=== PATIENT | male | born 1940 | race Caucasian/White ===

== ENCOUNTER 2024-03-25 08:39 | Day surgery (SDC) | payer MEDICARE, BC, SELFPAY ==
[2024-03-25] VITALS (16 sets, daily range): BP systolic 126–162; BP diastolic 44–136
[2024-03-25 09:21] LABS: Hematocrit 30.2 % (39.0-52.0); Hemoglobin 10.3 g/dL (13.0-18.0); Mean Corp Hgb Conc. 34.1 g/dL (33.0-37.0); Mean Corpuscular Volume 105.6 fL (80.0-94.0); Mean Platelet Volume 9.7 fL (7.4-10.4); Platelet Count 175 10^3/uL (130-400); Red Blood Cell Count 2.86 10^6/uL (4.70-6.10); Red Cell Dist. Width 14.9 % (11.5-14.5); White Blood Cell Count 9.4 10^3/uL (4.8-10.8)
[2024-03-25 09:31] LABS: INR 0.96; PT 13.1 Sec (11.4-14.6)
[2024-03-25 09:32] LABS: APTT 41.5 Sec (23.4-35.0)
[2024-03-25 09:39] LABS: Blood Urea Nitrogen 71 mg/dl (9-20); Carbon Dioxide 27 mmol/L (22-30); Chloride 93 mmol/L (98-107); Glucose 110 mg/dl (70-99); Potassium 4.7 mmol/L (3.5-5.1); Sodium 136 mmol/L (135-145); eGFR 3.65
--- NOTE | 2024-03-25 10:45 | W.SUR.PREOP ---
Pre-Operative Surgical Note
-
I have examined this patient prior to the performance of the scheduled procedure.
The patient's condition is unchanged from the time of the current History and
Physical and the patient is able to undergo the scheduled procedure.
--- NOTE | 2024-03-25 22:24 | OR.RPT ---
Operative Report
Operative Report
Date of Operation: 03/25/2024
Pre Op Diagnosis: Chronic limb threatening ischemia, left lower extremity with ischemic rest pain and nonhealing hallux wound
Post Op Diagnosis: Chronic limb threatening ischemia, left lower extremity with ischemic rest pain and nonhealing hallux wound
Procedure:
1.) Intravascular lithotripsy to left anterior tibial artery (Shockwave Javelin catheter)
2.) Balloon angioplasty to distal left anterior tibial artery and dorsalis pedis artery (2 mm x 150 mm angioplasty balloon)
3.) Intravascular lithotripsy to left posterior tibial artery (Shockwave Javelin catheter)
4.) Balloon angioplasty to left posterior tibial artery (2.5 mm x 120 mm angioplasty balloon)
5.) Diagnostic aortobiiliac arteriogram using CO2
6.) Diagnostic left lower extremity arteriogram using CO2 and 1/4 strength contrast
7.) Ultrasound-Guided percutaneous access to the right common femoral artery
Surgeon: Rolo Pascual III, MD
Turkish Rubber: Derrick Curtis MD PhD, PGY2
Anesthesia: Sedation with local
Complications: None
Estimated Blood Loss: Less than 20 cc
History and Indications for Procedure: 83-year-old male with chronic limb threatening ischemia of the left lower extremity manifested by ischemic rest pain and a nonhealing hallux wound
Procedure in Detail: Alexis Welsh was correctly identified and placed supine on the operating table. After adequate induction of anesthesia the bilateral groins were prepped and draped in the usual sterile fashion. A timeout was performed with the
nursing and anesthesia staff confirming the patient's identity as well as the nature and laterality of the procedure.
The right common femoral artery was identified under ultrasound guidance. The artery was patent. The superior and inferior aspects of the femoral head were identified with radiographic guidance and marked at the skin level. The proposed puncture
site was infiltrated with local anesthesia. Under ultrasound guidance we accessed the right common femoral artery with a micropuncture needle and upsized to a 5 Fr sheath over a Pro[employer] Healthson wire. The wire and a [employer] hook flush catheter were
advanced into the distal abdominal aorta and a diagnostic aorto-biiliac arteriogram was performed using CO2:
AORTO-ILIAC ARTERIOGRAM:
Aorta: Patent with no stenosis identified
Right common iliac artery: Patent with no stenosis identified
Right external iliac artery: Patent with no stenosis identified
Left common iliac artery: Patent with no stenosis identified
Left external iliac artery: Patent with no stenosis identified
Under roadmap guidance using a Glidewire and the Cloakroom hook catheter we selected the left common iliac artery and then the external iliac artery. A catheter was tracked up and over the aortic bifurcation and placed in the distal external iliac
artery. A diagnostic left lower extremity arteriogram was then performed with a combination of CO2 and 1/4 strength contrast which demonstrated the following:
LEFT LOWER EXTREMITY:
Common femoral artery: Patent with no stenosis identified
Profunda femoral artery: Patent with no stenosis identified
Superficial femoral artery: Diffusely calcified. Patent. No significant stenosis identified
Popliteal artery: Calcified. Patent. No significant stenosis identified
The superficial femoral artery and popliteal artery were selected with a Glidewire and Quickcross catheter. The catheter was placed in the above-knee popliteal artery and the remainder of the arteriogram was performed through this approach with 1/4
strength contrast:
Anterior tibial artery: Patent. Long length high-grade stenosis identified at the distal artery and extending into the dorsalis pedis artery
Tibioperoneal trunk: Patent
Peroneal artery: Patent
Posterior tibial artery: Patent with heavy calcification and scattered areas of stenosis. Heavily diseased distally with areas of high-grade stenosis and segmental occlusion. Severe small vessel disease identified in the plantar distribution
Severe small vessel disease identified in the foot
ENDOVASCULAR INTERVENTION: Systemic heparin was administered. Exchanged out for a 5 Fr 70 cm sheath over a Storq wire. Selected the anterior tibial artery under roadmap guidance with Quickcross catheter and glidewire. The catheter was advanced to
the distal artery. A [place] ST 0.014 wire was then advanced under roadmap guidance through the heavily diseased distal anterior tibial artery and positioned in the dorsalis pedis artery. Due to the heavily calcified nature of the arterial disease
and in an effort to modify the calcium to achieve maximum luminal gain with endovascular intervention I elected to proceed with intravascular lithotripsy. A Shockwave Javelin catheter was brought into position over the 0.014 wire. Under roadmap
guidance we slowly advanced the Javelin catheter over the 0.014 wire while continuously delivering lithotripsy pulses across the calcified anterior tibial artery disease. All 120 pulses were delivered. Subsequent arteriogram demonstrated a
significantly improved but suboptimal result. I then brought into position a 2 mm x 150 mm angioplasty balloon. This was positioned across the distal anterior tibial artery and proximal dorsalis pedis artery under roadmap guidance. The balloon
was inflated to nominal pressure, held in place for 3 minutes. 2 separate inflations were performed to treat the entire length of residual disease. Subsequent arteriogram demonstrated an excellent technical result with a widely patent anterior
tibial artery and dorsalis pedis artery with brisk flow and no significant residual stenosis identified. Flow was significantly improved through this artery compared to pretreatment.
I then focused my attention on the posterior tibial artery disease. Using a Glidewire and Quickcross catheter we selected the posterior tibial artery. The calcified stenoses in the mid and proximal artery were crossed with this approach. We
advanced the catheter to the severe disease distally. I then exchanged out for a 0.014 wire. Due to the heavily calcified nature of the arterial disease and in an effort to modify the calcium to achieve maximum luminal gain with endovascular
intervention I elected to proceed with intravascular lithotripsy. A Shockwave Javelin catheter was brought into position over the 0.014 wire. Lithotripsy pulses were delivered as the catheter was advanced under roadmap guidance across the proximal
and mid artery calcified stenoses. Despite multiple attempts we could not successfully advance the Javelin catheter over the 0.014 wire through the severe disease in the distal posterior tibial artery. All 120 pulses were delivered to the
posterior tibial artery. Subsequent to this I brought into position a 2.5 mm x 120 mm angioplasty balloon. This was positioned across the proximal and mid posterior tibial artery under roadmap guidance and inflated to nominal pressure. Additional
attempts were made to advance a 0.014 wire and catheter across the distal disease but we were unsuccessful. Additional attempts to cross the posterior tibial artery disease were abandoned.
COMPLETION ARTERIOGRAM: Patent anterior tibial artery and dorsalis pedis artery which supplied the forefoot. Significant high-grade stenosis and focal segmental occlusion seen in the distal posterior tibial artery. Heavily calcified posterior
tibial artery. Significant small vessel disease identified in the foot.
Satisfied with this result we concluded the procedure. The sheath tip was pulled back into the right external iliac artery. Protamine was administered. The sheath was secured in place with the plan to pull it in the recovery room.
The patient tolerated the procedure well and was taken to the recovery area in stable condition.
Attestation: I was present and responsible for the entire procedure.
Signed:
Rolo Pascual III, MD
[facility]
[phone] (euaj)
== END 2024-03-25 18:11 | disposition home or self-care (01) ==
LOC: CATH 08:39
PROVIDERS: ATTENDING PHYSICIAN Surgery Vascular Surgery; FAMILY PHYSICIAN Family Medicine; OTHER PHYSICIAN Internal Medicine Cardiovascular Disease
DX: I70.245 Atherosclerosis of native arteries of left leg with ulceration of other part of foot (principal); L97.529 Non-pressure chronic ulcer of other part of left foot with unspecified severity; I12.9 Hypertensive chronic kidney disease with stage 1 through stage 4 chronic kidney disease, or unspecified chronic kidney disease; N18.9 Chronic kidney disease, unspecified; I48.91 Unspecified atrial fibrillation; Z79.01 Long term (current) use of anticoagulants
CPT/HCPCS: C9772; C1725; C1894; 75625; 75710; 76937; 80048; 85027; 85610; 85730; C1769; Q9967

== ENCOUNTER → 2024-03-30 11:26 | Outpatient (REF) | payer MEDICARE, BC, SELFPAY | LOC: RAD 11:26 | PROVIDERS: ATTENDING PHYSICIAN Surgery Vascular Surgery; FAMILY PHYSICIAN Family Medicine | DX: I73.9 Peripheral vascular disease, unspecified (principal); Z01.818 Encounter for other preprocedural examination | CPT/HCPCS: 93922; 93971 ==

== ENCOUNTER 2024-04-18 13:10 | Inpatient (IN) | payer MEDICARE, BC, SELFPAY ==
[2024-04-18] VITALS (12 sets, daily range): BP systolic 119–171; BP diastolic 50–61; BMI 32.2
[2024-04-18 08:15] LABS: Hematocrit 35.5 % (39.0-52.0); Hemoglobin 11.3 g/dL (13.0-18.0); Mean Corp Hgb Conc. 31.8 g/dL (33.0-37.0); Mean Corpuscular Hgb 33.4 pg (27.0-31.0); Mean Platelet Volume 9.6 fL (7.4-10.4); Platelet Count 224 10^3/uL (130-400); Red Blood Cell Count 3.38 10^6/uL (4.70-6.10); Red Cell Dist. Width 14.2 % (11.5-14.5); White Blood Cell Count 10.8 10^3/uL (4.8-10.8)
[2024-04-18 08:24] LABS: INR 1.02; PT 13.7 Sec (11.4-14.6)
[2024-04-18 08:25] LABS: APTT 41.5 Sec (23.4-35.0)
[2024-04-18 09:00] LABS: Blood Urea Nitrogen 48 mg/dl (9-20); Calcium 9.4 mg/dl (8.4-10.2); Carbon Dioxide 25 mmol/L (22-30); Chloride 93 mmol/L (98-107); Estimated Creatinine Clearance 6 ml/min; Glucose 101 mg/dl (70-99); Potassium 4.7 mmol/L (3.5-5.1); Sodium 132 mmol/L (135-145); eGFR 3.91
[2024-04-18 10:43] LABS: ACT-LR - POC 363 Seconds (116-155)
[2024-04-18 11:43] LABS: ACT-LR - POC 268 Seconds (116-155)
[2024-04-18] MEDS: LOW STRENGTH ASPIRIN 81 MG PO (13:43)
--- NOTE | 2024-04-18 13:55 | W.IMMPOSTOP ---
Surgical Immed Post Op Note
-
Primary Surgeon: Dr. Rolo Pascual III, MD
Assisting Surgeon: Derrick Curtis MD, PhD (PGY-2)
Pre-op Diagnosis: Peripheral arterial disease with non healing wounds on toes bilaterally
Post-op Diagnosis: Peripheral arterial disease with non healing wounds on toes bilaterally
Procedure Performed: Transcatheter arterialization of the deep veins, right lower extremity (LimFlow)
Anesthesia Type: General
Specimen / Cultures: None
Estimated Blood Loss: Minimal
Complications: None
Operative Findings: The patient was brought to the OR and placed in the supine position. The patient was prepped and draped in usual sterile fashion. A tourniquet was placed on the patients left calf. Percutaneous access was obtained in the medial
plantar vein with ultrasound guidance. A 4Fr sheath was placed over wire in the medial plantar vein. At the patient's groin, ultrasound guidance was used to access the proximal left SFA antegrade. This was upsized to a 7Fr sheath over a bentson
wire. A left lower extremity arteriogram showed a patent SFA and popliteal artery. Distally the AT was the single run off to the foot (DP). The TP trunk was patent but both the PT and peroneal arteries were significantly diseased and occluded
long term. A quickcross catheter was advanced into the posterior tibial artery over a wire. The arterial catheter was advanced over the proximal left PT artery. The venous catheter was advanced over wire to the posterior tibial vein. The crossing
device was deployed, a basket snare was used to snare the crossing wire, and the arteriovenous anastomosis was made. The AV anastomosis underwent balloon angioplasty. The valvulotome was then advanced from the groin into the vein to remove the
valves. A balloon angioplasty was performed along the course of the vein to the foot. We then deployed the Limflow stent grafts from distal to proximal across the anastomosis. We finally advanced a wire into the plantar veins and venous arch system.
We performed a balloon angioplasty to open up the plantar venous system. Completion arteriogram was performed and showed widely patent stents across the PT to the venous system. There was good outflow into the plantar venous system. The venous
sheath on the foot was removed and manual pressure was held. The patient was transferred to the PACU in stable condition and the groin sheath was removed. Doppler signals were noted in the left distal PT vein, plantar vein, and at the DP.
--- NOTE | 2024-04-18 15:02 | OR.RPT ---
Operative Report
Operative Report
Date of Operation: 04/18/2024
Pre Op Diagnosis:
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
Atherosclerosis of lytton arteries of the left leg with ischemic rest pain
Chronic total occlusion of artery of the extremities
End stage renal disease
Post Op Diagnosis:
Atherosclerosis of lytton arteries of the left leg with ulceration of the toes
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
Atherosclerosis of lytton arteries of the left leg with ischemic rest pain
Chronic total occlusion of artery of the extremities
End stage renal disease
Procedure:
Transcatheter arterialization of the deep veins, left lower extremity (LimFlow procedure)
0620T: Endovascular venous arterialization, tibial or peroneal vein, with transcatheter placement of intravascular
stent graft(s) and closure by any method, including percutaneous or open vascular access, ultrasound guidance for vascular access when performed, all catheterization(s) and intraprocedural roadmapping and imaging guidance necessary to complete the
intervention, all associated radiological supervision and interpretation, when performed
[id number]: Bypass left posterior tibial artery to lower extremity vein with synthetic substitute, percutaneous approach
Surgeon: Rolo Pascual III, MD
Attendant Sales: Derrick Curtis MD PhD, PGY2
Anesthesia: General
Complications: None
Estimated Blood Loss: Less than 50 cc
History and Indications for Procedure: 83-year-old male with chronic limb threatening ischemia of his left lower extremity manifested by gangrene of the toes and ischemic rest pain. Arteriogram demonstrated severe tibial artery and small vessel
occlusive disease. There were no targets for traditional revascularization efforts, either open or endovascular. I made the recommendation that he undergo transcatheter arterialization of the deep veins.
Procedure in Detail: Alexis Welsh was brought back to the operating room and placed supine on the
OR table. General anesthesia was induced. Preoperative antibiotics were given. The patient�s left lower extremity with the left foot were prepped and draped in the usual sterile fashion.
Patient was placed in reverse Trendelenburg position A sterile tourniquet was applied to the left calf and inflated while obtaining venous access. I attempted several times to gain access to the lateral plantar vein and was successful with needle
cannulation but could not pass the wire successfully. Multiple failed attempts were made like this. Then we obtained ultrasound guided percutaneous access in the distal posterior tibial vein at the distal calcaneus using a micropuncture technique.
We upsized to a 4Fr sheath. A 0.014 wire was then advanced to the posterior tibial vein. A venogram was performed confirming access to the venous system.
Attention was then turned to the patient�s left groin. We first obtained antegrade percutaneous access in the left proximal superficial femoral artery using fluoroscopic and ultrasound guidance. We upsized to a 7Fr sheath over a Enth[place]on wire, which
was advanced into the Superficial Femoral Artery (SFA). We obtained a left lower extremity angiogram, which demonstrated the following:
Patent popliteal artery. Patent anterior tibial artery which continued into the foot following recent endovascular intervention. Patent peroneal artery. Patent posterior tibial artery which occluded distally. Unusual branching pattern of the
tibial arteries in the proximal calf.
Systemic heparin was administered. We used a Quickcross catheter and 0.014 wire to select the posterior tibial artery. We advanced the LimFlow ARC� Arterial Catheter into the proximal left posterior tibial artery. We advanced the LimFlow V-Ceiver�
Venous Catheter to the Posterior Tibial vein from the 4 Kitt[place] sheath in the foot at the same approximate level. The fluoroscopy unit was rotated in such a way as to overlay the crossing device and snare. The LimFlow crossing device (ARC) needle was
deployed into the Posterior Tibial Vein. A 0.014 wire was advanced through the crossing device into the venous snare (V-Ceiver) where it was captured and subsequently withdrawn
through the venous sheath, providing through and through wire access. The arteriovenous connection was ballooned with a 3 mm balloon. Next, the forward cutting LimFlow Vector� Valvulotome was advanced from the arterial sheath across the
arteriovenous connection into the Posterior Tibial Vein. The valvulotome was deployed and advanced down the vein in order to lyse the venous valves to the distal-most aspect of the posterior tibial vein near the sheath insertion. A 5 mm x 200 mm
balloon was used to angioplasty the donor vein to confirm adequate valve effacement and absence of stenosis within the donor vein in preparation for stent placement. We then deployed two LimFlow cylindrical stent grafts (5.5mm x 150mm and 5.5mm x
200mm) in the Posterior Tibial Vein from the ankle extending proximally up the calf. Next the tapered conical stent (3.5-5.5mm x 60 mm) was deployed proximally across the level of the arteriovenous connection. The stent grafts were post-dilated to 3
mm in the arterial segment and 5 mm in the venous segment. A 6 mm [place] high-pressure balloon was used to treat the distal end of the stent and an area of high-grade residual stenosis just beyond the end of the stent in the posterior tibial vein.
The foot sheath was retracted to allow for sarthak wiring of the metatarsal aspect of the plantar veins from the 7 Kittitian sheath above. The 0.014 wire and 0.014 Quickcross catheter were carefully advanced under roadmap guidance across the plantar
vein outflow and the pedal venous loop. A 4 mm x 120 mm balloon was placed across the venous loop and the plantar vein outflow and inflated to burst pressure. 2 separate inflations were made across the pedal loop and back towards the end of the
stents to cover this entire length. I then repeated the balloon angioplasty across this same pedal venous loop and plantar vein outflow segment with the 5 mm x 200 mm angioplasty balloon used previously. The pedal sheath was removed and venous
access hemostasis was obtained. The balloon was then deflated and removed.
A completion angiogram demonstrated widely patent Posterior Tibial stents and robust filling of the pedal venous system. The 7 Kitt[place] sheath was retracted into the more proximal SFA and secured in place with the plan to pull it in the recovery
room. Protamine was administered.
Handheld Doppler was performed at the distal Posterior Tibial Vein, Lateral Plantar Vein, and outflow Greater Saphenous Vein and an audible pulsatile signal was heard at all points.
The patient tolerated the procedure well awoke from anesthesia with no immediate complications and was taken to the recovery room in stable condition.
Attestation: I was present and responsible for the entire procedure
Signed:
Rolo Pascual III, MD
[facility]
[phone] (fbmc)
[2024-04-18] MEDS: DILAUDID 0.5 MG IV ×2 (15:09→21:29)
[2024-04-18] MEDS: RENVELA 800 MG PO ×2 (16:27→21:29)
[2024-04-18] MEDS: NSS 500 IV (16:27)
[2024-04-18] MEDS: FLOMAX 0.4 MG PO (16:27)
[2024-04-18] MEDS: LIPITOR 20 MG PO (16:27)
--- NOTE | 2024-04-18 17:25 | W.CON.NEPH ---
Consultation
-
Date/Time Consultation Requested: 04/18/2024 at 1 PM
Date/Time Consultation Performed: 04/18/2024 at 5 PM
Requesting Provider: KAREN Sims
Performing Provider: Dr Lucas Segundo
Reason for Consultation: ESRD/PD
Medical History
-
Chief Complaint: End-stage renal disease
History of Present Illness:
83-year-old male with a significant vasculopath with peripheral artery disease, hypertension, secondary hyperparathyroidism, mixed hyperlipidemia end-stage renal disease on peritoneal dialysis has been on peritoneal dialysis for 3 years which she
developed acute kidney injury secondary to sepsis initiating hemodialysis. He presents to the hospital for elective revascularization of his left lower extremity secondary to ischemia.
Renal consult for end-stage renal disease and peritoneal dialysis management
Currently has no chest pain shortness breath nausea or vomiting he is a status post revascularization of his left lower extremity
Past Medical History
peripheral artery disease, hypertension, secondary hyperparathyroidism, mixed hyperlipidemia end-stage renal disease on peritoneal dialysis has been on peritoneal dialysis for 3 years which she developed acute kidney injury secondary to sepsis
initiating hemodialysis. He presents to the hospital for elective revascularization of his left lower extremity secondary to ischemia.
Social History
Former smoker
Family History
No renal disease
Allergies / Home Medications
Allergy/AdvReac Type Severity Reaction Status Date / Time
Iodinated Contrast Media Allergy Nausea, Verified 04/18/24 07:56
kidney
failure
�Medication �Instructions �Recorded �Confirmed �Type
B-complex with vitamin C 1 tab PO BID Supplement 03/23/24 04/18/24 History
amiodarone 100 mg tablet 100 mg PO DAILY Arrhythmia 03/23/24 04/18/24 History
apixaban 5 mg tablet (Eliquis) 5 mg PO BID Blood Clot 03/23/24 04/18/24 History
Prevention/Tx
atorvastatin 20 mg tablet 20 mg PO QPM High Cholesterol 03/23/24 04/18/24 History
cholecalciferol (vitamin D3) 25 25 mcg PO DAILY Supplement 03/23/24 04/18/24 History
mcg (1,000 unit) tablet (Vitamin
D3)
coQ10 (ubiquinol) 100 mg capsule 100 mg PO DAILY Supplement 03/23/24 04/18/24 History
dipyridamole 50 mg tablet 50 mg PO DAILY Blood Clot 03/23/24 04/18/24 History
Prevention/Tx
hydralazine 10 mg tablet 10 mg PO BID Blood Pressure 03/23/24 04/18/24 History
metoprolol succinate 25 mg 25 mg PO DAILY Blood Pressure 03/23/24 04/18/24 History
tablet,extended release 24 hr
omeprazole 20 mg tablet,delayed 20 mg PO DAILY Gastrointestinal 03/23/24 04/18/24 History
release Issue
sevelamer carbonate 800 mg tablet 800 mg PO TID Kidney Disease 03/23/24 04/18/24 History
(Renvela)
sucroferric oxyhydroxide 500 mg 500 mg PO TID Kidney Disease 03/23/24 04/18/24 History
chewable tablet (Velphoro)
tamsulosin 0.4 mg capsule 0.4 mg PO QPM Urinary Issue 03/23/24 04/18/24 History
diphenhydramine HCl 50 mg capsule 50 mg PO PRE OP 04/13/24 04/18/24 History
prednisone 50 mg tablet 50 mg PO PRE OP Anti-Inflammatory 04/13/24 04/18/24 History
B-complex with vitamin C 1 tab PO DAILY Supplement 04/18/24 04/18/24 History
allopurinol 100 mg tablet 100 mg PO DAILY gout 04/18/24 04/18/24 History
docusate sodium 50 mg capsule 50 mg PO BID Constipation 04/18/24 04/18/24 History
tramadol 50 mg tablet 50 mg PO Q6H PRN pain 04/18/24 04/18/24 History
Review of Systems
-
No shortness of breath, chest pain, nausea or vomiting
All other systems: Negative unless noted
Physical Exam
Vital Signs
Vital Signs
Temp Pulse Resp BP Pulse Ox
98.5 F 66 17 138/50 98
04/18/24 15:03 04/18/24 15:03 04/18/24 15:03 04/18/24 15:03 04/18/24 15:03
Lab Results
WBC 10.8 10^3/uL (4.8-10.8) 04/18/24 07:57
RBC 3.38 10^6/uL (4.70-6.10) L 04/18/24 07:57
Hgb 11.3 g/dL (13.0-18.0) L 04/18/24 07:57
Hct 35.5 % (39.0-52.0) L 04/18/24 07:57
Plt Count 224 10^3/uL (130-400) 04/18/24 07:57
Sodium 132 mmol/L (135-145) L 04/18/24 07:57
Potassium 4.7 mmol/L (3.5-5.1) 04/18/24 07:57
Chloride 93 mmol/L (98-107) L 04/18/24 07:57
Carbon Dioxide 25 mmol/L (22-30) 04/18/24 07:57
BUN 48 mg/dl (9-20) H 04/18/24 07:57
Creatinine 11.8 mg/dL (0.7-1.3) H* 04/18/24 07:57
eGFR 3.91 04/18/24 07:57
Glucose 101 mg/dl (70-99) H 04/18/24 07:57
Calcium 9.4 mg/dl (8.4-10.2) 04/18/24 07:57
Physical Exam
General: Awake and Alert
HEENT: EOMI, Conjunctivae Clear and No JVD
Respiratory: Clear
Cardiac: S1/S2 and Regular Rate/Rhythm (With ectopy)
Abdomen: Soft, Nontender and Other (Tenckhoff catheter in place dry and intact)
Genito-urinary: Bloody Urine
Musculoskeletal: Edema and Other (Dry gangrene lower extremity)
Neuro: Nonfocal/Grossly Intact
Psych: Mood/afflect pleasant
Data Reviewed
-
Labs: Labs Reviewed by me
Assessment/Plan
-
83-year-old male with a significant vasculopath with peripheral artery disease, hypertension, secondary hyperparathyroidism, mixed hyperlipidemia end-stage renal disease on peritoneal dialysis has been on peritoneal dialysis for 3 years which she
developed acute kidney injury secondary to sepsis initiating hemodialysis. He presents to the hospital for elective revascularization of his left lower extremity secondary to ischemia.
ESRD on peritoneal dialysis
Peripheral artery disease status post revascularization
Hypertension
Anemia of chronic disease
Peritoneal dialysis ordered manual treatments
Performs a cycler at home 10-hour treatment/5 exchanges/3 L bags with alternating 1.5 and 2.5% no last fill
Hospital orders placed for manual 3 exchanges with a 4-hour dwell with a 2.5%
[2024-04-18] MEDS: ROXICODONE 5 MG PO (18:26)
[2024-04-18] MEDS: TYLENOL 650 MG PO (20:43)
[2024-04-18] MEDS: APRESOLINE 10 MG PO (20:45)
[2024-04-18] MEDS: HEPARIN 5000 UNITS SC (20:46)
[2024-04-18] MEDS: B COMPLEX w/VITAMIN C 1 CAPLET PO (20:46)
--- NOTE | 2024-04-18 22:50 | PTCARENOTE ---
Pt transferred to IMU to have peritoneal dialysis, report given over phone to receiving RN. Pt medicated for pain 12/11 from b/l LE shortly prior transfer. Left LE sites remain CDI, no signs of bleeding or hematoma noted, pulses present with dopler.
--- NOTE | 2024-04-18 23:15 | PTCARENOTE ---
Patient transported to IMU from [address] [place] [address] in the bed. Received report from RN over the phone. Pt AAOx3. Bilateral dorsalis pedis pulses present with Doppler. L groin puncture site dressing clean, dry, and intact with no evidence of bleeding. L medial
leg puncture site dressing clean, dry, and intact with no signs of bleeding. Pt to receive peritoneal dialysis, see worklist. Pt denies any pain at this time. Oriented to the unit and educated on the call carlson, it is within reach.
[2024-04-19] VITALS (14 sets, daily range): BP systolic 127–180; BP diastolic 51–94; BMI 33.2
[2024-04-19 05:37] LABS: Hematocrit 29.9 % (39.0-52.0); Hemoglobin 9.5 g/dL (13.0-18.0); Mean Corp Hgb Conc. 31.8 g/dL (33.0-37.0); Mean Corpuscular Hgb 33.8 pg (27.0-31.0); Mean Corpuscular Volume 106.4 fL (80.0-94.0); Platelet Count 198 10^3/uL (130-400); Red Blood Cell Count 2.81 10^6/uL (4.70-6.10); Red Cell Dist. Width 14.4 % (11.5-14.5); White Blood Cell Count 12.9 10^3/uL (4.8-10.8)
[2024-04-19 05:45] LABS: INR 0.95
[2024-04-19 05:46] LABS: APTT 37.1 Sec (23.4-35.0)
[2024-04-19] MEDS: TUMS CHEWABLE TABLET 400 MG PO ×2 (05:54→20:54)
[2024-04-19 06:01] LABS: Blood Urea Nitrogen 59 mg/dl (9-20); Calcium 8.5 mg/dl (8.4-10.2); Carbon Dioxide 24 mmol/L (22-30); Chloride 92 mmol/L (98-107); Glucose 111 mg/dl (70-99); Potassium 4.8 mmol/L (3.5-5.1); Sodium 132 mmol/L (135-145)
[2024-04-19 06:15] LABS: Estimated Creatinine Clearance 6 ml/min; eGFR 3.76
[2024-04-19] MEDS: PERSANTINE 50 MG PO (07:53)
[2024-04-19] MEDS: PACERONE 100 MG PO (07:54)
[2024-04-19] MEDS: APRESOLINE 10 MG PO ×2 (07:54→20:54)
[2024-04-19] MEDS: PROTONIX 40 MG PO (07:54)
[2024-04-19] MEDS: COLACE 100 MG PO (07:54)
[2024-04-19] MEDS: ZYLOPRIM 100 MG PO (07:54)
[2024-04-19] MEDS: TOPROL XL 25 MG PO (07:54)
[2024-04-19] MEDS: VITAMIN D3 (cholecalciferol) 25 MCG PO (07:54)
[2024-04-19] MEDS: RENVELA 800 MG PO ×2 (07:54→16:21)
[2024-04-19] MEDS: LOW STRENGTH ASPIRIN 81 MG PO (07:55)
[2024-04-19] MEDS: DILAUDID 0.5 MG IV ×2 (07:55→22:56)
[2024-04-19] MEDS: B COMPLEX w/VITAMIN C 1 CAPLET PO ×2 (07:55→20:54)
[2024-04-19] MEDS: HEPARIN 5000 UNITS SC ×2 (07:55→20:54)
--- NOTE | 2024-04-19 08:07 | W.PN.VS ---
Today's Communication / Plan
-
Patient seen and examined at bedside with Dr. Rolo Gann III, below plan reviewed with attending.
Assessment/Plan
-
Assessment: 83 year old male POD#1 Transcatheter arterialization of the deep veins, left lower extremity (LimFlow procedure)
Plan:
Urology consult pending for hematuria
Continue to hold home Eliquis given gross hematuria
Continue gann catheter
Continue ASA 81 mg PO daily
Appreciate nephrology management of PD
Subjective Data
-
Date of Service: April 19, 2024
Patient seen and examined at bedside, offers no complaints. Denies nausea, vomiting, fever, and chills.
Objective Data
-
Vital Signs
Temp Pulse Resp BP Pulse Ox
97.6 F 67 16 151/62 97
04/19/24 03:19 04/19/24 06:04 04/18/24 19:38 04/19/24 06:04 04/19/24 02:17
Intake and Output
04/18/24 04/19/24 04/20/24
06:59 06:59 06:59
Intake Total 950 / 950
Output Total 130 / 130
Balance 820 / 820
Intake:
Oral fluids 300 / 300
IV fluids (Total) 50 / 50
NSS 50 / 50
Fluid excess 600 / 600
Output:
Urine, Gann 130 / 130
Lab Results
04/19/24 05:07
04/19/24 05:07
Calcium 8.5 mg/dl (8.4-10.2) 04/19/24 05:07
Physical Exam
-
NAD, resting comfortably
No tachycardia
No dyspnea
ABD with PD catheter, CDI, non-tender
Left leg puncture site CDI, left DP/PT doppler signal, foot warm
Gann with gross hematuria
--- NOTE | 2024-04-19 10:11 | W.PN.URO.CBU ---
Today's Communication / Plan
-
Hold Eliquis: aspirin and SC heparin continued as per Vascular Surgery
Keep Pascual catheter
Will follow
Assessment / Plan
-
Gross hematuria likely due to Pascual irritation in this patient who has been on Eliquis and who has a history of BPH managed medically
Diagnosis
-
Date of Service: April 19, 2024
-
Patient Diagnosis:
Gross hematuria/catheter trauma
History of BPH managed by Dr. Mejia
No history of surgery
No prior history of gross hematuria
Subjective
-
Comfortable
No catheter bother
Objective
-
Vital Signs
Temp Pulse Resp BP Pulse Ox
97.7 F 70 16 145/59 97
04/19/24 07:30 04/19/24 08:00 04/18/24 19:38 04/19/24 08:00 04/19/24 02:17
Intake and Output
04/18/24 04/19/24 04/20/24
06:59 06:59 06:59
Intake Total 950 / 950
Output Total 130 / 130
Balance 820 / 820
Intake:
Oral fluids 300 / 300
IV fluids (Total) 50 / 50
NSS 50 / 50
Fluid excess 600 / 600
Output:
Urine, Pascual 130 / 130
Laboratory Results
04/19/24 05:07
04/19/24 05:07
Review of Systems
-
Constitutional: Fatigue
Respiratory: No Symptoms
Cardiac: No Symptoms
Abdomen/GI: No Symptoms
: Bleeding
Physical Exam
-
General - no acute distress
Abdomen - soft, non-tender, no CVAT
Genitalia - indwelling Pascual catheter with grossly bloody urine w/o clot, left > right scrotal edema w/o erythema
Neuro - AOx3, no motor deficits
Counseling
-
Keep Pascual
--- NOTE | 2024-04-19 11:14 | W.PN.NEPH.PH ---
Today's Communication / Plan
-
Continue peritoneal dialysis per prescription
Assessment/Plan
-
83-year-old male with a significant vasculopath with peripheral artery disease, hypertension, secondary hyperparathyroidism, mixed hyperlipidemia end-stage renal disease on peritoneal dialysis has been on peritoneal dialysis for 3 years which she
developed acute kidney injury secondary to sepsis initiating hemodialysis. He presents to the hospital for elective revascularization of his left lower extremity secondary to ischemia.
ESRD on peritoneal dialysis
Peripheral artery disease status post revascularization
Hypertension
Anemia of chronic disease
Hematuria= urology noted
Peritoneal dialysis ordered manual treatments
Performs a cycler at home 10-hour treatment/5 exchanges/3 L bags with alternating 1.5 and 2.5% no last fill
Hospital orders placed for manual 3 exchanges with a 4-hour dwell with a 2.5%
Continue current prescription
-
-
Date of Service: April 19, 2024
CC / HPI / ROS
-
Chief Complaint:
End-stage renal disease PD
History of Present Illness:
Presents for revascularization lower extremity peripheral artery disease
Hematuria developed with Pascual catheter placement in the OR
Review of Systems:
No chest pain shortness of breath nausea or vomiting
Pascual catheter continues to have gross hematuria and oligo/anuric
Labs
-
Labs:
WBC 12.9 10^3/uL (4.8-10.8) H 04/19/24 05:07
RBC 2.81 10^6/uL (4.70-6.10) L 04/19/24 05:07
Hgb 9.5 g/dL (13.0-18.0) L 04/19/24 05:07
Hct 29.9 % (39.0-52.0) L 04/19/24 05:07
Plt Count 198 10^3/uL (130-400) 04/19/24 05:07
Sodium 132 mmol/L (135-145) L 04/19/24 05:07
Potassium 4.8 mmol/L (3.5-5.1) 04/19/24 05:07
Chloride 92 mmol/L (98-107) L 04/19/24 05:07
Carbon Dioxide 24 mmol/L (22-30) 04/19/24 05:07
BUN 59 mg/dl (9-20) H 04/19/24 05:07
Creatinine 12.2 mg/dL (0.7-1.3) H* 04/19/24 05:07
eGFR 3.76 04/19/24 05:07
Glucose 111 mg/dl (70-99) H 04/19/24 05:07
Calcium 8.5 mg/dl (8.4-10.2) 04/19/24 05:07
Physical Exam
-
Vital Signs:
Vital Signs
Temp Pulse Resp BP Pulse Ox
97.7 F 69 16 139/94 97
04/19/24 07:30 04/19/24 10:01 04/18/24 19:38 04/19/24 10:01 04/19/24 02:17
Respiratory:: Bilateral: CTA
Lung Excursion:: Normal
Abdomen:: Soft and Tender (Tenckhoff catheter in place/dry with no erythema or drainage)
Bowel Sounds:: Normal
Extremity Edema:: +1: Bilateral:
Pascual Catheter: Yes
[2024-04-19] MEDS: ROXICODONE 5 MG PO (16:22)
[2024-04-19] MEDS: FLOMAX 0.4 MG PO (16:22)
[2024-04-19] MEDS: LIPITOR 20 MG PO (16:22)
--- NOTE | 2024-04-19 16:50 | STATUS ---
SITUATION:
Scrotal / penial edema worsening, pt concerned.
BACKGROUND:
Pascual in place, hematuria. PD manual cycles.
ASSESSMENT:
Scrotum/ penis +3-4 worsening with PD fill cycle.
RECOMMENDATION:
TT Dr. Rice, not much to do- explanation provided to pt. Will monitor.
--- NOTE | 2024-04-19 17:08 | CM ---
Patient with Hx ESRD on peritoneal dialysis who is s/p Transcatheter arterialization of the deep veins, left lower extremity. Room air. Receiving IV Dilaudid prn, Roxicodone prn.
Spoke with patient's Mayra;
the patient resides with his in a 2 story house with no CHARITY and first floor setup.
He was independent in ADLs and ambulation for short distances using his RW.
The patient does his own PD and has plenty of supplies at home. His dialysis center is [facility].
DME - RW, SPC, CPAP, PD supplies
No prior VN or SNF
PCP - Waelska Garcia
Pharmacy - [facility]
Message to Lucina Mccracken requesting PT/OT Evals.
Plan follow up after seen by PT/OT.
--- NOTE | 2024-04-19 17:26 | PTCARENOTE ---
Ox4 LC/ RA - tele shows SR with freq PVCs/ trigeminy at times. BP 164/65 this pm. IV Dilaudid given this am x1 with good relief of pain- Tried Roxicodone for left foot / leg pain this pm but not working as well. Scrotal edema +3-4, Pascual output
50ml bloody drainage. OOB to recliner x2 this shift- ambulated to bathroom with walker and washed at the sink. Appetite good, no BM today.
[2024-04-19] MEDS: TYLENOL 650 MG PO (20:55)
--- NOTE | 2024-04-19 22:35 | PTCARENOTE ---
Assumed care for patient overnight, received report from RN. Mila. Normal sinus on tele with occasional PVC's. BP 159/60. B/l dorsalis pedis pulse with a Doppler. 98% on room air. Pascual draining bloody urine no clots noted. Scrotal edema +3 patient
states that he 'has had this before'. Pt had 4/10 pain in the left foot, administered PRN Tylenol. Pt OOB to bathroom to brush teeth, wash face, and do perineal care. Pt requesting PRN tums after dinner due to indigestion. Pt ambulated well with
rolling walker and standy assistance. PD done per order see worklist. Pt able to make needs known. Call carlson is within reach.
[2024-04-20] VITALS (15 sets, daily range): BP systolic 135–172; BP diastolic 52–78; BMI 33.1
[2024-04-20] MEDS: TUMS CHEWABLE TABLET 400 MG PO ×4 (01:30→22:01)
[2024-04-20 06:08] LABS: Hematocrit 32.9 % (39.0-52.0); Hemoglobin 10.7 g/dL (13.0-18.0); Mean Corp Hgb Conc. 32.5 g/dL (33.0-37.0); Mean Corpuscular Hgb 33.8 pg (27.0-31.0); Mean Corpuscular Volume 103.8 fL (80.0-94.0); Mean Platelet Volume 9.5 fL (7.4-10.4); Platelet Count 195 10^3/uL (130-400); Red Blood Cell Count 3.17 10^6/uL (4.70-6.10); Red Cell Dist. Width 14.3 % (11.5-14.5); White Blood Cell Count 11.6 10^3/uL (4.8-10.8)
[2024-04-20 06:30] LABS: Blood Urea Nitrogen 63 mg/dl (9-20); Carbon Dioxide 28 mmol/L (22-30); Chloride 88 mmol/L (98-107); Glucose 108 mg/dl (70-99); Potassium 4.3 mmol/L (3.5-5.1); Sodium 127 mmol/L (135-145)
[2024-04-20 06:45] LABS: Estimated Creatinine Clearance 6 ml/min; eGFR 3.95
--- NOTE | 2024-04-20 08:21 | W.PN.VS ---
Addendum entered and electronically signed by Isak Craft MD 04/20/24 17:34:
Late entry. Seen and examined with SHARON Mccracken earlier this a.m. Findings and plan as discussed and noted below.
Original Note:
Today's Communication / Plan
-
Patient seen and examined at bedside with Dr. Isak Craft, below plan reviewed with attending.
Assessment/Plan
-
Assessment: 83 year old male POD#2 Transcatheter arterialization of the deep veins, left lower extremity (LimFlow procedure)
Plan:
Urology following for hematuria, awaiting further recommendations for management
Continue to hold home Eliquis given gross hematuria
Continue gann catheter, awaiting recommendations from urology
Continue ASA 81 mg PO daily
Appreciate nephrology management of PD
From a vascular surgery perspective patient is cleared for discharge home but we are waiting urology recommendations for hematuria that continues
Subjective Data
-
Date of Service: April 20, 2024
Patient seen and examined at bedside, offers no complaints. Does endorse chronic intermittent scrotal swelling from PD fluid. Denies nausea, vomiting, fever, chills. Reports eagerness for discharge to home when deemed stable.
Objective Data
-
Vital Signs
Temp Pulse Resp BP Pulse Ox
97.6 F 58 16 140/54 98
04/20/24 05:03 04/20/24 06:00 04/19/24 16:40 04/20/24 06:00 04/19/24 22:13
Intake and Output
04/19/24 04/20/24 04/21/24
06:59 06:59 06:59
Intake Total 950 / 950 2495 / 2495
Output Total 230 / 230 50 / 50
Balance 720 / 720 2445 / 2445
Intake:
Oral fluids 300 / 300 420 / 420
IV fluids (Total) 50 / 50
NSS 50 / 50
Fluid excess 600 / 600 2075 / 2075
Output:
Urine, Gann 230 / 230 50 / 50
Lab Results
04/20/24 05:49
04/20/24 05:49
Calcium 9.0 mg/dl (8.4-10.2) 04/20/24 05:49
Physical Exam
-
NAD, resting comfortably
No tachycardia
No dyspnea
ABD with PD catheter, CDI, non-tender
Left leg puncture site CDI, left foot warm
Gann with scant gross hematuria, +2 scrotal swelling that patient endorses is chronic in nature
--- NOTE | 2024-04-20 08:59 | W.PN.NEPH.PH ---
Today's Communication / Plan
-
PD orders provided
2.5% 2 L every 4 hours manual exhange
Assessment/Plan
-
83-year-old male with a significant vasculopath with peripheral artery disease, hypertension, secondary hyperparathyroidism, mixed hyperlipidemia end-stage renal disease on peritoneal dialysis has been on peritoneal dialysis for 3 years which she
developed acute kidney injury secondary to sepsis initiating hemodialysis. He presents to the hospital for elective revascularization of his left lower extremity secondary to ischemia.
ESRD on peritoneal dialysis
Peripheral artery disease status post revascularization
Hypertension
Anemia of chronic disease
Hematuria= urology noted
Plan:
Peritoneal dialysis ordered manual treatments
Performs a cycler at home 10-hour treatment/5 exchanges/3 L bags with alternating 1.5 and 2.5% no last fill
Hospital orders placed for manual exchanges with a 4-hour dwell with a 2.5%
labs reviewed
Continue current prescription
Ongoing microhematuria being evaluated by urology
-
-
Date of Service: April 20, 2024
CC / HPI / ROS
-
Chief Complaint:
End-stage renal disease PD
History of Present Illness:
Presents for revascularization lower extremity peripheral artery disease
Hematuria developed with Pascual catheter placement in the OR
Patient on PD for ESRD
Review of Systems:
No chest pain shortness of breath nausea or vomiting
Pascual catheter continues to have gross hematuria and oligo/anuric
Labs
-
Labs:
WBC 11.6 10^3/uL (4.8-10.8) H 04/20/24 05:49
RBC 3.17 10^6/uL (4.70-6.10) L 04/20/24 05:49
Hgb 10.7 g/dL (13.0-18.0) L 04/20/24 05:49
Hct 32.9 % (39.0-52.0) L 04/20/24 05:49
Plt Count 195 10^3/uL (130-400) 04/20/24 05:49
Sodium 127 mmol/L (135-145) L 04/20/24 05:49
Potassium 4.3 mmol/L (3.5-5.1) 04/20/24 05:49
Chloride 88 mmol/L (98-107) L 04/20/24 05:49
Carbon Dioxide 28 mmol/L (22-30) 04/20/24 05:49
BUN 63 mg/dl (9-20) H 04/20/24 05:49
Creatinine 11.7 mg/dL (0.7-1.3) H* 04/20/24 05:49
eGFR 3.95 04/20/24 05:49
Glucose 108 mg/dl (70-99) H 04/20/24 05:49
Calcium 9.0 mg/dl (8.4-10.2) 04/20/24 05:49
Physical Exam
-
Vital Signs:
Vital Signs
Temp Pulse Resp BP Pulse Ox
97.6 F 58 16 140/54 98
04/20/24 05:03 04/20/24 06:00 04/19/24 16:40 04/20/24 06:00 04/19/24 22:13
Respiratory:: Bilateral: CTA
Lung Excursion:: Normal
Abdomen:: Soft and Tender (Tenckhoff catheter in place/dry with no erythema or drainage)
Bowel Sounds:: Normal
Extremity Edema:: +1: Bilateral:
Pascual Catheter: Yes
Other Findings::
Bilateral gangrenous toe lesions
[2024-04-20] MEDS: HEPARIN 5000 UNITS SC ×2 (09:32→20:46)
[2024-04-20] MEDS: PACERONE 100 MG PO (09:32)
[2024-04-20] MEDS: COLACE 100 MG PO (09:32)
[2024-04-20] MEDS: PROTONIX 40 MG PO (09:32)
[2024-04-20] MEDS: TOPROL XL 25 MG PO (09:33)
[2024-04-20] MEDS: APRESOLINE 10 MG PO ×2 (09:33→20:46)
[2024-04-20] MEDS: PERSANTINE 50 MG PO (09:33)
[2024-04-20] MEDS: B COMPLEX w/VITAMIN C 1 CAPLET PO ×2 (09:33→20:46)
[2024-04-20] MEDS: VITAMIN D3 (cholecalciferol) 25 MCG PO (09:33)
[2024-04-20] MEDS: ZYLOPRIM 100 MG PO (09:33)
[2024-04-20] MEDS: RENVELA 800 MG PO ×3 (09:33→15:56)
[2024-04-20] MEDS: LOW STRENGTH ASPIRIN 81 MG PO (09:34)
[2024-04-20] MEDS: DILAUDID 0.5 MG IV ×2 (09:45→15:56)
[2024-04-20] MEDS: FLUSH (NSS) 2 FLUSH IV (09:46)
--- NOTE | 2024-04-20 11:04 | PTCARENOTE ---
Patient out of bed to chair, stand by assist with rolling walker. Patient reports pain at left foot rating 7/10. Medicated with IV dialudid as per MD order. Pain level went down to 3/10.
[2024-04-20] MEDS: ROXICODONE 5 MG PO (14:18)
--- NOTE | 2024-04-20 14:54 | CM ---
PT evaluated and reported that no skilled PT is needed
Plan: Will continue to monitor patient's hospital course; and will coordinate patient's disposition plan accordingly
--- NOTE | 2024-04-20 15:45 | PN.CDI ---
CDI
- -
CDI:
Physician Documentation Request
Admit Date: 04/18/24 13:10
Dear KAREN Sims,
Please review the following and provide your response in the progress notes.
Clinical Indicators:
Laboratory Tests
04/18/24 04/19/24 04/20/24
07:57 05:07 05:49
Sodium 132 L 132 L 127 L
Based on the above and your clinical assessment ,please clarify, the appropriate diagnosis, if significant, that supports the above abnormalities and additional evaluation, monitoring and/or treatment rendered:
Hyponatremia
Abnormal lab value, clinically insignificant
Other(please specify)
Use of terms such as suspected, likely, concern for, or probable (associated with a specific diagnosis that is being evaluated, monitored, or treated as if it exists) are acceptable and can be coded in the inpatient setting, when documented at the
time of discharge.
Thank you,
Olivia Meyers RN BSN CCDS
CDI Specialist
please contact via tiger text
Please use your independent medical judgment in providing your response.
[2024-04-20] MEDS: FLUSH (NSS) 1 FLUSH IV (15:57)
--- NOTE | 2024-04-20 16:21 | W.PN.UPDATE ---
Update Note
Progress Note Update
In response to CDI:
Clinical Indicators:
Laboratory Tests
04/18/24 04/19/24 04/20/24
07:57 05:07 05:49
Sodium 132 L 132 L 127 L
Based on the above and your clinical assessment ,please clarify, the appropriate diagnosis, if significant, that supports the above abnormalities and additional evaluation, monitoring and/or treatment rendered:
Abnormal lab value, clinically insignificant, patient is end-stage renal disease on peritoneal dialysis, nephrology following to adjust PD dialysate as needed for electrolyte derangements. Monitored with daily BMP.
--- NOTE | 2024-04-20 16:45 | PTCARENOTE ---
Patient tolerating PD. Next exchange will be at 2029. Vital signs stable. Q4 neuro checks on left lower extremity. Left great toe and right 2nd toe necrotic areas open to air. Medicating patient PRN with pain medication for left foot pain.
[2024-04-20] MEDS: FLOMAX 0.4 MG PO (17:40)
[2024-04-20] MEDS: LIPITOR 20 MG PO (17:40)
--- NOTE | 2024-04-20 17:46 | W.PN.URO.CBU ---
Today's Communication / Plan
-
Keep Pascual overnight
Anticipate removal of Pascual in AM
Assessment / Plan
-
Gross hematuria likely due to Pascual irritation in this patient who has been on Eliquis and who has a history of BPH managed medically
---
Pascual catheter hand irrigated: no clot recovered
Diagnosis
-
Date of Service: April 20, 2024
-
Patient Diagnosis:
Gross hematuria/catheter trauma
History of BPH managed by Dr. Mejia
No history of surgery
No prior history of gross hematuria
Subjective
-
Comfortable
No catheter bother
Objective
-
Vital Signs
Temp Pulse Resp BP Pulse Ox
97.6 F 63 16 168/78 96
04/20/24 15:34 04/20/24 16:00 04/20/24 11:01 04/20/24 16:00 04/20/24 11:05
Intake and Output
04/19/24 04/20/24 04/21/24
06:59 06:59 06:59
Intake Total 950 / 950 2495 / 2495 1025 / 1025
Output Total 230 / 230 50 / 50 200 / 200
Balance 720 / 720 2445 / 2445 825 / 825
Intake:
Oral fluids 300 / 300 420 / 420 525 / 525
IV fluids (Total) 50 / 50
NSS 50 / 50
Fluid excess 600 / 600 2075 / 2075 500 / 500
Output:
Urine, Pascual 230 / 230 50 / 50
Fluid deficit 200 / 200
Laboratory Results
04/20/24 05:49
04/20/24 05:49
Review of Systems
-
Constitutional: Fatigue
Respiratory: No Symptoms
Cardiac: No Symptoms
Abdomen/GI: No Symptoms
: Bleeding
Neurological: No Symptoms
Physical Exam
-
No acute distress
Abdomen - soft, non-tender
Genitalia - scrotal and penile edema w/o erythema, Pascual draining bloody urine w/o clot
Neuro - AOx3, no motor deficits
Counseling
-
Anticipate removal of Pascual in AM
Patient will follow up with Dr. Mejia as an outpatient
--- NOTE | 2024-04-20 17:59 | PTCARENOTE ---
Patient gann catheter draining bloody urine. Dr. Kearns to room to hand irrigate. Patient to keep gann overnight. Dr. Kearns will decide tomorrow about discontinuing the catheter.
[2024-04-20] MEDS: TYLENOL 650 MG PO (18:42)
[2024-04-21] VITALS (7 sets, daily range): BP systolic 160–189; BP diastolic 50–91; BMI 33.9
[2024-04-21 05:06] LABS: Hematocrit 31.8 % (39.0-52.0); Hemoglobin 10.4 g/dL (13.0-18.0); Mean Corp Hgb Conc. 32.7 g/dL (33.0-37.0); Mean Corpuscular Hgb 33.3 pg (27.0-31.0); Mean Corpuscular Volume 101.9 fL (80.0-94.0); Platelet Count 174 10^3/uL (130-400); Red Blood Cell Count 3.12 10^6/uL (4.70-6.10); Red Cell Dist. Width 14.2 % (11.5-14.5); White Blood Cell Count 11.4 10^3/uL (4.8-10.8)
[2024-04-21 05:24] LABS: Blood Urea Nitrogen 59 mg/dl (9-20); Calcium 9.1 mg/dl (8.4-10.2); Carbon Dioxide 25 mmol/L (22-30); Chloride 88 mmol/L (98-107); Glucose 105 mg/dl (70-99); Potassium 4.2 mmol/L (3.5-5.1); Sodium 126 mmol/L (135-145)
[2024-04-21 05:41] LABS: Estimated Creatinine Clearance 6 ml/min; eGFR 4.21
--- NOTE | 2024-04-21 05:48 | PTCARENOTE ---
Tolerating PD q4 hours. Hematuria continues, gann in place, no clots present. Ambulated to BR with FWW, steady gait. No BM. Neurovascular checks unchanged. NSR w/PACs. BP trending upward, asymptomatic. call carlson within reach.
[2024-04-21] MEDS: TYLENOL 650 MG PO ×2 (06:46→19:47)
[2024-04-21] MEDS: ROXICODONE 5 MG PO ×2 (06:47→19:47)
--- NOTE | 2024-04-21 07:52 | W.PN.VS ---
Addendum entered and electronically signed by Isak Craft MD 04/21/24 13:35:
Seen and examined with SHARON Mccracken. Agree with findings as noted below. Appreciate urology evaluation. Findings as noted below. Plan/as discussed and noted below. Discussed with urology. They are okay with removal of catheter. However given plan
for right lower extremity angiography tomorrow (and potential need for transient heparin), would favor retaining catheter until that is completed. Therefore likely will plan on catheter removal tomorrow. Plan angiogram tomorrow.
Original Note:
Today's Communication / Plan
-
Patient seen evaluated bedside with Dr. Isak Craft, below plan reviewed with attending
Assessment/Plan
-
Assessment: 83 year old male POD#3 Transcatheter arterialization of the deep veins, left lower extremity (LimFlow procedure)
Plan:
Urology following for hematuria, given Eliquis is currently on hold and he has Gann placed we will plan for right lower extremity angiogram tomorrow so that we may assess changes and hematuria with anticoagulation that is required for procedure
while Gann is still in place
Continue to hold home Eliquis
Continue gann catheter
Continue ASA 81 mg PO daily
Appreciate nephrology management of PD
N.p.o. after midnight
Elevate left lower extremity
Subjective Data
-
Date of Service: April 21, 2024
Patient seen and examined at bedside, offers no complaints. Does report eagerness for next steps regarding removal of Gann catheter. Denies nausea, vomiting, fever, and chills.
Objective Data
-
Vital Signs
Temp Pulse Resp BP Pulse Ox
97.9 F 66 16 161/50 94
04/21/24 04:02 04/21/24 06:11 04/20/24 11:01 04/21/24 06:11 04/20/24 23:04
Intake and Output
04/20/24 04/21/24 04/22/24
06:59 06:59 06:59
Intake Total 2495 / 2495 1900 / 1900
Output Total 50 / 50 650 / 650 600 / 600
Balance 2445 / 2445 1250 / 1250 -600 / -600
Intake:
Oral fluids 420 / 420 1200 / 1200
Fluid excess 2075 / 2075 700 / 700
Output:
Urine, Gann 50 / 50 250 / 250
Fluid deficit 400 / 400 600 / 600
Lab Results
04/21/24 04:58
04/21/24 04:58
Calcium 9.1 mg/dl (8.4-10.2) 04/21/24 04:58
Physical Exam
-
NAD, resting comfortably
No tachycardia
No dyspnea
ABD with PD catheter, CDI, non-tender
Left leg puncture site CDI, left foot warm, +2 edema, all areas soft
Gann with scant gross hematuria, +2 scrotal swelling that patient endorses is chronic in nature
--- NOTE | 2024-04-21 08:00 | W.PN.NEPH.PH ---
Today's Communication / Plan
-
PD orders provided, will change exchange to every 5 hours as patient says he is exhausted throughout the night with the PD
Assessment/Plan
-
83-year-old male with a significant vasculopath with peripheral artery disease, hypertension, secondary hyperparathyroidism, mixed hyperlipidemia end-stage renal disease on peritoneal dialysis has been on peritoneal dialysis for 3 years which she
developed acute kidney injury secondary to sepsis initiating hemodialysis. He presents to the hospital for elective revascularization of his left lower extremity secondary to ischemia.
ESRD on peritoneal dialysis
Peripheral artery disease status post revascularization
Hypertension
Anemia of chronic disease
Hematuria= urology noted
Plan:
Peritoneal dialysis ordered manual treatments
PD flow sheets reviewed: u/f negative 800cc over past shift
Performs a cycler at home 10-hour treatment/5 exchanges/3 L bags with alternating 1.5 and 2.5% no last fill
[facility] orders [facility] for manual exchanges with a 5-hour dwell with a 2.5%
labs reviewed, sodium dropping , will tighten fluid restriction
Continue current prescription
Ongoing microhematuria being evaluated by urology
-
-
Date of Service: April 21, 2024
CC / HPI / ROS
-
Chief Complaint:
End-stage renal disease PD
History of Present Illness:
Presents for revascularization lower extremity peripheral artery disease
Hematuria developed with Pascual catheter placement in the OR
Patient on PD for ESRD
Hyponatremia worsening
Review of Systems:
No chest pain shortness of breath nausea or vomiting
Pascual catheter continues to have gross hematuria and oligo/anuric
Labs
-
Labs:
WBC 11.4 10^3/uL (4.8-10.8) H 04/21/24 04:58
RBC 3.12 10^6/uL (4.70-6.10) L 04/21/24 04:58
Hgb 10.4 g/dL (13.0-18.0) L 04/21/24 04:58
Hct 31.8 % (39.0-52.0) L 04/21/24 04:58
Plt Count 174 10^3/uL (130-400) 04/21/24 04:58
Sodium 126 mmol/L (135-145) L 04/21/24 04:58
Potassium 4.2 mmol/L (3.5-5.1) 04/21/24 04:58
Chloride 88 mmol/L (98-107) L 04/21/24 04:58
Carbon Dioxide 25 mmol/L (22-30) 04/21/24 04:58
BUN 59 mg/dl (9-20) H 04/21/24 04:58
Creatinine 11.1 mg/dL (0.7-1.3) H* 04/21/24 04:58
eGFR 4.21 04/21/24 04:58
Glucose 105 mg/dl (70-99) H 04/21/24 04:58
Calcium 9.1 mg/dl (8.4-10.2) 04/21/24 04:58
Physical Exam
-
Vital Signs:
Vital Signs
Temp Pulse Resp BP Pulse Ox
97.9 F 66 16 161/50 94
04/21/24 04:02 04/21/24 06:11 04/20/24 11:01 04/21/24 06:11 04/20/24 23:04
Respiratory:: Bilateral: CTA
Lung Excursion:: Normal
Abdomen:: Soft and Tender (Tenckhoff catheter in place/dry with no erythema or drainage)
Bowel Sounds:: Normal
Extremity Edema:: +1: Bilateral:
Pascual Catheter: Yes
Other Findings::
Bilateral gangrenous toe lesions
[2024-04-21] MEDS: RENVELA 800 MG PO ×2 (08:43→17:01)
[2024-04-21] MEDS: APRESOLINE 10 MG PO ×2 (08:44→19:47)
[2024-04-21] MEDS: VITAMIN D3 (cholecalciferol) 25 MCG PO (08:44)
[2024-04-21] MEDS: TOPROL XL 25 MG PO (08:44)
[2024-04-21] MEDS: B COMPLEX w/VITAMIN C 1 CAPLET PO ×2 (08:44→19:48)
[2024-04-21] MEDS: PERSANTINE 50 MG PO (08:44)
[2024-04-21] MEDS: PACERONE 100 MG PO (08:44)
[2024-04-21] MEDS: PROTONIX 40 MG PO (08:44)
[2024-04-21] MEDS: COLACE 100 MG PO (08:45)
[2024-04-21] MEDS: LOW STRENGTH ASPIRIN 81 MG PO (08:45)
[2024-04-21] MEDS: ZYLOPRIM 100 MG PO (08:45)
[2024-04-21] MEDS: HEPARIN 5000 UNITS SC ×2 (08:45→19:48)
--- NOTE | 2024-04-21 11:48 | W.PN.URO.CBU ---
Today's Communication / Plan
-
Discussed with Vascular Surgery
Will remove Pascual if patient goes home and keep it another 24-48 hours if more intervention is planned
Assessment / Plan
-
Gross hematuria likely due to Pascual irritation in this patient who has been on Eliquis and who has a history of BPH managed medically
---
Pascual catheter hand irrigated: no clot recovered and urine less bloody 04/21/24
Diagnosis
-
Date of Service: April 21, 2024
-
Patient Diagnosis:
Gross hematuria/catheter trauma
History of BPH managed by Dr. Mejia
No history of surgery
No prior history of gross hematuria
Subjective
-
Comfortable
Objective
-
Vital Signs
Temp Pulse Resp BP Pulse Ox
97.7 F 71 16 169/61 94
04/21/24 07:35 04/21/24 08:00 04/21/24 08:00 04/21/24 08:00 04/20/24 23:04
Intake and Output
04/20/24 04/21/24 04/22/24
06:59 06:59 06:59
Intake Total 2495 / 2495 1900 / 1900
Output Total 50 / 50 650 / 650 600 / 600
Balance 2445 / 2445 1250 / 1250 -600 / -600
Intake:
Oral fluids 420 / 420 1200 / 1200
Fluid excess 2075 / 2075 700 / 700
Output:
Urine, Pascual 50 / 50 250 / 250
Fluid deficit 400 / 400 600 / 600
Laboratory Results
04/21/24 04:58
04/21/24 04:58
Review of Systems
-
Constitutional: Fatigue
Respiratory: No Symptoms
Cardiac: No Symptoms
Abdomen/GI: No Symptoms
: Bleeding
Neurological: No Symptoms
Physical Exam
-
General - no acute distress
Abdomen - soft, non-tender, no CVAT
Genitalia - stable edema, Pascual draining punch colored urine: improved
Counseling
-
Pascual may be removed if patient is going home
He will follow up with Dr. Mejia
[2024-04-21] MEDS: RENVELA PO (14:12)
[2024-04-21] MEDS: LIPITOR 20 MG PO (17:01)
[2024-04-21] MEDS: FLOMAX 0.4 MG PO (17:01)
--- NOTE | 2024-04-21 18:14 | PTCARENOTE ---
PD exchanges as ordered. PD site intact. Neurovasc checks as documented. +2LLE edema. +Doppler pulses, faint palpable >Left side /sluggish on the right. Few toes necrotic, unable to wear slippers or footwear- offered to adjust slipper socks to
meet needs pt declined. Appetite good, +Bm per pt. Pascual intact scrotal edema +2-3 today, pink tinged urine, oliguric.
[2024-04-21] MEDS: TUMS CHEWABLE TABLET 400 MG PO (19:47)
[2024-04-22] VITALS (14 sets, daily range): BP systolic 123–165; BP diastolic 49–108; BMI 33.0
[2024-04-22] MEDS: DILAUDID 0.5 MG IV ×2 (01:36→08:39)
--- NOTE | 2024-04-22 05:44 | PTCARENOTE ---
Ambulates to BR/chair assist x1 w/ FWW, steady gait. Reports hard BM yesterday. Gann with pink/red urine, oliguric. NPO since MN for procedure. Prn tylenol/oxycodone provided at bedtime, and IV dilaudid around 1am for catheter pain 01/11. c/o pain
at gann catheter site, pt thinks from the catheter pulling when ambulating. NSR w/ frequent PACs. Doppler pulses. Tolerating PD q5 hours, next exchange due at 0800.
[2024-04-22 06:29] LABS: Hematocrit 30.8 % (39.0-52.0); Hemoglobin 10.2 g/dL (13.0-18.0); Mean Corp Hgb Conc. 33.1 g/dL (33.0-37.0); Mean Corpuscular Hgb 33.4 pg (27.0-31.0); Platelet Count 164 10^3/uL (130-400); Red Blood Cell Count 3.05 10^6/uL (4.70-6.10); Red Cell Dist. Width 13.9 % (11.5-14.5); White Blood Cell Count 9.7 10^3/uL (4.8-10.8)
[2024-04-22 06:35] LABS: INR 0.92; PT 12.8 Sec (11.4-14.6)
[2024-04-22 06:36] LABS: APTT 37.9 Sec (23.4-35.0)
[2024-04-22 07:12] LABS: Blood Urea Nitrogen 59 mg/dl (9-20); Calcium 9.3 mg/dl (8.4-10.2); Carbon Dioxide 25 mmol/L (22-30); Chloride 88 mmol/L (98-107); Estimated Creatinine Clearance 6 ml/min; Glucose 107 mg/dl (70-99); Potassium 4.3 mmol/L (3.5-5.1); Sodium 125 mmol/L (135-145); eGFR 4.21
[2024-04-22] MEDS: ZYLOPRIM 100 MG PO (08:24)
[2024-04-22] MEDS: PROTONIX 40 MG PO (08:24)
[2024-04-22] MEDS: PERSANTINE 50 MG PO (08:24)
[2024-04-22] MEDS: LOW STRENGTH ASPIRIN 81 MG PO (08:24)
[2024-04-22] MEDS: B COMPLEX w/VITAMIN C 1 CAPLET PO ×2 (08:24→20:58)
[2024-04-22] MEDS: APRESOLINE 10 MG PO ×2 (08:24→20:57)
[2024-04-22] MEDS: TOPROL XL 25 MG PO (08:24)
[2024-04-22] MEDS: VITAMIN D3 (cholecalciferol) 25 MCG PO (08:25)
[2024-04-22] MEDS: HEPARIN 5000 UNITS SC ×2 (08:25→20:58)
[2024-04-22] MEDS: PACERONE 100 MG PO (08:25)
[2024-04-22] MEDS: COLACE 100 MG PO (08:25)
[2024-04-22] MEDS: DILAUDID IV (08:28)
[2024-04-22] MEDS: RENVELA PO ×2 (08:50→12:58)
--- NOTE | 2024-04-22 12:14 | PTCARENOTE ---
Report given to Madeline in blood and plasma laboratory assistant. NPO status maintained x am meds. IV Dilaudid given x1 this am with good relief of left foot and gann pain. Gann maintained.
PD in dwelling status - will drain and send to blood and plasma laboratory assistant via bed.
--- NOTE | 2024-04-22 12:57 | PTCARENOTE ---
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
--- NOTE | 2024-04-22 14:04 | OR.RPT ---
Operative Report
Operative Report
Date of Operation: 04/22/2024
Pre Op Diagnosis:
1. Chronic limb threatening ischemia right lower extremity
2. Dry gangrene right toes
3. End-stage renal disease requiring peritoneal dialysis
Post Op Diagnosis:
1. Chronic limb threatening ischemia right lower extremity
2. Dry gangrene right toes
3. End-stage renal disease requiring peritoneal dialysis
Procedure:
1.) intravascular lithotripsy to distal right posterior tibial artery and proximal plantar artery branch using shockwave javelin catheter
2.) intravascular lithotripsy to distal right posterior tibial artery using shockwave E8 2.5 mm x 80 mm balloon
3.) diagnostic right lower extremity arteriogram
4.) ultrasound-guided percutaneous access to the proximal right superficial femoral artery
Surgeon: Rolo Pascual III, MD
Liquor Rectifier: Derrick Curtis MD PhD, PGY2
Anesthesia: Sedation with local
Fluoroscopy:
42 min
104 mGy
18.57 Gy.cm2
Complications: None
Estimated Blood Loss: Minimal
History and Indications for Procedure: 83-year-old male with severe peripheral arterial occlusive disease and chronic limb threatening ischemia manifested by dry gangrene of the toes on the right foot and associated rest pain.
Procedure in Detail: Alexis Welsh was correctly identified and placed supine on the operating table. After adequate induction of anesthesia the bilateral groins were prepped and draped in the usual sterile fashion. A timeout was performed with the
nursing and anesthesia staff confirming the patient's identity as well as the nature and laterality of the procedure.
The right common femoral artery was identified under ultrasound guidance. The artery was patent. The superior and inferior aspects of the femoral head were identified with radiographic guidance and marked at the skin level. The proposed puncture
site was infiltrated with local anesthesia. Under ultrasound guidance we accessed the superficial femoral artery at its origin in an antegrade direction with a micropuncture needle and upsized to a 5 Fr sheath over a Bentson wire.
A diagnostic right lower extremity arteriogram was then performed which demonstrated the following:
RIGHT LOWER EXTREMITY:
Profunda femoral artery: Patent with no significant stenosis identified. Peripherally calcified
Superficial femoral artery: Diffuse peripheral calcification throughout. Patent with no significant stenosis identified
Popliteal artery: Peripherally calcified. Patent with no significant stenosis identified
Atypical branching pattern of the tibial arteries from the below-knee popliteal artery identified.
Anterior tibial artery: Patent proximal and mid segments. Occluded distally with no distal reconstitution identified.
Peroneal artery: Patent to the ankle with no significant stenosis identified
Posterior tibial artery: Patent as the dominant tibial artery runoff. Distally areas of focal high-grade stenosis and segmental occlusion are identified. Heavily calcified
Significant small vessel disease is identified in the foot.
ENDOVASCULAR INTERVENTION: Systemic heparin was administered. Advanced a Bentson wire to the below-knee popliteal artery. Exchanged out for a long 5 Fr sheath over a Bentson wire. The radiopaque tip of the sheath was positioned in the popliteal
artery. Selected the posterior tibial artery under roadmap guidance with Quickcross catheter and glidewire. The distal posterior tibial artery disease was crossed with a 0.014 Quickcross and 0.014 Mongo wire. The wire was advanced into the plantar
artery outflow. There was significant difficulty advancing the 0.014 Quickcross across the diseased segment and I was concerned about being able to advance additional devices for intervention across this area.
Due to the heavily calcified nature of the tibial occlusive disease and in an effort to achieve calcium modification for maximum luminal gain I elected to proceed with intravascular lithotripsy. Under roadmap guidance over the 0.014 wire I advanced
the shockwave javelin catheter. The radiopaque tip of the javelin catheter was brought just proximal to the distal posterior tibial artery occlusive disease. The catheter was slowly advanced over the wire under roadmap guidance while
simultaneously delivering lithotripsy pulses. The catheter was advanced across the posterior tibial artery disease to the level of the midfoot which was well into the proximal aspect of the patent plantar branch in the foot. All 120 pulses were
delivered across the diseased posterior tibial artery and proximal plantar artery. Subsequent arteriogram demonstrated overall improved appearance of the artery but areas of residual calcified stenosis remained. I elected to proceed with
intravascular lithotripsy with a balloon catheter now that I had improved luminal diameter for additional device delivery after the javelin lithotripsy. A 2.5 mm x 80 mm E8 shockwave balloon was placed across the posterior tibial artery stenosis
under roadmap guidance. Alternating rounds of lithotripsy pulse delivery at sub-nominal pressure and angioplasty at nominal pressure was performed across the stenosis. In between rounds of pulse delivery and angioplasty the balloon was deflated and
repositioned under roadmap guidance. All 400 pulses were delivered.
COMPLETION ARTERIOGRAM: Outstanding technical result. Patent posterior tibial artery with brisk flow and no areas of significant residual stenosis identified. Outflow through a diseased plantar branch into the foot. Patent peroneal artery to the
ankle. Again demonstrated was distal anterior tibial artery occlusion with no distal reconstitution of the dorsalis pedis artery. Significant small vessel disease identified in the foot.
Satisfied with this result we concluded the procedure. The sheath tip was pulled back into the mid superficial femoral artery. Protamine was administered. The sheath was pulled and direct manual pressure was held over the puncture site.
Hemostasis was achieved. A sterile dressing was applied.
The patient tolerated the procedure well and was taken to the recovery area in stable condition.
Attestation: I was present and responsible for the entire procedure.
Signed:
Rolo Pascual III, MD
[facility]
[phone] (cell)
--- NOTE | 2024-04-22 16:11 | CM ---
Patient with Hx ESRD on peritoneal dialysis who is s/p Transcatheter arterialization of the deep veins, left lower extremity. Plan angiogram today. Room air. Pascual cath. PT Screen; No skilled PT needed. Per nurse activity notes 04/21;
ambulatory in room by self.
CM continuing to follow.
Plan home.
--- NOTE | 2024-04-22 17:44 | W.IMMPOSTOP ---
Surgical Immed Post Op Note
-
Primary Surgeon: Dr. Rolo Pascual III, MD
Assisting Surgeon: Derrick Curtis MD, PhD (PGY-2)
Pre-op Diagnosis: Peripheral arterial occlusive disease
Post-op Diagnosis: Peripheral arterial occlusive disease
Procedure Performed: Antegrade femoral access, diagnostic arteriogram, balloon angioplasty and intravascular lithotripsy (javelin) and intravascular lithotripsy
Anesthesia Type: MAC
Specimen / Cultures: None
Estimated Blood Loss: 2cc
Complications: None
Operative Findings: The patient was brought to the OR and placed in the supine position. The patient was prepped and draped in usual sterile fashion. Ultrasound guidance was used to identify the right proximal SFA. Local anesthetic was delivered at
the proposed puncture site. A micropuncture needle was used to access the right proximal SFA in antegrade fashion. This was upsized to a 5Fr sheath over a Livingly Mediason wire. A diagnostic arteriogram was performed and showed patent SFA and popliteal
arteries. Distally there was single vessel run off via the PT, as the AT was occluded proximally and the peroneal had extensive disease and was occluded distally. The PT was extensively diseased but had run off to the distal PT in the foot. A wire
was used to select the PT proximally. Intravascular lithotripsy with a javelin catheter was performed along the PT to the foot. After this a balloon angioplasty and traditional intravascular lithotripsy (2.5mm) was performed. Completion arteriogram
showed a significant improvement in the patency of the PT with good run off to the foot. Wires and sheaths were removed and manual occlusive pressure was held over the puncture site. The patient had a doppler signal in his DP and PT bilaterally at
the conclusion of the case. The patient was transported to the PACU in stable condition.
--- NOTE | 2024-04-22 19:18 | PTCARENOTE ---
Returned from PACU, AAOx3, LC on 2L NC- SR/SB 60 on tele, BP 153/60. Right groin site CDI, see flowsheet. Pascual with 10ml pink urine. PO Diet ordered.
[2024-04-22] MEDS: FLOMAX 0.4 MG PO (20:57)
[2024-04-22] MEDS: RENVELA 800 MG PO (20:58)
[2024-04-22] MEDS: LIPITOR 20 MG PO (20:58)
[2024-04-23 00:06] VITALS: BP 148/55
[2024-04-23] MEDS: DILAUDID 0.5 MG IV ×2 (00:08→11:12)
[2024-04-23 04:00] VITALS: BP 116/49
[2024-04-23] MEDS: ROXICODONE 5 MG PO (04:29)
[2024-04-23] MEDS: TYLENOL 650 MG PO (04:29)
[2024-04-23 04:32] VITALS: BMI 34.0
[2024-04-23] MEDS: TUMS CHEWABLE TABLET 400 MG PO (04:40)
[2024-04-23 04:58] LABS: Hematocrit 30.6 % (39.0-52.0); Hemoglobin 10.1 g/dL (13.0-18.0); Mean Corpuscular Hgb 33.2 pg (27.0-31.0); Mean Corpuscular Volume 100.7 fL (80.0-94.0); Mean Platelet Volume 9.8 fL (7.4-10.4); Platelet Count 146 10^3/uL (130-400); Red Blood Cell Count 3.04 10^6/uL (4.70-6.10); Red Cell Dist. Width 14.2 % (11.5-14.5)
[2024-04-23 05:37] LABS: Blood Urea Nitrogen 61 mg/dl (9-20); Calcium 8.9 mg/dl (8.4-10.2); Carbon Dioxide 24 mmol/L (22-30); Chloride 87 mmol/L (98-107); Estimated Creatinine Clearance 6 ml/min; Glucose 127 mg/dl (70-99); Potassium 4.8 mmol/L (3.5-5.1); Sodium 125 mmol/L (135-145); eGFR 3.99
--- NOTE | 2024-04-23 06:40 | PTCARENOTE ---
Right cath site intact, old drainage in groin from sheath removal, no new drainage. Doppler pedal pulses. Necrotic toes unchanged. PRN Dilaudid, Tylenol and oxycodone provided for pain per pt request. Tolerated PD Q5 hour exchanges, next exchange
due at 0930. Turning self while in bed. Pascual with pink tinged urine, small sediment present. NSR/SB w/PACs & 1st degree AVB on tele. Utilized CPAP from home HS; order obtained from [facility]. Call carlson within reach. Pt calls appropriately.
[2024-04-23 08:35] VITALS: BP 157/67
[2024-04-23] MEDS: ZYLOPRIM 100 MG PO (08:55)
[2024-04-23] MEDS: RENVELA 800 MG PO ×2 (08:55→11:12)
[2024-04-23] MEDS: PERSANTINE 50 MG PO (08:55)
[2024-04-23] MEDS: APRESOLINE 10 MG PO (08:55)
[2024-04-23] MEDS: LOW STRENGTH ASPIRIN 81 MG PO (08:56)
[2024-04-23] MEDS: TOPROL XL 25 MG PO (08:57)
[2024-04-23] MEDS: PROTONIX 40 MG PO (08:57)
[2024-04-23] MEDS: COLACE 100 MG PO (08:58)
[2024-04-23] MEDS: VITAMIN D3 (cholecalciferol) 25 MCG PO (08:58)
[2024-04-23] MEDS: B COMPLEX w/VITAMIN C 1 CAPLET PO (08:58)
[2024-04-23] MEDS: PACERONE 100 MG PO (08:59)
[2024-04-23] MEDS: HEPARIN 5000 UNITS SC (08:59)
--- NOTE | 2024-04-23 09:43 | W.PN.NEPH.PH ---
Today's Communication / Plan
-
Patient continue peritoneal dialysis no changes
Assessment/Plan
-
83-year-old male with a significant vasculopath with peripheral artery disease, hypertension, secondary hyperparathyroidism, mixed hyperlipidemia end-stage renal disease on peritoneal dialysis has been on peritoneal dialysis for 3 years which she
developed acute kidney injury secondary to sepsis initiating hemodialysis. He presents to the hospital for elective revascularization of his left lower extremity secondary to ischemia.
ESRD on peritoneal dialysis
Peripheral artery disease status post revascularization
Hypertension
Anemia of chronic disease
Hematuria= urology noted
Plan:
Peritoneal dialysis ordered manual treatments
PD flow sheets reviewed ultrafiltration adequate
Performs a cycler at home 10-hour treatment/5 exchanges/3 L bags with alternating 1.5 and 2.5% no last fill
[facility] orders placed for manual exchanges with a 5-hour dwell with a 2.5%
Continue current prescription
Ongoing microhematuria being evaluated by urology
Sodium remains at 125 /continue with fluid restriction
-
-
Date of Service: April 23, 2024
CC / HPI / ROS
-
Chief Complaint:
End-stage renal disease PD
History of Present Illness:
Presents for revascularization lower extremity peripheral artery disease
Hematuria developed with Pascual catheter placement in the OR
Patient on PD for ESRD
Review of Systems:
No chest pain shortness of breath nausea or vomiting
Pascual catheter continues to have gross hematuria and oligo/anuric
Labs
-
Labs:
WBC 9.0 10^3/uL (4.8-10.8) 04/23/24 04:50
RBC 3.04 10^6/uL (4.70-6.10) L 04/23/24 04:50
Hgb 10.1 g/dL (13.0-18.0) L 04/23/24 04:50
Hct 30.6 % (39.0-52.0) L 04/23/24 04:50
Plt Count 146 10^3/uL (130-400) 04/23/24 04:50
Sodium 125 mmol/L (135-145) L 04/23/24 04:50
Potassium 4.8 mmol/L (3.5-5.1) 04/23/24 04:50
Chloride 87 mmol/L (98-107) L 04/23/24 04:50
Carbon Dioxide 24 mmol/L (22-30) 04/23/24 04:50
BUN 61 mg/dl (9-20) H 04/23/24 04:50
Creatinine 11.6 mg/dL (0.7-1.3) H* 04/23/24 04:50
eGFR 3.99 04/23/24 04:50
Glucose 127 mg/dl (70-99) H 04/23/24 04:50
Calcium 8.9 mg/dl (8.4-10.2) 04/23/24 04:50
Physical Exam
-
Vital Signs:
Vital Signs
Temp Pulse Resp BP Pulse Ox
97.6 F 73 13 116/49 94
04/23/24 07:54 04/23/24 06:00 04/22/24 18:15 04/23/24 04:00 04/23/24 02:45
Respiratory:: Bilateral: CTA
Lung Excursion:: Normal
Abdomen:: Soft and Tender (Tenckhoff catheter in place/dry with no erythema or drainage)
Bowel Sounds:: Normal
Extremity Edema:: +1: Bilateral:
Pascual Catheter: Yes
Other Findings::
Bilateral gangrenous toe lesions
--- NOTE | 2024-04-23 11:18 | W.PN.VS ---
Today's Communication / Plan
-
Plan:
Restart Eliquis
D/C home
Follow up as outpatient for LimFlow RL
Assessment/Plan
-
Assessment: 83 year old male POD#5 Transcatheter arterialization of the deep veins, left lower extremity (LimFlow procedure) POD 1 antegrade RLE angiogram
Plan:
Restart Eliquis
D/C home
Follow up as outpatient for LimFlow RLE
Subjective Data
-
Date of Service: April 23, 2024
83M POD 5 LLE limbflow, POD 1 RLE angiogram via antegrade stick
feeling well
no pain, numbness or weakness
Na 125
No groin pain
Objective Data
-
Vital Signs
Temp Pulse Resp BP Pulse Ox
97.6 F 77 13 157/67 96
04/23/24 07:54 04/23/24 10:00 04/22/24 18:15 04/23/24 08:35 04/23/24 10:00
Intake and Output
04/22/24 04/23/24 04/24/24
06:59 06:59 06:59
Intake Total 940 / 940 2500 / 2500
Output Total 1325 / 1325 360 / 360
Balance -385 / -385 2140 / 2140
Intake:
Oral fluids 840 / 840
IV fluids (Total) 600 / 600
NSS 50 / 50
Fluid excess 100 / 100 1900 / 1900
Output:
Urine, Pascual 75 / 75 60 / 60
Fluid deficit 1250 / 1250 300 / 300
Lab Results
04/23/24 04:50
04/23/24 04:50
Calcium 8.9 mg/dl (8.4-10.2) 04/23/24 04:50
Physical Exam
-
R groin clean, dry, intact
dry wounds to feet
[2024-04-23 12:00] VITALS: BP 132/48
--- NOTE | 2024-04-23 12:25 | W.PN.URO.CBU ---
Today's Communication / Plan
-
Hematuria resolved
Remove Pascual
Assessment / Plan
-
Gross hematuria likely due to Pascual irritation in this patient who has been on Eliquis and who has a history of BPH managed medically: resolved
Diagnosis
-
Date of Service: April 23, 2024
-
Patient Diagnosis:
Gross hematuria/catheter trauma: resolved 04/23/24
History of BPH managed by Dr. Mejia
No history of surgery
No prior history of gross hematuria
Subjective
-
Feels well
Objective
-
Vital Signs
Temp Pulse Resp BP Pulse Ox
97.6 F 77 13 157/67 96
04/23/24 07:54 04/23/24 10:00 04/22/24 18:15 04/23/24 08:35 04/23/24 10:00
Intake and Output
04/22/24 04/23/24 04/24/24
06:59 06:59 06:59
Intake Total 940 / 940 2500 / 2500
Output Total 1325 / 1325 360 / 360
Balance -385 / -385 2140 / 2140
Intake:
Oral fluids 840 / 840
IV fluids (Total) 600 / 600
NSS 50 / 50
Fluid excess 100 / 100 1900 / 1900
Output:
Urine, Pascual 75 / 75 60 / 60
Fluid deficit 1250 / 1250 300 / 300
Laboratory Results
04/23/24 04:50
04/23/24 04:50
Review of Systems
-
Constitutional: Fatigue
Respiratory: No Symptoms
Cardiac: No Symptoms
Abdomen/GI: No Symptoms
Physical Exam
-
General - well nourished, no acute distress
Abdomen - soft, non-tender
Genitalia - stable/chronic edema. Pascual draining clear urine
[2024-04-23] MEDS: ELIQUIS 5 MG PO (12:58)
--- NOTE | 2024-04-23 14:13 | PTCARENOTE ---
gann catheter removed by this RN. Verified w/ urology that d/t pt being oliguric and on PD, and because gann was placed for a procedure and not for urinary retention pt does not need to void or have bladder scan completed prior to being
discharged.
--- NOTE | 2024-04-23 14:43 | CM ---
Patient with Hx ESRD on peritoneal dialysis who is s/p Transcatheter arterialization of the deep veins LLE, LLE Angiogram. Pascual out today per nurse.
Met with patient who was preparing for d/c, and spoke with Mayra by phone; both agree with d/c home today. IMM completed. Mayra will provide transport home today. Offered VN and declined.
Plan home today.
== END 2024-04-23 15:05 | disposition home or self-care (01) | DRG 278 ==
LOC: IMU 13:10
PROVIDERS: Nurse Practitioner; Nurse Practitioner Acute Care; Specialist; ADMITTING PHYSICIAN Surgery Vascular Surgery; CONSULT PHYSICIAN Internal Medicine Nephrology; CONSULT PHYSICIAN Specialist; FAMILY PHYSICIAN Family Medicine
PROC: 041S3JS Bypass Left Posterior Tibial Artery to Lower Extremity Vein with Synthetic Substitute, Percutaneous Approach (ICD-10-PCS; 2024-04-18)
PROC: B41F1ZZ Fluoroscopy of Right Lower Extremity Arteries using Low Osmolar Contrast (ICD-10-PCS; 2024-04-22)
PROC: 047R3ZZ Dilation of Right Posterior Tibial Artery, Percutaneous Approach (ICD-10-PCS; 2024-04-22)
PROC: 04FR3ZZ Fragmentation of Right Posterior Tibial Artery, Percutaneous Approach (ICD-10-PCS; 2024-04-22)
DX: I70.263 Atherosclerosis of native arteries of extremities with gangrene, bilateral legs (principal); N18.6 End stage renal disease; I12.0 Hypertensive chronic kidney disease with stage 5 chronic kidney disease or end stage renal disease; N25.81 Secondary hyperparathyroidism of renal origin; S37.39XA Other injury of urethra, initial encounter; L97.529 Non-pressure chronic ulcer of other part of left foot with unspecified severity; D63.1 Anemia in chronic kidney disease; E78.2 Mixed hyperlipidemia; R31.0 Gross hematuria; N40.0 Benign prostatic hyperplasia without lower urinary tract symptoms; Y84.6 Urinary catheterization as the cause of abnormal reaction of the patient, or of later complication, without mention of misadventure at the time of the procedure; Z79.01 Long term (current) use of anticoagulants; Z79.899 Other long term (current) drug therapy; Z87.891 Personal history of nicotine dependence; Z99.2 Dependence on renal dialysis
CPT/HCPCS: 0620T; 75710; 80048; 85027; 85610; 85730; C1725; C1769; C1889; C1894; C9772; Q9967

== ENCOUNTER → 2024-05-16 13:01 | Outpatient (REF) | payer MEDICARE, BC, SELFPAY | LOC: RAD 13:01 | PROVIDERS: ATTENDING PHYSICIAN Surgery Vascular Surgery; FAMILY PHYSICIAN Family Medicine | DX: I73.9 Peripheral vascular disease, unspecified (principal) | CPT/HCPCS: 93922; 93926 ==

== ENCOUNTER 2024-05-26 18:36 | Inpatient (IN) | payer MEDICARE, BC, SELFPAY ==
[2024-05-26 11:50] VITALS: BP 132/58
[2024-05-26 12:12] VITALS: BMI 29.5
[2024-05-26 12:56] VITALS: BP 157/53
[2024-05-26 13:01] LABS: % Basophils 0.3 % (0-2); % Eosinophils 1.3 % (0-6); % Immature Granulocytes 0.7 % (0-0.5); % Lymphocytes 13.9 % (20.5-51.1); % Monocytes 7.4 % (1.7-9.3); % Neutrophils 76.4 % (42.2-75.2); Absolute Eosinophils 0.2 10^3/uL (0-0.7); Absolute Immature Granulocytes 0.1 10^3/uL (0-0.05); Absolute Lymphocytes 1.7 10^3/uL (1.2-3.4); Absolute Monocytes 0.9 10^3/uL (0.1-0.6); Absolute Neutrophils 9.2 10^3/uL (1.4-6.5); Hematocrit 30.2 % (39.0-52.0); Hemoglobin 10.1 g/dL (13.0-18.0); Mean Corp Hgb Conc. 33.4 g/dL (33.0-37.0); Mean Corpuscular Hgb 33.8 pg (27.0-31.0); Mean Platelet Volume 9.8 fL (7.4-10.4); Nucleated Red Blood Cells % 0 % (-); Platelet Count 133 10^3/uL (130-400); Red Blood Cell Count 2.99 10^6/uL (4.70-6.10); Red Cell Dist. Width 14.6 % (11.5-14.5); White Blood Cell Count 12.1 10^3/uL (4.8-10.8)
[2024-05-26 13:15] LABS: INR 0.97; PT 13.2 Sec (11.4-14.6)
[2024-05-26 13:16] LABS: APTT 37.6 Sec (23.4-35.0)
[2024-05-26 13:22] LABS: ALT (SGPT) 11 U/L (0-50); AST (SGOT) 20 U/L (17-59); Alkaline Phosphatase 65 U/L (38-126); Blood Urea Nitrogen 46 mg/dl (9-20); Calcium 10.1 mg/dl (8.4-10.2); Carbon Dioxide 32 mmol/L (22-30); Chloride 91 mmol/L (98-107); Estimated Creatinine Clearance 5 ml/min; Glucose 109 mg/dl (70-99); Potassium 3.8 mmol/L (3.5-5.1); Sodium 132 mmol/L (135-145); Total Bilirubin 0.5 mg/dl (0.2-1.3); Total Protein 4.9 g/dl (6.3-8.2); eGFR 4.12
--- NOTE | 2024-05-26 13:24 | ED.GENMED ---
History of Present Illness
General
Chief Complaint: Vascular Symptoms
Time Seen by Provider: 05/26/24 13:12
History of Present Illness
History of Present Illness:
83-year-old male with history of peripheral arterial disease, atrial fibrillation, hypertension, and hyperlipidemia presents to the emergency department for evaluation of left great toe pain, swelling, and bloody discharge. He was referred into the
ED by his vascular specialist. Has a chronic level pain due to his PAD but states this is acutely worse. No fevers or chills.
Patient underwent intravascular lithotripsy and balloon angioplasty to the left anterior and posterior tibial arteries secondary to critical limb ischemia on 03/25/2024.
Review of Systems
Review of Systems
Allergies reviewed?: Yes
All Other Systems: ROS reviewed and negative except as documented in HPI and ROS
Phy Exam
Physical Exam
Physical Exam:
GEN: Well appearing, NAD, WDWN
HEENT: Oral mucosa moist, no scleral icterus
Cardiac: Regular rate
Lung: No respiratory distress, no tachypnea
MSK: No gross deformity or injuries
Skin: Dry gangrene to bilateral first and second digits. Left dorsalis pedis strong by palpation and posterior tibialis pulse strong by Doppler. There is mild circumferential erythema and swelling of the left great toe with serosanguineous
discharge
Neuro: AO x3, moves all extremities freely
Psych: Calm, cooperative
Course
Orders/Labs/Results
Orders:
Orders
05/26/24 12:48
C-Reactive Protein Urgent
Comment: ADD ON
Complete Blood Count/With Diff Urgent
Comprehensive Metabolic Panel Urgent
Erythrocyte Sed Rate Urgent
Comment: ADD ON
PT/INR [Prothrombin Time] Urgent
PTT Urgent
05/26/24 13:24
Add On- LAB Urgent
Tests Added?: ESR/CRP
CR Foot - Left Min 3 Views Urgent
Reason For Exam: L great toe pain/swelling, hx of PAD
05/26/24 13:25
Oxycodone [Roxicodone] 5 mg PO NOW STA
05/26/24 14:45
Vancomycin [Vancocin] 1,500 mg 0.9% Sodium Chloride 500 ml [Nss] 500 ml IV NOW
05/26/24 16:00
US Periph Art LOWER Ext w MARLENA Routine
Comment: limflow US studies (only left needed)
Reason For Exam: s/p LEFT limflow
05/26/24 17:45
Admit/Transfer Patient As Directed
Co-Sign Provider:
Level of Care: Inpatient admission
Assign to:: Medical/Surgical
Physician / Group: Duong Garcia
Diagnosis: lower extremity wounds, PAD, ESRD
Reason for Hospitalization: lower extremity wounds, PAD, ESRD
Expected length of stay greater than two midnights?: Yes
ELOS- Estimated Length of Stay in days: 3
I certify the patient meets the requirements for IP care: Yes
05/26/24 17:46
PRN Pain Medication Management As Directed
May give lesser potent ordered pain med per pt: Yes
preference::
Protocol:: Medication orders for pain may be administered in a
manner that supports deferring to patient preference
when the pt is:
- Requesting an ordered lesser potent pain medication.
Least to most potent pain medications are defined
as: acetaminophen < NSAID < tramadol < opioids
(morphine, oxycodone, hydromorphone).
- Requesting a lesser dose of the same medication IF
ORDERED.
- Requesting a less intrusive route of administration
if both routes are prescribed by the provider (PO <
IV).
05/26/24 17:50
Code Status As Directed
Resuscitation Status: Full Code
Abnormal Lab Results
05/26/24
12:48
WBC 12.1 H 10^3/uL
(4.8-10.8)
RBC 2.99 L 10^6/uL
(4.70-6.10)
Hgb 10.1 L g/dL
(13.0-18.0)
Hct 30.2 L %
(39.0-52.0)
MCV 101.0 H fL
(80.0-94.0)
MCH 33.8 H pg
(27.0-31.0)
RDW 14.6 H %
(11.5-14.5)
Abs Immat Gran (auto) 0.1 H 10^3/uL
(0-0.05)
Absolute Neuts (auto) 9.2 H 10^3/uL
(1.4-6.5)
Absolute Monos (auto) 0.9 H 10^3/uL
(0.1-0.6)
Immature Gran % 0.7 H %
(0-0.5)
Neutrophils % 76.4 H %
(42.2-75.2)
Lymphocytes % 13.9 L %
(20.5-51.1)
ESR 41 H mm/hour
(0-20)
APTT 37.6 H Sec
(23.4-35.0)
Sodium 132 L mmol/L
(135-145)
Chloride 91 L mmol/L
(98-107)
Carbon Dioxide 32 H mmol/L
(22-30)
BUN 46 H mg/dl
(9-20)
Creatinine 11.3 H* mg/dL
(0.7-1.3)
Glucose 109 H mg/dl
(70-99)
Total Protein 4.9 L g/dl
(6.3-8.2)
Albumin 3.0 L g/dl
(3.5-5.0)
05/26/24 12:48
05/26/24 12:48
Vital Signs
Initial and Last Documented VS:
Initial Vital Signs
Temp Pulse Resp BP Pulse Ox
98.1 F 66 18 132/58 99
05/26/24 11:50 05/26/24 11:50 05/26/24 11:50 05/26/24 11:50 05/26/24 11:50
Last Documented Vital Signs
Temp Pulse Resp BP Pulse Ox
98.2 F 53 17 152/62 96
05/26/24 18:00 05/26/24 18:00 05/26/24 18:00 05/26/24 18:00 05/26/24 18:00
MDM/Problems Addressed
MDM/Problems Addressed:
Pt to be Be admitted for IV antibiotics and further intervention as deemed needed by podiatry/vascular
*Critical Care Note
Total Time (30-74mins, 75-104mins- exclusive of procedures): Not Applicable
ED Attending Note
-
Portions of this chart may have been created with voice recognition software.� Occasional wrong word or��sound alike� substitutions may have occurred due to the inherent limitations of voice recognition software.
Discharge Plan
Departure
Patient Disposition: Admit
Date of Disposition: 05/26/24
Time of Disposition: 16:11
Admit to: Med/Surg
Presentation/result/management discussed w/ accepting MD/DO: Hospitalist
Discharge Problem:
Cellulitis of great toe of left foot, Peripheral arterial disease
Interventions
Interventions:
*Risk Screen - Suicide Last Done: 05/26/24 11:50
*General Assessment Last Done: 05/26/24 11:50
*Neglect/Abuse Screening Last Done: 05/26/24 11:50
*ED COVID-19 Vaccine History Last Done: 05/26/24 12:20
ED- Cardiac Assessment Last Done: 05/26/24 12:22
ED- Pulmonary Assessment Last Done: 05/26/24 12:22
ED-Peripheral Vascular Assessment Last Done: 05/26/24 12:22
ED-Skin Assessment Last Done: 05/26/24 12:27
[2024-05-26 14:20] LABS: Erythrocyte Sed Rate 41 mm/hour (0-20)
[2024-05-26] MEDS: ROXICODONE 5 MG PO (14:35)
[2024-05-26 15:00] VITALS: BP 149/51
--- NOTE | 2024-05-26 15:31 | CON.VAS ---
Consultation
Consultation Request
Date/Time Consultation Performed: 05/26/24
Requesting Provider: Keaton Anne PA-C
Performing Provider: KATH Catalan for Rolo Pascual III, MD
Reason for Consultation: Right lower extremity cellulitis
Medical History
-
Chief Complaint: Right lower extremity cellulitis
History of Present Illness:
This is an 83-year-old male with significant past medical history of hypertension, renal failure, atrial fibrillation, chronic bilateral lower extremity feet wounds, and peripheral arterial disease who presents to [facility] with reports of
worsening right foot first and second digit wounds with progression from dry gangrene to concern for infection. Patient endorses over the past several days he is noticed increased redness at the base of his second digit and experienced increased
pain. He also reports continued chronic wounds at bilateral lower extremity feet with no improvement to left foot digits and worsening of swelling/bloody discharge at left foot. Denies nausea, vomiting, fever, and chills. He is known to our
vascular surgery group as he recently underwent a left lower extremity limflow procedure, Transcatheter arterialization of the deep veins, left lower extremity on 04/18/[address] Rolo Pascual III.
Past Medical History
Past Medical History: Arrhythmias (Atrial fibrillation), HTN, Renal Failure (End-stage renal disease on peritoneal dialysis) and Other (Peripheral arterial disease, hyperparathyroidism)
Past Surgical History: Other (03/25/24- IVL to L anterior tibial, posterior tibial and balloon angioplasty to left anterior tibial artery. Transcatheter arterialization of deep veins of left lower extremity (limflow) LLE- 04/18/25, right lower
extremity [id number])
Social History
Tobacco: Former Smoker
Personal:
Living: With Family
Allergies / Home Medications
Allergy/AdvReac Type Severity Reaction Status Date / Time
Iodinated Contrast Media Allergy Nausea, Verified 05/26/24 11:49
kidney
failure
�Medication �Instructions �Recorded �Confirmed �Type
amiodarone 100 mg tablet 100 mg PO DAILY Arrhythmia 03/23/24 05/26/24 History
apixaban 5 mg tablet (Eliquis) 5 mg PO BID Blood Clot 03/23/24 05/26/24 History
Prevention/Tx
atorvastatin 20 mg tablet 20 mg PO QPM High Cholesterol 03/23/24 05/26/24 History
cholecalciferol (vitamin D3) 25 25 mcg PO DAILY Supplement 03/23/24 05/26/24 History
mcg (1,000 unit) tablet (Vitamin
D3)
coQ10 (ubiquinol) 100 mg capsule 100 mg PO DAILY Supplement 03/23/24 05/26/24 History
dipyridamole 50 mg tablet 50 mg PO DAILY Blood Clot 03/23/24 05/26/24 History
Prevention/Tx
metoprolol succinate 25 mg 25 mg PO DAILY Blood Pressure 03/23/24 05/26/24 History
tablet,extended release 24 hr
omeprazole 20 mg tablet,delayed 20 mg PO DAILY Gastrointestinal 03/23/24 05/26/24 History
release Issue
sevelamer carbonate 800 mg tablet 800 mg PO TID Kidney Disease 03/23/24 05/26/24 History
(Renvela)
sucroferric oxyhydroxide 500 mg 500 mg PO TID Kidney Disease 03/23/24 05/26/24 History
chewable tablet (Velphoro)
tamsulosin 0.4 mg capsule 0.4 mg PO QPM Urinary Issue 03/23/24 05/26/24 History
B-complex with vitamin C 1 tab PO DAILY Supplement 04/18/24 05/26/24 History
allopurinol 100 mg tablet 100 mg PO DAILY gout 04/18/24 05/26/24 History
docusate sodium 50 mg capsule 100 mg PO BIDPRN PRN constipation 04/18/24 05/26/24 History
tramadol 50 mg tablet 50 mg PO Q6HPRN PRN moderate pains 04/18/24 05/26/24 History
aspirin 81 mg chewable tablet 81 mg PO DAILY #90 tabs 04/22/24 05/26/24 Rx
acetaminophen 500 mg tablet 1,000 mg PO Q6HPRN PRN mild pain 05/26/24 05/26/24 History
(Tylenol Extra Strength)
furosemide 80 mg tablet (Lasix) 40 mg PO BID 05/26/24 05/26/24 History
Review of Systems
-
History Source: Patient
Constitutional: Reports No Symptoms
EENT: Reports No Symptoms
Respiratory: Reports No Symptoms
Cardiac: Reports No Symptoms
Abdomen/GI: Reports No Symptoms
: Reports No Symptoms
Musculoskeletal: Reports Edema (Bilateral lower extremity edema)
Skin: Reports Other (Does endorse worsening right foot first and second digit wound with increased erythema and pain)
Neurological: Reports No Symptoms
Endocrine: Reports No Symptoms
Physical Exam
Vital Signs
Temp Pulse Resp BP Pulse Ox
98.1 F 65 18 157/53 97
05/26/24 11:50 05/26/24 12:56 05/26/24 12:56 05/26/24 12:56 05/26/24 12:56
Lab Results
05/26/24 12:48
05/26/24 12:48
Physical Exam
General: No Apparent Distress
HEENT: Normocephalic, Anicteric and Atraumatic
Respiratory: Non Labored Respirations
Cardiac: Negative JVD
GI: Soft, Non Tender, Non Distended and Other (PD catheter CDI)
Musculoskeletal: Edema (Trace bilateral lower extremity edema)
Skin: Other (Bilateral feet with digits 1 2 and 3 with dry gangrene)
Neuro: AO x 3
Pulses: Left Dorsalis Pedis: +2 (Unable to palpate right DP or PT pulse)
Assessment / Plan
-
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
cellulitis given comorbidities patient is high risk of limb loss
Plan:
Given patient is at high risk for limb loss would recommend admitting to hospitalist for workup of cellulitis and initiation of IV antibiotics
Patient was scheduled for repeat ultrasound of left lower extremity for follow-up after his limb flow procedure but will obtain
Patient was scheduled for right lower extremity limb flow procedure for Thursday05/30/24, if cleared medically would proceed as scheduled
Reviewed plan with attending Dr. Rolo Pascual III
[2024-05-26] MEDS: VANCOCIN 530 MG IV (15:52)
--- NOTE | 2024-05-26 16:51 | HPS.HSE ---
Family Physician
-
Family Physician: Waleska Garcia
Chief Complaint
-
worsening left great toe wound
History of Present Illness
Patient is a 85-year-old male with past medical history significant for hypertension, atrial fibrillation, ESRD with peritoneal dialysis, PAD and hyperparathyroidism who presented to [place] ED for evaluation of left great toe castellon, swelling and
bloody discharge. Patient reports that he started with bleeding on the left great toe last evening, called Dr. Pascual from vascular today and was recommended by office to come to ED for evaluation. Patient states pain currently a 3-08/11. Patient
reports increased pain and redness over past several days with the bleeding starting last night. Patient states he has had chronic wounds on bilateral lower extremity and feet with minimal to no improvement. Patient denies any recent fever, chills,
cough, shortness of breath, chest pain, nausea, vomiting, constipation, diarrhea or urinary symptoms.
Medical History
Past Medical History
Past Medical History: Reports Other
Additional Past Medical History:
hypertension
atrial fibrillation
ESRD with peritoneal dialysis
PAD
hyperparathyroidism
Past Surgical History: Reports Other
Additional Past Surgical History:
intravascular lithotripsy and balloon angioplasty to the left anterior and posterior tibial arteries secondary to critical limb ischemia on 03/25/2024
Transcatheter arterialization of deep veins of left lower extremity (limflow) LLE- 04/18/25
right lower extremity [id number]
cholecystectomy
bilateral total knee replacements
Social History
Tobacco: Former Smoker (quit 40 years ago)
Alcohol: None
Drug: None
Living: With Family
Employment: Retired
Family History
Family History: Not pertinent
Allergies / Home Medications
Allergies reflects when Allergies were last updated in [facility].
Home Medications with original date entered in [facility]
Allergy/Medication List:
Allergies
Allergy/AdvReac Type Severity Reaction Status Date / Time
Iodinated Contrast Media Allergy Nausea, Verified 05/26/24 11:49
kidney
failure
Home Medications
amiodarone 100 mg tablet 100 mg PO DAILY Arrhythmia 03/23/24
apixaban 5 mg tablet (Eliquis) 5 mg PO BID Blood Clot Prevention/Tx 03/23/24
atorvastatin 20 mg tablet 20 mg PO QPM High Cholesterol 03/23/24
cholecalciferol (vitamin D3) 25 mcg (1,000 unit) tablet (Vitamin D3) 25 mcg PO DAILY Supplement 03/23/24
coQ10 (ubiquinol) 100 mg capsule 100 mg PO DAILY Supplement 03/23/24
dipyridamole 50 mg tablet 50 mg PO DAILY Blood Clot Prevention/Tx 03/23/24
metoprolol succinate 25 mg tablet,extended release 24 hr 25 mg PO DAILY Blood Pressure 03/23/24
omeprazole 20 mg tablet,delayed release 20 mg PO DAILY Gastrointestinal Issue 03/23/24
sevelamer carbonate 800 mg tablet (Renvela) 800 mg PO TID Kidney Disease 03/23/24
sucroferric oxyhydroxide 500 mg chewable tablet (Velphoro) 500 mg PO TID Kidney Disease 03/23/24
tamsulosin 0.4 mg capsule 0.4 mg PO QPM Urinary Issue 03/23/24
B-complex with vitamin C 1 tab PO DAILY Supplement 04/18/24
allopurinol 100 mg tablet 100 mg PO DAILY gout 04/18/24
docusate sodium 50 mg capsule 100 mg PO BIDPRN PRN constipation 04/18/24
tramadol 50 mg tablet 50 mg PO Q6HPRN PRN moderate pains 04/18/24
aspirin 81 mg chewable tablet 81 mg PO DAILY #90 tabs 04/22/24
acetaminophen 500 mg tablet (Tylenol Extra Strength) 1,000 mg PO Q6HPRN PRN mild pain 05/26/24
furosemide 80 mg tablet (Lasix) 40 mg PO BID 05/26/24
Review of Systems
-
History Source: Patient
Constitutional: Reports No Symptoms
EENT: Reports No Symptoms
Respiratory: Reports No Symptoms
Cardiac: Reports No Symptoms
Abdomen/GI: Reports No Symptoms
: Reports No Symptoms
Musculoskeletal: Reports Other (bilateral lower extremity edema, worsening chronic wounds on left great and second toe )
Skin: Reports Other (worsening chronic wounds on left great and second toe )
Neurological: Reports No Symptoms
Endocrine: Reports No Symptoms
Hematologic/Lymphatic: Reports No Symptoms
Psych: Reports No Symptoms
Physical Exam
Vital Signs
Vital Signs
Temp Pulse Resp BP Pulse Ox
98.1 F 65 18 157/53 97
05/26/24 11:50 05/26/24 12:56 05/26/24 12:56 05/26/24 12:56 05/26/24 12:56
Physical Exam
General: Well Developed, Well Nourished, Conversant and Pain (2-3/10 to left great toe )
HEENT: NormoCephalic, Moist mucous membranes, Atraumatic, [place] Conjunctivae, Nose Appears Normal and Ears Appear Normal
Respiratory: Clear and Non Labored Respirations
Cardiac: S1/S2 and Regular Rhythm; No Murmur, Rub or Gallop
GI: Soft, Non Tender, Non Distended and Normal Bowel Sounds; No Organomegaly
Rectal: Deferred by Provider
Genito-urinary: Deferred by me
Musculoskeletal: No Clubbing, No Cyanosis, Edema, Left Lower Extremity and Edema, Right Lower Extremity
Skin: Warm, IV/Catheter Site and Other (worsening chronic wounds on left great and second toe, bilateral lower extremity chronic wounds ); No Rash
Neuro: Awake, Alert, AO x 3 and Nonfocal/grossly intact
Psych: Calm and Intact Judgment/Insight
Laboratory Results
-
05/26/24 12:48
05/26/24 12:48
Laboratory Results
PT 13.2 Sec (11.4-14.6) 05/26/24 12:48
INR 0.97 05/26/24 12:48
APTT 37.6 Sec (23.4-35.0) H 05/26/24 12:48
Total Bilirubin 0.5 mg/dl (0.2-1.3) 05/26/24 12:48
AST 20 U/L (17-59) 05/26/24 12:48
ALT 11 U/L (0-50) 05/26/24 12:48
Alkaline Phosphatase 65 U/L (38-126) 05/26/24 12:48
Data Reviewed
-
Ultrasound: Report Reviewed by me ([employer] W MARLENA: No DVT; vein measurements listed above. Heavily calcified arterial walker; no flow observed within the peroneal artery, possibly artifact from shadowing. )
Lab Data: Labs Reviewed by me (WBC 12.1, BUN 46, Creat 11.3, )
Impression/Plan
-
IMPRESSION/PLAN:
#chronic lower extremity wounds
#PAD
cellulitis ?? increased edema, redness and WBC 12.1
[employer] W MARLENA: No DVT; vein measurements listed above.
Heavily calcified arterial walker; no flow observed within the peroneal artery, possibly artifact from shadowing
- Admit to med/surg
- consult vascular surgery
- continue atorvastatin
- IV Vanco and Zosyn
- hold Eliquis
#hypertension
- continue metoprolol
#atrial fibrillation
- continue amiodarone, dipyridamole and metoprolol
- hold Eliquis
#ESRD with peritoneal dialysis
BUN 46, Creat 11.3
- consult nephrology
- continue furosemide, sevelamer, tamsulosin and Velphoro
#hyperparathyroidism
Code status: DNR
DVT Prophylaxis: heparin sq
[2024-05-26 18:00] VITALS: BP 152/62
--- NOTE | 2024-05-26 18:13 | W.PN.UPDATE ---
Update Note
Progress Note Update
This is an addendum to the H&P written by Kathy Quan on 05/26/2024.
Patient seen and examined independently with MANAGER DESKTOP.
83-year-old male past medical history of paroxysmal atrial fibrillation on Eliquis, PAD, hypertension, ESRD on peritoneal dialysis, presenting for dry gangrene of left and right first, second and third toes with concern for infection/bleeding from
the left toes starting yesterday.
Patient underwent intravascular IVL to L anterior tibial, posterior tibial and balloon angioplasty to left anterior tibial artery. Transcatheter arterialization of deep veins of left lower extremity (limflow) LLE-on 04/18 and angioplasty of right
lower extremity 04/22.
Labs show leukocytosis.
Vancomycin/Zosyn. Foot x-ray pending. Arterial ultrasound pending. Vascular surgery consulted. Hold Eliquis for vascular interventions planned for Thursday.
Nephrology consulted for peritoneal dialysis.
[2024-05-26 22:59] VITALS: BP 169/60
[2024-05-26 23:11] VITALS: BMI 29.5; BMI 30.3
--- NOTE | 2024-05-26 23:26 | PTCARENOTE ---
Received patient from the ED- gangrenous toes. Medsurg on Peritoneal dialysis. Patient has no dialysis orders for the night. [place] text placed to nephrology- patient is ok to go without dialysis tonight and will get orders in the AM.
--- NOTE | 2024-05-26 23:27 | PHA.VAN.IN ---
Assessment
- Assessment
Renal Function: Patient has ESRD, on chronic Hemodialysis (PERITONEAL DIALYSIS)
Concomitant Antimicrobials: ZOSYN
- Previous Dosing Experience
Previous Regimen: NONE
Plan
- Plan
Initial / Loading Dose: 1500MG
Maintenance Regimen: DOSING BY RANDOM LEVELS
Monitoring: RANDOM VANCOMYCIN LEVEL 05/27/24 AM
Pharmacokinetics Vancomycin I
- -
Patient Age: 83
Patient Sex: Male
Vancomycin Day #: 1
Indication: Skin And Soft Tissue (GANGRENE)
Requesting Provider: JUAN R
Height / Weight:
Height 5 ft 11 in
Actual Weight 98.6 kg
- Vital Signs / Lab Results
Temp Pulse Resp BP Pulse Ox
98.2 F 53 17 169/60 96
05/26/24 18:00 05/26/24 18:00 05/26/24 18:00 05/26/24 22:59 05/26/24 18:00
Lab Results - Hematology
05/26/24
12:48
WBC 12.1 H
Lab Results - Chemistry
05/26/24
12:48
BUN 46 H
Creatinine 11.3 H*
Estimated Creat Clear 5
Albumin 3.0 L
[2024-05-26 23:38] VITALS: BP 169/60
[2024-05-27] MEDS: FLOMAX 0.4 MG PO ×2 (00:26→17:33)
[2024-05-27] MEDS: LIPITOR 20 MG PO ×2 (00:26→17:33)
[2024-05-27] MEDS: ROXICODONE 5 MG PO ×4 (00:27→22:47)
[2024-05-27] MEDS: LASIX 40 MG PO ×3 (00:27→17:17)
[2024-05-27] MEDS: HEPARIN 5000 UNITS SC ×3 (00:27→17:17)
[2024-05-27] MEDS: ZOSYN 50 IV ×3 (00:28→17:17)
[2024-05-27 04:53] LABS: Hematocrit 26.6 % (39.0-52.0); Hemoglobin 8.8 g/dL (13.0-18.0); Mean Corp Hgb Conc. 33.1 g/dL (33.0-37.0); Mean Corpuscular Hgb 33.2 pg (27.0-31.0); Mean Corpuscular Volume 100.4 fL (80.0-94.0); Platelet Count 122 10^3/uL (130-400); Red Blood Cell Count 2.65 10^6/uL (4.70-6.10); Red Cell Dist. Width 14.6 % (11.5-14.5); White Blood Cell Count 10.3 10^3/uL (4.8-10.8)
[2024-05-27 05:44] LABS: Vancomycin Random 13.4 ug/ml
[2024-05-27 05:59] LABS: Blood Urea Nitrogen 53 mg/dl (9-20); Calcium 9.5 mg/dl (8.4-10.2); Carbon Dioxide 23 mmol/L (22-30); Chloride 95 mmol/L (98-107); Estimated Creatinine Clearance 6 ml/min; Glucose 80 mg/dl (70-99); Potassium 3.8 mmol/L (3.5-5.1); Sodium 130 mmol/L (135-145); eGFR 4.08
[2024-05-27 08:23] VITALS: BP 124/53
[2024-05-27] MEDS: PACERONE 100 MG PO (08:25)
[2024-05-27] MEDS: LOW STRENGTH ASPIRIN 81 MG PO (08:25)
[2024-05-27] MEDS: TOPROL XL 25 MG PO (08:26)
[2024-05-27] MEDS: PROTONIX 40 MG PO (08:29)
[2024-05-27] MEDS: RENVELA 800 MG PO ×2 (08:29→14:51)
[2024-05-27] MEDS: ZYLOPRIM 100 MG PO (08:29)
[2024-05-27] MEDS: PERSANTINE 50 MG PO (08:29)
[2024-05-27] MEDS: B COMPLEX w/VITAMIN C 1 CAPLET PO (08:29)
[2024-05-27] MEDS: VITAMIN D3 (cholecalciferol) 25 MCG PO (08:30)
--- NOTE | 2024-05-27 08:54 | PHA.VAN.FU ---
Vancomycin Assessment / Plan
- Assessment
Hemodialysis Schedule: Other (Peritoneal Dialysis 2 L with 4H dwell time)
WBC's are: WNL
In the past 24 hrs, patient has been: Afebrile
Concomitant Antimicrobials: piperacillin/tazobactam
- Assessment - Therapeutic Drug Monitoring
Random Level: 13.4 - drawn ~13.5H after 1500mg initial dose
- Dosing Plan
Dosing by Level: Re-dose today (Vanc 1000mg)
As patient accumulates with peritoneal dialysis, re-dosing interval may extend to every 3-7 days
- Monitoring Plan
No level(s) ordered at this time: consider random level for Thursday
- Follow Up
Pharmacy will continue to follow.
Vancomycin Follow UP
- -
Patient Age: 83
Patient Sex: Male
Vancomycin Day #: 2
Indication: Skin And Soft Tissue
Requesting Provider: Sammy Quan
Pertinent Antimicrobial Allergies:
no pertinent antibiotic allergies
Height / Weight:
Height 5 ft 11 in
Actual Weight 98.6 kg
Pertinent Past Medical History: BMI ~30, ESRD on PD
- Vital Signs / Lab Results
Temp Pulse Resp BP Pulse Ox
98.0 F 62 16 124/53 100
05/27/24 07:33 05/27/24 08:26 05/27/24 08:43 05/27/24 08:26 05/27/24 08:43
Lab Results - Hematology
05/26/24 05/27/24
12:48 04:33
WBC 12.1 H 10.3
Lab Results - Chemistry
05/26/24 05/27/24
12:48 04:33
BUN 46 H 53 H
Creatinine 11.3 H* 11.4 H*
Estimated Creat Clear 5 6
Albumin 3.0 L
Therapeutic Drug Monitoring
Random Vancomycin 13.4 ug/ml 05/27/24 04:33
--- NOTE | 2024-05-27 11:19 | CM ---
Patient seen at bedside, Patient lives with in a town home with first floor set up. Patient PCP Dr. Domínguez and he uses the [facility] [address]. Patient has never had SNF or VN needs and he has a walker and cane at home. Patient has PD
with [facility] and Patient anticipates needing IV antibiotics pending medical treatment plan. Patient open to [facility] or [facility] if needed for wound care, pending medical treatment plan. CM will continue to follow for discharge planning needs.
Plan; home with PD/VN and watch for IV antibiotics/wound care needs vs SNF.
--- NOTE | 2024-05-27 12:42 | WOUNDNOTE ---
PLANTAR ASPECT OF FEET/TOES
--- NOTE | 2024-05-27 12:47 | WOUNDNOTE ---
WOC RN NOTE: Reviewed chart and met with patient. Further testing is planned and vascular is following. No drainage noted from gangrenous toes. Patient prefers toes CASSANDRA. Sacrum and heels intact. Will follow peripherally.
--- NOTE | 2024-05-27 14:21 | W.PN.HOSP.TC ---
Addendum entered and electronically signed by Aftab Bravo MD 05/27/24 21:06:
Attending Addendum-
I saw and evaluated the patient. I reviewed the resident�s note and agree with findings and plan as documented in the resident�s note. Sub: No new complaints. Denies pain in LE. LEFull 12 point ROS reviewed and negative except as documented Exam:
Vitals reviewed in chart GEN-NAD heart RRR Lungs crackles at bases abd soft PD cath in place distended abdomen no rebound or guarding pos BS LE dry gangrene b/l LE 1rst and 2nt metatarsals pulses b/l LE +doppler b/l minimal redness no warmth
#PAD- B/L
-Dry gangrene B/L 1rst and 2nd toes
-highly doubt cellulitis- dc abx
-for transcatheter arterialization of the deep veins of the right lower extremity on 05/[address] Samara SOLARES
-continue atorvastatin
-hold Eliquis
# Leukocytosis
- mild
- repeat in am
#HTN
- continue metoprolol
#Paroxysmal atrial fibrillation
- continue amiodarone, dipyridamole and metoprolol
- hold Eliquis
#ESRD with peritoneal dialysis
-nephrology on board
-Peritoneal dialysis ordered manual treatments
-Performs a cycler at home 6 exchanges/3 L bags with 1.5% no last fill
-Manual exchange 4-hour dwell time, 2 L, 1.5%-
-continue furosemide, sevelamer, tamsulosin and Velphoro
# HLD- cont atorvastatin
# GERD- cont omeprazole->pantoprazole
# BPH- cont flomax
DVT Prophylaxis: heparin sq
Time spent coordinating care, review of plan of care with resident, personally reviewed records in EMR, med rec, consults, notes, labs, radiology, d/w nursing � 52 mins
Original Note:
Today's Communication/Plan
-
Continue IV Abx; to be seen and evaluated by Nephrology for continued peritoneal dialysis vs. HD; to be seen and evaluated by Vascular for potential interventions
Assessment / Plan
Assessment / Plan
1. Left Lower Extremity Cellulitis
-Decrease edema and redness without warmth surrounding the chronic wounds of the left great toe and left second toe
-X-ray of the left foot: Subcutaneous edema consistent with cellulitis; no evidence of osteomyelitis
-Vascular ultrasound with MARLENA: No DVT, heavily calcified arterial walker, MARLENA 0.19
-Vascular Surgery onboard; recommendations noted
-Continue IV vancomycin, Zosyn
-WBC 10.2 (improving), continue to monitor
-Hold Eliquis
2. Hypertension
-Continue home dose metoprolol
3. Atrial fibrillation
-Continue amiodarone, metoprolol
-Hold Eliquis for now, pending vascular interventions
4. Peripheral arterial disease
-Follow vascular recommendations
-Continue dipyridamole
5. ESRD with peritoneal dialysis
-BUN 46, creatinine 11.4
-Nephrology consulted for recommendations
-Patient receives peritoneal dialysis outpatient
-Continue furosemide, sevelamer, Velphoro
Anticipated Discharge: 24 - 48 hours
Subjective/Interval History
-
Date of Service: May 27, 2024
Patient seen and examined while resting comfortably in chair. In the interval, patient states that the drainage from the site of bleeding on the left great toe has subsided. Patient also endorses improvement in pain. Patient has no other acute
complaints at this time. Patient denies fevers, chills.
Objective Data
-
Labs:
Laboratory Results
05/27/24
04:33
WBC 10.3
Hgb 8.8 L
Hct 26.6 L
Plt Count 122 L
Sodium 130 L
Potassium 3.8
Chloride 95 L
Carbon Dioxide 23
BUN 53 H
Creatinine 11.4 H*
Glucose 80
Calcium 9.5
Vital Signs:
Vital Signs
Temp Pulse Resp BP Pulse Ox
98.0 F 62 16 124/53 100
05/27/24 07:33 05/27/24 08:26 05/27/24 08:43 05/27/24 08:26 05/27/24 08:43
I&O
05/26/24 05/27/24 05/28/24
06:59 06:59 06:59
Intake Total 290 / 290 300 / 300
Balance 290 / 290 300 / 300
Review of Systems
-
Constitutional: Denies Fever or Chills
Respiratory: Reports No Symptoms
Cardiac: Reports No Symptoms
Abdomen/GI: Reports No Symptoms
Musculoskeletal: Reports Other (worsening chronic wounds of the left great toe and left second toe)
Skin: Reports Other (redness surrounding wounds on left foot)
Neuro: Reports No Symptoms
Physical Exam
-
General: No Apparent Distress and Comfortable
HEENT: Normocephalic and Atraumatic
Respiratory: Clear to Auscultation
Cardiac: Regular Rhythm and S1/S2
GI: Soft and Nontender
Musculoskeletal: No Clubbing, No Cyanosis and Other (bilateral lower extremity edema; decreased hair distribution of the lower legs bilaterally; chronic wounds and associated dry gangrene of the left and right great toes and left/right second toes)
Skin: Warm
Neuro: Awake and Alert
Psych: Calm
Data Reviewed
-
Diagnostic Radiology: Report Reviewed by me and Discussed with Patient
Labs: Labs Reviewed by me and Discussed with Patient
[2024-05-27] MEDS: MIRALAX 17 GRAMS PO (14:52)
[2024-05-27 15:52] VITALS: BP 161/56
--- NOTE | 2024-05-27 15:54 | W.CON.NEPH ---
Consultation
-
Date/Time Consultation Requested: 05/27/2024 9 AM
Date/Time Consultation Performed: 05/27/2024 2 PM
Requesting Provider: Dr. Garcia
Performing Provider: Dr. Gongora
Reason for Consultation: ESRD
Medical History
-
Chief Complaint: End-stage renal disease
History of Present Illness:
Patient is a 83-year-old male with end-stage renal disease on peritoneal dialysis for 4 years time. His treatments at home have been very good. He says that he has been doing very well with his volume status and there is plan to reduce his
peritoneal dialysis solution bags to all 1.5%. He has had no issues with his catheter exit site. He has hypertension on a very minimal regimen, atrial fibrillation on amiodarone and Eliquis therapy, significant peripheral arterial disease. He
came to the emergency room because of left great toe pain with swelling and some bleeding. He had spoken with vascular surgery who had recommended that he come to emergency room. Upon further evaluation he was admitted for further management of
cellulitis. We are asked to assist with management of his ESRD.
Past Medical History
hypertension
atrial fibrillation
ESRD with peritoneal dialysis
PAD
hyperparathyroidism
Past Surgical History: Reports Other
Additional Past Surgical History:
intravascular lithotripsy and balloon angioplasty to the left anterior and posterior tibial arteries secondary to critical limb ischemia on 03/25/2024
Transcatheter arterialization of deep veins of left lower extremity (limflow) LLE- 04/18/25
right lower extremity [id number]/20/24
cholecystectomy
bilateral total knee replacements
Social History
Tobacco: Former Smoker
Alcohol: None
Family History
No renal disease
Family History: Not Pertinent
Allergies / Home Medications
Allergy/AdvReac Type Severity Reaction Status Date / Time
Iodinated Contrast Media Allergy Nausea, Verified 05/26/24 11:49
kidney
failure
�Medication �Instructions �Recorded �Confirmed �Type
amiodarone 100 mg tablet 100 mg PO DAILY Arrhythmia 03/23/24 05/26/24 History
apixaban 5 mg tablet (Eliquis) 5 mg PO BID Blood Clot 03/23/24 05/26/24 History
Prevention/Tx
atorvastatin 20 mg tablet 20 mg PO QPM High Cholesterol 03/23/24 05/26/24 History
cholecalciferol (vitamin D3) 25 25 mcg PO DAILY Supplement 03/23/24 05/26/24 History
mcg (1,000 unit) tablet (Vitamin
D3)
coQ10 (ubiquinol) 100 mg capsule 100 mg PO DAILY Supplement 03/23/24 05/26/24 History
dipyridamole 50 mg tablet 50 mg PO DAILY Blood Clot 03/23/24 05/26/24 History
Prevention/Tx
metoprolol succinate 25 mg 25 mg PO DAILY Blood Pressure 03/23/24 05/26/24 History
tablet,extended release 24 hr
omeprazole 20 mg tablet,delayed 20 mg PO DAILY Gastrointestinal 03/23/24 05/26/24 History
release Issue
sevelamer carbonate 800 mg tablet 800 mg PO TID Kidney Disease 03/23/24 05/26/24 History
(Renvela)
sucroferric oxyhydroxide 500 mg 500 mg PO TID Kidney Disease 03/23/24 05/26/24 History
chewable tablet (Velphoro)
tamsulosin 0.4 mg capsule 0.4 mg PO QPM Urinary Issue 03/23/24 05/26/24 History
B-complex with vitamin C 1 tab PO DAILY Supplement 04/18/24 05/26/24 History
allopurinol 100 mg tablet 100 mg PO DAILY gout 04/18/24 05/26/24 History
docusate sodium 50 mg capsule 100 mg PO BIDPRN PRN constipation 04/18/24 05/26/24 History
tramadol 50 mg tablet 50 mg PO Q6HPRN PRN moderate pains 04/18/24 05/26/24 History
aspirin 81 mg chewable tablet 81 mg PO DAILY #90 tabs 04/22/24 05/26/24 Rx
acetaminophen 500 mg tablet 1,000 mg PO Q6HPRN PRN mild pain 05/26/24 05/26/24 History
(Tylenol Extra Strength)
furosemide 80 mg tablet (Lasix) 40 mg PO BID Fluid 05/26/24 05/26/24 History
Retention/Swelling
Review of Systems
-
Left foot pain
All other systems: Negative unless noted
Physical Exam
Vital Signs
Vital Signs
Temp Pulse Resp BP Pulse Ox
98.0 F 62 16 124/53 100
05/27/24 07:33 05/27/24 08:26 05/27/24 08:43 05/27/24 08:26 05/27/24 08:43
Lab Results
WBC 10.3 10^3/uL (4.8-10.8) 05/27/24 04:33
RBC 2.65 10^6/uL (4.70-6.10) L 05/27/24 04:33
Hgb 8.8 g/dL (13.0-18.0) L 05/27/24 04:33
Hct 26.6 % (39.0-52.0) L 05/27/24 04:33
Plt Count 122 10^3/uL (130-400) L 05/27/24 04:33
Sodium 130 mmol/L (135-145) L 05/27/24 04:33
Potassium 3.8 mmol/L (3.5-5.1) 05/27/24 04:33
Chloride 95 mmol/L (98-107) L 05/27/24 04:33
Carbon Dioxide 23 mmol/L (22-30) 05/27/24 04:33
BUN 53 mg/dl (9-20) H 05/27/24 04:33
Creatinine 11.4 mg/dL (0.7-1.3) H* 05/27/24 04:33
eGFR 4.08 05/27/24 04:33
Glucose 80 mg/dl (70-99) 05/27/24 04:33
Calcium 9.5 mg/dl (8.4-10.2) 05/27/24 04:33
Albumin 3.0 g/dl (3.5-5.0) L 05/26/24 12:48
Physical Exam
Patient is awake alert oriented and in no distress. Mood and affect were pleasant, insight and judgment were good. Pupils are equal round and reactive to light, extraocular movements are intact, sclera were anicteric. Hearing was normal, ears and
nose are intact. Oropharynx was clear. Neck was supple with trachea midline and no thyromegaly. Heart was regular rate and rhythm without rubs. Lower extremities without edema. Lungs were clear to auscultation bilaterally and with normal
excursion. Abdomen was soft, nontender, with normal active bowel sounds, and no hepatosplenomegaly. Skin was without rash and with normal turgor.
Data Reviewed
-
Radiology: Image Personally Visualized and interpreted (Foot x-ray on 05/26/2024 by my read shows no acute osteomyelitis or soft tissue emphysema)
Labs: Labs Reviewed by me
Old Records: Reviewed
Assessment/Plan
-
83-year-old male with peripheral arterial disease, hypertension, secondary hyperparathyroidism, mixed hyperlipidemia end-stage renal disease on peritoneal dialysis has been on peritoneal dialysis for 3 years which she developed acute kidney injury
secondary to sepsis initiating hemodialysis. He presents to the hospital for elective revascularization of his left lower extremity secondary to ischemia.
Assessment
ESRD on peritoneal dialysis
Hypertension
Peripheral arterial disease
Left foot cellulitis
Plan:
Peritoneal dialysis ordered manual treatments
Performs a cycler at home 6 exchanges/3 L bags with 1.5% no last fill
Manual exchange 4-hour dwell time, 2 L, 1.5%. Discussed with patient
Continue outpatient medications, may switch Velphoro to Renvela as he does not carry Velphoro with him
[2024-05-27 17:32] VITALS: BP 161/56
[2024-05-27] MEDS: VANCOCIN 200 IV (17:33)
[2024-05-27] MEDS: RENVELA 1600 MG PO (17:33)
--- NOTE | 2024-05-27 18:23 | W.PN.UPDATE ---
Update Note
Progress Note Update
Patient seen and examined. Well-known to me.
He is nontoxic-appearing
Toe gangrene bilaterally is dry.
Planning for transcatheter arterialization of the deep veins of the right lower extremity on Thursday.
I reviewed his arterial study from today showing a patent deep venous arterialization system. Will also need to address timing of toe amputations on the left given that he is now 6 weeks out from his procedure and is in need of surgical
intervention. This will be done at some point after the procedure on Thursday but the specific date is yet to be determined.
Please call with questions or concerns
Rolo Pascual III, MD
[facility] Vascular Surgery
[phone] (sfgt)
--- NOTE | 2024-05-27 18:35 | PTCARENOTE ---
OOB all day, PD exchange x1 this shift- dialysate req. warming and order changed. Extension placed on pt PD catheter. PRN Geena given x1 this pm for 7/10 toe pain.
[2024-05-27 19:46] VITALS: BP 149/58
--- NOTE | 2024-05-27 22:20 | PTCARENOTE ---
pt ordered PD with 1.5% dialysate, 2 L bags, 4 hr dwell times. PD preformed by this RN per orders stated. Pt received from previous dayshift RN dwelling, this RN initiated Pts drain at 21:05. amount drained resulting as 1000ml. [place] used, Pt told
to roll back and forth. Still remaining at 1000. pt states that his 'initial drain is usually less and the next is more', MARINE OILER on shift made aware. no new orders. Care is ongoing. VSS. infusion and dwell initiated.
[2024-05-28] MEDS: HEPARIN 5000 UNITS SC ×3 (01:03→15:47)
[2024-05-28] MEDS: ROXICODONE 5 MG PO ×4 (02:52→19:14)
[2024-05-28 03:29] VITALS: BP 138/52
--- NOTE | 2024-05-28 03:35 | PTCARENOTE ---
next drain initiated, Pts output from draining initially 1200. call out operator nephrology reached out to and made aware. Instructed to proceed with next infusion. whilst the RN stepped away to message nephrology, an increase in drainage resulted. measuring
2100. pt informed this RN he was pressing firmly on his lower abdomen. As well as mentioned that he 'has a hernia' in his LLQ that causes 'fluid to enter his scrotum at times', so he then 'squeeze's his scrotum' and the fluid reenters his peritoneal
cavity and then drains.
[2024-05-28 05:33] LABS: Hematocrit 26.6 % (39.0-52.0); Hemoglobin 8.9 g/dL (13.0-18.0); Mean Corp Hgb Conc. 33.5 g/dL (33.0-37.0); Mean Corpuscular Hgb 33.5 pg (27.0-31.0); Mean Platelet Volume 10.5 fL (7.4-10.4); Platelet Count 117 10^3/uL (130-400); Red Blood Cell Count 2.66 10^6/uL (4.70-6.10); Red Cell Dist. Width 14.1 % (11.5-14.5); White Blood Cell Count 9.4 10^3/uL (4.8-10.8)
[2024-05-28 05:53] LABS: Blood Urea Nitrogen 55 mg/dl (9-20); Calcium 8.7 mg/dl (8.4-10.2); Carbon Dioxide 27 mmol/L (22-30); Chloride 89 mmol/L (98-107); Estimated Creatinine Clearance 6 ml/min; Glucose 89 mg/dl (70-99); Sodium 128 mmol/L (135-145); eGFR 3.91
[2024-05-28] MEDS: SENOKOT-S 1 TABLET PO (08:54)
[2024-05-28] MEDS: ZYLOPRIM 100 MG PO (08:56)
[2024-05-28] MEDS: PROTONIX 40 MG PO (08:56)
[2024-05-28] MEDS: B COMPLEX w/VITAMIN C 1 CAPLET PO (08:56)
[2024-05-28] MEDS: VITAMIN D3 (cholecalciferol) 25 MCG PO (08:56)
[2024-05-28 08:58] VITALS: BP 135/78
[2024-05-28] MEDS: RENVELA 1600 MG PO ×3 (08:58→17:45)
[2024-05-28] MEDS: LASIX 40 MG PO ×2 (08:59→15:46)
[2024-05-28] MEDS: TOPROL XL 25 MG PO (08:59)
[2024-05-28] MEDS: PACERONE 100 MG PO (08:59)
--- NOTE | 2024-05-28 09:16 | W.PN.HOSP.TC ---
Today's Communication/Plan
-
Continue with current treatments
Transcatheter arterialization of the deep veins of the right lower extremity on Thursday
Assessment / Plan
Assessment / Plan
1. Peripheral arterial disease with bilateral dry gangrene of the toes. No superimposed cellulitis. He recently had arterial work including stent placement in the left leg. Planning for transcatheter arterialization of the deep veins of the
right lower extremity on Thursday. At some point vascular surgery planning on 2 amputations on the left now that he has arterial stent and increased flow in the left leg
-X-ray of the left foot: Subcutaneous edema consistent with cellulitis; no evidence of osteomyelitis
-Vascular ultrasound with MARLENA: No DVT, heavily calcified arterial walker, MARLENA 0.19
-Vascular Surgery onboard; recommendations noted
-Hold on antibiotics. Continue with his antiplatelet treatment
-Hold Eliquis
2. Hypertension
-Continue home dose metoprolol
3. Atrial fibrillation
-Continue amiodarone, metoprolol
-Hold Eliquis for now, pending vascular interventions
4. Peripheral arterial disease
-Follow vascular recommendations
-Continue dipyridamole
5. ESRD with peritoneal dialysis
-BUN 46, creatinine 11.4
-Nephrology consulted for recommendations
-Patient receives peritoneal dialysis outpatient
-Continue furosemide, sevelamer, Velphoro
Anticipated Discharge: > 48 hours
Subjective/Interval History
-
Date of Service: May 28, 2024
Pain from the right toes manageable with the pain medication. Able to sleep with the pain medication.
Feeling constipated.
Objective Data
-
Labs:
Laboratory Results
05/28/24
04:52
WBC 9.4
Hgb 8.9 L
Hct 26.6 L
Plt Count 117 L
Sodium 128 L
Potassium 4.0
Chloride 89 L
Carbon Dioxide 27
BUN 55 H
Creatinine 11.8 H*
Glucose 89
Calcium 8.7
Vital Signs:
Vital Signs
Temp Pulse Resp BP Pulse Ox
98.4 F 58 18 135/78 96
05/28/24 03:49 05/27/24 15:52 05/28/24 03:49 05/28/24 08:59 05/28/24 03:49
I&O
05/27/24 05/28/24 05/29/24
06:59 06:59 06:59
Intake Total 290 / 290 2400 / 2400
Output Total 100 / 100
Balance 290 / 290 2300 / 2300
Review of Systems
-
Constitutional: Denies Fever
Respiratory: Denies Cough or Trouble Breathing
Cardiac: Denies Chest Pain
Abdomen/GI: Denies Abdominal Pain, Nausea or Vomiting
Neuro: Denies Dizzy
Physical Exam
-
General: Comfortable
Respiratory: Clear to Auscultation and Non Labored Respirations; Negative Accessory Resp Muscle Use
Cardiac: Regular Rhythm and S1/S2
GI: Soft
Musculoskeletal: Other (Dry gangrene noted on the right toes especially right second toe. No surrounding cellulitis.)
Neuro: AO x 3
Psych: Calm
Data Reviewed
-
Labs: Labs Reviewed by me
--- NOTE | 2024-05-28 09:20 | CM ---
Met with patient
States performs Perioneal dialysis at home
Patient states having vascular surgery on Thursday
CM to follow for needs - will await PT/OT evals post op
PLAN: CM to follow for dispo needs post op
[2024-05-28] MEDS: LOW STRENGTH ASPIRIN 81 MG PO (09:32)
[2024-05-28] MEDS: PERSANTINE 50 MG PO (09:32)
--- NOTE | 2024-05-28 11:28 | W.PN.NEPH.PH ---
Today's Communication / Plan
-
PD ordered
Assessment/Plan
-
83-year-old male with peripheral arterial disease, hypertension, secondary hyperparathyroidism, mixed hyperlipidemia end-stage renal disease on peritoneal dialysis has been on peritoneal dialysis for 3 years which she developed acute kidney injury
secondary to sepsis initiating hemodialysis. He presents to the hospital for elective revascularization of his left lower extremity secondary to ischemia.
Assessment
ESRD on peritoneal dialysis
Hypertension
Peripheral arterial disease
Left foot cellulitis
Plan:
Peritoneal dialysis ordered manual treatments
Performs a cycler at home 6 exchanges/3 L bags with 1.5% no last fill
Manual exchange 4-hour dwell time, 2 L, 1.5%.
The fluid is not cloudy no concern for infection
Continue outpatient medications, may switch Velphoro to Renvela as he does not carry Velphoro with him
Antibiotics continue for cellulitis
-
-
Date of Service: May 28, 2024
CC / HPI / ROS
-
Chief Complaint:
ESRD
History of Present Illness:
PD in progress. Concern overnight regarding cloudy fluid
BP stable
On antibiotics for cellulitis
Review of Systems:
No chest pain or shortness of breath
Labs
-
Labs:
WBC 9.4 10^3/uL (4.8-10.8) 05/28/24 04:52
RBC 2.66 10^6/uL (4.70-6.10) L 05/28/24 04:52
Hgb 8.9 g/dL (13.0-18.0) L 05/28/24 04:52
Hct 26.6 % (39.0-52.0) L 05/28/24 04:52
Plt Count 117 10^3/uL (130-400) L 05/28/24 04:52
Sodium 128 mmol/L (135-145) L 05/28/24 04:52
Potassium 4.0 mmol/L (3.5-5.1) 05/28/24 04:52
Chloride 89 mmol/L (98-107) L 05/28/24 04:52
Carbon Dioxide 27 mmol/L (22-30) 05/28/24 04:52
BUN 55 mg/dl (9-20) H 05/28/24 04:52
Creatinine 11.8 mg/dL (0.7-1.3) H* 05/28/24 04:52
eGFR 3.91 05/28/24 04:52
Glucose 89 mg/dl (70-99) 05/28/24 04:52
Calcium 8.7 mg/dl (8.4-10.2) 05/28/24 04:52
Albumin 3.0 g/dl (3.5-5.0) L 05/26/24 12:48
Physical Exam
-
Vital Signs:
Vital Signs
Temp Pulse Resp BP Pulse Ox
97.4 F 58 18 135/78 95
05/28/24 07:30 05/27/24 15:52 05/28/24 03:49 05/28/24 08:59 05/28/24 10:22
Cardiovascular:: Regular rate and rhythm
Respiratory:: Bilateral: Coarse
Lung Excursion:: Normal
Abdomen:: Nontender and Soft
Bowel Sounds:: Normal
Extremity Edema:: None: Bilateral:
[2024-05-28 15:47] VITALS: BP 147/64
[2024-05-28] MEDS: FLOMAX 0.4 MG PO (17:45)
[2024-05-28] MEDS: LIPITOR 20 MG PO (17:45)
--- NOTE | 2024-05-28 19:46 | PTCARENOTE ---
Pt received from yehuda PRIEST. AAOx3. making needs known. Pt c/o 12/02o acute on chronic pain in b/l LE toes. Pt given ordered dose of prn oxycodone Po 5mg, per order for pain. See JUL. Pt medsurg level of care. RA, lungs clear. PD maintained per
orders. Assessment as documented.
[2024-05-28 23:13] VITALS: BP 157/56
[2024-05-29] MEDS: HEPARIN 5000 UNITS SC ×4 (01:14→22:46)
[2024-05-29] MEDS: ROXICODONE 5 MG PO ×4 (01:14→22:10)
[2024-05-29] MEDS: PROTONIX 40 MG PO (05:27)
[2024-05-29 05:33] LABS: Hematocrit 26.7 % (39.0-52.0); Mean Corp Hgb Conc. 33.7 g/dL (33.0-37.0); Mean Corpuscular Hgb 34.5 pg (27.0-31.0); Mean Corpuscular Volume 102.3 fL (80.0-94.0); Mean Platelet Volume 10.6 fL (7.4-10.4); Platelet Count 127 10^3/uL (130-400); Red Blood Cell Count 2.61 10^6/uL (4.70-6.10); Red Cell Dist. Width 14.6 % (11.5-14.5); White Blood Cell Count 10.3 10^3/uL (4.8-10.8)
[2024-05-29 06:25] LABS: Blood Urea Nitrogen 53 mg/dl (9-20); Calcium 8.6 mg/dl (8.4-10.2); Carbon Dioxide 26 mmol/L (22-30); Chloride 88 mmol/L (98-107); Estimated Creatinine Clearance 6 ml/min; Glucose 94 mg/dl (70-99); Potassium 4.3 mmol/L (3.5-5.1); Sodium 127 mmol/L (135-145); eGFR 4.16
--- NOTE | 2024-05-29 07:52 | W.PN.HOSP.TC ---
Today's Communication/Plan
-
CW current tx
Eval the need of Dipyridamole for PAD/CAD standpoint
Assessment / Plan
Assessment / Plan
1. Peripheral arterial disease with bilateral dry gangrene of the toes. No superimposed cellulitis. He recently had arterial work including stent placement in the left leg. Planning for transcatheter arterialization of the deep veins of the
right lower extremity on Thursday. At some point vascular surgery planning on 2 amputations on the left now that he has arterial stent and increased flow in the left leg
-X-ray of the left foot: Subcutaneous edema consistent with cellulitis; no evidence of osteomyelitis
-Vascular ultrasound with MARLENA: No DVT, heavily calcified arterial walker, MARLENA 0.19
-Vascular Surgery following
-Hold on antibiotics. Continue with his antiplatelet treatment
-Hold Eliquis
2. Hypertension
-Continue home dose metoprolol
3. Atrial fibrillation
-Continue amiodarone, metoprolol
-Hold Eliquis for now, pending vascular interventions
4. Peripheral arterial disease
-Follow vascular recommendations
-Continue dipyridamole
5. ESRD with peritoneal dialysis
-BUN 46, creatinine 11.4
-Nephrology consulted for recommendations
-Patient receives peritoneal dialysis outpatient
-Continue furosemide, sevelamer, Velphoro
Dipyridamole use-on it for some time- pt thinks it was started by his reading intervention teacher Dr Garcia .No hx of stroke. He denies any coronary artery stent. He is also on aspirin and Eliquis. Will check with vascular and if no indication from them we
will check with Dr. Garcia tomorrow and if no indication we will discontinue that.
Anticipated Discharge: > 48 hours
Subjective/Interval History
-
Date of Service: May 29, 2024
No events from overnight. He is voicing no specific complaints. Pain from dry gangrene toes tolerable with oxycodone.
Objective Data
-
Labs:
Laboratory Results
05/29/24
04:56
WBC 10.3
Hgb 9.0 L
Hct 26.7 L
Plt Count 127 L
Sodium 127 L
Potassium 4.3
Chloride 88 L
Carbon Dioxide 26
BUN 53 H
Creatinine 11.2 H*
Glucose 94
Calcium 8.6
Vital Signs:
Vital Signs
Temp Pulse Resp BP Pulse Ox
99.0 F 68 16 157/56 96
05/29/24 03:19 05/28/24 23:18 05/28/24 23:18 05/28/24 23:13 05/28/24 23:18
I&O
05/28/24 05/29/24 05/30/24
06:59 06:59 06:59
Intake Total 2400 / 2400 460 / 460
Output Total 100 / 100
Balance 2300 / 2300 460 / 460
Review of Systems
-
Constitutional: Denies Fever
Respiratory: Denies Trouble Breathing
Cardiac: Denies Chest Pain
Abdomen/GI: Denies Abdominal Pain, Nausea or Vomiting
Neuro: Denies Dizzy
Physical Exam
-
General: Comfortable
Respiratory: Clear to Auscultation and Non Labored Respirations; Negative Accessory Resp Muscle Use
Cardiac: Regular Rhythm and S1/S2
GI: Soft
Neuro: AO x 3
Psych: Calm; Negative Confused
Data Reviewed
-
Labs: Labs Reviewed by me
[2024-05-29] MEDS: LOW STRENGTH ASPIRIN 81 MG PO (08:41)
[2024-05-29] MEDS: PACERONE 100 MG PO (08:42)
[2024-05-29] MEDS: PERSANTINE 50 MG PO (08:42)
[2024-05-29 08:43] VITALS: BP 128/57
[2024-05-29] MEDS: RENVELA 1600 MG PO ×3 (08:43→18:03)
[2024-05-29] MEDS: VITAMIN D3 (cholecalciferol) 25 MCG PO (08:43)
[2024-05-29] MEDS: LASIX 40 MG PO ×2 (08:43→17:08)
[2024-05-29] MEDS: B COMPLEX w/VITAMIN C 1 CAPLET PO (08:44)
[2024-05-29] MEDS: TOPROL XL 25 MG PO (08:44)
[2024-05-29] MEDS: ZYLOPRIM 100 MG PO (08:44)
--- NOTE | 2024-05-29 13:44 | W.PN.NEPH.PH ---
Today's Communication / Plan
-
PD ordered
Assessment/Plan
-
83-year-old male with peripheral arterial disease, hypertension, secondary hyperparathyroidism, mixed hyperlipidemia end-stage renal disease on peritoneal dialysis has been on peritoneal dialysis for 3 years which she developed acute kidney injury
secondary to sepsis initiating hemodialysis. He presents to the hospital for elective revascularization of his left lower extremity secondary to ischemia.
Assessment
ESRD on peritoneal dialysis
Hypertension
Peripheral arterial disease
Left foot cellulitis
Plan:
Peritoneal dialysis ordered manual treatments
Performs a cycler at home 6 exchanges/3 L bags with 1.5% no last fill
Manual exchange 4-hour dwell time, 2 L, 1.5% alt 2.5% given even PD flowsheet I/O
Continue outpatient medications, may switch Velphoro to Renvela as he does not carry Velphoro with him
Antibiotics continue for cellulitis
OR tomorrow
-
-
Date of Service: May 29, 2024
CC / HPI / ROS
-
Chief Complaint:
ESRD
History of Present Illness:
PD in progress.
BP stable
On antibiotics for cellulitis
for OR tomorrow
Review of Systems:
No chest pain or shortness of breath
Labs
-
Labs:
WBC 10.3 10^3/uL (4.8-10.8) 05/29/24 04:56
RBC 2.61 10^6/uL (4.70-6.10) L 05/29/24 04:56
Hgb 9.0 g/dL (13.0-18.0) L 05/29/24 04:56
Hct 26.7 % (39.0-52.0) L 05/29/24 04:56
Plt Count 127 10^3/uL (130-400) L 05/29/24 04:56
Sodium 127 mmol/L (135-145) L 05/29/24 04:56
Potassium 4.3 mmol/L (3.5-5.1) 05/29/24 04:56
Chloride 88 mmol/L (98-107) L 05/29/24 04:56
Carbon Dioxide 26 mmol/L (22-30) 05/29/24 04:56
BUN 53 mg/dl (9-20) H 05/29/24 04:56
Creatinine 11.2 mg/dL (0.7-1.3) H* 05/29/24 04:56
eGFR 4.16 05/29/24 04:56
Glucose 94 mg/dl (70-99) 05/29/24 04:56
Calcium 8.6 mg/dl (8.4-10.2) 05/29/24 04:56
Albumin 3.0 g/dl (3.5-5.0) L 05/26/24 12:48
Physical Exam
-
Vital Signs:
Vital Signs
Temp Pulse Resp BP Pulse Ox
97.9 F 68 16 128/57 96
05/29/24 11:40 05/28/24 23:18 05/28/24 23:18 05/29/24 08:44 05/29/24 10:48
Cardiovascular:: Regular rate and rhythm
Respiratory:: Bilateral: Coarse
Lung Excursion:: Normal
Abdomen:: Nontender and Soft
Bowel Sounds:: Normal
Extremity Edema:: +3: Bilateral:
[2024-05-29] MEDS: FLOMAX 0.4 MG PO (17:08)
[2024-05-29 17:09] VITALS: BP 155/60
[2024-05-29] MEDS: LIPITOR 20 MG PO (17:09)
[2024-05-29] MEDS: MEDROL 32 MG PO (19:43)
[2024-05-29 21:38] VITALS: BP 152/61
[2024-05-29] MEDS: TUMS CHEWABLE TABLET 400 MG PO (22:46)
[2024-05-29 23:17] VITALS: BP 140/44
[2024-05-29 23:36] VITALS: BP 140/44
[2024-05-30] VITALS (24 sets, daily range): BP systolic 122–159; BP diastolic 45–106
[2024-05-30 04:22] LABS: Hematocrit 27.2 % (39.0-52.0); Hemoglobin 9.2 g/dL (13.0-18.0); Mean Corp Hgb Conc. 33.8 g/dL (33.0-37.0); Mean Corpuscular Hgb 33.6 pg (27.0-31.0); Mean Corpuscular Volume 99.3 fL (80.0-94.0); Platelet Count 125 10^3/uL (130-400); Red Blood Cell Count 2.74 10^6/uL (4.70-6.10); Red Cell Dist. Width 14.5 % (11.5-14.5); White Blood Cell Count 8.7 10^3/uL (4.8-10.8)
[2024-05-30 04:40] LABS: INR 0.91; PT 12.6 Sec (11.4-14.6)
[2024-05-30 04:41] LABS: APTT 39.1 Sec (23.4-35.0)
[2024-05-30 04:45] LABS: Blood Urea Nitrogen 49 mg/dl (9-20); Calcium 8.6 mg/dl (8.4-10.2); Carbon Dioxide 28 mmol/L (22-30); Chloride 87 mmol/L (98-107); Estimated Creatinine Clearance 6 ml/min; Glucose 142 mg/dl (70-99); Potassium 4.6 mmol/L (3.5-5.1); Sodium 126 mmol/L (135-145); eGFR 4.35
[2024-05-30] MEDS: TUMS CHEWABLE TABLET 400 MG PO ×3 (05:32→21:11)
[2024-05-30] MEDS: NSS 500 IV (05:32)
--- NOTE | 2024-05-30 06:00 | PTCARENOTE ---
No acute events overnight. PD every 4 hours with alternating solutions. NPO at midnight for vascular procedure today. Patient had CHG bath and complete linen change.
[2024-05-30] MEDS: PACERONE 100 MG PO (08:54)
[2024-05-30] MEDS: ZYLOPRIM 100 MG PO (08:55)
[2024-05-30] MEDS: TOPROL XL 25 MG PO (08:55)
[2024-05-30] MEDS: VITAMIN D3 (cholecalciferol) 25 MCG PO (08:55)
[2024-05-30] MEDS: LASIX 40 MG PO (08:56)
[2024-05-30] MEDS: PROTONIX 40 MG PO (08:56)
[2024-05-30] MEDS: LOW STRENGTH ASPIRIN 81 MG PO (08:56)
[2024-05-30] MEDS: RENVELA PO ×2 (08:57→12:35)
[2024-05-30] MEDS: HEPARIN 5000 UNITS SC ×2 (08:58→23:09)
[2024-05-30] MEDS: B COMPLEX w/VITAMIN C 1 CAPLET PO (08:58)
[2024-05-30] MEDS: PERSANTINE 50 MG PO (08:58)
[2024-05-30] MEDS: BACTROBAN NASAL 1 GRAM NASAL (10:20)
[2024-05-30] MEDS: PERIDEX 0.12% ORAL RINSE 15 ML PO (10:20)
--- NOTE | 2024-05-30 11:35 | W.PN.NEPH.PH ---
Today's Communication / Plan
-
drain PD fluid for OR, resume PD post OP on floor
Assessment/Plan
-
83-year-old male with peripheral arterial disease, hypertension, secondary hyperparathyroidism, mixed hyperlipidemia end-stage renal disease on peritoneal dialysis has been on peritoneal dialysis for 3 years which she developed acute kidney injury
secondary to sepsis initiating hemodialysis. He presents to the hospital for elective revascularization of his left lower extremity secondary to ischemia.
Assessment
ESRD on peritoneal dialysis
Hypertension
Peripheral arterial disease
Left foot cellulitis
Plan:
Peritoneal dialysis ordered manual treatments
Performs a cycler at home 6 exchanges/3 L bags with 1.5% no last fill
Here with manual exchange 4-hour dwell time, 2 L, 1.5% alt 2.5% given even PD flowsheet I/O
Continue outpatient medications, switched Velphoro to Renvela as he does not carry Velphoro with him
Antibiotics continue for cellulitis
OR today
hyponatremia-possible dilutional, strict FR , check daily wts
-
-
Date of Service: May 30, 2024
CC / HPI / ROS
-
Chief Complaint:
ESRD
History of Present Illness:
PD in progress. draining
BP stable
On antibiotics for cellulitis
for OR today
Review of Systems:
No chest pain or shortness of breath
Labs
-
Labs:
WBC 8.7 10^3/uL (4.8-10.8) 05/30/24 04:06
RBC 2.74 10^6/uL (4.70-6.10) L 05/30/24 04:06
Hgb 9.2 g/dL (13.0-18.0) L 05/30/24 04:06
Hct 27.2 % (39.0-52.0) L 05/30/24 04:06
Plt Count 125 10^3/uL (130-400) L 05/30/24 04:06
Sodium 126 mmol/L (135-145) L 05/30/24 04:06
Potassium 4.6 mmol/L (3.5-5.1) 05/30/24 04:06
Chloride 87 mmol/L (98-107) L 05/30/24 04:06
Carbon Dioxide 28 mmol/L (22-30) 05/30/24 04:06
BUN 49 mg/dl (9-20) H 05/30/24 04:06
Creatinine 10.8 mg/dL (0.7-1.3) H* 05/30/24 04:06
eGFR 4.35 05/30/24 04:06
Glucose 142 mg/dl (70-99) H 05/30/24 04:06
Calcium 8.6 mg/dl (8.4-10.2) 05/30/24 04:06
Albumin 3.0 g/dl (3.5-5.0) L 05/26/24 12:48
Physical Exam
-
Vital Signs:
Vital Signs
Temp Pulse Resp BP Pulse Ox
98.2 F 63 20 138/60 94
05/30/24 07:15 05/29/24 23:36 05/30/24 07:15 05/30/24 07:24 05/30/24 07:15
Cardiovascular:: Regular rate and rhythm
Respiratory:: Bilateral: CTA (anteriolry)
Lung Excursion:: Normal
Abdomen:: Nontender and Soft
Extremity Edema:: +3: Bilateral:
Pascual Catheter: No
--- NOTE | 2024-05-30 12:04 | SUR.OPER ---
pt arrived to recovery aaox3, wipes, and preop assessment completed with orders, consent signed and anesthesia into see pt, Iv TO RIGHT ARM X2 FLUSHED BL TOES PURPLE IN COLOR, PT REQUESTING CONDOM CATH, BL GROIN SITES PREPPED, NSS HUN, REPORT AND
HAND OFF GIVEN TO VASCULAR OR
--- NOTE | 2024-05-30 12:37 | PTCARENOTE ---
pt off floor for poultry hatchery laborer procedure. peritoneal dialysite drained prior to OR. report given to poultry hatchery laborer rn.
--- NOTE | 2024-05-30 13:41 | W.PN.HOSP.TC ---
Addendum entered and electronically signed by Nando Garcia MD 05/30/24 18:38:
dry gangrene
S.p transcatheter arterialization of the deep veins, RIGHT lower extremity 05/30
f/u vascular suregry rec
afib
continue amio and bb
hold eliquis
pad
continue dipyridamole
esrd
continue pd per neph recs
Original Note:
Today's Communication/Plan
-
.
Assessment / Plan
Assessment / Plan
1. 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
- No superimposed cellulitis. Abx held.
- Recent LimbFlow procedure of the LLE, scheduled for transcatheter arterialization of the deep veins of the RLE today.
- Concurrent amputations of the first and second toes of LLE planned as well
- X-ray of the left foot (05/26): Subcutaneous edema consistent with cellulitis; no evidence of osteomyelitis.
- Vascular ultrasound with MARLENA (05/27): No DVT, heavily calcified arterial walker, MARLENA 0.19.
- C/w antiplatelet therapy.
- Hold Eliquis
2. Hypertension
-Continue home dose metoprolol
3. Atrial fibrillation
-Continue amiodarone, metoprolol
-Hold Eliquis for now, pending vascular interventions
4. Peripheral arterial disease
-Follow vascular recommendations
-Continue dipyridamole
5. ESRD with peritoneal dialysis
-BUN 49, creatinine 10.8
-Nephrology consulted for recommendations
-Peritoneal dialyses scheduled while admitted
-Continue furosemide, sevelamer, Velphoro
Anticipated Discharge: 24 - 48 hours
Subjective/Interval History
-
Date of Service: May 30, 2024
Patient seen and examined while resting comfortably in bed, at bedside. Patient reports no acute complaints this morning, pain from dry gangrene currently controlled. Patient is awaiting transcatheter arterialization procedure today, to be done
after peritoneal dialysis is finished draining.
Objective Data
-
Labs:
Laboratory Results
05/30/24
04:06
WBC 8.7
Hgb 9.2 L
Hct 27.2 L
Plt Count 125 L
PT 12.6
INR 0.91
APTT 39.1 H
Sodium 126 L
Potassium 4.6
Chloride 87 L
Carbon Dioxide 28
BUN 49 H
Creatinine 10.8 H*
Glucose 142 H
Calcium 8.6
Vital Signs:
Vital Signs
Temp Pulse Resp BP Pulse Ox
98.2 F 63 20 138/60 94
05/30/24 07:15 05/29/24 23:36 05/30/24 07:15 05/30/24 07:24 05/30/24 07:15
I&O
05/29/24 05/30/24 05/31/24
06:59 06:59 06:59
Intake Total 460 / 460 760 / 760
Output Total 800 / 800 675 / 675
Balance 460 / 460 -40 / -40 -675 / -675
Review of Systems
-
History Source: Patient
Constitutional: Reports No Symptoms
Respiratory: Reports No Symptoms
Cardiac: Reports No Symptoms
Musculoskeletal: Reports Other (dry gangrene of the first and second toes bilaterally, pain controlled)
Physical Exam
-
General: No Apparent Distress and Comfortable
HEENT: Normocephalic and Atraumatic
Respiratory: Clear to Auscultation and Non Labored Respirations
Cardiac: Regular Rhythm and S1/S2
GI: Soft
Musculoskeletal: Other (dry gangrene of the first and second toes bilaterally; examination unchanged)
Neuro: Awake, Alert and Oriented
Psych: Calm
Data Reviewed
-
Labs: Labs Reviewed by me and Discussed with Patient
[2024-05-30 14:41] LABS: ACT-LR - POC 260 Seconds (116-155)
[2024-05-30 15:47] LABS: ACT-LR - POC 256 Seconds (116-155)
--- NOTE | 2024-05-30 16:50 | W.IMMPOSTOP ---
Surgical Immed Post Op Note
-
Primary Surgeon: Samara
Assisting Surgeon: Lizette
Pre-op Diagnosis: Chronic limb threatening ischemia
Post-op Diagnosis: Chronic limb threatening ischemia
Procedure Performed: RLe limflow
Anesthesia Type: General
Specimen / Cultures: None
Estimated Blood Loss: 15 cc
Complications: None
Operative Findings: RLE limbflow with fistula from R peroneal artery to vein. R groin and R pedal access with dopplerable pedal pulses postoperatively.
--- NOTE | 2024-05-30 16:51 | CM ---
Patient with Hx ESRD on peritoneal dialysis. Plan transcatheter arterialization deep veins RLE today with amputations first and second toes LLE. Room air. Receiving IVF.
Plan follow patient's mobility post op and any wound care needs.
Plan probable home with VN.
--- NOTE | 2024-05-30 17:43 | OR.RPT ---
Operative Report
Operative Report
Date of Operation: 05/30/2024
Pre Op Diagnosis:
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
Chronic total occlusion of artery of the extremities
Type 2 diabetes mellitus with diabetic peripheral angiopathy with gangrene
End stage renal disease on peritoneal dialysis
Post Op Diagnosis:
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
Chronic total occlusion of artery of the extremities
Type 2 diabetes mellitus with diabetic peripheral angiopathy with gangrene
End stage renal disease on peritoneal dialysis
Procedure:
Transcatheter arterialization of the deep veins, RIGHT lower extremity (LimFlow)
0620T: Endovascular venous arterialization, tibial or peroneal vein, with transcatheter placement of intravascular
stent graft(s) and closure by any method, including percutaneous or open vascular access, ultrasound guidance for
vascular access when performed, all catheterization(s) and intraprocedural roadmapping and imaging guidance
necessary to complete the intervention, all associated radiological supervision and interpretation, when performed
[id number]: Bypass right peroneal artery to lower extremity vein with synthetic substitute, percutaneous approach
Surgeon: Rolo Pascual III, MD
Finance Officer: Aleks Bauer MD PGY1
Anesthesia: General
Complications: None
Estimated Blood Loss: 20 cc
History and Indications for Procedure: 83-year-old male with severe calcified peripheral arterial occlusive disease and dry gangrene of the toes of the right foot. He had no traditional endovascular or open revascularization strategy.
Transcatheter arterialization of the deep veins was recommended for limb preservation.
Procedure in Detail: Alexis Welsh was brought back to the operating room and placed supine on the OR table. General anesthesia was induced. Preoperative antibiotics were given. The patient�s right lower extremity and foot was prepped and draped in
the usual sterile fashion.
He was placed in reverse Trendelenburg position. A sterile tourniquet was applied to the right calf and inflated while obtaining venous access. We obtained ultrasound guided percutaneous access in the Lateral Plantar Vein using a micropuncture
technique. A 4Fr sheath was inserted. A V18 wire was advanced through the Lateral Plantar Vein into the Posterior Tibial Vein in the calf.
Attention was then turned to the patient�s right groin. We first obtained antegrade percutaneous access in the right proximal superficial femoral artery using fluoroscopic and ultrasound guidance. A Judicatason wire was inserted and upsized to a 7Fr
sheath, which was advanced into the distal superficial Femoral Artery (SFA). We obtained a right lower extremity angiogram, which demonstrated the following:
The popliteal artery was patent. The anterior tibial artery was patent proximally but occluded in the midsegment with no distal reconstitution. The posterior tibial artery was patent. Sluggish flow was identified across the ankle and into a
heavily calcified plantar branch. The peroneal artery was patent to the ankle.
I selected the peroneal artery and performed an arteriogram through the quick cross catheter and the proximal peroneal. The peroneal artery was patent. Distally it did not provide any meaningful flow across the ankle and into the foot. The only
flow across the ankle and into the foot came via the posterior tibial artery.
Systemic heparin was administered. We used a Quickcross catheter and 0.014 wire to select the peroneal artery. We advanced the LimFlow ARC� Arterial Catheter into the proximal right peroneal artery. We advanced the LimFlow V-Ceiver� Venous Catheter
to the Posterior Tibial vein from the Lateral Plantar Vein sheath at the same
approximate level. The fluoroscopy unit was rotated in such a way as to overlay the crossing device and snare. The LimFlow crossing device (ARC) needle was deployed into the Posterior Tibial Vein. A 0.014 wire was advanced through the crossing
device into the venous snare (V-Ceiver) where it was captured and subsequently withdrawn
through the venous sheath, providing through and through wire access. The arteriovenous connection was ballooned
with a 3 mm x40 mm balloon. Next, the forward cutting LimFlow Vector� Valvulotome was advanced from the arterial sheath across the arteriovenous connection into the Posterior Tibial Vein. The valvulotome was deployed and advanced down the vein in
order to lyse the venous valves to the distal-most aspect of the Lateral Plantar Vein. A 5 mm x 220 mm balloon was used to angioplasty the donor vein to confirm adequate valve effacement and absence of stricture within the donor vein in preparation
for stent placement. There was an area of residual stenosis in the posterior tibial vein over the calcaneus that was treated with a 5 mm x 20 mm cutting balloon. This profiled the vein nicely with no residual stenosis identified. We then deployed
two LimFlow cylindrical stent grafts (5.5mm x 200 mm and 5.5mm x 200mm) in the Posterior Tibial Vein from the ankle extending proximally up the calf. Next the tapered conical stent (3.5-5.5mm x 60 mm) was deployed proximally across the level of the
arteriovenous connection. The stent grafts were post-dilated to 4 mm in the arterial segment and 5 mm in the venous segment.
The plantar sheath was retracted into the subcutaneous tissue to allow for antegrade wiring of the metatarsal aspect of the Lateral Plantar Vein using a 0.014 wire and a CXI catheter. The pedal venous loop was wired successfully with this approach.
A 3 mm x 120 mm angioplasty balloon was advanced successfully across the pedal venous loop and inflated to nominal pressure. This was held in place for a 2-minute inflation at nominal pressure before deflating and removing over the wire. The 5 mm
x 20 mm cutting balloon was then advanced distally to the level of the metatarsals and used to treat the plantar vein outflow.
The wire was pulled back into the stents. A completion arteriogram demonstrated widely patent posterior tibial stents with brisk flow and robust filling of the pedal venous system. The pedal sheath was removed and venous access hemostasis was
obtained. The femoral sheath was removed, and manual pressure was applied until hemostasis was obtained. Dry sterile dressings were applied.
Handheld Doppler was performed at the distal Posterior Tibial Vein, Lateral Plantar Vein, and outflow Greater Saphenous Vein and a robust audible pulsatile signal was heard at all points.
The patient tolerated the procedure well was taken to the recovery room in good condition.
Attestation: I was present and responsible for the entire procedure
Signed:
Rolo Pascual III, MD
[facility]
[phone] (iwwu)
[2024-05-30] MEDS: SUBLIMAZE 50 MCG IV (18:08)
[2024-05-30] MEDS: HEPARIN SC (18:09)
[2024-05-30] MEDS: LASIX PO (18:09)
--- NOTE | 2024-05-30 19:29 | PTCARENOTE ---
pt returned from pacu at 1845. see nursing flowsheet. vitals stable. ice chips given, right groin and foot dressings intact. pulses present via doppler. hob increased to 30 degrees with strict bedrest mintained. report given to oncoming rn and 2.5 %
dialysate infused to dwell x 4 hours.
[2024-05-30] MEDS: RENVELA 1600 MG PO (19:48)
[2024-05-30] MEDS: LIPITOR 20 MG PO (19:48)
[2024-05-30] MEDS: FLOMAX 0.4 MG PO (19:48)
[2024-05-30] MEDS: ROXICODONE 5 MG PO (23:09)
[2024-05-31] VITALS (12 sets, daily range): BP systolic 121–175; BP diastolic 51–74; PULSE 67; BMI 32.7
[2024-05-31] MEDS: TUMS CHEWABLE TABLET 400 MG PO (03:12)
[2024-05-31 03:48] LABS: INR 0.94; PT 12.9 Sec (11.4-14.6)
[2024-05-31 04:07] LABS: Blood Urea Nitrogen 49 mg/dl (9-20); Calcium 8.9 mg/dl (8.4-10.2); Carbon Dioxide 27 mmol/L (22-30); Chloride 87 mmol/L (98-107); Estimated Creatinine Clearance 6 ml/min; Glucose 110 mg/dl (70-99); Potassium 4.7 mmol/L (3.5-5.1); Sodium 128 mmol/L (135-145); eGFR 4.25
[2024-05-31 04:14] LABS: Hematocrit 28.1 % (39.0-52.0); Hemoglobin 9.4 g/dL (13.0-18.0); Mean Corp Hgb Conc. 33.5 g/dL (33.0-37.0); Mean Corpuscular Hgb 33.7 pg (27.0-31.0); Mean Corpuscular Volume 100.7 fL (80.0-94.0); Mean Platelet Volume 9.9 fL (7.4-10.4); Platelet Count 154 10^3/uL (130-400); Red Blood Cell Count 2.79 10^6/uL (4.70-6.10); Red Cell Dist. Width 14.9 % (11.5-14.5); White Blood Cell Count 12.8 10^3/uL (4.8-10.8)
--- NOTE | 2024-05-31 05:32 | PTCARENOTE ---
No acute events overnight. Vascular checks WNL. Patient back on room air. Next PD due at 0930.
--- NOTE | 2024-05-31 05:52 | PTCARENOTE ---
Patient complaining of gerd symptoms- unable to have tums until 0715. Patient asking for protonix to be given early. application security engineer provider made aware and gave the OK.
[2024-05-31] MEDS: PROTONIX 40 MG PO (05:55)
[2024-05-31] MEDS: HEPARIN 5000 UNITS SC (08:10)
[2024-05-31] MEDS: ZYLOPRIM 100 MG PO (08:11)
[2024-05-31] MEDS: LOW STRENGTH ASPIRIN 81 MG PO (08:11)
[2024-05-31] MEDS: RENVELA 1600 MG PO ×3 (08:11→16:33)
[2024-05-31] MEDS: PACERONE 100 MG PO (08:11)
[2024-05-31] MEDS: PERSANTINE 50 MG PO (08:11)
[2024-05-31] MEDS: VITAMIN D3 (cholecalciferol) 25 MCG PO (08:11)
[2024-05-31] MEDS: LASIX 40 MG PO ×2 (08:11→16:33)
[2024-05-31] MEDS: B COMPLEX w/VITAMIN C 1 CAPLET PO (08:11)
[2024-05-31] MEDS: TOPROL XL 25 MG PO (08:12)
--- NOTE | 2024-05-31 08:26 | W.PN.VS ---
Addendum entered and electronically signed by Rolo Pascual III, MD 05/31/24 10:47:
This patient was seen and examined with KAREN Cooper. I agree with the history and physical exam as well as the assessment and plan. I have the following additions:
Doing very well postop day 1 from RLE TADV
Easily audible robust Doppler signals over the posterior tibial as well as the plantar surface of the midfoot and dorsal surface of the foot
Access sites in the right groin and foot are soft and without hematoma.
Will have podiatry see patient today regarding the dry gangrene of his left toes now that he is nearly 6 weeks postop from the left lower extremity transcatheter arterialization of the deep veins.
Restart anticoagulation
Signed:
Rolo Pascual III, MD
[facility]
[phone] (quqz)
Original Note:
Today's Communication / Plan
-
Seen and assessed with Dr. Pascual
Assessment/Plan
-
POD 1 right lower extremity limflow
Plan:
-Patient doing great from vascular surgery perspective
-Podiatry to see today
-Will follow-up with patient later today with plans for next steps
-PD per nephrology
-Can resume Eliquis tonight if no surgical plan for podiatry on this stay
Subjective Data
-
Date of Service: May 31, 2024
Patient seen at bedside this a.m. with Dr. Pascual. Patient offers no complaints at this time. No events overnight.
Objective Data
-
Vital Signs
Temp Pulse Resp BP Pulse Ox
97.9 F 71 16 175/67 95
05/31/24 07:47 05/31/24 08:04 05/31/24 08:04 05/31/24 08:04 05/31/24 08:04
Intake and Output
05/30/24 05/31/24 06/01/24
06:59 06:59 06:59
Intake Total 760 / 760 605 / 605
Output Total 800 / 800 875 / 875
Balance -40 / -40 -270 / -270
Intake:
Oral fluids 720 / 720 480 / 480
IV fluids (Total) 40 / 40 125 / 125
Normosol 125 / 125
Output:
Urine, Voided 275 / 275
Fluid deficit 800 / 800 600 / 600
Other:
Number of approximated MODERATE 2
amounts of urine
Lab Results
05/31/24 03:18
05/31/24 03:18
Calcium 8.9 mg/dl (8.4-10.2) 05/31/24 03:18
Total Bilirubin 0.5 mg/dl (0.2-1.3) 05/26/24 12:48
AST 20 U/L (17-59) 05/26/24 12:48
ALT 11 U/L (0-50) 05/26/24 12:48
Alkaline Phosphatase 65 U/L (38-126) 05/26/24 12:48
Total Protein 4.9 g/dl (6.3-8.2) L 05/26/24 12:48
Albumin 3.0 g/dl (3.5-5.0) L 05/26/24 12:48
Physical Exam
-
AAOx3
No tachypnea on room air
No tachycardia
Abdomen soft
Groin site clean, dry, intact, soft, flat
Plantar access site clean, dry, intact
Bilateral feet with mild edema
Bilateral feet warm and pink
Right foot with + dorsal foot Doppler signal, + plantar venous Doppler signal
--- NOTE | 2024-05-31 10:55 | W.PN.HOSP.TC ---
Addendum entered and electronically signed by Nando Garcia MD 05/31/24 16:28:
dry gangrene
S.p transcatheter arterialization of the deep veins, RIGHT lower extremity 05/30
f/u vascular suregry rec
pod to eval, if no surgical intervention then plan to dc home
afib
continue amio and bb
hold eliquis
pad
continue dipyridamole
esrd
continue pd per neph recs
More than 30 minutes spent in discharge including
Final examination of the patient
Summarizing hospital stay
Instructions for continuing care to all relevant caregivers
Preparation of discharge records, prescriptions, and referral forms
Total time spent (in minutes): 33mins
Original Note:
Today's Communication/Plan
-
.
Assessment / Plan
Assessment / Plan
1. 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
- No superimposed cellulitis. Abx held.
- Recent LimbFlow procedure of the LLE (FLUSH TESTER), s/p transcatheter arterialization of the RLE yesterday; tolerated well.
- Consult podiatry: Assess dry gangrene of his left toes now that he is 6 weeks postop from LLE limb flow.
- X-ray of the left foot (05/26): Subcutaneous edema consistent with cellulitis; no evidence of osteomyelitis.
- Vascular ultrasound with MARLENA (05/27): No DVT, heavily calcified arterial walker, MARLENA 0.19.
- C/w antiplatelet therapy.
- Hold Eliquis for now; Can resume Eliquis tonight if no surgical plan for podiatry on this stay
2. Hypertension
-Continue home dose metoprolol
3. Atrial fibrillation
-Continue amiodarone, metoprolol
-Hold Eliquis for now, pending vascular interventions
4. Peripheral arterial disease
-Follow vascular recommendations
-Continue dipyridamole
5. ESRD with peritoneal dialysis
-Continue IMU care for PD
-BUN 49, creatinine 11
-Nephrology consulted for recommendations
-Peritoneal dialyses scheduled while admitted
-Continue furosemide, sevelamer, Velphoro
Anticipated Discharge: Today
Subjective/Interval History
-
Date of Service: May 31, 2024
Patient seen and examined while resting comfortably in bed. Patient is 1 day status post transcatheter arterialization without amputation. Patient denies any acute complaints to the lower extremities this morning. Patient does note some mild
reflux since last night that is improving. Pain is well-controlled by current pain regimen.
Objective Data
-
Labs:
Laboratory Results
05/31/24
03:18
WBC 12.8 H
Hgb 9.4 L
Hct 28.1 L
Plt Count 154 D
PT 12.9
INR 0.94
APTT 35.0
Sodium 128 L
Potassium 4.7
Chloride 87 L
Carbon Dioxide 27
BUN 49 H
Creatinine 11.0 H*
Glucose 110 H
Calcium 8.9
Vital Signs:
Vital Signs
Temp Pulse Resp BP Pulse Ox
97.9 F 71 16 175/67 95
05/31/24 07:47 05/31/24 08:04 05/31/24 08:04 05/31/24 08:04 05/31/24 08:04
I&O
05/30/24 05/31/24 06/01/24
06:59 06:59 06:59
Intake Total 760 / 760 605 / 605
Output Total 800 / 800 875 / 875
Balance -40 / -40 -270 / -270
Review of Systems
-
History Source: Patient
Constitutional: Reports No Symptoms
Respiratory: Reports No Symptoms
Cardiac: Reports No Symptoms
Abdomen/GI: Reports GERD (Improving)
Musculoskeletal: Reports Other (Controlled pain)
Neuro: Reports No Symptoms
Physical Exam
-
General: No Apparent Distress and Comfortable
HEENT: Normocephalic and Atraumatic
Respiratory: Clear to Auscultation and Non Labored Respirations
Cardiac: Regular Rhythm and S1/S2
GI: Soft
Musculoskeletal: No Clubbing, No Cyanosis, No Edema and Other (dry gangrene of the first and second toes bilaterally, plantar vascular access site visualized and is c/d/i)
Skin: Warm
Neuro: Awake, Alert and Oriented
Psych: Calm
Data Reviewed
-
Labs: Labs Reviewed by me and Discussed with Patient
--- NOTE | 2024-05-31 11:52 | W.PN.NEPH.PH ---
Today's Communication / Plan
-
change all to 2.5% in PD
Assessment/Plan
-
83-year-old male with peripheral arterial disease, hypertension, secondary hyperparathyroidism, mixed hyperlipidemia end-stage renal disease on peritoneal dialysis has been on peritoneal dialysis for 3 years which she developed acute kidney injury
secondary to sepsis initiating hemodialysis. He presents to the hospital for elective revascularization of his left lower extremity secondary to ischemia.
Assessment
ESRD on peritoneal dialysis
Hypertension
Peripheral arterial disease
Left foot cellulitis
Plan:
Peritoneal dialysis ordered manual treatments
At home Performs a cycler at home 6 exchanges/3 L bags with 1.5% no last fill
Here with manual exchange 4-hour dwell time, 2 L, change to all 2.5% given increasing wt and edema, could try 4.2 if needed
Continue outpatient medications, switched Velphoro to Renvela as he does not carry Velphoro with him
Antibiotics continue for cellulitis
s/p Transcatheter arterialization of the deep veins, RIGHT lower extremity on 05/30
hyponatremia-possible dilutional, strict FR , follow daily wts
-
-
Date of Service: May 31, 2024
CC / HPI / ROS
-
Chief Complaint:
ESRD
History of Present Illness:
PD in progress. draining
BP stable
On antibiotics for cellulitis
8kg wt is up since admit
Review of Systems:
No chest pain or shortness of breath
c/o edema
Labs
-
Labs:
WBC 12.8 10^3/uL (4.8-10.8) H 05/31/24 03:18
RBC 2.79 10^6/uL (4.70-6.10) L 05/31/24 03:18
Hgb 9.4 g/dL (13.0-18.0) L 05/31/24 03:18
Hct 28.1 % (39.0-52.0) L 05/31/24 03:18
Plt Count 154 10^3/uL (130-400) D 05/31/24 03:18
Sodium 128 mmol/L (135-145) L 05/31/24 03:18
Potassium 4.7 mmol/L (3.5-5.1) 05/31/24 03:18
Chloride 87 mmol/L (98-107) L 05/31/24 03:18
Carbon Dioxide 27 mmol/L (22-30) 05/31/24 03:18
BUN 49 mg/dl (9-20) H 05/31/24 03:18
Creatinine 11.0 mg/dL (0.7-1.3) H* 05/31/24 03:18
eGFR 4.25 05/31/24 03:18
Glucose 110 mg/dl (70-99) H 05/31/24 03:18
Calcium 8.9 mg/dl (8.4-10.2) 05/31/24 03:18
Albumin 3.0 g/dl (3.5-5.0) L 05/26/24 12:48
Physical Exam
-
Vital Signs:
Vital Signs
Temp Pulse Resp BP Pulse Ox
97.9 F 71 16 175/67 95
05/31/24 07:47 05/31/24 08:04 05/31/24 08:04 05/31/24 08:04 05/31/24 08:04
Cardiovascular:: Regular rate and rhythm
Respiratory:: Bilateral: CTA (anteriorly)
Lung Excursion:: Normal
Abdomen:: Nontender and Soft
Extremity Edema:: +2: Bilateral:
Pascual Catheter: No
Other Findings::
gangrene toes noted
[2024-05-31] MEDS: HEPARIN SC (16:32)
[2024-05-31] MEDS: LIPITOR 20 MG PO (16:33)
[2024-05-31] MEDS: FLOMAX 0.4 MG PO (16:33)
[2024-05-31] MEDS: ROXICODONE 5 MG PO (16:34)
--- NOTE | 2024-05-31 17:02 | PTCARENOTE ---
pt is expecting to be discharged after seen by podiatry. with last PD exchange pt wanted to have fluid drained only. pt does not want dwell placed as it will need to be drained prior to discharge. dr mcnally made aware.
--- NOTE | 2024-05-31 17:59 | W.CS.POD ---
Consult Summary - Podiatry
-
83-year-old male with h/O PAD, with ischemic changes and mow suzanne, dry gangrene , Type 2 diabetes mellitus with diabetic peripheral angiopathy with gangrene
End stage renal disease on peritoneal dialysis seen at the request of vascular surgery for left 1 and 2 digit gangrenous changes, patient presented to the [facility] and had LimFlow procedure to the right lower extremity on May 30,
2024, he had left side procedure done about 6 weeks ago, patient currently doing very well, no erythema no drainage no foul odor he denies any pain in bilateral feet, no fever, chills. he states that, his both feet are now pink and warm. No fever
chills no shortness of breath no chest pain
Reviewed past medical history medications and allergies
Bilateral feet with minimal edema
Bilateral feet warm pink, well-perfused
Left foot 1,2 digits with well-demarcated dry gangrenous changes, there is no local erythema no drainage noted. no foul odor noted.
Right 1, 2, 3 digits also well-demarcated dry gangrenous changes, no local erythema no drainage no signs of infection
Assessment and plan: Bilateral lower extremity peripheral arterial disease with dry gangrenous changes
S/P LimFlow procedure to Right leg on 05/30/2024
S/P Lt leg LimFlow 6 wks ago
Plan: Patient evaluated at bedside I have discussed with patient and his at bedside that he has dry, stable gangrenous changes,
will continue to monitor for further improvement and more demarcation, close monitoring for any redness, drainage or foul odor.
possible left first and second digit amputation in 1 to 2 wks planned
Right foot also will be closely monitored for any increasing redness drainage foul odor
Will order DH pressure-relief shoes to both feet
Patient will be following up with myself in [address] Pascual in 2 weeks
Patient is stable to be discharged home
--- NOTE | 2024-05-31 18:55 | W.DCSUMMARY ---
Discharge Summary
Discharge Data
Date of Admission: 05/26/24
Date of Discharge: 05/31/24
-
Pending Results: No
Hospital Course
Alexis Welsh is an 83-year-old male with a past medical history of peripheral arterial disease, atrial fibrillation, hypertension, end-stage renal disease on peritoneal dialysis, and hyperlipidemia who presented to the emergency department for
evaluation of left great toe pain, swelling, and bloody discharge. Patient noted a history of dry gangrene of the first and second toes of both feet, however due to this new serosanguineous drainage and swelling, he was referred to the emergency
department at [facility] by his vascular specialist.
ED Course:
In the emergency department, examination revealed dry gangrene to the bilateral first and second digits, however pulses were intact. There was a mild erythema and swelling of the left great toe with serosanguineous drainage. White blood cell count
was 12.1 K. The patient was admitted for initiation of intravenous antibiotics and further intervention as deemed necessary by vascular surgery and podiatry. X-ray of the foot showed subcutaneous edema but no evidence of osteomyelitis.
Hospital course:
The patient was initially initiated on IV antibiotics, vancomycin and Zosyn. However, as became clear that the chronic wounds were not cellulitic, antibiotics were promptly discontinued on day 2. Ultrasound of lower extremities was also performed
with MARLENA. The patient was 6 weeks status post left lower extremity transcatheter arterialization and was due to have a procedure on the opposite extremity in the coming week. Patient was kept in the hospital and right lower extremity transcatheter
arterialization was performed 05/30/2024. The following day, patient was evaluated by podiatry for potential amputation of 2 toes on the left foot, given that despite arterialization, they continued to exhibit dry gangrene. Decision was made to
discharge the patient, follow-up with podiatry and vascular surgery, and performed the amputation of the toes on the left foot at a later date.
Discharge recommendations:
Follow-up with primary care provider for posthospitalization evaluation
Follow-up with vascular surgery
Follow-up with podiatry
Oxycodone 5 mg as needed for 3 days, follow-up with primary care provider for additional pain recommendations
Discharge Plan
-
Patient Disposition: Home (Routine Discharge)
Discharge Diagnosis/Procedures: Chronic Limb Threatening Ischemia
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
End-Stage Renal Disease Requiring Peritoneal Dialysis
Diet: Other diet
Additional Diets: 2g Potassium Diet
Activity: With Walker
Referrals:
Waleska Garcia MD [Family Provider] - in less than 1 week
Prescriptions:
New
oxycodone 5 mg tablet
5 mg PO Q6H PRN (Reason: Pain) Qty: 18 0RF
Continued
atorvastatin 20 mg Tablet
20 mg PO QPM
tamsulosin 0.4 mg Capsule
0.4 mg PO QPM
dipyridamole 50 mg Tablet
50 mg PO DAILY
metoprolol succinate 25 mg Tablet Extended Release 24 Hr
25 mg PO DAILY
amiodarone 100 mg Tablet
100 mg PO DAILY
cholecalciferol (vitamin D3) [Vitamin D3] 25 mcg (1,000 unit) Tablet
25 mcg PO DAILY
sevelamer carbonate [Renvela] 800 mg Tablet
800 mg PO TID
omeprazole 20 mg Tablet,Delayed Release (Dr/Ec)
20 mg PO DAILY
coQ10 (ubiquinol) 100 mg Capsule
100 mg PO DAILY
Eliquis 5 mg Tablet
5 mg PO BID
Velphoro 500 mg Tablet,Chewable
500 mg PO TID
allopurinol 100 mg Tablet
100 mg PO DAILY
tramadol 50 mg Tablet
50 mg PO Q6HPRN PRN (Reason: moderate pains)
docusate sodium 50 mg Capsule
100 mg PO BIDPRN PRN (Reason: constipation)
B-complex with vitamin C Tablet
1 tab PO DAILY
aspirin 81 mg Tablet,Chewable
81 mg PO DAILY Qty: 90 0RF
acetaminophen [Tylenol Extra Strength] 500 mg Tablet
1,000 mg PO Q6HPRN PRN (Reason: mild pain)
furosemide [Lasix] 80 mg Tablet
40 mg PO BID
Discharge Orders:
Discharge Patient (As Directed); Ordered 05/31/24
Ordered By: Jesse Hull
Discharge Date and Time
Discharge Date/Time: 05/31/24 18:45
Print Language: BERMUDIAN
== END 2024-05-31 18:45 | disposition home or self-care (01) | DRG 252 ==
LOC: IMU 18:36
PROVIDERS: Emergency Medicine; Nurse Practitioner; Nurse Practitioner Family; Surgery Vascular Surgery; ADMITTING PHYSICIAN Hospitalist; ATTENDING PHYSICIAN Hospitalist; CONSULT PHYSICIAN Podiatrist Foot & Ankle Surgery; EMERGENCY PHYSICIAN Emergency Medicine; FAMILY PHYSICIAN Family Medicine; OTHER PHYSICIAN Specialist
PROC: 041 Lower Arteries, Bypass (ICD-10-PCS; 2024-05-30)
DX: E11.52 Type 2 diabetes mellitus with diabetic peripheral angiopathy with gangrene (principal); N18.6 End stage renal disease; I12.0 Hypertensive chronic kidney disease with stage 5 chronic kidney disease or end stage renal disease; I70.263 Atherosclerosis of native arteries of extremities with gangrene, bilateral legs; N25.81 Secondary hyperparathyroidism of renal origin; E87.1 Hypo-osmolality and hyponatremia; Z66 Do not resuscitate; E11.22 Type 2 diabetes mellitus with diabetic chronic kidney disease; I48.91 Unspecified atrial fibrillation; E78.2 Mixed hyperlipidemia; M10.9 Gout, unspecified; Z99.2 Dependence on renal dialysis; Z96.653 Presence of artificial knee joint, bilateral; Z91.041 Radiographic dye allergy status; Z87.891 Personal history of nicotine dependence; Z79.01 Long term (current) use of anticoagulants; Z79.82 Long term (current) use of aspirin; Z79.899 Other long term (current) drug therapy
CPT/HCPCS: 0620T; 73630; 80048; 80053; 80202; 85025; 85027; 85610; 85652; 85730; 86140; 87070; 93922; 93925; 96365; 97163; 97166; 99285; C1725; C1769; C1894; Q9967

== ENCOUNTER → 2024-06-14 13:11 | Outpatient (REF) | payer MEDICARE, BC, SELFPAY | LOC: RAD 13:11 | PROVIDERS: ATTENDING PHYSICIAN Surgery Vascular Surgery | DX: Z09 Encounter for follow-up examination after completed treatment for conditions other than malignant neoplasm (principal); I70.263 Atherosclerosis of native arteries of extremities with gangrene, bilateral legs; I70.92 Chronic total occlusion of artery of the extremities; I77.9 Disorder of arteries and arterioles, unspecified | CPT/HCPCS: 93922; 93926; 93971 ==

== ENCOUNTER 2024-07-08 09:59 | Inpatient (IN) | payer MEDICARE, BC, SELFPAY ==
[2024-07-08] VITALS (36 sets, daily range): BP systolic 95–144; BP diastolic 45–118; BMI 30.1
[2024-07-08] MEDS: PERIDEX 0.12% ORAL RINSE 15 ML PO (10:41)
[2024-07-08 10:43] LABS: Hematocrit 31.5 % (39.0-52.0); Hemoglobin 10.2 g/dL (13.0-18.0); Mean Corp Hgb Conc. 32.4 g/dL (33.0-37.0); Mean Corpuscular Hgb 32.8 pg (27.0-31.0); Mean Corpuscular Volume 101.3 fL (80.0-94.0); Mean Platelet Volume 9.1 fL (7.4-10.4); Platelet Count 298 10^3/uL (130-400); Red Blood Cell Count 3.11 10^6/uL (4.70-6.10); Red Cell Dist. Width 14.8 % (11.5-14.5); White Blood Cell Count 17.5 10^3/uL (4.8-10.8)
[2024-07-08] MEDS: NSS 500 IV (10:49)
[2024-07-08] MEDS: BACTROBAN NASAL 1 GRAM NASAL (10:49)
[2024-07-08 10:54] LABS: INR 0.96; PT 13.1 Sec (11.4-14.6)
[2024-07-08 10:55] LABS: APTT 35.2 Sec (23.4-35.0)
[2024-07-08 11:00] LABS: Blood Urea Nitrogen 47 mg/dl (9-20); Carbon Dioxide 29 mmol/L (22-30); Chloride 91 mmol/L (98-107); Estimated Creatinine Clearance 7 ml/min; Glucose 104 mg/dl (70-99); Potassium 3.4 mmol/L (3.5-5.1); Sodium 130 mmol/L (135-145); eGFR 5.56
[2024-07-08 14:39] LABS: ACT-LR - POC 234 Seconds (116-155)
--- NOTE | 2024-07-08 15:45 | W.SUR.POST ---
Surgical Immediate Post Op
Note
Pre Op Diagnosis: Peripheral arterial disease, chronic wounds
Post Op Diagnosis: Peripheral arterial disease, chronic wounds
Procedure Performed: Left lower extremity angiogram, balloon angioplasty and stenting of venous outflow stenosis of limflow, left foot first and second digit amputation, left foot third digit debridement
Primary Surgeon: Rolo Pascual III, MD
Secondary Surgeons: N/A
Anesthesia: MAC
Estimated Blood Loss: 10 mL
Fluids: See anesthesia flowsheet
Drains/Shunts: N/A
Specimens/Cultures: N/A
Doppler/Duplex/Angio (Y/N): Y
Complications: None
Operative Findings: Successful endovascular intervention to limb flow venous stenosis
--- NOTE | 2024-07-08 17:51 | PTCARENOTE ---
patient arrived via stretcher and transferred with staff slide over. Pt is alert and oriented x3, denies pain. Afib on monitor fluctuating from low 100s to 130s. Lungs decreased by clear. os 2L. ABdomen obese, bowel tones x 4. Left lower foot with
joyce wrap and bloody drainage. Dr. Pascual notified by PACU nurse and order to reenforce. LIFT TRUCK OPERATOR applied pressure dressing. Rt foot open to air wnad noted 1st 4 digits are black and necrotic.
--- NOTE | 2024-07-08 18:39 | W.CON.NEPH ---
Consultation
-
Date/Time Consultation Requested: 07/08/24 1421
Date/Time Consultation Performed: 07/08/24
Requesting Provider: Rolo Song
Performing Provider: Lissy Schroeder
Reason for Consultation: ESRD PD
Medical History
-
Chief Complaint: for elective vascular intervention of left leg
History of Present Illness:
Patient is a 83-year-old male with end-stage renal disease on peritoneal dialysis for 3-4 years time. he was using 3lit FV, with 1 bag of 2.5 and 2 bags of 1.5. 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
low dose of BB, atrial fibrillation on amiodarone and Eliquis therapy, hyperphosphatemia on velphoro who came to for elective vascular intervention of left leg angiogram, balloon angioplasty and stenting of venous outflow stenosis of limflow,
left foot first and second digit amputation, left foot third digit debridement for severe PAD. He still has dry gangrene of right foot toes as well. He feels pain improved in left leg after procedure. He reports he eventually planning to switch to
HD in next week. He has AVF not accessed yet. We are asked to assist with management of his PD. He offers no cp or sob. no n/v or fever.
Past Medical History
hypertension
atrial fibrillation
ESRD with peritoneal dialysis
PAD
hyperparathyroidism
Past Surgical History: Other (intravascular lithotripsy and balloon angioplasty to the left anterior and posterior tibial arteries secondary to critical limb ischemia on 03/25/2024 Transcatheter arterialization of deep veins of left lower extremity
(limflow) LLE- 04/18/25 right lower extremity dvegiolnb28/20/24 cholecystectomy b)
Social History
Tobacco: Former Smoker
Alcohol: None
Living: With Family
Family History
No renal disease
Family History: Not Pertinent
Allergies / Home Medications
Allergy/AdvReac Type Severity Reaction Status Date / Time
Iodinated Contrast Media Allergy Nausea, Verified 07/08/24 10:20
kidney
failure
�Medication �Instructions �Recorded �Confirmed �Type
amiodarone 100 mg tablet 100 mg PO DAILY Arrhythmia 03/23/24 07/08/24 History
atorvastatin 20 mg tablet 20 mg PO QPM High Cholesterol 03/23/24 07/08/24 History
cholecalciferol (vitamin D3) 25 25 mcg PO QPM Supplement 03/23/24 07/08/24 History
mcg (1,000 unit) tablet (Vitamin
D3)
coQ10 (ubiquinol) 100 mg capsule 100 mg PO DAILY Supplement 03/23/24 07/08/24 History
dipyridamole 50 mg tablet 50 mg PO DAILY Blood Clot 03/23/24 07/08/24 History
Prevention/Tx
metoprolol succinate 25 mg 12.5 mg PO QPM Blood Pressure 03/23/24 07/08/24 History
tablet,extended release 24 hr
omeprazole 20 mg tablet,delayed 20 mg PO DAILY Gastrointestinal 03/23/24 07/08/24 History
release Issue
sevelamer carbonate 800 mg tablet 800 mg PO TID Kidney Disease 03/23/24 07/08/24 History
(Renvela)
sucroferric oxyhydroxide 500 mg 500 mg PO TID Kidney Disease 03/23/24 07/08/24 History
chewable tablet (Velphoro)
B-complex with vitamin C 1 tab PO QPM Supplement 04/18/24 07/08/24 History
allopurinol 100 mg tablet 100 mg PO DAILY gout 04/18/24 07/08/24 History
docusate sodium 50 mg capsule 100 mg PO BIDPRN PRN constipation 04/18/24 07/08/24 History
tramadol 50 mg tablet 50 mg PO Q6HPRN PRN moderate pains 04/18/24 07/08/24 History
aspirin 81 mg chewable tablet 81 mg PO DAILY #90 tabs 04/22/24 07/08/24 Rx
acetaminophen 500 mg tablet 1,000 mg PO Q6HPRN PRN mild pain 05/26/24 07/08/24 History
(Tylenol Extra Strength)
oxycodone 5 mg tablet 5 mg PO Q6H PRN Pain #18 tabs 05/31/24 07/08/24 Rx
apixaban 2.5 mg tablet (Eliquis) 2.5 mg PO BID 07/08/24 07/08/24 History
vancomycin 125 mg capsule 125 mg PO QID #3 caps 07/08/24 Rx
Review of Systems
-
all complete 12 point ROS have been in inquired and found negative other than state din HPI
Physical Exam
Vital Signs
Vital Signs
Temp Pulse Resp BP Pulse Ox
97.5 F 110 18 117/69 99
07/08/24 18:16 07/08/24 17:28 07/08/24 17:28 07/08/24 17:28 07/08/24 18:24
Lab Results
WBC 17.5 10^3/uL (4.8-10.8) H 07/08/24 10:33
RBC 3.11 10^6/uL (4.70-6.10) L 07/08/24 10:33
Hgb 10.2 g/dL (13.0-18.0) L 07/08/24 10:33
Hct 31.5 % (39.0-52.0) L 07/08/24 10:33
Plt Count 298 10^3/uL (130-400) 07/08/24 10:33
Sodium 130 mmol/L (135-145) L 07/08/24 10:33
Potassium 3.4 mmol/L (3.5-5.1) L 07/08/24 10:33
Chloride 91 mmol/L (98-107) L 07/08/24 10:33
Carbon Dioxide 29 mmol/L (22-30) 07/08/24 10:33
BUN 47 mg/dl (9-20) H 07/08/24 10:33
Creatinine 8.8 mg/dL (0.7-1.3) H* 07/08/24 10:33
eGFR 5.56 07/08/24 10:33
Glucose 104 mg/dl (70-99) H 07/08/24 10:33
Calcium 9.0 mg/dl (8.4-10.2) 07/08/24 10:33
Physical Exam
General: Awake, Alert, Oriented, AOx3, No Distress and Nontoxic
HEENT: EOMI, Anicteric, Conjunctivae Clear and Facial Symmetry
Respiratory: Clear, Normal Excursion and Nonlabored Respirations
Cardiac: S1/S2 and Regular Rate/Rhythm
Breast: Deferred by me
Abdomen: Soft, Nontender and Nondistended
Musculoskeletal: Edema (2+) and Other (dry gangrene of right foot toes noted, left leg in dresing)
Skin: No Rash and Warm
Neuro: Nonfocal/Grossly Intact
Psych: Mood/afflect pleasant, Insight/judgement good and Appropriate
Vascular Access: Other (PD catheter )
Data Reviewed
-
Labs: Labs Reviewed by me and Discussed with Patient
Assessment/Plan
-
Assessment:
s/p Left lower extremity angiogram, balloon angioplasty and stenting of venous outflow stenosis of limflow, left foot first and second digit amputation, left foot third digit debridement 07/08
ESRD on peritoneal dialysis
Hypertension
Peripheral arterial disease-multiple interventions in the past
hyperphosphatemia
Afib
h/o gout
hyponatremia
Anemia od CKD
Plan:
Peritoneal dialysis ordered manual treatments
At home Performs a cycler at home 5 exchanges/3 L bags with 1.5%, 2.5% no last fill
Here with manual exchange 4-hour dwell time, 2 L, change to all 2.5% given increasing wt and edema
Continue Velphoro
chr hyponatremia -maintain FR
follow k
labs in am
pt notes eventual transition to HD soon, AVF patent
--- NOTE | 2024-07-08 18:43 | OR.RPT ---
Operative Report
Operative Report
Date of Operation: 07/08/2024
Pre Op Diagnosis:
1. Severe peripheral arterial occlusive disease status post transcatheter arterialization of the deep veins, left lower extremity
2. Dry gangrene left toes
Post Op Diagnosis:
1. Severe peripheral arterial occlusive disease status post transcatheter arterialization of the deep veins, left lower extremity
2. Dry gangrene left toes
Procedure:
1.) Balloon angioplasty and stenting of the venous outflow of the LimFlow circuit, left lower extremity
2.) Diagnostic left lower extremity arteriogram
3.) Amputation of the left hallux at the metatarsophalangeal joint
4.) Amputation of the second toe at the metatarsophalangeal joint
5.) Sharp excisional debridement of the third toe including skin and subcutaneous tissue (wound dimensions 2 cm x 2 cm)
6.) Ultrasound-guided percutaneous access to the left proximal superficial femoral artery
Surgeon: Rolo Pascual III, MD
Anesthesia: General supplemented with local for toe amputations
Fluoroscopy:
37.9 min
58 mGy
17.89 Gy.cm2
Complications: None
Estimated Blood Loss: 25 cc
History and Indications for Procedure: 83-year-old male with multiple medical comorbidities and severe peripheral arterial occlusive disease of the bilateral lower extremities. He had recently undergone transcatheter arterialization of the deep
veins. He was brought back to the operating room today for an arteriogram to evaluate the LimFlow circuit and planned toe amputations on the left foot.
Procedure in Detail: Alexis Welsh was correctly identified and placed supine on the operating table. After adequate induction of anesthesia the bilateral groins were prepped and draped in the usual sterile fashion. A timeout was performed with the
nursing and anesthesia staff confirming the patient's identity as well as the nature and laterality of the procedure.
The left common femoral artery and femoral bifurcation was identified under ultrasound guidance. The artery was patent. The superior and inferior aspects of the femoral head were identified with radiographic guidance and marked at the skin level.
The proposed puncture site was infiltrated with local anesthesia. Under ultrasound guidance we accessed the origin of the superficial femoral artery in an antegrade direction with a micropuncture needle and upsized to a 5 Fr sheath over a Bentson
wire. A diagnostic left lower extremity arteriogram was then performed which demonstrated the following:
LEFT LOWER EXTREMITY:
Superficial femoral artery: Patent
Popliteal artery: Patent
LimFlow circuit: Stents patent. Brisk flow. Venous outflow just beyond the distal end of the stent with high grade focal stenosis. Several prominent stealing branches identified from this area as well over the calcaneus. Sluggish flow to the
forefoot. Pedal loop appears diseased.
ENDOVASCULAR INTERVENTION: Systemic heparin was administered. Exchanged out for a 6 Fr sheath over a Bentson wire. Selected the posterior tibial artery stents under roadmap guidance with Quickcross catheter and glidewire. Under roadmap guidance I
advanced the wire and quick cross catheter distally through the plantar veins. The distal veins were small in diameter and I was unsuccessful at selecting them to advance the wire and catheter further. Under roadmap guidance I advanced a 5 mm x 60
mm angioplasty balloon over the wire into the plantar vein outflow. I performed balloon angioplasty as distally as possible using the [address] the way back to the distal end of the stents. Multiple inflations to nominal pressure were
performed. There was still a waist at the area of stenosis just beyond the distal end of the stent. I then followed this with a 5 mm high-pressure [place] balloon but this still did not completely resolve the venous outflow stenosis. I then
exchanged out for a 0.018 wire. I then brought into position a 6 mm x 20 mm cutting balloon. This was inflated to nominal pressure at the venous outflow stenosis over the calcaneus. There was resolution of the waist after treatment with the
cutting balloon. Following this I then brought into position a 5 mm x 2.5 cm Viabahn stent graft. This was brought into position to cover the area of venous outflow stenosis as well as cover the prominent stealing venous branches. The stent graft
was deployed however it did jump slightly on deployment and I was not completely satisfied with its position. Therefore I brought into position a 6 mm x 5 cm Viabahn stent graft. This was positioned in the desired location and deployed. I then
followed this with a 6 mm angioplasty balloon and profiled the entire area of newly stented venous outflow.
Subsequent arteriogram demonstrated a good technical result. There was brisk flow through the limb flow circuit. Significant improvement was identified with respect to less filling of the stealing venous branches. The LimFlow stents as well as
newly placed Viabahn stent grafts were patent with no residual stenosis identified. Flow to the mid and forefoot was identified.
Satisfied with this result we concluded the procedure. Protamine was administered. The 6 [place] sheath was pulled and direct manual pressure was held over the puncture site until hemostasis was achieved. A sterile dressing was applied.
I then focused my attention on the toe amputations as follows:
An incision was made at the base of the left hallux. Electrocautery and sharp dissection were used to dissect down to the metatarsophalangeal joint. The toe was amputated at the metatarsal phalangeal joint. A rongeur was then used to take the
cartilaginous surface of the metatarsal head. Hemostasis was achieved with electrocautery. The deep tissue was closed over the metatarsal head with interrupted 3-0 Vicryl sutures. The skin was reapproximated with interrupted Prolene sutures.
A similar approach was used for the second metatarsal. An incision was made at the base of the second metatarsal. Electrocautery and sharp dissection were used to dissect down to the metatarsal phalangeal joint. The toe was amputated at the
metatarsal phalangeal joint. A rongeur was then used to take the cartilaginous surface of the metatarsal head. Hemostasis was achieved with electrocautery. The deep tissue was closed over the metatarsal head with interrupted 3-0 Vicryl sutures.
The skin was then reapproximated with interrupted Prolene sutures.
Using forceps and a scalpel I performed sharp excisional debridement on the eschar of the third toe. Eschar, skin and subcutaneous tissue was sharply debrided with this approach. The wound dimensions were 2 cm x 2 cm. Hemostasis was achieved with
electrocautery. The wound was irrigated.
Sterile dressings were then applied to the amputation sites and the foot and leg were wrapped gently with a sterile Zaid wrap.
The patient tolerated the procedure well and was taken to the recovery area in stable condition.
Attestation: I was present and responsible for the entire procedure.
Signed:
Rolo Pascual III, MD
[facility]
[phone] (cell)
[2024-07-08] MEDS: TOPROL XL 12.5 MG PO (19:25)
[2024-07-08] MEDS: VITAMIN D3 (cholecalciferol) 25 MCG PO (19:25)
[2024-07-08] MEDS: RENVELA 800 MG PO (19:25)
[2024-07-08] MEDS: B COMPLEX w/VITAMIN C 1 CAPLET PO (19:26)
[2024-07-08] MEDS: LIPITOR 20 MG PO (19:26)
[2024-07-08] MEDS: FIRVANQ 125 MG PO (20:23)
[2024-07-09] VITALS (47 sets, daily range): BP systolic 90–155; BP diastolic 49–126; BMI 30.6
--- NOTE | 2024-07-09 02:01 | PTCARENOTE ---
Assumed care for patient overnight, received report from yehuda RN. Pt AAOx3, flat affect. A-fib on tele. Pt on room air SpO2 98%. L groin puncture site clean, dry, and intact. Pt denies any pain in the area. L foot remains wrapped no drainage
noted. L popliteal artery heard with the doppler. +1 pitting edema. R dorsalis pedis pulse heard with doppler. +2 pitting edema. B/l legs and feet warm to the touch. Pt has sensation in both lower extremities. R foot 1st and 4th digit necrotic
black. PD started tonight. Pt had 10ml initial drainage pt states that he did drain in the AM. Pt denies any cramping or discomfort. Oral care and hygiene done. Assessment as charted. VSS. Call carlson is within reach.
[2024-07-09 03:46] LABS: Hematocrit 27.7 % (39.0-52.0); Hemoglobin 8.9 g/dL (13.0-18.0); Mean Corp Hgb Conc. 32.1 g/dL (33.0-37.0); Mean Corpuscular Hgb 32.2 pg (27.0-31.0); Mean Corpuscular Volume 100.4 fL (80.0-94.0); Mean Platelet Volume 9.6 fL (7.4-10.4); Platelet Count 248 10^3/uL (130-400); Red Blood Cell Count 2.76 10^6/uL (4.70-6.10); Red Cell Dist. Width 14.9 % (11.5-14.5)
[2024-07-09 03:57] LABS: INR 1.01; PT 13.6 Sec (11.4-14.6)
[2024-07-09 03:58] LABS: APTT 34.5 Sec (23.4-35.0)
[2024-07-09 04:23] LABS: Blood Urea Nitrogen 53 mg/dl (9-20); Calcium 8.5 mg/dl (8.4-10.2); Carbon Dioxide 25 mmol/L (22-30); Chloride 90 mmol/L (98-107); Estimated Creatinine Clearance 8 ml/min; Glucose 144 mg/dl (70-99); Potassium 3.2 mmol/L (3.5-5.1); Sodium 129 mmol/L (135-145)
[2024-07-09] MEDS: KCL 270 MEQ IV (05:47)
--- NOTE | 2024-07-09 08:20 | W.PN.VS ---
Today's Communication / Plan
-
See plan below for today 07/09/2024.
Assessment/Plan
-
Status post left lower extremity angiogram and angioplasty/stent into LimFlow outflow. And concomitant partial TMA.
� New dressing to be applied to foot.
� Out of bed.
� If dressings dry, possible discharge today. Otherwise will need observation and likely home tomorrow.
-
Total Time Spent with Patient (in minutes): 10
Subjective Data
-
Date of Service: July 09, 2024
Seen and examined. Patient without significant complaints this morning.
Objective Data
-
Vital Signs
Temp Pulse Resp BP Pulse Ox
97.5 F 110 14 98/63 95
07/09/24 03:05 07/09/24 06:30 07/09/24 06:30 07/09/24 06:30 07/09/24 06:30
Intake and Output
07/08/24 07/09/24 07/10/24
06:59 06:59 07:59
Intake Total 290 / 290
Output Total 125 / 125
Balance 165 / 165
Intake:
Oral fluids 240 / 240
IV fluids (Total) 50 / 50
normal saline 50 / 50
Output:
Fluid deficit 125 / 125
Lab Results
07/09/24 03:15
07/09/24 03:15
Calcium 8.5 mg/dl (8.4-10.2) 07/09/24 03:15
Physical Exam
-
Afebrile.
Awake and alert.
Left groin flat, puncture site flat, no hematoma.
Left foot dressing removed. Incision clean and intact. Minimal bloody drainage. Skin edges pink and viable.
Dopplerable signals in the vicinity of the PT/plantar vein.
[2024-07-09] MEDS: FIRVANQ 125 MG PO (08:22)
[2024-07-09] MEDS: ZYLOPRIM 100 MG PO (08:24)
[2024-07-09] MEDS: PROTONIX 40 MG PO (08:24)
[2024-07-09] MEDS: RENVELA 800 MG PO ×3 (08:24→17:47)
[2024-07-09] MEDS: LOW STRENGTH ASPIRIN 81 MG PO (08:31)
[2024-07-09] MEDS: PACERONE 100 MG PO (09:30)
[2024-07-09] MEDS: PERSANTINE 50 MG PO (09:30)
[2024-07-09] MEDS: ELIQUIS 2.5 MG PO ×2 (09:39→20:38)
--- NOTE | 2024-07-09 09:57 | CM ---
Spoke with patient to obtain information for assessment. Patient stated that he lives with his in a two story townhouse with no steps to enter. He has a first floor set up, bedroom, bathroom and kitchen all on one floor. Patient described
himself as independent with his ADLs, personal care, dressing and bathing. 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 Patient uses a walker to assist with his ambulation. He also has a shower chair, grab bars and a cane that he uses.
Patient stated that he is current with [facility] and would like for resumption of care when discharged. Will send referral.
He has never been to a SNF.
Patient has a prescription plan and uses, [facility] in [place] for all of his medications.
His PCP is, Waleska Garcia.
Patient stated that he would like to return home when stable medically.
Plan: Case management will continue to follow and assist with discharge planning. Home when medically cleared.
--- NOTE | 2024-07-09 12:54 | W.PN.NEPH.PH ---
Today's Communication / Plan
-
cotn PD all 2.5
Assessment/Plan
-
Assessment:
s/p Left lower extremity angiogram, balloon angioplasty and stenting of venous outflow stenosis of limflow, left foot first and second digit amputation, left foot third digit debridement 07/08
ESRD on peritoneal dialysis
Hypertension
Peripheral arterial disease-multiple interventions in the past
hyperphosphatemia
Afib
h/o gout
hyponatremia
Anemia od CKD
Plan:
Peritoneal dialysis continue with manual treatments
At home Performs a cycler at home 5 exchanges/3 L bags with 1.5%, 2.5% no last fill
Here with manual exchange 4-hour dwell time, 2 L, change to all 2.5% given increasing wt and edema
no sig UF so far, he may need 4.2 based on next UF
Continue Velphoro
chr hyponatremia -maintain FR
replace k
labs in am
pt notes eventual transition to HD soon, AVF patent
d/c plan per surg
-
-
Date of Service: July 09, 2024
CC / HPI / ROS
-
Chief Complaint:
ESRd PD
History of Present Illness:
sodium low 129
wt is up
hb low 8.9
k low 3.2
Review of Systems:
no cp or sob
but LE and scrotal edema
no UOP
Labs
-
Labs:
WBC 14.0 10^3/uL (4.8-10.8) H 07/09/24 03:15
RBC 2.76 10^6/uL (4.70-6.10) L 07/09/24 03:15
Hgb 8.9 g/dL (13.0-18.0) L 07/09/24 03:15
Hct 27.7 % (39.0-52.0) L 07/09/24 03:15
Plt Count 248 10^3/uL (130-400) 07/09/24 03:15
Sodium 129 mmol/L (135-145) L 07/09/24 03:15
Potassium 3.2 mmol/L (3.5-5.1) L 07/09/24 03:15
Chloride 90 mmol/L (98-107) L 07/09/24 03:15
Carbon Dioxide 25 mmol/L (22-30) 07/09/24 03:15
BUN 53 mg/dl (9-20) H 07/09/24 03:15
Creatinine 9.3 mg/dL (0.7-1.3) H* 07/09/24 03:15
eGFR 5.20 07/09/24 03:15
Glucose 144 mg/dl (70-99) H 07/09/24 03:15
Calcium 8.5 mg/dl (8.4-10.2) 07/09/24 03:15
Physical Exam
-
Vital Signs:
Vital Signs
Temp Pulse Resp BP Pulse Ox
97.7 F 101 14 101/69 95
07/09/24 11:21 07/09/24 09:30 07/09/24 06:30 07/09/24 09:30 07/09/24 06:30
Cardiovascular:: Regular rate and rhythm
Respiratory:: Bilateral: CTA (anteriorly)
Lung Excursion:: Normal
Abdomen:: Nontender and Soft
Extremity Edema:: +2: Bilateral:
Pascual Catheter: No
Other Findings::
gangrene toes noted, left foot in dressing
[2024-07-09] MEDS: TOPROL XL 12.5 MG PO (17:53)
[2024-07-09] MEDS: B COMPLEX w/VITAMIN C 1 CAPLET PO (17:53)
[2024-07-09] MEDS: VITAMIN D3 (cholecalciferol) 25 MCG PO (17:54)
[2024-07-09] MEDS: LIPITOR 20 MG PO (17:54)
[2024-07-09 19:00] LABS: % Basophils 0.1 % (0-2); % Eosinophils 0.1 % (0-6); % Immature Granulocytes 0.7 % (0-0.5); % Lymphocytes 9.7 % (20.5-51.1); % Monocytes 6.5 % (1.7-9.3); % Neutrophils 82.9 % (42.2-75.2); Absolute Immature Granulocytes 0.1 10^3/uL (0-0.05); Absolute Lymphocytes 1.6 10^3/uL (1.2-3.4); Absolute Monocytes 1.1 10^3/uL (0.1-0.6); Absolute Neutrophils 13.7 10^3/uL (1.4-6.5); Hematocrit 31.6 % (39.0-52.0); Hemoglobin 10.1 g/dL (13.0-18.0); Mean Corpuscular Hgb 32.6 pg (27.0-31.0); Mean Corpuscular Volume 101.9 fL (80.0-94.0); Mean Platelet Volume 9.3 fL (7.4-10.4); Nucleated Red Blood Cells % 0.1 % (-); Platelet Count 294 10^3/uL (130-400); White Blood Cell Count 16.5 10^3/uL (4.8-10.8)
--- NOTE | 2024-07-09 19:36 | PTCARENOTE ---
Dr. Craft here at start of shift, left foot dressing removed and notable drainage through gauze and oozing bloody drainage from incision. Order to apply pressure adaptic, pressure dressing and gauze and joyce wraps, elevate legs. Dressing remained CDI
until pt OOB ambulated to [place] and returned to bed with saturated gauze dressing and kerlix. Old dressing removed and new pressure dressing applied with adaptic, gauze, 4x4, kerlizx and joyce wraps. foot of bed elevated. Dr. Craft notified, EKG
completed for frequent bursts of HR in 130-150s with activity and CBC completed. Results tiger texted to Dr. Craft and manager shift Rn updated on plan of care.
[2024-07-09] MEDS: TYLENOL 650 MG PO (21:20)
[2024-07-09] MEDS: ROXICODONE 5 MG PO (23:38)
[2024-07-10] VITALS (9 sets, daily range): BP systolic 94–127; BP diastolic 48–106; BMI 30.6
--- NOTE | 2024-07-10 00:04 | PTCARENOTE ---
Patient HR maintaining in the 110's, pt having frequent bursts of HR 130's to 140's. CAFE OR RESTAURANT MANAGER notified, mag and BMP ordered. L foot dressing with small amount of drainage notable. Reinforced the dressing and rewrapped it in LIDIA. Pt complaining of
increasing pain to the left foot, administered PRN Tylenol with little to no effect, administered PRN Roxicodone. Will reassess. PD cont 2.5% dwell 4 hours. Difficult time getting an accurate SpO2 on the pt, spot checking. SpO2 94% on room air. Call
carlson within reach.
[2024-07-10 00:57] LABS: Blood Urea Nitrogen 53 mg/dl (9-20); Calcium 8.4 mg/dl (8.4-10.2); Carbon Dioxide 26 mmol/L (22-30); Chloride 91 mmol/L (98-107); Estimated Creatinine Clearance 8 ml/min; Glucose 120 mg/dl (70-99); Magnesium 1.5 mg/dl (1.6-2.3); Potassium 2.9 mmol/L (3.5-5.1); Sodium 129 mmol/L (135-145); eGFR 5.56
[2024-07-10] MEDS: KCL 270 MEQ IV (03:19)
[2024-07-10] MEDS: DILAUDID 0.5 MG IV (03:33)
--- NOTE | 2024-07-10 04:24 | PTCARENOTE ---
Patient still experiencing pain in the left foot. Pt describes the pain as 'sharp' and 'shooting'. PRN Dilaudid administered see MAR.
[2024-07-10] MEDS: PERSANTINE 50 MG PO (09:04)
[2024-07-10] MEDS: PROTONIX 40 MG PO (09:04)
[2024-07-10] MEDS: ROXICODONE 5 MG PO (09:04)
[2024-07-10] MEDS: FIRVANQ 125 MG PO (09:05)
[2024-07-10] MEDS: ELIQUIS 2.5 MG PO (09:05)
[2024-07-10] MEDS: PACERONE 100 MG PO (09:05)
[2024-07-10] MEDS: ZYLOPRIM 100 MG PO (09:05)
[2024-07-10] MEDS: LOW STRENGTH ASPIRIN 81 MG PO (09:05)
[2024-07-10] MEDS: RENVELA 800 MG PO (09:05)
[2024-07-10 09:43] LABS: % Basophils 0.1 % (0-2); % Eosinophils 1.1 % (0-6); % Immature Granulocytes 0.5 % (0-0.5); % Lymphocytes 11.5 % (20.5-51.1); % Monocytes 7.6 % (1.7-9.3); % Neutrophils 79.2 % (42.2-75.2); Absolute Eosinophils 0.1 10^3/uL (0-0.7); Absolute Immature Granulocytes 0.1 10^3/uL (0-0.05); Absolute Lymphocytes 1.4 10^3/uL (1.2-3.4); Absolute Monocytes 0.9 10^3/uL (0.1-0.6); Absolute Neutrophils 9.6 10^3/uL (1.4-6.5); Hematocrit 28.5 % (39.0-52.0); Hemoglobin 8.9 g/dL (13.0-18.0); Mean Corp Hgb Conc. 31.2 g/dL (33.0-37.0); Mean Corpuscular Hgb 32.1 pg (27.0-31.0); Mean Corpuscular Volume 102.9 fL (80.0-94.0); Mean Platelet Volume 9.2 fL (7.4-10.4); Nucleated Red Blood Cells % 0 % (-); Platelet Count 254 10^3/uL (130-400); Red Blood Cell Count 2.77 10^6/uL (4.70-6.10); Red Cell Dist. Width 14.9 % (11.5-14.5); White Blood Cell Count 12.1 10^3/uL (4.8-10.8)
[2024-07-10 09:54] LABS: Blood Urea Nitrogen 52 mg/dl (9-20); Calcium 8.5 mg/dl (8.4-10.2); Carbon Dioxide 29 mmol/L (22-30); Chloride 93 mmol/L (98-107); Estimated Creatinine Clearance 8 ml/min; Glucose 99 mg/dl (70-99); Potassium 3.5 mmol/L (3.5-5.1); Sodium 129 mmol/L (135-145); eGFR 5.49
--- NOTE | 2024-07-10 11:37 | W.PN.VS ---
Today's Communication / Plan
-
See plan below for today 07/10/2024.
Assessment/Plan
-
Status post left lower extremity angiogram and angioplasty/stent into LimFlow outflow. And concomitant partial TMA.
� Wound site clean. Limflow stents patent by Doppler. Heart rate has been stable (chronic A-fib, throughout this hospitalization even from his preoperative measurements was exactly stable). Okay for discharge. Forefoot offloading shoe ordered.
Discussed with patient to follow-up with his funeral sales manager in the outpatient setting.
-
Total Time Spent with Patient (in minutes): 10
Subjective Data
-
Date of Service: July 10, 2024
Seen and examined. Patient without complaints. He wants to go home. Denies any significant leg pain. No significant groin pain. Denies any chest pain/pressure, no shortness of breath, no fluttering sensation.
Objective Data
-
Vital Signs
Temp Pulse Resp BP Pulse Ox
97.3 F 119 14 99/48 98
07/10/24 11:36 07/10/24 10:00 07/10/24 10:00 07/10/24 10:00 07/10/24 10:00
Intake and Output
07/09/24 07/10/24 07/11/24
05:59 06:59 06:59
Intake Total 480 / 480
Output Total
Balance 480 / 480
Intake:
Oral fluids 480 / 480
IV fluids (Total)
normal saline
IV piggybacks
Output:
Fluid deficit
Lab Results
07/10/24 09:25
07/10/24 09:25
Calcium 8.5 mg/dl (8.4-10.2) 07/10/24 09:25
Magnesium 1.5 mg/dl (1.6-2.3) L 07/10/24 00:34
Physical Exam
-
Afebrile.
Heart rate in the low 100s, but on monitor does not appear to be accurately reading due to A-fib.
Awake and alert.
In no acute distress.
Breathing is unlabored.
Left foot dressing is dry and therefore I removed it. Incision site clean dry and intact. Dopplerable signals stable. Dressing reapplied.
Labs reviewed.
EKG reviewed.
--- NOTE | 2024-07-10 12:12 | PTCARENOTE ---
Addendum entered by Pro Hernandez RN 07/10/24 15:09:
Mag rider ordered for patient, explained to and patient that that would take 2 more hours before he can be DCd. to come pick him up then. IV pulled after infusion. Patient drained for PD and left empty to restart PD at home. DC paperwork
reviewed with patient. All questions answered. Because [facility] is closed today, patient to get boot tomorrow from Dr. Amos office.
Original Note:
Patient AAOx3, flat. C/o moderate foot pain, see mar. Tolerating PD as scheduled. Afib on monitor, HR 100-130 at times. Other VSS. Pulses by doppler. Left foot dressing changed by MD, had slight blood trickle from bottom of remaining toe, dressing
redone and now CDI, sutures of surgical site CDI with no bleeding. Educated patient on wound care at home while redressing. Educated patient on weight bearing orders. DC paperwork reviewed with patient. All questions answered. to pick him up
soon. Will continue to monitor until she arrives.
--- NOTE | 2024-07-10 12:20 | W.PN.NEPH.PH ---
Today's Communication / Plan
-
cont PD
Assessment/Plan
-
Assessment:
s/p Left lower extremity angiogram, balloon angioplasty and stenting of venous outflow stenosis of limflow, left foot first and second digit amputation, left foot third digit debridement 07/08
ESRD on peritoneal dialysis
Hypertension
Peripheral arterial disease-multiple interventions in the past
hyperphosphatemia
Afib
h/o gout
hyponatremia
Anemia od CKD
Plan:
Peritoneal dialysis continue with manual treatments
At home Performs a cycler at home 5 exchanges/3 L bags with 1.5%, 2.5% no last fill
Here with manual exchange 4-hour dwell time, 2 L, change to all 2.5% given increasing wt and edema
net +ve balance he may need 4.2% however he refusing change script
reports having scrotal edema for months
Continue Velphoro
chr hyponatremia -maintain FR
replace k and mg
h/h fluctuating trend post op
pt notes eventual transition to HD soon, AVF patent
d/c plan per surg
-
-
Date of Service: July 10, 2024
CC / HPI / ROS
-
Chief Complaint:
ESRd PD
History of Present Illness:
sodium low 129-no change
wt no cahnge
hb low 8.9
k low 2.9 overnight better now at 3.5
mg low 1.5
Review of Systems:
no cp or sob
but LE and scrotal edema
no UOP
Labs
-
Labs:
WBC 12.1 10^3/uL (4.8-10.8) H 07/10/24 09:25
RBC 2.77 10^6/uL (4.70-6.10) L 07/10/24 09:25
Hgb 8.9 g/dL (13.0-18.0) L 07/10/24 09:25
Hct 28.5 % (39.0-52.0) L 07/10/24:25
Plt Count 254 10^3/uL (130-400) 07/10/24 09:25
Sodium 129 mmol/L (135-145) L 07/10/24:25
Potassium 3.5 mmol/L (3.5-5.1) 07/10/24:25
Chloride 93 mmol/L (98-107) L 07/10/24:25
Carbon Dioxide 29 mmol/L (22-30) 07/10/24:25
BUN 52 mg/dl (9-20) H 07/10/24:25
Creatinine 8.9 mg/dL (0.7-1.3) H* 07/10/24:
eGFR 5.49 07/10/24:25
Glucose 99 mg/dl (70-99) 07/10/24:25
Calcium 8.5 mg/dl (8.4-10.2) 07/10/24:25
Physical Exam
-
Vital Signs:
Vital Signs
Temp Pulse Resp BP Pulse Ox
97.3 F 115 15 99/48 98
07/10/24 11:36 07/10/24 12:00 07/10/24 12:00 07/10/24 10:00 07/10/24 10:00
Cardiovascular:: Regular rate and rhythm
Respiratory:: Bilateral: CTA (anteriorly)
Lung Excursion:: Normal
Abdomen:: Nontender and Soft
Extremity Edema:: +2: Bilateral:
Pascual Catheter: No
Other Findings::
gangrene toes noted, left foot in dressing
[2024-07-10] MEDS: MAGNESIUM SULFATE 50 IV (12:36)
[2024-07-10] MEDS: RENVELA PO (14:25)
== END 2024-07-10 17:08 | disposition home health service (06) | DRG 252 ==
LOC: IMU 09:59
PROVIDERS: Nurse Practitioner; Nurse Practitioner Family; ADMITTING PHYSICIAN Surgery Vascular Surgery; CONSULT PHYSICIAN Internal Medicine; PRIMARYCARE PHYSICIAN Family Medicine
PROC: B41G1ZZ Fluoroscopy of Left Lower Extremity Arteries using Low Osmolar Contrast (ICD-10-PCS; 2024-07-08)
PROC: 067Y3DZ Dilation of Lower Vein with Intraluminal Device, Percutaneous Approach (ICD-10-PCS; 2024-07-08)
PROC: 0Y6Q0Z0 Detachment at Left 1st Toe, Complete, Open Approach (ICD-10-PCS; 2024-07-08)
PROC: 0Y6S0Z0 Detachment at Left 2nd Toe, Complete, Open Approach (ICD-10-PCS; 2024-07-08)
PROC: 0JBR0ZZ Excision of Left Foot Subcutaneous Tissue and Fascia, Open Approach (ICD-10-PCS; 2024-07-08)
PROC: 3E1M39Z Irrigation of Peritoneal Cavity using Dialysate, Percutaneous Approach (ICD-10-PCS; 2024-07-09)
DX: T82.858A Stenosis of other vascular prosthetic devices, implants and grafts, initial encounter (principal); N18.6 End stage renal disease; I70.262 Atherosclerosis of native arteries of extremities with gangrene, left leg; I12.0 Hypertensive chronic kidney disease with stage 5 chronic kidney disease or end stage renal disease; E87.1 Hypo-osmolality and hyponatremia; I48.91 Unspecified atrial fibrillation; E83.39 Other disorders of phosphorus metabolism; M10.9 Gout, unspecified; D63.1 Anemia in chronic kidney disease; Y71.2 Prosthetic and other implants, materials and accessory cardiovascular devices associated with adverse incidents; Z79.01 Long term (current) use of anticoagulants; Z87.891 Personal history of nicotine dependence; Z79.82 Long term (current) use of aspirin; Z79.899 Other long term (current) drug therapy; Z99.2 Dependence on renal dialysis
CPT/HCPCS: 88305; 88311; 11042; 28820; 37226; 75710; 80048; 83735; 85025; 85027; 85610; 85730; 86850; 86900; 86901; 93005; C1769; C1874; C1894; Q9967

== ENCOUNTER → 2024-08-17 13:06 | Outpatient (REF) | payer MEDICARE, BC, SELFPAY | LOC: RAD 13:06 | PROVIDERS: ATTENDING PHYSICIAN Surgery Vascular Surgery; FAMILY PHYSICIAN Family Medicine | DX: Z09 Encounter for follow-up examination after completed treatment for conditions other than malignant neoplasm (principal); I73.9 Peripheral vascular disease, unspecified; N18.6 End stage renal disease; M47.816 Spondylosis without myelopathy or radiculopathy, lumbar region; M51.26 Other intervertebral disc displacement, lumbar region; T82.510A Breakdown (mechanical) of surgically created arteriovenous fistula, initial encounter; Y83.2 Surgical operation with anastomosis, bypass or graft as the cause of abnormal reaction of the patient, or of later complication, without mention of misadventure at the time of the procedure; L98.491 Non-pressure chronic ulcer of skin of other sites limited to breakdown of skin | CPT/HCPCS: 93922; 93923; 93926; 93930; 93971; 93990 ==

== ENCOUNTER 2024-08-29 11:54 | Inpatient (IN) | payer MEDICARE, BC, SELFPAY ==
--- NOTE | 2024-08-24 15:29 | PTCARENOTE ---
Addendum entered by Luh Fields RN 08/24/24 15:31:
Bethany @ Dr. Tsai office notified of patients HGB
Original Note:
Patients 08/17 HGB 9.7, ECG abnormal- reviewed by Dr. Fox no additional interventions required
[2024-08-29] VITALS (15 sets, daily range): BP systolic 108–162; BP diastolic 56–84; BMI 29.3
[2024-08-29] MEDS: TYLENOL 1000 MG PO (11:49)
--- NOTE | 2024-08-29 15:54 | W.PN.SURGUPD ---
Surgical Update
Surgical Update
83 yo M s/p R TMA and L 1st/2nd toe amputation revisions, 3rd toe amputation
-NWB to RLE, Heel WB for transfers on LLE
-1x culture obtained, will need infectious disease input on recs considering recurrent C. diff history
-Plan for vascular intervention while inpatient with Dr. Pascual
-Will change dressings 09/01
--- NOTE | 2024-08-29 16:07 | HPS.HSE ---
Family Physician
-
Family Physician: NO INTERVIEW UNKNOWN
Chief Complaint
-
s/p R TMA, and L 1st/2nd toe amputation revisions and L3rd toe amputation
History of Present Illness
Patient is a 83-year-old male with past medical history significant for hypertension, atrial fibrillation, ESRD with peritoneal dialysis, PAD and hyperparathyroidism who presented to [facility] for s/p R TMA, and L 1st/2nd toe amputation revisions and
L3rd toe amputation today. Patient seen in PACU post procedure. Patient with significant PAD and will see Dr. Pascual tomorrow for angiogram. Patient with recent history C. Diff and continues on oral vancomycin.
Medical History
Past Medical History
Past Medical History: Reports Other
Additional Past Medical History:
hypertension
atrial fibrillation
ESRD with peritoneal dialysis
PAD
hyperparathyroidism
Past Surgical History: Reports Other
Additional Past Surgical History:
intravascular lithotripsy and balloon angioplasty to the left anterior and posterior tibial arteries secondary to critical limb ischemia on 03/25/2024
Transcatheter arterialization of deep veins of left lower extremity (limflow) LLE- 04/18/25
right lower extremity [id number]
cholecystectomy
bilateral total knee replacements
RLE transcatheter arterialization of the deep veins (Dr. Pascual) 05/30/2024
left lower extremity arteriogram, amputation of the left hallux and second toe at the metatarsophalangeal joint (Dr. Pascual)
right TMA left 3rd toe amputation with incisional debridement
Social History
Tobacco: Former Smoker (quit 40 years ago)
Alcohol: None
Drug: None
Living: With Family
Employment: Retired
Family History
Family History: Not pertinent
Allergies / Home Medications
Allergies reflects when Allergies were last updated in [facility].
Home Medications with original date entered in [facility]
Allergy/Medication List:
Allergies
Allergy/AdvReac Type Severity Reaction Status Date / Time
Iodinated Contrast Media Allergy Nausea, Verified 08/29/24 11:40
kidney
failure
Home Medications
atorvastatin 20 mg tablet 20 mg PO QPM High Cholesterol 03/23/24
cholecalciferol (vitamin D3) 25 mcg (1,000 unit) tablet (Vitamin D3) 25 mcg PO QPM Supplement 03/23/24
coQ10 (ubiquinol) 100 mg capsule 100 mg PO DAILY Supplement 03/23/24
dipyridamole 50 mg tablet 50 mg PO BID Blood Clot Prevention/Tx 03/23/24
metoprolol succinate 25 mg tablet,extended release 24 hr 12.5 mg PO BID Blood Pressure 03/23/24
omeprazole 20 mg tablet,delayed release 20 mg PO DAILY Gastrointestinal Issue 03/23/24
sevelamer carbonate 800 mg tablet (Renvela) 800 mg PO AC Kidney Disease 03/23/24
sucroferric oxyhydroxide 500 mg chewable tablet (Velphoro) 500 mg PO AC Kidney Disease 03/23/24
B-complex with vitamin C 1 tab PO QPM Supplement 04/18/24
docusate sodium 50 mg capsule 100 mg PO BIDPRN PRN constipation 04/18/24
tramadol 50 mg tablet 50 mg PO Q6HPRN PRN moderate pains 04/18/24
acetaminophen 500 mg tablet (Tylenol Extra Strength) 1,000 mg PO Q6HPRN PRN pain 05/26/24
oxycodone 5 mg tablet 5 mg PO Q6H PRN Pain #18 tabs 05/31/24
apixaban 2.5 mg tablet (Eliquis) 2.5 mg PO BID 07/08/24
amiodarone 200 mg tablet 200 mg PO BID 08/24/24
digoxin 125 mcg (0.125 mg) tablet 125 mcg PO MOWEFR 08/24/24
levothyroxine 25 mcg tablet 25 mcg PO DAILY 08/24/24
midodrine 5 mg tablet 5 mg PO TUTHSA 08/24/24
vancomycin 125 mg capsule 125 mg PO Q48H 08/24/24
Review of Systems
-
History Source: Patient
Constitutional: Reports No Symptoms
EENT: Reports No Symptoms
Respiratory: Reports No Symptoms
Cardiac: Reports No Symptoms
Abdomen/GI: Reports No Symptoms
: Reports No Symptoms
Musculoskeletal: Reports Other (BLLE discomfort s/p surgery R>L )
Skin: Reports No Symptoms
Neurological: Reports No Symptoms
Endocrine: Reports No Symptoms
Hematologic/Lymphatic: Reports No Symptoms
Psych: Reports No Symptoms
Physical Exam
Vital Signs
Vital Signs
Temp Pulse Resp BP Pulse Ox
97.5 F 105 16 109/61 96
08/29/24 11:46 08/29/24 15:50 08/29/24 15:50 08/29/24 15:50 08/29/24 11:46
Physical Exam
General: Well Developed, Well Nourished and Conversant
HEENT: NormoCephalic, Moist mucous membranes, Atraumatic, [place] Conjunctivae, Nose Appears Normal and Ears Appear Normal
Respiratory: Clear and Non Labored Respirations
Cardiac: S1/S2 and Irregular Rhythm
Breast: Deferred by me
GI: Soft, Non Tender, Non Distended and Normal Bowel Sounds
Rectal: Deferred by Provider
Genito-urinary: Deferred by me
Musculoskeletal: No Clubbing, No Cyanosis, No Edema and Other (s/p R TMA, and L 1st/2nd toe amputation revisions and L3rd toe amputation, dressings C/D/I)
Skin: Warm, IV/Catheter Site and Other (dressings C/D/I from OR to BLLE )
Neuro: Awake, Alert, AO x 3 and Nonfocal/grossly intact
Psych: Calm and Intact Judgment/Insight
Impression/Plan
-
IMPRESSION/PLAN:
#s/p R TMA, and L 1st/2nd toe amputation revisions and L3rd toe amputation
- Admit to telemetry
- Consult Podiatry
- Consult PT/OT
- pain regimen
#PAD
- Consult Vascular Surgery
- NPO at midnight
#C. Diff
- continue Vancomycin
#hyperlipidemia
- continue atorvastatin
#atrial fibrillation
- continue amiodarone, Eliquis, digoxin, dipyridamole and metoprolol
#ESRD with HD
HD //Thu last on Thursday08/27/2024
- continue midodrine, sevelamer and Velphoro
- Consult nephrology
#hypertension
- continue metoprolol
#hypothyroidism
- continue levothyroxine
#hyperparathyroidism
Code status: full code
DVT prophylaxis: Eliquis
[2024-08-29] MEDS: SUBLIMAZE 50 MCG IV ×2 (16:17→16:48)
--- NOTE | 2024-08-29 17:53 | W.PN.UPDATE ---
Update Note
Progress Note Update
I saw and examined the patient.
The HIM ANALYST's note was reviewed and I agree with the note.
Patient is 83-year-old male with past medical history of ESRD on peritoneal dialysis, essential hypertension, peripheral artery disease, history of A-fib on amiodarone/Eliquis, history of gout, history of left lower extremity angioplasty/stenting
was brought in for elective right foot TMA and left foot 2 amputations. Postprocedure patient was requested to be admitted to medical floor as vascular surgery planning to repeat angiography/angioplasty. Patient was seen on medical floor not
voicing any complaint except some discomfort in the left leg. Denies any ongoing chest discomfort/abdominal pain/nausea/vomiting.
Of note patient has been recently diagnosed for C. difficile colitis at [facility] and currently going through a tapering course of oral vancomycin. Bowel habits are regular per patient.
HEENT: No pallor, cyanosis, or jaundice. Throat clear.
NECK: Supple. No JVD.
RESPIRATORY: Lungs clear to auscultation.
CVS: S1, S2 normal. RRR. No murmur, rub or gallop.
ABDOMEN: Soft, non-tender. No distension. BS+/normal.
EXTREMITIES: Left foot and right foot bandages
YARD DRIVER: AOx3. No focal deficits.
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
- Postoperative care per carburizing furnace operator
- nonweightbearing on right lower extremity. heel wb for LLE
PAD
History of left leg balloon angioplasty and venous outflow stenting on 07/08
Left anterior tibial/posterior tibial balloon angioplasty on mar 27
- Continue dipyridamole
-Eliquis planned to be held for need of angiography/plasty tomorrow by vascular surgery
Permanent AFib
- Maintained on amiodarone/digoxin
-Eliquis being held for procedure tomorrow
Hypothyroidism
-Maintain on levothyroxine 25 mcg daily
Recent C. difficile colitis
-Currently patient on tapering oral vancomycin, currently getting 125 mg every 48 hour, diagnosed in [facility]
-Maintain on oral vancomycin 125 mg daily while in hospital
-Monitor for any abdominal symptoms
ESRD on PD
- Continue sevelamer/Velphoro
-Nephrology consult for further
NICOLA
-starting on CPAP at night
-RT to adjust pressure as needed
DVT PPX - none, scd contraindicated with vasc issue. anti-coag on hold for procedure
Full code
Total time spent : 78 mins
I personally saw and examined the patient.
I have reviewed all diagnostic interpretations and treatment plans as written.
Time includes patient management by me, time spent at the patients bedside, time to review lab and imaging results, discussing patient care, documentation in the medical record, and time spent with the family or caregiver and discussing care plan
with RN/Consultants.
[2024-08-29] MEDS: LIPITOR 20 MG PO (18:16)
[2024-08-29] MEDS: LANOXIN 125 MCG PO (19:06)
[2024-08-29] MEDS: TOPROL XL 12.5 MG PO (21:05)
[2024-08-29] MEDS: ROXICODONE 5 MG TUBE (21:05)
[2024-08-29] MEDS: PACERONE 200 MG PO (21:06)
[2024-08-29] MEDS: PERSANTINE 50 MG PO (21:09)
[2024-08-30] MEDS: ROXICODONE 10 MG PO ×4 (01:38→17:39)
[2024-08-30 03:21] VITALS: BP 159/90
[2024-08-30 05:27] VITALS: BMI 29.4
[2024-08-30] MEDS: SYNTHROID 25 MCG PO (05:58)
[2024-08-30 07:00] VITALS: BP 130/61
--- NOTE | 2024-08-30 07:41 | W.PN.SURGUPD ---
Surgical Update
Surgical Update
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
-Patient seen and evaluated at bedside, dressings to remain C/D/I
-NWB to RLE, Heel WB for transfers on LLE
-1x culture obtained, will need infectious disease input on recs considering recurrent C. diff history
-Await vascular surgery intervention today 08/30
-Will change dressings 09/01. Please reinforce as needed
-Recommend PT/OT input, anticipate possible need for SNF
[2024-08-30 07:48] LABS: Hematocrit 26.9 % (39.0-52.0); Hemoglobin 8.6 g/dL (13.0-18.0); Mean Corpuscular Hgb 32.1 pg (27.0-31.0); Mean Corpuscular Volume 100.4 fL (80.0-94.0); Mean Platelet Volume 9.7 fL (7.4-10.4); Platelet Count 156 10^3/uL (130-400); Red Blood Cell Count 2.68 10^6/uL (4.70-6.10); Red Cell Dist. Width 15.8 % (11.5-14.5); White Blood Cell Count 12.3 10^3/uL (4.8-10.8)
[2024-08-30 08:03] LABS: PT 14.5 Sec (11.4-14.6)
[2024-08-30] MEDS: PROTONIX 40 MG PO (08:03)
[2024-08-30] MEDS: RENVELA 800 MG PO ×3 (08:03→17:34)
[2024-08-30 08:04] LABS: APTT 37.7 Sec (23.4-35.0)
[2024-08-30 08:32] LABS: ALT (SGPT) < 10 U/L (0-50); AST (SGOT) 13 U/L (17-59); Albumin 2.4 g/dl (3.5-5.0); Alkaline Phosphatase 64 U/L (38-126); Blood Urea Nitrogen 27 mg/dl (9-20); Carbon Dioxide 32 mmol/L (22-30); Chloride 93 mmol/L (98-107); Estimated Creatinine Clearance 11 ml/min; Glucose 92 mg/dl (70-99); Potassium 4.6 mmol/L (3.5-5.1); Sodium 131 mmol/L (135-145); Total Bilirubin 0.3 mg/dl (0.2-1.3); Total Protein 4.2 g/dl (6.3-8.2); eGFR 8.81
[2024-08-30] MEDS: ProAmatine 5 MG PO (09:07)
--- NOTE | 2024-08-30 09:20 | W.PN.NEPH.HD ---
Assessment
-
Seen on dialysis. VSS, Access AVF ok. no complaints except feet pain
Progress Note - Hemodialysis
-
Date of Service: August 30, 2024
Duration: 30 minutes and 3 hours
Potassium Bath: 2
Calcium Bath: 2.5
Opti-Dialyzer: 160
Ultrafiltration: Other (1.5)
Blood Flow: 400
Dialysate Flow: 600
Heparin: 0
EPO: 0
--- NOTE | 2024-08-30 09:24 | W.CON.NEPH ---
Consultation
-
Date/Time Consultation Requested: 08/30/2024 7 AM
Date/Time Consultation Performed: 08/30/2024 9 AM
Requesting Provider: Dr. Garcia
Performing Provider: Dr. Gongora
Reason for Consultation: ESRD
Medical History
-
Chief Complaint: for elective vascular intervention of left leg
History of Present Illness:
Patient is a 83-year-old male with end-stage renal disease previously on peritoneal dialysis for 3-4 years time. He had recently switched to in center hemodialysis via an AV fistula in his right arm. His flux core welder is Dr Joel. He has
hypertension on a very minimal regimen low dose of BB, atrial fibrillation on amiodarone and Eliquis therapy, hyperphosphatemia on velphoro. He was admitted after multi toe amputation of bilateral feet. He had no complications postoperatively. He
will require rehab placement. We are asked to assist with management of his dialysis. He does have pain in his feet which is controlled.
Past Medical History
hypertension
atrial fibrillation
ESRD, previously on peritoneal dialysis
Right upper extremity AV fistula
Toe amputations
PAD
hyperparathyroidism
Past Surgical History: Other (intravascular lithotripsy and balloon angioplasty to the left anterior and posterior tibial arteries secondary to critical limb ischemia on 03/25/2024 Transcatheter arterialization of deep veins of left lower extremity
(limflow) LLE- 04/18/25 right lower extremity [id number] cholecystectomy b)
Social History
Tobacco: Former Smoker
Alcohol: None
Living: With Family
Family History
No renal disease
Family History: Not Pertinent
Allergies / Home Medications
Allergy/AdvReac Type Severity Reaction Status Date / Time
Iodinated Contrast Media Allergy Nausea, Verified 08/29/24 11:40
kidney
failure
�Medication �Instructions �Recorded �Confirmed �Type
atorvastatin 20 mg tablet 20 mg PO QPM High Cholesterol 03/23/24 08/29/24 History
cholecalciferol (vitamin D3) 25 25 mcg PO QPM Supplement 03/23/24 08/29/24 History
mcg (1,000 unit) tablet (Vitamin
D3)
coQ10 (ubiquinol) 100 mg capsule 100 mg PO DAILY Supplement 03/23/24 08/29/24 History
dipyridamole 50 mg tablet 50 mg PO BID Blood Clot 03/23/24 08/29/24 History
Prevention/Tx
metoprolol succinate 25 mg 12.5 mg PO BID Blood Pressure 03/23/24 08/29/24 History
tablet,extended release 24 hr
omeprazole 20 mg tablet,delayed 20 mg PO DAILY Gastrointestinal 03/23/24 08/29/24 History
release Issue
sevelamer carbonate 800 mg tablet 800 mg PO AC Kidney Disease 03/23/24 08/29/24 History
(Renvela)
sucroferric oxyhydroxide 500 mg 500 mg PO AC Kidney Disease 03/23/24 08/29/24 History
chewable tablet (Velphoro)
B-complex with vitamin C 1 tab PO QPM Supplement 04/18/24 08/29/24 History
docusate sodium 50 mg capsule 100 mg PO BIDPRN PRN constipation 04/18/24 08/29/24 History
tramadol 50 mg tablet 50 mg PO Q6HPRN PRN moderate pains 04/18/24 08/29/24 History
acetaminophen 500 mg tablet 1,000 mg PO Q6HPRN PRN pain 05/26/24 08/29/24 History
(Tylenol Extra Strength)
oxycodone 5 mg tablet 5 mg PO Q6H PRN Pain #18 tabs 05/31/24 08/29/24 Rx
apixaban 2.5 mg tablet (Eliquis) 2.5 mg PO BID Blood Clot 07/08/24 08/29/24 History
Prevention/Tx
amiodarone 200 mg tablet 200 mg PO BID Arrhythmia 08/24/24 08/29/24 History
digoxin 125 mcg (0.125 mg) tablet 125 mcg PO MOWEFR Heart Failure 08/24/24 08/29/24 History
levothyroxine 25 mcg tablet 25 mcg PO DAILY Thyroid 08/24/24 08/29/24 History
midodrine 5 mg tablet 5 mg PO TUTHSA Blood Pressure 08/24/24 08/29/24 History
vancomycin 125 mg capsule 125 mg PO Q48H Infection 08/24/24 08/29/24 History
Review of Systems
-
Pain in feet
All other systems: Negative unless noted
Physical Exam
Vital Signs
Vital Signs
Temp Pulse Resp BP Pulse Ox
97.6 F 99 16 130/61 93
08/30/24 07:00 08/30/24 07:00 08/30/24 07:00 08/30/24 09:07 08/30/24 07:00
Lab Results
WBC 12.3 10^3/uL (4.8-10.8) H 08/30/24 07:16
RBC 2.68 10^6/uL (4.70-6.10) L 08/30/24 07:16
Hgb 8.6 g/dL (13.0-18.0) L 08/30/24 07:16
Hct 26.9 % (39.0-52.0) L 08/30/24 07:16
Plt Count 156 10^3/uL (130-400) 08/30/24 07:16
Sodium 131 mmol/L (135-145) L 08/30/24 07:16
Potassium 4.6 mmol/L (3.5-5.1) 08/30/24 07:16
Chloride 93 mmol/L (98-107) L 08/30/24 07:16
Carbon Dioxide 32 mmol/L (22-30) H 08/30/24 07:16
BUN 27 mg/dl (9-20) H 08/30/24 07:16
Creatinine 6.0 mg/dL (0.7-1.3) H* 08/30/24 07:16
eGFR 8.81 08/30/24 07:16
Glucose 92 mg/dl (70-99) 08/30/24 07:16
Calcium 9.0 mg/dl (8.4-10.2) 08/30/24 07:16
Albumin 2.4 g/dl (3.5-5.0) L 08/30/24 07:16
Physical Exam
Patient is awake alert oriented and in no distress. Mood and affect were pleasant, insight and judgment were good. Pupils are equal round and reactive to light, extraocular movements are intact, sclera were anicteric. Hearing was normal, ears and
nose are intact. Oropharynx was clear. Neck was supple with trachea midline and no thyromegaly. Heart was regular rate and rhythm without rubs. Lower extremities without edema. Lungs were clear to auscultation bilaterally and with normal
excursion. Abdomen was soft, nontender, with normal active bowel sounds, and no hepatosplenomegaly. Skin was without rash and with normal turgor. Right upper extremity AV fistula with good thrill and bruit
Data Reviewed
-
Medical Tests (Nuc Med, Echo etc): Image Personally Visualized and interpreted (EKG 07/09/2024 by my read shows atrial fibrillation lateral ST-T wave abnormality)
Labs: Labs Reviewed by me
Old Records: Reviewed
Assessment/Plan
-
Assessment:
Bilateral toe amputations
ESRD
Hypertension
Peripheral arterial disease-multiple interventions in the past
hyperphosphatemia
Afib
Anemia
Plan:
Dialysis today
Rehab planning
Angiogram by vascular surgery plan
--- NOTE | 2024-08-30 10:20 | W.PN.UPDATE ---
Update Note
Progress Note Update
Initial plan was for patient to undergo left lower extremity angiogram with Dr. Rolo Pascual III, while inpatient following his podiatry amputation with Dr. Grant. Unfortunately, patient was placed on hemodialysis circuit during time of
scheduled surgery, the surgery was canceled. Due to the OR schedule we can reschedule patient for 09/05/2024 reviewed new plan with patient and who are agreeable. If patient is still admitted we will schedule as inpatient if not we will
reach out in the outpatient setting with preoperative instructions. Our office staff was notified of change, plan related to hospitalist and canteen manager via [place] text. No need to continue to hold anticoagulation from a vascular surgical
perspective.
[2024-08-30 10:59] LABS: Hepatitis B Surface Antigen Negative (Negative)
[2024-08-30 11:47] VITALS: BP 122/71
[2024-08-30] MEDS: TOPROL XL 12.5 MG PO ×2 (12:24→20:28)
[2024-08-30] MEDS: PERSANTINE 50 MG PO ×2 (12:24→20:28)
[2024-08-30] MEDS: PACERONE 200 MG PO ×2 (12:25→20:28)
[2024-08-30] MEDS: FIRVANQ 125 MG PO (12:25)
--- NOTE | 2024-08-30 13:06 | CM ---
Addendum entered by Margot Brooke RN 08/31/24 14:27:
CM [facility] with [facility]'s [facility] and [facility]. CM referred her to Medicare.gov for ratings. Patient's will contact CM with choice.
Addendum entered by Margot Brooke RN 08/31/24 11:01:
CM spoke with patient's who stated that she would prefer a SNF closer to home. CM advised that patient's HD status may limit available options. Patient's stated that she would be agreeable to [facility].
CM sent referral via [facility] to
[facility]
[place]
[facility]
Original Note:
CM reviewed medical records. Patient lives with . Patient has been known to [facility]. Patient is known to HD center in [facility] for PD. Patient had not been to SNF in the past. Patient is active with his PCP. Patient
uses [facility] in [place] for medication services.
Patient is pending PT evaluation for further discharge planning efforts.
PLAN: Pending PT evaluation.
--- NOTE | 2024-08-30 14:16 | W.PN.HOSP.TC ---
Today's Communication/Plan
-
see note
Assessment / Plan
Assessment / Plan
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
- Postoperative care per cold reduction roller
- nonweightbearing on right lower extremity. heel wb for LLE
- Pending PT OT evaluation and will require rehab placement
PAD
History of left leg balloon angioplasty and venous outflow stenting on 07/08
Left anterior tibial/posterior tibial balloon angioplasty on mar 27
- Continue dipyridamole
- Angioplasty plan has been postponed till 09/05. Likely be done outpatient basis
Permanent AFib
- Maintained on amiodarone/digoxin
-Eliquis to be resumed from evening today
Hypothyroidism
-Maintain on levothyroxine 25 mcg daily
Recent C. difficile colitis
-Currently patient on tapering oral vancomycin, currently getting 125 mg every 48 hour, diagnosed in [facility]
-Maintain on oral vancomycin 125 mg daily while in hospital
-Monitor for any abdominal symptoms
ESRD on PD
- Continue sevelamer/Velphoro
-nephro doing HD round today
NICOLA
-starting on CPAP at night
-RT to adjust pressure as needed
DVT PPX - none, scd contraindicated with vasc issue. anti-coag on hold for procedure
Full code
Anticipated Discharge: Within 24 hours
Subjective/Interval History
-
Date of Service: August 30, 2024
Resting comfortably in bed
No reported problems overnight
Objective Data
-
Labs:
Laboratory Results
08/30/24
07:16
WBC 12.3 H
Hgb 8.6 L
Hct 26.9 L
Plt Count 156
PT 14.5
INR 1.10
APTT 37.7 H
Sodium 131 L
Potassium 4.6
Chloride 93 L
Carbon Dioxide 32 H
BUN 27 H
Creatinine 6.0 H*
Glucose 92
Calcium 9.0
Total Bilirubin 0.3
AST 13 L
ALT < 10
Alkaline Phosphatase 64
Vital Signs:
Vital Signs
Temp Pulse Resp BP Pulse Ox
97.4 F 114 20 122/71 100
08/30/24 11:47 08/30/24 12:24 08/30/24 11:47 08/30/24 12:24 08/30/24 11:47
I&O
08/29/24 08/30/24 08/31/24
06:59 06:59 06:59
Intake Total 360 / 360
Balance 360 / 360
Review of Systems
-
Respiratory: Reports No Symptoms
Cardiac: Reports No Symptoms
Abdomen/GI: Reports No Symptoms
Physical Exam
-
General: Comfortable
HEENT: Negative Oxygen
Respiratory: Clear to Auscultation
Cardiac: Regular Rhythm and S1/S2; Negative Murmur or Rub
GI: Soft, Nontender and Nondistended
Musculoskeletal: Other (b/l lower leg joyce wrapping)
Neuro: Awake, Alert, Oriented, No Motor Deficits and Nonfocal/Grossly Intact
Psych: Calm
[2024-08-30 15:00] VITALS: BP 127/66
[2024-08-30] MEDS: LIPITOR 20 MG PO (17:34)
[2024-08-30 19:55] VITALS: BP 141/61
[2024-08-30] MEDS: ELIQUIS 2.5 MG PO (20:28)
[2024-08-30 23:42] VITALS: BP 127/62
[2024-08-31] VITALS (9 sets, daily range): BP systolic 116–152; BP diastolic 57–68; PULSE 91–99; BMI 28.9
[2024-08-31 07:47] LABS: Hematocrit 26.2 % (39.0-52.0); Hemoglobin 8.2 g/dL (13.0-18.0); Mean Corp Hgb Conc. 31.3 g/dL (33.0-37.0); Mean Corpuscular Hgb 31.8 pg (27.0-31.0); Mean Corpuscular Volume 101.6 fL (80.0-94.0); Mean Platelet Volume 9.4 fL (7.4-10.4); Platelet Count 141 10^3/uL (130-400); Red Blood Cell Count 2.58 10^6/uL (4.70-6.10); Red Cell Dist. Width 15.5 % (11.5-14.5)
[2024-08-31] MEDS: SYNTHROID 25 MCG PO (08:05)
[2024-08-31] MEDS: TOPROL XL 12.5 MG PO ×2 (08:06→20:39)
[2024-08-31] MEDS: PROTONIX 40 MG PO (08:06)
[2024-08-31] MEDS: PACERONE 200 MG PO ×2 (08:06→20:39)
[2024-08-31] MEDS: ELIQUIS 2.5 MG PO ×2 (08:06→20:38)
[2024-08-31] MEDS: RENVELA 800 MG PO ×3 (08:11→17:15)
[2024-08-31] MEDS: PERSANTINE 50 MG PO ×2 (08:11→20:39)
[2024-08-31] MEDS: FIRVANQ 125 MG PO (08:49)
[2024-08-31] MEDS: ROXICODONE 5 MG PO (08:52)
[2024-08-31 09:01] LABS: ALT (SGPT) < 10 U/L (0-50); AST (SGOT) 12 U/L (17-59); Albumin 2.4 g/dl (3.5-5.0); Alkaline Phosphatase 70 U/L (38-126); Blood Urea Nitrogen 19 mg/dl (9-20); Calcium 8.6 mg/dl (8.4-10.2); Carbon Dioxide 30 mmol/L (22-30); Chloride 96 mmol/L (98-107); Estimated Creatinine Clearance 13 ml/min; Glucose 99 mg/dl (70-99); Potassium 4.4 mmol/L (3.5-5.1); Sodium 134 mmol/L (135-145); Total Bilirubin 0.5 mg/dl (0.2-1.3); Total Protein 4.3 g/dl (6.3-8.2); eGFR 11.23
[2024-08-31] MEDS: LANOXIN 125 MCG PO (11:36)
--- NOTE | 2024-08-31 12:56 | W.PN.NEPH.PH ---
Today's Communication / Plan
-
Dialysis tomorrow
Assessment/Plan
-
Assessment:
Bilateral toe amputations
ESRD
Hypertension
Peripheral arterial disease-multiple interventions in the past
hyperphosphatemia
Afib
Anemia
Plan:
Dialysis tomorrow,orders provided, midodrine support for ultrafiltration
Escalate MELVIN for anemia
Blood pressure appears to be well-controlled on current antihypertensives and dry weight
Maintain hyper phosphatemia management with Renvela
Rehab planning
Angiogram by vascular surgery plan: 09/05
-
-
Date of Service: August 31, 2024
CC / HPI / ROS
-
Chief Complaint:
ESRD
History of Present Illness:
ESRD Thursday
Hemodynamically stable at dry weight and metoprolol
Anemia persist
Review of Systems:
No current chest pain or shortness of breath
No fevers
Labs
-
Labs:
WBC 12.0 10^3/uL (4.8-10.8) H 08/31/24 07:36
RBC 2.58 10^6/uL (4.70-6.10) L 08/31/24 07:36
Hgb 8.2 g/dL (13.0-18.0) L 08/31/24 07:36
Hct 26.2 % (39.0-52.0) L 08/31/24 07:36
Plt Count 141 10^3/uL (130-400) 08/31/24 07:36
Sodium 134 mmol/L (135-145) L 08/31/24 07:36
Potassium 4.4 mmol/L (3.5-5.1) 08/31/24 07:36
Chloride 96 mmol/L (98-107) L 08/31/24 07:36
Carbon Dioxide 30 mmol/L (22-30) 08/31/24 07:36
BUN 19 mg/dl (9-20) 08/31/24 07:36
Creatinine 4.9 mg/dL (0.7-1.3) H* 08/31/24 07:36
eGFR 11.23 08/31/24 07:36
Glucose 99 mg/dl (70-99) 08/31/24 07:36
Calcium 8.6 mg/dl (8.4-10.2) 08/31/24 07:36
Albumin 2.4 g/dl (3.5-5.0) L 08/31/24 07:36
Physical Exam
-
Vital Signs:
Vital Signs
Temp Pulse Resp BP Pulse Ox
98.7 F 92 16 124/57 95
08/31/24 11:00 08/31/24 11:36 08/31/24 11:00 08/31/24 11:00 08/31/24 11:00
Cardiovascular:: Regular rate and rhythm
Respiratory:: Bilateral: CTA (anteriorly)
Lung Excursion:: Normal
Abdomen:: Nontender and Soft
Extremity Edema:: +2: Bilateral:
Pascual Catheter: No
Other Findings::
gangrene toes noted, left foot in dressing
--- NOTE | 2024-08-31 14:40 | W.PN.HOSP.TC ---
Today's Communication/Plan
-
medically stable for discharge
Assessment / Plan
Assessment / Plan
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
- Postoperative care per print line operator
- nonweightbearing on right lower extremity. heel wb for LLE
- PT OT evaluated and pending snf rehab placement
PAD
History of left leg balloon angioplasty and venous outflow stenting on 07/08
Left anterior tibial/posterior tibial balloon angioplasty on mar 27
- Continue dipyridamole
- Angioplasty plan has been postponed till 09/05. Likely be done outpatient basis
Permanent AFib
- Maintained on amiodarone/digoxin
-Eliquis to be resumed from evening today
Hypothyroidism
-Maintain on levothyroxine 25 mcg daily
Recent C. difficile colitis
-Currently patient on tapering oral vancomycin, currently getting 125 mg every 48 hour, diagnosed in [facility]
-Maintain on oral vancomycin 125 mg daily while in hospital
-Monitor for any abdominal symptoms
ESRD on PD
- Continue sevelamer/Velphoro
-nephro doing HD round today
NICOLA
-starting on CPAP at night
-RT to adjust pressure as needed
DVT PPX - none, scd contraindicated with vasc issue. anti-coag on hold for procedure
Full code
Anticipated Discharge: Today
Subjective/Interval History
-
Date of Service: August 31, 2024
Resting comfortably in bed
Denies abdominal pain/nausea/diarrhea
Objective Data
-
Labs:
Laboratory Results
08/31/24
07:36
WBC 12.0 H
Hgb 8.2 L
Hct 26.2 L
Plt Count 141
Sodium 134 L
Potassium 4.4
Chloride 96 L
Carbon Dioxide 30
BUN 19
Creatinine 4.9 H*
Glucose 99
Calcium 8.6
Total Bilirubin 0.5
AST 12 L
ALT < 10
Alkaline Phosphatase 70
Vital Signs:
Vital Signs
Temp Pulse Resp BP Pulse Ox
98.7 F 92 16 124/57 95
08/31/24 11:00 08/31/24 11:36 08/31/24 11:00 08/31/24 11:00 08/31/24 11:00
I&O
08/30/24 08/31/24 09/01/24
06:59 06:59 06:59
Intake Total 360 / 360 960 / 960
Balance 360 / 360 960 / 960
Review of Systems
-
Respiratory: Reports No Symptoms
Cardiac: Reports No Symptoms
Abdomen/GI: Reports No Symptoms
Physical Exam
-
General: Comfortable
HEENT: Negative Oxygen
Respiratory: Clear to Auscultation
Cardiac: Regular Rhythm and S1/S2; Negative Murmur or Rub
GI: Soft, Nontender and Nondistended
Musculoskeletal: Other (b/l lower leg joyce wrapping)
Neuro: Awake, Alert, Oriented, No Motor Deficits and Nonfocal/Grossly Intact
Psych: Calm
--- NOTE | 2024-08-31 16:21 | PN.CDI ---
CDI
- -
CDI:
Physician Documentation Request
Admit Date: 08/29/24 11:54
Dear Doctor,
Please review the following and provide your response in the progress notes.
Clinical Indicators:
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
Laboratory Tests
08/30/24 08/31/24
07:16 07:36
Sodium 131 L 134 L
Based on the above, could you clarify in the progress notes, the appropriate diagnosis, if significant, that supports the above abnormalities and additional evaluation, monitoring and/or treatment rendered:
Hyponatremia
Insignificant abnormal lab value
Other
Use of terms such as suspected, likely, concern for, or probable (associated with a specific diagnosis that is being evaluated, monitored, or treated as if it exists) are acceptable and can be coded in the inpatient setting, when documented at the
time of discharge.
Thank you,
Katarina Ventura RN, BSN
CDI Specialist
Please use your independent medical judgment in providing your response.
[2024-08-31] MEDS: LIPITOR 20 MG PO (17:15)
[2024-08-31] MEDS: SENOKOT-S 1 TABLET PO (17:44)
[2024-08-31] MEDS: ROXICODONE 10 MG PO (22:17)
[2024-09-01] VITALS (7 sets, daily range): BP systolic 108–131; BP diastolic 43–86; PULSE 92; BMI 29.2
[2024-09-01] MEDS: SYNTHROID 25 MCG PO (05:25)
[2024-09-01 08:04] LABS: Hematocrit 24.9 % (39.0-52.0); Mean Corp Hgb Conc. 32.1 g/dL (33.0-37.0); Mean Corpuscular Hgb 32.5 pg (27.0-31.0); Mean Corpuscular Volume 101.2 fL (80.0-94.0); Platelet Count 146 10^3/uL (130-400); Red Blood Cell Count 2.46 10^6/uL (4.70-6.10); Red Cell Dist. Width 15.2 % (11.5-14.5); White Blood Cell Count 13.9 10^3/uL (4.8-10.8)
[2024-09-01 08:36] LABS: ALT (SGPT) < 10 U/L (0-50); AST (SGOT) 13 U/L (17-59); Albumin 2.4 g/dl (3.5-5.0); Alkaline Phosphatase 77 U/L (38-126); Blood Urea Nitrogen 31 mg/dl (9-20); Calcium 8.6 mg/dl (8.4-10.2); Carbon Dioxide 29 mmol/L (22-30); Chloride 94 mmol/L (98-107); Estimated Creatinine Clearance 10 ml/min; Glucose 97 mg/dl (70-99); Potassium 4.9 mmol/L (3.5-5.1); Sodium 132 mmol/L (135-145); Total Bilirubin 0.5 mg/dl (0.2-1.3); Total Protein 4.4 g/dl (6.3-8.2); eGFR 8.63
[2024-09-01] MEDS: RETACRIT 8000 UNITS IV (09:07)
[2024-09-01] MEDS: ProAmatine 5 MG PO (09:14)
--- NOTE | 2024-09-01 09:17 | W.PN.HOSP.TC ---
Today's Communication/Plan
-
medically stable for rehab placement
see note
Assessment / Plan
Assessment / Plan
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
- Postoperative care per correspondence dictator
- nonweightbearing on right lower extremity. heel wb for LLE
- PT OT evaluated and pending snf rehab placement
- Discussed with Dr Sullivan and will stop by later today for dressing change.
PAD
History of left leg balloon angioplasty and venous outflow stenting on 07/08
Left anterior tibial/posterior tibial balloon angioplasty on mar 27
- Continue dipyridamole
- Angioplasty plan has been postponed till 09/05. Likely be done outpatient basis
Permanent AFib
- Maintained on amiodarone/digoxin
-Eliquis to be resumed from evening today
Hypothyroidism
-Maintain on levothyroxine 25 mcg daily
Recent C. difficile colitis
-Currently patient on tapering oral vancomycin, currently getting 125 mg every 48 hour, diagnosed in [facility]
-Maintain on oral vancomycin 125 mg daily while in hospital
-Monitor for any abdominal symptoms
ESRD on PD
- Continue sevelamer/Velphoro
-nephro doing HD round today
NICOLA
-starting on CPAP at night
-RT to adjust pressure as needed
DVT PPX - none, scd contraindicated with vasc issue. anti-coag on hold for procedure
Full code
Anticipated Discharge: Today
Subjective/Interval History
-
Date of Service: September 01, 2024
no reported issues overnight
Objective Data
-
Labs:
Laboratory Results
09/01/24
07:22
WBC 13.9 H
Hgb 8.0 L
Hct 24.9 L
Plt Count 146
Sodium 132 L
Potassium 4.9
Chloride 94 L
Carbon Dioxide 29
BUN 31 H
Creatinine 6.1 H*
Glucose 97
Calcium 8.6
Total Bilirubin 0.5
AST 13 L
ALT < 10
Alkaline Phosphatase 77
Vital Signs:
Vital Signs
Temp Pulse Resp BP Pulse Ox
98.3 F 87 18 123/55 94
09/01/24 07:20 09/01/24 07:20 09/01/24 07:20 09/01/24 07:20 09/01/24 07:20
I&O
08/31/24 09/01/24 09/02/24
06:59 06:59 06:59
Intake Total 960 / 960 1140 / 1140
Balance 960 / 960 1140 / 1140
Review of Systems
-
Respiratory: Reports No Symptoms
Cardiac: Reports No Symptoms
Abdomen/GI: Reports No Symptoms
Physical Exam
-
General: Comfortable
HEENT: Negative Oxygen
Respiratory: Clear to Auscultation
Cardiac: Regular Rhythm and S1/S2; Negative Murmur or Rub
GI: Soft, Nontender and Nondistended
Musculoskeletal: Other (b/l lower leg joyce wrapping)
Neuro: Awake, Alert, Oriented, No Motor Deficits and Nonfocal/Grossly Intact
Psych: Calm
--- NOTE | 2024-09-01 10:58 | W.PN.NEPH.HD ---
Assessment
-
Patient seen on dialysis
Systolic blood pressure 108 at current UF
Possible angiogram procedure right lower extremity on Thursday
Progress Note - Hemodialysis
-
Date of Service: September 01, 2024
Duration: 30 minutes and 3 hours
Potassium Bath: 2
Calcium Bath: 2.5
Opti-Dialyzer: 160
Ultrafiltration: Other (2 kg as hemodynamically tolerate)
Blood Flow: 400
Dialysate Flow: 600
Heparin: None
EPO: 8000
[2024-09-01] MEDS: RENVELA PO (11:13)
[2024-09-01] MEDS: ELIQUIS 2.5 MG PO ×2 (12:18→20:32)
[2024-09-01] MEDS: RENVELA 800 MG PO ×2 (12:18→17:16)
[2024-09-01] MEDS: PERSANTINE 50 MG PO ×2 (12:18→20:30)
[2024-09-01] MEDS: PROTONIX 40 MG PO (12:18)
[2024-09-01] MEDS: FIRVANQ 125 MG PO (12:19)
[2024-09-01] MEDS: TOPROL XL 12.5 MG PO ×2 (12:19→20:30)
[2024-09-01] MEDS: PACERONE 200 MG PO ×2 (12:19→20:30)
--- NOTE | 2024-09-01 14:42 | CM ---
CM reviewed chart, patient seen bedside with . Patient confirms he receives dialysis outpatient- [facility] location, , , , provides transport. requesting referrals to [facility]- would
drive patient to and from dialysis. /patient concerned regarding discharge to SNF and returning for procedure. CM will continue to follow for all discharge planning needs.
Plan; additional referrals placed to [facility], would transport to/from dialysis.
--- NOTE | 2024-09-01 15:46 | W.PN.SURGUPD ---
Surgical Update
Surgical Update
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
-Patient seen and evaluated at bedside, dressings removed and wound inspected. Re-applied betadine DSD
-Moving forward, will need nursing dressing changes 2x weekly as follows: Apply betadine to incisions bilaterally, followed by 4x4 gauze pads and lightly wrapped satya or kerlix
-NWB to RLE, Heel WB for transfers on LLE
-Await vascular surgery findings on 09/05
-Will benefit from continued physical therapy and close monitoring of his incision progress
-Will continue to follow
[2024-09-01] MEDS: LIPITOR 20 MG PO (17:16)
[2024-09-02 03:17] VITALS: BP 132/65
[2024-09-02] MEDS: SYNTHROID 25 MCG PO (05:34)
[2024-09-02 06:00] VITALS: BMI 29.3
[2024-09-02 07:25] VITALS: BP 148/65
[2024-09-02] MEDS: ELIQUIS 2.5 MG PO ×2 (08:37→20:56)
[2024-09-02] MEDS: TOPROL XL 12.5 MG PO (08:38)
[2024-09-02] MEDS: RENVELA 800 MG PO ×3 (08:38→17:12)
[2024-09-02] MEDS: PERSANTINE 50 MG PO ×2 (08:38→20:56)
[2024-09-02] MEDS: PACERONE 200 MG PO ×2 (08:38→20:58)
[2024-09-02] MEDS: PROTONIX 40 MG PO (08:38)
[2024-09-02] MEDS: FIRVANQ 125 MG PO (10:02)
[2024-09-02 11:36] VITALS: BP 123/76
--- NOTE | 2024-09-02 11:39 | CM ---
Addendum entered by Sangeeta Payan 09/02/24 11:57:
Received call form admissions at [facility], they do not accept HD patients.
Original Note:
CM reviewed chart, call placed to [facility] and [facility] SN[facility], left voicemail with admissions to identify if any available rehab beds, willing to transport patient to/from HD ([facility]). CM will continue to
follow for all discharge planning needs.
Plan; SNF, will need HD, pending accepting facility
[2024-09-02] MEDS: LANOXIN 125 MCG PO (12:21)
--- NOTE | 2024-09-02 13:40 | W.PN.NEPH.PH ---
Today's Communication / Plan
-
Dialysis tomorrow no acute need today
Assessment/Plan
-
Assessment:
Bilateral toe amputations
ESRD
Hypertension
Peripheral arterial disease-multiple interventions in the past
hyperphosphatemia
Afib
Anemia
Plan:
Dialysis tomorrow,orders provided, midodrine support for ultrafiltration
Escalate MELVIN for anemia
Blood pressure appears to be well-controlled on current antihypertensives and dry weight
Maintain hyper phosphatemia management with Renvela
Rehab planning
Angiogram by vascular surgery plan: 09/05
-
-
Date of Service: September 02, 2024
CC / HPI / ROS
-
Chief Complaint:
ESRD
History of Present Illness:
ESRD Thursday
Hemodynamically stable at dry weight and metoprolol
Anemia persist
Review of Systems:
No current chest pain or shortness of breath
No fevers
Labs
-
Labs:
WBC 13.9 10^3/uL (4.8-10.8) H 09/01/24 07:22
RBC 2.46 10^6/uL (4.70-6.10) L 09/01/24 07:22
Hgb 8.0 g/dL (13.0-18.0) L 09/01/24 07:22
Hct 24.9 % (39.0-52.0) L 09/01/24 07:22
Plt Count 146 10^3/uL (130-400) 09/01/24 07:22
Sodium 132 mmol/L (135-145) L 09/01/24 07:22
Potassium 4.9 mmol/L (3.5-5.1) 09/01/24 07:22
Chloride 94 mmol/L (98-107) L 09/01/24 07:22
Carbon Dioxide 29 mmol/L (22-30) 09/01/24 07:22
BUN 31 mg/dl (9-20) H 09/01/24 07:22
Creatinine 6.1 mg/dL (0.7-1.3) H* 09/01/24 07:22
eGFR 8.63 09/01/24 07:22
Glucose 97 mg/dl (70-99) 09/01/24 07:22
Calcium 8.6 mg/dl (8.4-10.2) 09/01/24 07:22
Albumin 2.4 g/dl (3.5-5.0) L 09/01/24 07:22
Physical Exam
-
Vital Signs:
Vital Signs
Temp Pulse Resp BP Pulse Ox
97.6 F 110 22 123/76 95
09/02/24 11:36 09/02/24 12:21 09/02/24 11:36 09/02/24 11:36 09/02/24 11:36
Cardiovascular:: Regular rate and rhythm
Respiratory:: Bilateral: CTA (anteriorly)
Lung Excursion:: Normal
Abdomen:: Nontender and Soft
Extremity Edema:: +2: Bilateral:
Pascual Catheter: No
Other Findings::
gangrene toes noted, left foot in dressing
--- NOTE | 2024-09-02 14:19 | W.PN.HOSP.TC ---
Addendum entered and electronically signed by Hussein Garcia MD 09/02/24 16:34:
Add on to diagnosis list
Hyponatremia - with esrd, monitor
Original Note:
Today's Communication/Plan
-
see note
Assessment / Plan
Assessment / Plan
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
- Postoperative care per registered nurse behavioral health
- nonweightbearing on right lower extremity. heel wb for LLE
- PT OT evaluated and pending snf rehab placement
- dressing change and wound check done by podiatry on 09/01
PAD
History of left leg balloon angioplasty and venous outflow stenting on 07/08
Left anterior tibial/posterior tibial balloon angioplasty on mar 27
- Continue dipyridamole
- Angioplasty plan has been postponed till 09/05. Patient initially planned to be brought back for procedure on Thursday although ended up staying in hospital due to placement delays
Permanent AFib
-Patient heart rate is fast today, EKG ordered
-Already on digoxin/metoprolol
-Will increase dose of metoprolol to 25 mg twice daily
-Eliquis has been resumed
-EKG routine ordered
Hypothyroidism
-Maintain on levothyroxine 25 mcg daily
Recent C. difficile colitis
-Currently patient on tapering oral vancomycin, currently getting 125 mg every 48 hour, diagnosed in [facility]
-Maintain on oral vancomycin 125 mg daily while in hospital
-Monitor for any abdominal symptoms
ESRD on PD
- Continue sevelamer/Velphoro
- Nephro helping with HD while in hospital
NICOLA
-maintain HS CPAP use
-RT to adjust pressure as needed
DVT PPX - Eliquis
Full code
Anticipated Discharge: > 48 hours
Subjective/Interval History
-
Date of Service: September 02, 2024
no complains overnight
fast HR
Objective Data
-
Vital Signs:
Vital Signs
Temp Pulse Resp BP Pulse Ox
97.6 F 110 22 123/76 95
09/02/24 11:36 09/02/24 12:21 09/02/24 11:36 09/02/24 11:36 09/02/24 11:36
I&O
09/01/24 09/02/24 09/03/24
06:59 06:59 06:59
Intake Total 1140 / 1140 720 / 720
Balance 1140 / 1140 720 / 720
Review of Systems
-
Respiratory: Reports No Symptoms
Cardiac: Denies Chest Pain or Diaphoresis
Abdomen/GI: Reports No Symptoms
Physical Exam
-
General: Comfortable
HEENT: Negative Oxygen
Respiratory: Clear to Auscultation
Cardiac: Regular Rhythm and S1/S2; Negative Murmur or Rub
GI: Soft, Nontender and Nondistended
Musculoskeletal: Other (b/l lower leg joyce wrapping)
Neuro: Awake, Alert, Oriented, No Motor Deficits and Nonfocal/Grossly Intact
Psych: Calm
[2024-09-02 15:00] VITALS: BP 149/74
[2024-09-02] MEDS: LIPITOR 20 MG PO (17:12)
[2024-09-02 19:30] VITALS: BP 147/58
[2024-09-02] MEDS: TOPROL XL 25 MG PO (20:58)
[2024-09-02] MEDS: ROXICODONE 10 MG PO (21:19)
[2024-09-02 23:33] VITALS: BP 133/64
[2024-09-03 06:00] VITALS: BMI 29.0
[2024-09-03] MEDS: SYNTHROID 25 MCG PO (06:11)
[2024-09-03 07:00] VITALS: BP 138/64
[2024-09-03 08:10] LABS: Blood Urea Nitrogen 26 mg/dl (9-20); Calcium 9.1 mg/dl (8.4-10.2); Carbon Dioxide 31 mmol/L (22-30); Chloride 97 mmol/L (98-107); Estimated Creatinine Clearance 12 ml/min; Glucose 95 mg/dl (70-99); Potassium 4.8 mmol/L (3.5-5.1); Sodium 134 mmol/L (135-145); eGFR 10.22
[2024-09-03] MEDS: PROTONIX 40 MG PO (08:12)
[2024-09-03] MEDS: ProAmatine 5 MG PO (08:12)
[2024-09-03] MEDS: RENVELA 800 MG PO ×3 (08:12→16:50)
[2024-09-03 08:43] LABS: Hematocrit 26.2 % (39.0-52.0); Hemoglobin 8.1 g/dL (13.0-18.0); Mean Corp Hgb Conc. 30.9 g/dL (33.0-37.0); Mean Corpuscular Hgb 31.4 pg (27.0-31.0); Mean Corpuscular Volume 101.6 fL (80.0-94.0); Mean Platelet Volume 9.4 fL (7.4-10.4); Platelet Count 201 10^3/uL (130-400); Red Blood Cell Count 2.58 10^6/uL (4.70-6.10); Red Cell Dist. Width 15.3 % (11.5-14.5); White Blood Cell Count 10.2 10^3/uL (4.8-10.8)
[2024-09-03] MEDS: RETACRIT 10000 UNITS IV (09:37)
--- NOTE | 2024-09-03 12:12 | W.PN.NEPH.HD ---
Assessment
-
Seen on dialysis tolerated treatment
Progress Note - Hemodialysis
-
Date of Service: September 03, 2024
Duration: 30 minutes and 3 hours
Potassium Bath: 2
Calcium Bath: 2.5
Opti-Dialyzer: 160
Ultrafiltration: Other (2 kg as hemodynamically tolerate)
Blood Flow: 400
Dialysate Flow: 600
Heparin: None
EPO: 8000
[2024-09-03] MEDS: TOPROL XL 25 MG PO ×2 (12:54→21:15)
[2024-09-03] MEDS: PERSANTINE 50 MG PO ×2 (12:54→21:15)
[2024-09-03] MEDS: PACERONE 200 MG PO ×2 (12:54→21:15)
[2024-09-03] MEDS: ELIQUIS 2.5 MG PO ×2 (12:54→21:15)
[2024-09-03] MEDS: FIRVANQ 125 MG PO (12:57)
[2024-09-03] MEDS: ROXICODONE 10 MG PO ×2 (13:06→21:16)
--- NOTE | 2024-09-03 14:34 | W.PN.HOSP.TC ---
Today's Communication/Plan
-
for angiography/plasty on Thu
Rehab placement after
Assessment / Plan
Assessment / Plan
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
- Postoperative care per data security analyst
- nonweightbearing on right lower extremity. heel wb for LLE
- dressing change and wound check done by podiatry on 09/01
PAD
History of left leg balloon angioplasty and venous outflow stenting on 07/08
Left anterior tibial/posterior tibial balloon angioplasty on mar 27
- Continue dipyridamole
- Angioplasty plan has been postponed till 09/05. Patient initially planned to be brought back for procedure on Thursday although ended up staying in hospital due to placement delays
Permanent AFib
-Patient heart rate is fast today, EKG ordered
-Already on digoxin/metoprolol
-Will increase dose of metoprolol to 25 mg twice daily
-Eliquis has been resumed
Hypothyroidism
-Maintain on levothyroxine 25 mcg daily
Recent C. difficile colitis
-Currently patient on tapering oral vancomycin, currently getting 125 mg every 48 hour, diagnosed in [facility]
-Maintain on oral vancomycin 125 mg daily while in hospital
-Monitor for any abdominal symptoms
ESRD on PD
- Continue sevelamer/Velphoro
- Nephro helping with HD while in hospital
NICOLA
-maintain HS CPAP use
-RT to adjust pressure as needed
DVT PPX - Eliquis
Full code
Anticipated Discharge: > 48 hours
Subjective/Interval History
-
Date of Service: September 03, 2024
No problems overnight
Resting comfortably in bed
Objective Data
-
Labs:
Laboratory Results
09/03/24
06:44
WBC 10.2
Hgb 8.1 L
Hct 26.2 L
Plt Count 201 D
Sodium 134 L
Potassium 4.8
Chloride 97 L
Carbon Dioxide 31 H
BUN 26 H
Creatinine 5.3 H*
Glucose 95
Calcium 9.1
Vital Signs:
Vital Signs
Temp Pulse Resp BP Pulse Ox
98.3 F 76 20 138/64 97
09/03/24 07:00 09/03/24 07:00 09/03/24 07:00 09/03/24 08:12 09/03/24 07:00
I&O
09/02/24 09/03/24 09/04/24
06:59 06:59 06:59
Intake Total 720 / 720 1080 / 1080
Output Total 0 / 0
Balance 720 / 720 1080 / 1080
Review of Systems
-
Respiratory: Reports No Symptoms
Cardiac: Reports No Symptoms
Abdomen/GI: Reports No Symptoms
Physical Exam
-
General: Comfortable
HEENT: Negative Oxygen
Respiratory: Clear to Auscultation
Cardiac: Regular Rhythm and S1/S2; Negative Murmur or Rub
GI: Soft, Nontender and Nondistended
Musculoskeletal: Other (b/l lower leg joyce wrapping)
Neuro: Awake, Alert, Oriented, No Motor Deficits and Nonfocal/Grossly Intact
Psych: Calm
[2024-09-03 15:00] VITALS: BP 125/61
[2024-09-03] MEDS: LIPITOR 20 MG PO (16:50)
[2024-09-03 19:48] VITALS: BP 138/60
[2024-09-03 23:13] VITALS: BP 119/61
[2024-09-04 03:48] VITALS: BP 115/68
[2024-09-04] MEDS: SYNTHROID 25 MCG PO (05:51)
[2024-09-04 05:58] VITALS: BMI 28.9
[2024-09-04] MEDS: ROXICODONE 10 MG PO ×2 (06:28→21:01)
[2024-09-04 07:00] VITALS: BP 133/63
[2024-09-04] MEDS: PERSANTINE 50 MG PO ×2 (08:38→20:55)
[2024-09-04] MEDS: PACERONE 200 MG PO ×2 (08:39→20:55)
[2024-09-04] MEDS: PROTONIX 40 MG PO (08:39)
[2024-09-04] MEDS: ELIQUIS 2.5 MG PO ×2 (08:39→20:56)
[2024-09-04] MEDS: TOPROL XL 25 MG PO ×2 (08:39→20:55)
[2024-09-04] MEDS: FIRVANQ 125 MG PO (08:40)
[2024-09-04] MEDS: RENVELA 800 MG PO ×3 (08:41→17:54)
--- NOTE | 2024-09-04 10:49 | W.PN.HOSP.TC ---
Today's Communication/Plan
-
NPO past mn
eliquis hold tomorrow morning
continue other care
Assessment / Plan
Assessment / Plan
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
- Postoperative care per slitter creaser slotter operator
- nonweightbearing on right lower extremity. heel wb for LLE
- dressing change and wound check done by podiatry on 09/01
PAD
History of left leg balloon angioplasty and venous outflow stenting on 07/08
Left anterior tibial/posterior tibial balloon angioplasty on mar 27
- Continue dipyridamole
- Angioplasty plan has been postponed till 09/05. Patient initially planned to be brought back for procedure on Thursday although ended up staying in hospital due to placement delays
Permanent AFib
-Patient heart rate is fast today, EKG ordered
-Already on digoxin/metoprolol
-Will increase dose of metoprolol to 25 mg twice daily
-Eliquis has been resumed
Hypothyroidism
-Maintain on levothyroxine 25 mcg daily
Recent C. difficile colitis
-Currently patient on tapering oral vancomycin, currently getting 125 mg every 48 hour, diagnosed in [facility]
-Maintain on oral vancomycin 125 mg daily while in hospital
-Monitor for any abdominal symptoms
ESRD on PD
- Continue sevelamer/Velphoro
- Nephro helping with HD while in hospital
NICOLA
-maintain HS CPAP use
-RT to adjust pressure as needed
DVT PPX - Eliquis
Full code
Anticipated Discharge: > 48 hours
Subjective/Interval History
-
Date of Service: September 04, 2024
resting comfortably in bed
no complains overnight
Objective Data
-
Vital Signs:
Vital Signs
Temp Pulse Resp BP Pulse Ox
97.5 F 103 20 133/63 94
09/04/24 07:00 09/04/24 07:00 09/04/24 07:00 09/04/24 07:00 09/04/24 07:00
I&O
09/03/24 09/04/24 09/05/24
06:59 06:59 06:59
Intake Total 1080 / 1080 960 / 960
Output Total 0 / 0 0 / 0
Balance 1080 / 1080 960 / 960
Review of Systems
-
Respiratory: Reports No Symptoms
Cardiac: Reports No Symptoms
Abdomen/GI: Reports No Symptoms
Physical Exam
-
General: Comfortable
HEENT: Negative Oxygen
Respiratory: Clear to Auscultation
Cardiac: Regular Rhythm and S1/S2; Negative Murmur or Rub
GI: Soft, Nontender and Nondistended
Musculoskeletal: Other (b/l lower leg joyce wrapping)
Neuro: Awake, Alert, Oriented, No Motor Deficits and Nonfocal/Grossly Intact
Psych: Calm
[2024-09-04 11:00] VITALS: BP 124/74
--- NOTE | 2024-09-04 13:39 | W.PN.NEPH.PH ---
Today's Communication / Plan
-
No acute need for dialysis today
Assessment/Plan
-
Assessment:
Bilateral toe amputations
ESRD
Hypertension
Peripheral arterial disease-multiple interventions in the past
hyperphosphatemia
Afib
Anemia
Plan:
midodrine support for ultrafiltration
Escalate MELVIN for anemia
Blood pressure appears to be well-controlled on current antihypertensives and dry weight
Maintain hyper phosphatemia management with Renvela
Rehab planning
Angiogram by vascular surgery plan: 09/05
Dialysis Thursday
-
-
Date of Service: September 04, 2024
CC / HPI / ROS
-
Chief Complaint:
ESRD
History of Present Illness:
ESRD Thursday
Hemodynamically stable at dry weight and metoprolol
Anemia persist
Review of Systems:
No current chest pain or shortness of breath
No fevers
Labs
-
Labs:
WBC 10.2 10^3/uL (4.8-10.8) 09/03/24 06:44
RBC 2.58 10^6/uL (4.70-6.10) L 09/03/24 06:44
Hgb 8.1 g/dL (13.0-18.0) L 09/03/24 06:44
Hct 26.2 % (39.0-52.0) L 09/03/24 06:44
Plt Count 201 10^3/uL (130-400) D 09/03/24 06:44
Sodium 134 mmol/L (135-145) L 09/03/24 06:44
Potassium 4.8 mmol/L (3.5-5.1) 09/03/24 06:44
Chloride 97 mmol/L (98-107) L 09/03/24 06:44
Carbon Dioxide 31 mmol/L (22-30) H 09/03/24 06:44
BUN 26 mg/dl (9-20) H 09/03/24 06:44
Creatinine 5.3 mg/dL (0.7-1.3) H* 09/03/24 06:44
eGFR 10.22 09/03/24 06:44
Glucose 95 mg/dl (70-99) 09/03/24 06:44
Calcium 9.1 mg/dl (8.4-10.2) 09/03/24 06:44
Albumin 2.4 g/dl (3.5-5.0) L 09/01/24 07:22
Physical Exam
-
Vital Signs:
Vital Signs
Temp Pulse Resp BP Pulse Ox
97.3 F 82 20 124/74 96
09/04/24 11:00 09/04/24 11:00 09/04/24 11:00 09/04/24 11:00 09/04/24 11:00
Cardiovascular:: Regular rate and rhythm
Respiratory:: Bilateral: CTA (anteriorly)
Lung Excursion:: Normal
Abdomen:: Nontender and Soft
Extremity Edema:: +2: Bilateral:
Pascual Catheter: No
Other Findings::
gangrene toes noted, left foot in dressing
[2024-09-04 15:00] VITALS: BP 128/62
[2024-09-04] MEDS: LIPITOR 20 MG PO (17:54)
[2024-09-04 19:33] VITALS: BP 114/63
[2024-09-04 23:00] VITALS: BP 123/59
[2024-09-05] VITALS (11 sets, daily range): BP systolic 115–159; BP diastolic 55–69; PULSE 96; BMI 29.4
[2024-09-05] MEDS: SYNTHROID 25 MCG PO (06:29)
--- NOTE | 2024-09-05 07:33 | PTCARENOTE ---
received pt from 4 th floor. awake , alert and oriented. vss a fib 80 bpm. 140/73. rr 12 02 sat 94. pt w dp pulses by doppler. . bandages on bilat feet plus 2 edema . rt hand 4th finger w scab on finger tip. left hand w scab on index and pinky
tips.lungs cta. pt has glasses in place.new iv placed in left anti cube.
[2024-09-05 07:42] LABS: Hematocrit 30.5 % (39.0-52.0); Hemoglobin 9.3 g/dL (13.0-18.0); Mean Corp Hgb Conc. 30.5 g/dL (33.0-37.0); Mean Corpuscular Hgb 31.7 pg (27.0-31.0); Mean Corpuscular Volume 104.1 fL (80.0-94.0); Mean Platelet Volume 9.3 fL (7.4-10.4); Platelet Count 227 10^3/uL (130-400); Red Blood Cell Count 2.93 10^6/uL (4.70-6.10); Red Cell Dist. Width 15.4 % (11.5-14.5); White Blood Cell Count 8.1 10^3/uL (4.8-10.8)
[2024-09-05 08:00] LABS: Blood Urea Nitrogen 26 mg/dl (9-20); Calcium 9.1 mg/dl (8.4-10.2); Carbon Dioxide 30 mmol/L (22-30); Chloride 96 mmol/L (98-107); Estimated Creatinine Clearance 13 ml/min; Glucose 92 mg/dl (70-99); Potassium 4.8 mmol/L (3.5-5.1); Sodium 133 mmol/L (135-145); eGFR 10.96
--- NOTE | 2024-09-05 08:03 | PTCARENOTE ---
pt also has a rt upper arm w positive burit and thrill
--- NOTE | 2024-09-05 08:08 | PTCARENOTE ---
pt moved to or vascular lab
--- NOTE | 2024-09-05 10:07 | W.SUR.POST ---
Surgical Immediate Post Op
Note
Pre Op Diagnosis: PAD
Post Op Diagnosis: PAD
Procedure Performed: LLE arteriogram, balloon angioplasty of venous outflow stenosis
Primary Surgeon: Samara
Anesthesia: local and sedation
Estimated Blood Loss: <2cc
Fluids: see anesthesia flow sheet
Drains/Shunts: none
Specimens/Cultures: none
Doppler/Duplex/Angio (Y/N): Y
Complications: none
Operative Findings: Successful angioplasty
--- NOTE | 2024-09-05 11:04 | OR.RPT ---
Operative Report
Operative Report
Date of Operation: 09/05/2024
Pre Op Diagnosis:
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
2.) status post left lower extremity LimFlow/TADV
3.) End-stage renal disease requiring hemodialysis
Post Op Diagnosis:
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
2.) status post left lower extremity LimFlow/TADV
3.) End-stage renal disease requiring hemodialysis
Procedure:
1.) Balloon angioplasty of venous outflow stenosis in the left foot (4 mm; 5 mm angioplasty balloons)
2.) Diagnostic left lower extremity arteriogram
3.) Ultrasound-guided percutaneous access to the left proximal superficial femoral artery, antegrade
Surgeon: Rolo Pascual III, MD
Tire Repairer: Paulette Cooper MD PGY1
Anesthesia: Sedation with local
Fluoroscopy:
55.3 min
120 mGy
16.64 gy.cm2
Complications: None
Estimated Blood Loss: 20 cc
History and Indications for Procedure: 83-year-old male with multiple medical comorbidities including end-stage renal disease requiring hemodialysis. He has chronic limb threatening ischemia of the bilateral lower extremities and had previously
undergone bilateral LimFlow/TADV procedures. He recently underwent left toe amputations and had surveillance duplex imaging showing low flow volumes through the LimFlow/TADV circuit. He was brought to the operating room today for endovascular
interrogation.
Procedure in Detail: Alexis Welsh was correctly identified and placed supine on the operating table. After adequate induction of anesthesia the bilateral groins were prepped and draped in the usual sterile fashion. A timeout was performed with the
nursing and anesthesia staff confirming the patient's identity as well as the nature and laterality of the procedure.
The left common femoral artery and femoral bifurcation were identified under ultrasound guidance. The artery was patent. The superior and inferior aspects of the femoral head were identified with radiographic guidance and marked at the skin level.
The proposed puncture site was infiltrated with local anesthesia. Under ultrasound guidance we accessed the left common femoral artery at the SFA origin in an antegrade direction with a micropuncture needle and upsized to a 5 Fr sheath over a
Bentson wire. A diagnostic left lower extremity arteriogram was then performed which demonstrated the following:
LEFT LOWER EXTREMITY:
Superficial femoral artery: Patent with no significant stenosis identified
Popliteal artery: Patent with no significant stenosis identified
Anterior tibial artery: Patent
LimFlow/TADV: Patent stents but sluggish flow with significant delay through the stents and into the foot. Plantar vein filling identified but more distal venous outflow in the foot appeared to be occluded.
ENDOVASCULAR INTERVENTION: Systemic heparin was administered. We selected the posterior tibial artery and subsequently the LimFlow/TADV stents. The Glidewire and Quickcross catheter were advanced through the length of the stents and into the
plantar vein outflow in the foot. Exchanged out for a 0.014 command wire. This was advanced through the pedal venous loop and into the great saphenous vein outflow. A 4 mm angioplasty balloon was advanced over the wire and across the venous loop
quite easily. Angioplasty was performed with this 4 mm balloon across the entire pedal loop and back to the end of the stents in the plantar vein. Subsequent arteriogram demonstrated an improved but suboptimal result with several areas of residual
high-grade stenosis in the venous outflow. I then exchanged out for a 0.035 Glidewire. I attempted to advance a 5 mm x 40 mm Stanley balloon across the pedal loop. I was only able to advance this part of the way to treat one of the 2 residual
stenoses. The balloon would not advance across the entire pedal loop. The Stanley balloon was inflated to nominal pressure and held in place across the more proximal venous outflow stenosis for 4-minute inflation. This profiled nicely. I then
deflated and remove the balloon over the wire. I then exchanged out for a V18 wire. I was able to advance a 5 mm x 40 mm 0.018 [employer] balloon across the pedal venous loop to treat the more distal venous outflow stenosis. From this more
distal location I performed angioplasty with the 5 mm balloon across the entire segment including the venous loop all the way back to the distal end of the stents. Multiple inflations were performed with a 5 mm angioplasty balloon holding the
balloon in place at nominal pressure for 3 minutes at each segment. The balloon was then deflated and removed over the wire.
COMPLETION ARTERIOGRAM: Excellent technical result. Patent LimFlow/TADV circuit with brisk venous outflow identified through the pedal loop. No significant residual stenosis was identified. Significantly improved compared to pre-treatment.
Satisfied with this result we concluded the procedure. Protamine was administered. The sheath was pulled in the operating room and direct manual pressure was held over the puncture site until hemostasis was achieved.
The patient tolerated the procedure well and was taken to the recovery area in stable condition. At the conclusion of the case the patient had robust Doppler signals over the posterior tibial location posterior to the medial malleolus as well as
over the plantar surface of the midfoot. A palpable pulse was also noted over the dorsum of the foot and was marked on the skin.
Attestation: I was present and responsible for the entire procedure.
Signed:
Rolo Pascual III, MD
Vascular Surgery
[facility]
--- NOTE | 2024-09-05 11:25 | CM ---
CM reviewed chart, spoke with patients , Mayra. Mayra reports patient is still in recovery, would like patient to discharge to [facility] for SNF/HD when medically stable. CM spoke with admissions at [facility], confirmed ability to
accept, updated clinicals faxed over. CM will continue to follow for all discharge planning needs.
Plan; [facility] SNF when stable, patient will require HD
[2024-09-05] MEDS: RENVELA PO (12:37)
[2024-09-05] MEDS: FIRVANQ 125 MG PO (12:38)
[2024-09-05] MEDS: PERSANTINE 50 MG PO ×2 (12:38→20:35)
[2024-09-05] MEDS: PACERONE 200 MG PO ×2 (12:38→20:35)
[2024-09-05] MEDS: PROTONIX 40 MG PO (12:38)
[2024-09-05] MEDS: TOPROL XL 25 MG PO ×2 (12:38→20:35)
[2024-09-05] MEDS: RENVELA 800 MG PO ×2 (12:38→15:46)
[2024-09-05] MEDS: LANOXIN 125 MCG PO (12:41)
--- NOTE | 2024-09-05 12:49 | W.PN.NEPH.PH ---
Today's Communication / Plan
-
Dialysis tomorrow
Assessment/Plan
-
Assessment:
Bilateral toe amputations
ESRD
Hypertension
Peripheral arterial disease-multiple interventions in the past
hyperphosphatemia
Afib
Anemia
Plan:
Dialysis tomorrow
Rehab planning
-
-
Date of Service: September 05, 2024
CC / HPI / ROS
-
Chief Complaint:
ESRD
History of Present Illness:
ESRD Thursday
Status post angiogram today with angioplasty
Hemodynamically stable at dry weight and metoprolol
Anemia persist
Review of Systems:
No current chest pain or shortness of breath
No fevers
Labs
-
Labs:
WBC 8.1 10^3/uL (4.8-10.8) 09/05/24 07:21
RBC 2.93 10^6/uL (4.70-6.10) L 09/05/24 07:21
Hgb 9.3 g/dL (13.0-18.0) L 09/05/24 07:21
Hct 30.5 % (39.0-52.0) L 09/05/24 07:21
Plt Count 227 10^3/uL (130-400) 09/05/24 07:21
Sodium 133 mmol/L (135-145) L 09/05/24 07:21
Potassium 4.8 mmol/L (3.5-5.1) 09/05/24 07:21
Chloride 96 mmol/L (98-107) L 09/05/24 07:21
Carbon Dioxide 30 mmol/L (22-30) 09/05/24 07:21
BUN 26 mg/dl (9-20) H 09/05/24 07:21
Creatinine 5.0 mg/dL (0.7-1.3) H* 09/05/24 07:21
eGFR 10.96 09/05/24 07:21
Glucose 92 mg/dl (70-99) 09/05/24 07:21
Calcium 9.1 mg/dl (8.4-10.2) 09/05/24 07:21
Albumin 2.4 g/dl (3.5-5.0) L 09/01/24 07:22
Physical Exam
-
Vital Signs:
Vital Signs
Temp Pulse Resp BP Pulse Ox
97.2 F 69 16 115/59 97
09/05/24 12:30 09/05/24 12:30 09/05/24 12:30 09/05/24 12:30 09/05/24 12:30
Cardiovascular:: Regular rate and rhythm
Respiratory:: Bilateral: Coarse
Lung Excursion:: Normal
Abdomen:: Nontender and Soft
Bowel Sounds:: Normal
Extremity Edema:: +1: Bilateral:
[2024-09-05] MEDS: ROXICODONE 10 MG PO ×2 (15:46→20:34)
--- NOTE | 2024-09-05 16:50 | W.PN.HOSP.TC ---
Today's Communication/Plan
-
PT OT begin dispo planning
Assessment / Plan
Assessment / Plan
NAD
Scleral Anicteric
MMM
No JVD
CTABL
RRR, S1/S2
Soft, NT, ND, BS+
Warm, Dry
Bilateral lower extremity Zaid bandage wrap
AAOx3
Calm
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
- Postoperative care per cfo
- nonweightbearing on right lower extremity. heel wb for LLE
- dressing change and wound check done by podiatry on 09/01
PAD
History of left leg balloon angioplasty and venous outflow stenting on 07/08
Left anterior tibial/posterior tibial balloon angioplasty on mar 27
- Continue dipyridamole
- S/p angio with Vascular on 09/05
Procedure:
1.) Balloon angioplasty of venous outflow stenosis in the left foot (4 mm; 5 mm angioplasty balloons)
2.) Diagnostic left lower extremity arteriogram
3.) Ultrasound-guided percutaneous access to the left proximal superficial femoral artery, antegrade
Permanent AFib
Continue amiodarone to beta-blockade
Continue apixaban 2.5 twice daily
Hypothyroidism
-Maintain on levothyroxine 25 mcg daily
Recent C. difficile colitis
-Currently patient on tapering oral vancomycin, currently getting 125 mg every 48 hour, diagnosed in [facility]
-Maintain on oral vancomycin 125 mg daily while in hospital
-Monitor for any abdominal symptoms
Does not need to remain on isolation
ESRD on PD
- Continue sevelamer/Velphoro
- Nephro helping with HD while in hospital
NICOLA
-maintain HS CPAP use
-RT to adjust pressure as needed
DVT PPX - Eliquis
Full code
Anticipated Discharge: Within 24 hours
Subjective/Interval History
-
Date of Service: September 05, 2024
Seen and examined. No new complaints. No acute overnight events.
Objective Data
-
Labs:
Laboratory Results
09/05/24
07:21
WBC 8.1
Hgb 9.3 L
Hct 30.5 L
Plt Count 227
Sodium 133 L
Potassium 4.8
Chloride 96 L
Carbon Dioxide 30
BUN 26 H
Creatinine 5.0 H*
Glucose 92
Calcium 9.1
Vital Signs:
Vital Signs
Temp Pulse Resp BP Pulse Ox
97.4 F 89 16 123/64 96
09/05/24 16:00 09/05/24 16:00 09/05/24 16:00 09/05/24 16:00 09/05/24 16:00
I&O
09/04/24 09/05/24 09/06/24
06:59 06:59 06:59
Intake Total 960 / 960 720 / 960 240 / 240
Output Total 0 / 0
Balance 960 / 960 720 / 960 240 / 240
[2024-09-05] MEDS: LIPITOR 20 MG PO (17:40)
[2024-09-06 03:00] VITALS: BP 152/69
[2024-09-06] MEDS: SYNTHROID 25 MCG PO (04:00)
[2024-09-06 04:26] VITALS: BMI 30.2
[2024-09-06 07:00] VITALS: BP 140/62
[2024-09-06] MEDS: PERSANTINE 50 MG PO (09:04)
[2024-09-06] MEDS: PROTONIX 40 MG PO (09:04)
[2024-09-06] MEDS: PACERONE 200 MG PO (09:05)
[2024-09-06] MEDS: FIRVANQ 125 MG PO (09:05)
[2024-09-06] MEDS: TOPROL XL 25 MG PO (09:05)
[2024-09-06] MEDS: ProAmatine 5 MG PO (09:08)
[2024-09-06] MEDS: RENVELA 800 MG PO ×3 (09:08→17:39)
--- NOTE | 2024-09-06 09:28 | W.PN.VS ---
Addendum entered and electronically signed by Rolo Pascual III, MD 09/06/24 18:21:
This patient was seen and examined in collaboration with KAREN Nation. I agree with the history and physical exam as well as the assessment and plan. I have the following additions:
Successful endovascular intervention on LimFlow/TADV venous outflow stenosis, left foot
Robust plantar foot Doppler signals with a palpable pulse over the dorsum of his foot
Will continue to monitor wound healing as outpatient
He also has critical limb threatening ischemia of his upper extremities with bilateral finger ulcerations and we are actively evaluating this
Likely steal physiology from dialysis access on the right
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
Will continue imaging workup as an outpatient if he is otherwise ready for discharge
Signed:
Rolo Pascual III, MD
Vascular Surgery
[facility]
Original Note:
Today's Communication / Plan
-
Patient seen and examined at bedside with Dr. Rolo Pascual III, below plan reviewed with attending.
Assessment/Plan
-
Assessment: 83-year-old male POD #1 Balloon angioplasty of venous outflow stenosis in the left foot (4 mm; 5 mm angioplasty balloons)
Plan:
Okay to reinitiate anticoagulation from a vascular surgical perspective
Follow-up ultrasound and appointment placed in discharge instructions
We will sign off please call with questions or concerns
Subjective Data
-
Date of Service: September 06, 2024
Patient seen and examined at bedside, offers no complaints. Resting comfortably in bed. Denies pain or swelling at left groin puncture site. Denies nausea, vomiting, fever, and chills.
Objective Data
-
Vital Signs
Temp Pulse Resp BP Pulse Ox
98.3 F 79 18 140/62 96
09/06/24 07:00 09/06/24 07:00 09/06/24 07:00 09/06/24 07:00 09/06/24 07:00
Intake and Output
09/05/24 09/06/24 09/07/24
06:59 06:59 06:59
Intake Total 720 / 960 720 / 720
Balance 720 / 960 720 / 720
Intake:
Oral fluids 720 / 960 720 / 720
Calcium 9.1 mg/dl (8.4-10.2) 09/05/24 07:21
Total Bilirubin 0.5 mg/dl (0.2-1.3) 09/01/24 07:22
AST 13 U/L (17-59) L 09/01/24 07:22
ALT < 10 U/L (0-50) 09/01/24 07:22
Alkaline Phosphatase 77 U/L (38-126) 09/01/24 07:22
Total Protein 4.4 g/dl (6.3-8.2) L 09/01/24 07:22
Albumin 2.4 g/dl (3.5-5.0) L 09/01/24 07:22
Physical Exam
-
No apparent distress, resting in bed comfortably
No tachycardia
No dyspnea on room air
ABD rotund, nondistended, nontender
Left groin puncture site CDI, no evidence of hematoma, all surrounding compartments soft
Bilateral feet warm, dressing CDI
Left PT pulse palpable
[2024-09-06 11:33] VITALS: BP 124/52
[2024-09-06 13:47] LABS: Hematocrit 24.6 % (39.0-52.0); Hemoglobin 7.9 g/dL (13.0-18.0); Mean Corp Hgb Conc. 32.1 g/dL (33.0-37.0); Mean Corpuscular Hgb 31.5 pg (27.0-31.0); Mean Platelet Volume 9.7 fL (7.4-10.4); Platelet Count 238 10^3/uL (130-400); Red Blood Cell Count 2.51 10^6/uL (4.70-6.10); Red Cell Dist. Width 15.4 % (11.5-14.5); White Blood Cell Count 9.9 10^3/uL (4.8-10.8)
--- NOTE | 2024-09-06 13:47 | W.DCSUMMARY ---
Discharge Summary
Discharge Data
Date of Admission: 08/29/24
Date of Discharge: 09/06/24
-
Pending Results: No
Hospital Course
83-year-old male with past medical history significant for hypertension, atrial fibrillation, ESRD with peritoneal dialysis, PAD and hyperparathyroidism
Presented for elective right foot TMA and left foot amputation as there was concern for right forefoot gangrene and left third toe gangrene with wound dehiscence. On 08/29/2024 s/p right TMA and left 1st/2nd toe amputation revision third toe
amputation. Followed by an arteriogram on 09/05/2024 with vascular surgery of the left lower extremity s/p balloon angioplasty of venous outflow stenosis. Tolerated procedure well. Supposed to follow-up with outpatient podiatry and vascular surgery
for review of upper extremity vascular flow follow-up. Additionally wound cultures did grow out Pseudomonas E. coli however as there was source control no additional antibiotics provided. He will be continued on p.o. vancomycin prophylactically
until stop date that was provided by [facility].
LLE Arteriogram
Procedure:
1.) Balloon angioplasty of venous outflow stenosis in the left foot (4 mm; 5 mm angioplasty balloons)
2.) Diagnostic left lower extremity arteriogram
3.) Ultrasound-guided percutaneous access to the left proximal superficial femoral artery, antegrade
Seen and examined on the day of discharge. No new complaints. No acute overnight events.
Asking if he is going to have dialysis today. Understands he has to follow-up with outpatient vascular surgery for upper extremity vasculature evaluation for
12 point ROS completed negative unless otherwise specified
NAD
Scleral Anicteric
MMM
No JVD
CTABL
RRR, S1/S2
Soft, NT, ND, BS+
Warm, Dry
Left groin site without evidence of hematoma, no Elmore Duarte's or Eric sign
Right foot wrapped, left foot partially wrapped
AAOx3
Calm
Discharge Plan
-
Patient Disposition: Residential/SNF
Discharge Diagnosis/Procedures: Right forefoot gangrene and left 3rd toe gangrene with wound dehiscence now s/p R TMA and L 1st/2nd toe amputation revisions, 3rd toe amputation
Condition: Fair
Diet: As tolerated, Low Fat, Low Cholesterol, Low Sodium and No added salt
Activity Restrictions/Additional Instructions:
Presented for elective right foot TMA and left foot amputation as there was concern for right forefoot gangrene and left third toe gangrene with wound dehiscence. On 08/29/2024 s/p right TMA and left 1st/2nd toe amputation revision third toe
amputation. Followed by an arteriogram on 09/05/2024 with vascular surgery of the left lower extremity s/p balloon angioplasty of venous outflow stenosis. Tolerated procedure well. Supposed to follow-up with outpatient podiatry and vascular surgery
for review of upper extremity vascular flow follow-up. Additionally wound cultures did grow out Pseudomonas E. coli however as there was source control no additional antibiotics provided. He will be continued on p.o. vancomycin prophylactically
until stop date that was provided by [facility].
LLE Arteriogram
Procedure:
1.) Balloon angioplasty of venous outflow stenosis in the left foot (4 mm; 5 mm angioplasty balloons)
2.) Diagnostic left lower extremity arteriogram
3.) Ultrasound-guided percutaneous access to the left proximal superficial femoral artery, antegrade
Referrals:
Rolo Pascual III, MD [Active] -
Keaton Gongora MD [Active] -
Abner Sullivan DPM [Active] -
UNKNOWN,NO INTERVIEW [Family Provider] -
Prescriptions:
Continued
atorvastatin 20 mg Tablet
20 mg PO QPM
dipyridamole 50 mg Tablet
50 mg PO BID
metoprolol succinate 25 mg Tablet Extended Release 24 Hr
12.5 mg PO BID
cholecalciferol (vitamin D3) [Vitamin D3] 25 mcg (1,000 unit) Tablet
25 mcg PO QPM
sevelamer carbonate [Renvela] 800 mg Tablet
800 mg PO AC
omeprazole 20 mg Tablet,Delayed Release (Dr/Ec)
20 mg PO DAILY
coQ10 (ubiquinol) 100 mg Capsule
100 mg PO DAILY
Velphoro 500 mg Tablet,Chewable
500 mg PO AC
tramadol 50 mg Tablet
50 mg PO Q6HPRN PRN (Reason: moderate pains)
docusate sodium 50 mg Capsule
100 mg PO BIDPRN PRN (Reason: constipation)
B-complex with vitamin C Tablet
1 tab PO QPM
acetaminophen [Tylenol Extra Strength] 500 mg Tablet
1,000 mg PO Q6HPRN PRN (Reason: pain)
oxycodone 5 mg tablet
5 mg PO Q6H PRN (Reason: Pain) Qty: 18 0RF
Eliquis 2.5 mg Tablet
2.5 mg PO BID
amiodarone 200 mg Tablet
200 mg PO BID
midodrine 5 mg Tablet
5 mg PO TUTHSA
levothyroxine 25 mcg Tablet
25 mcg PO DAILY
digoxin 125 mcg (0.125 mg) Tablet
125 mcg PO MOWEFR
vancomycin 125 mg capsule
125 mg PO Q48H
Discharge Orders:
Discharge Patient (As Directed); Ordered 09/06/24
Ordered By: Nando Garcia
Discharge Date and Time
Print Language: ICELANDIC
[2024-09-06] MEDS: MANNITOL 25% 12.5 GRAMS IV ×2 (14:10→15:30)
[2024-09-06] MEDS: FLEXBUMIN 25% FOR HEMODIALYSIS 12.5 GRAMS IV ×2 (14:31→15:30)
[2024-09-06] MEDS: RETACRIT 10000 UNITS IV (14:32)
[2024-09-06 14:37] LABS: Blood Urea Nitrogen 37 mg/dl (9-20); Calcium 8.6 mg/dl (8.4-10.2); Carbon Dioxide 26 mmol/L (22-30); Chloride 93 mmol/L (98-107); Estimated Creatinine Clearance 10 ml/min; Glucose 107 mg/dl (70-99); Potassium 5.1 mmol/L (3.5-5.1); Sodium 129 mmol/L (135-145); eGFR 8.63
--- NOTE | 2024-09-06 14:50 | CM ---
CM reviewed chart, patient for discharge today to [facility] with HD, [facility] chair times M,W,FR, will receive dialysis again tomorrow, update to [facility]. Patient seen bedside, updated on transport time. IMM reviewed, agreeable
to discharge, provided with copy, placed in chart. Phone call to patients , Mayra, updated with transport time. Updated clinicals sent to [facility].
Plan; discharge to [facility] with HD, 6:00 p.m. ambulance transport
[facility]
Report: [phone]

[facility]
[2024-09-06 15:00] VITALS: BP 112/49
[2024-09-06] MEDS: LIPITOR 20 MG PO (17:39)
--- NOTE | 2024-09-06 17:57 | W.PN.NEPH.HD ---
Assessment
-
Seen on HD no complaints. VSS Access ok. hgb stable low
Progress Note - Hemodialysis
-
Date of Service: September 06, 2024
Duration: 30 minutes and 3 hours
Potassium Bath: 2
Calcium Bath: 2.5
Opti-Dialyzer: 160
Ultrafiltration: Other (2)
Dialysate Flow: 600
Heparin: 0
EPO: 38790 units
== END 2024-09-06 19:21 | DRG 907 ==
LOC: 4 WEST ACU 11:54
PROVIDERS: Hospitalist; Internal Medicine Nephrology; Nurse Practitioner; Nurse Practitioner Acute Care; Specialist; Surgery Vascular Surgery; ADMITTING PHYSICIAN Student in an Organized Health Care Education/Training Program; ATTENDING PHYSICIAN Hospitalist; CONSULT PHYSICIAN Specialist
PROC: 0Y6M0Z9 Detachment at Right Foot, Partial 1st Ray, Open Approach (ICD-10-PCS; 2024-08-29)
PROC: 0Y6M0ZD Detachment at Right Foot, Partial 4th Ray, Open Approach (ICD-10-PCS; 2024-08-29)
PROC: 0Y6M0ZF Detachment at Right Foot, Partial 5th Ray, Open Approach (ICD-10-PCS; 2024-08-29)
PROC: 0Y6U0Z1 Detachment at Left 3rd Toe, High, Open Approach (ICD-10-PCS; 2024-08-29)
PROC: 0Y6M0ZC Detachment at Right Foot, Partial 3rd Ray, Open Approach (ICD-10-PCS; 2024-08-29)
PROC: 0Y6M0ZB Detachment at Right Foot, Partial 2nd Ray, Open Approach (ICD-10-PCS; 2024-08-29)
PROC: 5A1D70Z Performance of Urinary Filtration, Intermittent, Less than 6 Hours Per Day (ICD-10-PCS; 2024-08-30)
PROC: 047Q3ZZ Dilation of Left Anterior Tibial Artery, Percutaneous Approach (ICD-10-PCS; 2024-09-05)
PROC: 067Y3ZZ Dilation of Lower Vein, Percutaneous Approach (ICD-10-PCS; 2024-09-05)
DX: T81.31XA Disruption of external operation (surgical) wound, not elsewhere classified, initial encounter (principal); N18.6 End stage renal disease; I96 Gangrene, not elsewhere classified; I48.21 Permanent atrial fibrillation; I12.0 Hypertensive chronic kidney disease with stage 5 chronic kidney disease or end stage renal disease; E87.1 Hypo-osmolality and hyponatremia; Y83.8 Other surgical procedures as the cause of abnormal reaction of the patient, or of later complication, without mention of misadventure at the time of the procedure; G47.33 Obstructive sleep apnea (adult) (pediatric); L98.499 Non-pressure chronic ulcer of skin of other sites with unspecified severity; I70.223 Atherosclerosis of native arteries of extremities with rest pain, bilateral legs; B96.5 Pseudomonas (aeruginosa) (mallei) (pseudomallei) as the cause of diseases classified elsewhere; B96.20 Unspecified Escherichia coli [E. coli] as the cause of diseases classified elsewhere; Z99.2 Dependence on renal dialysis; Z79.01 Long term (current) use of anticoagulants; Z79.899 Other long term (current) drug therapy
CPT/HCPCS: 88305; 88307; 88311; 80048; 80053; 85027; 85610; 85730; 87070; 87075; 87077; 87186; 87205; 87340; 93005; 94660; 97163; 97167; 97530; 97535; G0257; P9047; Q5106

== ENCOUNTER 2024-09-16 13:23 | Inpatient (IN) | payer MEDICARE, BC, SELFPAY ==
[2024-09-15] VITALS (12 sets, daily range): BP systolic 127–156; BP diastolic 47–97; BMI 28.4; BMI 27.7
[2024-09-15 12:06] LABS: % Basophils 0.2 % (0-2); % Eosinophils 0.3 % (0-6); % Immature Granulocytes 0.8 % (0-0.5); % Lymphocytes 11.8 % (20.5-51.1); % Monocytes 5.6 % (1.7-9.3); % Neutrophils 81.3 % (42.2-75.2); Absolute Immature Granulocytes 0.1 10^3/uL (0-0.05); Absolute Lymphocytes 1.6 10^3/uL (1.2-3.4); Absolute Monocytes 0.7 10^3/uL (0.1-0.6); Absolute Neutrophils 10.7 10^3/uL (1.4-6.5); Hematocrit 25.7 % (39.0-52.0); Hemoglobin 8.1 g/dL (13.0-18.0); Mean Corp Hgb Conc. 31.5 g/dL (33.0-37.0); Mean Corpuscular Hgb 30.3 pg (27.0-31.0); Mean Corpuscular Volume 96.3 fL (80.0-94.0); Mean Platelet Volume 9.7 fL (7.4-10.4); Nucleated Red Blood Cells % 0 % (-); Platelet Count 250 10^3/uL (130-400); Red Blood Cell Count 2.67 10^6/uL (4.70-6.10); Red Cell Dist. Width 15.5 % (11.5-14.5); White Blood Cell Count 13.2 10^3/uL (4.8-10.8)
[2024-09-15 12:22] LABS: ALT (SGPT) < 10 U/L (0-50); AST (SGOT) 18 U/L (17-59); Albumin 2.6 g/dl (3.5-5.0); Alkaline Phosphatase 60 U/L (38-126); Blood Urea Nitrogen 27 mg/dl (9-20); Calcium 8.5 mg/dl (8.4-10.2); Carbon Dioxide 28 mmol/L (22-30); Chloride 98 mmol/L (98-107); Estimated Creatinine Clearance 16 ml/min; Glucose 89 mg/dl (70-99); Potassium 4.1 mmol/L (3.5-5.1); Sodium 130 mmol/L (135-145); Total Bilirubin 0.8 mg/dl (0.2-1.3); Total Protein 4.9 g/dl (6.3-8.2); eGFR 13.91
[2024-09-15 14:31] LABS: NT-proBNP > 27000 pg/ml
--- NOTE | 2024-09-15 14:49 | ED.GENMED ---
History of Present Illness
General
Chief Complaint: Abnormal Lab Value
Source: patient and family
Exam Limitations: clinical condition
Time Seen by Provider: 09/15/24 13:34
Nursing documentation reviewed up to this point in time: agreed with
History of Present Illness
History of Present Illness:
pt is a 83 y/o M with h/o HTN, af on eliquis, ESRD formerly on peritoneal diaylsis now on HD, SEVERE PAD s/p b/l toes amputations
recent hospstilizations for b/l toe amputations
recent balloon angioplasty of the LLE
h/o C diff was on vanc
from [facility]
apparently had outaptient CTA of the RUE because of new right hand redness, pain and dusky fingers (has AV fistula in the RUE) today and got a call regarding pt's hemoglobin of 7.9; the doctor at [facility] felt that pt did not need transufion
at this time but is very concerned and watned him checked out
pt's spoke with PCp who called here saying pt is really declining and is having hard time; the PCP called in to the providers saying perhaps they need to consider end of life care
pt has had a cough for a few days
soudns like they treatd him with levaquin for pneumonia but he hasn't improved, is wet sounding cough and sob
he has not had fever
within the past few days he develo[ed this R hand redness; but has not had any acute chagnes in that today
the CTA was not read yet
no chest pain, vomiting, diarrhea
does not make urine
Past History
Past History
ED Past Medical History: Arrthythmia, HTN, Hypercholesterolemia and Other (PAD)
Social History
Tobacco: Non-smoker
Review of Systems
Review of Systems
Allergies reviewed?: Yes
All Other Systems: Not applicable
Phy Exam
Physical Exam
Physical Exam:
GENERAL: chronically ill appearing
EYE: pupils equal and reactive
NECK: Supple
ENT: o/p clr, mmm.
CARDIAC: Regular rate and rhythm .
LUNGS: Clear breath sounds bilaterally, no acute respiratory distress, no wheezes/rales/rhonchi
ABDOMEN: Soft, without focal tenderness, no r/g, no cvat, normal bowel sounds
NEUROLOGICAL: Alert and oriented, no focal neuro deficits
SKIN: Warm and dry, skin intact.
MUSCULOSKELETAL: No edema, well perfused. neg daysi's sign
PSYCH: Normal and appropriate interaction.
Course
Orders/Labs/Results
Orders:
Orders
09/15/24 11:56
Complete Blood Count/With Diff Urgent
Comprehensive Metabolic Panel Urgent
09/15/24 14:04
NT-proBNP Urgent
09/15/24 14:08
CR Chest - 2 Views Urgent
Comment:
Reason For Exam: sob, rales, dialysis
09/15/24 14:12
Electrocardiogram (*1) Urgent
Reason for Study: Shortness of Breath
EKG- Treatment ONCE
09/15/24 15:29
COVID-19 Antigen Urgent
Source: Nasal Swab
Influenza A+B Rapid Molecular Urgent
MARELY Source: Nasal Swab
Specimen Description:
09/15/24 17:19
Admit/Transfer Patient As Directed
Co-Sign Provider:
Level of Care: Observation services
Assign to:: Telemetry
Physician / Group: Dr.Janak Garcia
Diagnosis: Severe PAD, ESRD on HD, Pneumonia
Reason for Telemetry: Arrhythmia
Date to Stop Telemetry: 09/18/24
Time to Stop Telemetry: 11:00
Reason for Hospitalization: Severe PAD, ESRD on HD, Pneumonia
Expected length of stay greater than two midnights?: Yes
ELOS- Estimated Length of Stay in days: 3
I certify the patient meets the requirements for IP care: Yes
PRN Pain Medication Management As Directed
May give lesser potent ordered pain med per pt: Yes
preference::
Protocol:: Medication orders for pain may be administered in a
manner that supports deferring to patient preference
when the pt is:
- Requesting an ordered lesser potent pain medication.
Least to most potent pain medications are defined
as: acetaminophen < NSAID < tramadol < opioids
(morphine, oxycodone, hydromorphone).
- Requesting a lesser dose of the same medication IF
ORDERED.
- Requesting a less intrusive route of administration
if both routes are prescribed by the provider (PO <
IV).
09/15/24 18:23
Code Status As Directed
Resuscitation Status: Do not resuscitate
Reached after discussion with pt or family/Healthcare POA: Yes
09/15/24 21:48
Acetaminophen [Tylenol] 1,000 mg PO Q6HPRN PRN
Acetaminophen [Tylenol] 650 mg PO Q6HPRN PRN
Amiodarone [Pacerone] 200 mg PO BID
Apixaban [Eliquis] 2.5 mg PO BID
Bisacodyl [Dulcolax] 10 mg RECTAL DAILYPRN PRN
Cholecalciferol (Vitamin D3) [VITAMIN D3 (cholecalciferol)] 25 mcg PO QPM
Guaifenesin [Mucinex] 600 mg PO BID
Lactobac/Bifidobac [Visbiome] 1 cap PO DAILY
Prednisone [Deltasone] 40 mg PO DAILY
Sodium Chloride 3% INH [Sodium Chloride 3% For Inhalation] 1 vial INH R NOW STA
Sodium Chloride 3% INH [Sodium Chloride 3% For Inhalation] 1 vial INH R Q4HPRN PRN
Vancomycin HCl [Firvanq] 125 mg PO DAILY
Vitamin B Complex with C [B COMPLEX w/VITAMIN C] 1 caplet PO QPM
09/15/24 21:48
NEPHROLOGY CONSULT Routine
Consulting Provider: Keaton Gongora
Was physician already notified: Yes
Vascular Surgery Consult Routine
Consulting Provider: Dereck Doan
Was physician already notified: Yes
Sputum Culture [Respiratory Culture/Gram Stain] Routine
MARELY Source: Sputum
Specimen Description:
Flutter [Rx Pep / Acapela] [RESP] Routine
09/15/24 22:00
Ampicillin/Sulbactam 3 G [Unasyn] 3 gm 0.9% Sodium Chloride 100 ml [Nss] 100 ml IV Q24H
Atorvastatin [Lipitor] 20 mg PO HS
09/15/24 22:08
Docusate Sodium [Colace] 100 mg PO BIDPRN PRN
09/15/24 23:00
Dipyridamole [Persantine] 50 mg PO BID
Metoprolol Xl [Toprol Xl] 12.5 mg PO BID
09/16/24 06:00
Levothyroxine [Synthroid] 25 mcg PO DAILY @ 0600
09/16/24 06:54
BMP [Basic Metabolic Panel] IN AM
CBC/With Diff [Complete Blood Count/With Diff] IN AM
09/16/24 07:30
Sevelamer Carbonate [Renvela] 800 mg PO AC
09/16/24 08:00
Digoxin [Lanoxin] 125 mcg PO MoWeFr@0800
Midodrine [ProAmatine] 5 mg PO MoWeFr@0800
Pantoprazole [Protonix] 40 mg PO DAILY
coQ10 (ubiquinol) 100 mg PO DAILY
09/18/24 11:00
DC Protocol for Telemetry ONCE
Abnormal Lab Results
09/15/24
11:56
WBC 13.2 H 10^3/uL
(4.8-10.8)
RBC 2.67 L 10^6/uL
(4.70-6.10)
Hgb 8.1 L g/dL
(13.0-18.0)
Hct 25.7 L %
(39.0-52.0)
MCV 96.3 H fL
(80.0-94.0)
MCHC 31.5 L g/dL
(33.0-37.0)
RDW 15.5 H %
(11.5-14.5)
Abs Immat Gran (auto) 0.1 H 10^3/uL
(0-0.05)
Absolute Neuts (auto) 10.7 H 10^3/uL
(1.4-6.5)
Absolute Monos (auto) 0.7 H 10^3/uL
(0.1-0.6)
Immature Gran % 0.8 H %
(0-0.5)
Neutrophils % 81.3 H %
(42.2-75.2)
Lymphocytes % 11.8 L %
(20.5-51.1)
Sodium 130 L mmol/L
(135-145)
BUN 27 H mg/dl
(9-20)
Creatinine 4.1 H* mg/dL
(0.7-1.3)
Total Protein 4.9 L g/dl
(6.3-8.2)
Albumin 2.6 L g/dl
(3.5-5.0)
09/15/24 11:56
09/15/24 11:56
Vital Signs
Initial and Last Documented VS:
Initial Vital Signs
BP
152/97
09/15/24 11:38
Last Documented Vital Signs
Temp Pulse Resp BP Pulse Ox
36.6 C 66 18 137/60 94
09/16/24 08:00 09/16/24 09:08 09/16/24 08:00 09/16/24 09:07 09/16/24 09:00
MDM/Problems Addressed
Differential Diagnosis Includes:
pneumonia, deconditioning, anemai, wound infection
MDM/Problems Addressed:
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
multiple issues
ongoign stable anemia
dyspnea/cough/rales on abx for pna (levaquin, due to end 09/18),
he is coughing, wheezing, tachypneic, pulse ox90%, anemia is stable; the feet wounds do not look bad
he also has new R hand redness that i think looks like gout but had CTA outpatient of the RUE due to new fistula there and it isn't read yet; his pulses are good
ultimately he is pretty sick and likely chronic and debating hospice; they do request hospice consult, i let the RN know
int he meantime, abx for the pneumonia;
*Critical Care Note
Total Time (30-74mins, 75-104mins- exclusive of procedures): Not Applicable
ED Attending Note
-
Portions of this chart may have been created with voice recognition software.� Occasional wrong word or��sound alike� substitutions may have occurred due to the inherent limitations of voice recognition software.
Discharge Plan
Departure
Patient Disposition: Admit
Date of Disposition: 09/15/24
Time of Disposition: 15:18
Admit to: Telemetry
Presentation/result/management discussed w/ accepting MD/DO: Hospitalist
Condition: Fair
Covid-19: Negative COVID-19
Discharge Problem:
Pneumonia, Dyspnea
Interventions
Interventions:
*Risk Screen - Suicide Last Done: 09/15/24 11:40
*General Assessment Last Done: 09/15/24 11:40
*Neglect/Abuse Screening Last Done: 09/15/24 11:40
*ED- Fall Risk Assessment Last Done: 09/15/24 22:04
*ED COVID-19 Vaccine History Last Done: 09/15/24 23:00
*Nursing Disposition Last Done: 09/15/24 22:04
Discharge Date and Time
Discharge Date/Time: 09/15/24 22:05
[2024-09-15 15:55] LABS: COVID-19 Antigen Negative (Negative)
--- NOTE | 2024-09-15 17:48 | W.PN.UPDATE ---
Update Note
Progress Note Update
I personally performed a history and physical exam of the patient and discussed management with the resident. I reviewed the resident's note and agree with the documented findings and plan of care HPI/CC.
Patient is 83-year-old male with past medical history of ESRD on hemodialysis, peripheral artery disease, recent right TMA and left foot toe amputation, permanent A-fib, hypothyroidism, history of sleep apnea, hyperlipidemia, hypothyroidism, GERD
came to ER for having not improving cough with minimal phlegm production. Patient was just recently discharged after lower extremity angioplasty/2 amputation and was discharged to [facility]. [facility] patient
started to having some productive cough few days ago and patient was started on Levaquin empirically for concern of pneumonia. Patient symptom did not improve significantly. Patient had an outpatient CTA of right upper extremity for concern of new
developing skin ulceration. Post imaging patient's spouse decided to bring patient to ER for evaluation of not improving cough and pneumonia.
In ER patient resting comfortably not on oxygen. No reported fever/chest pain. Patient with poor cough response and per spouse patient is not able to do much activity. ER physician mention during signout there discussion of hospice although
patient spouse did not bring forth any discussion of hospice with me.
HEENT: No pallor, cyanosis, or jaundice. Throat clear.
NECK: Supple. No JVD.
RESPIRATORY: Rhonchi and wheezing.
CVS: S1, S2 normal. RRR. No murmur, rub or gallop.
ABDOMEN: Soft, non-tender. No distension. BS+/normal.
EXTREMITIES: Bilateral toe amputation, intact suture, no wound dehiscence, RUE - superficial pinpoint venous ulcer, fistula
IT ANALYST: AOx3. No focal deficits.
Presumed community-acquired pneumonia
- Patient have some cough with phlegm production
- Getting empiric Levaquin therapy in [facility]
- Chest x-ray truly clear, minimally elevated leukocytosis at 12k, patient is afebrile
- Maintain patient on empiric IV Unasyn for now
- Patient with poor cough reflex, providing 3% nebulizer therapy, flutter valve
Peripheral artery disease
Right upper extremity skin changes
-CT right upper extremity reviewed and report as above
-Patient has superficial skin skin wound and minimal discoloration in certain areas
-Vascular surgery to be involved for further evaluation
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
-Right foot minimal wound dehiscence
-Vascular surgery to evaluate
ESRD on hemodialysis
-Nephro to consult for dialysis
-Maintain on home dose of sevelamer/Velphoro
Permanent A-fib
Sinus bradycardia
-Patient on combination medication of digoxin/metoprolol/amiodarone
- Heart rate in 50s 70 range
- Patient is asymptomatic, continue monitoring on telemetry
- Continue home dose of Eliquis
Observation admit to telemetry floor
--- NOTE | 2024-09-15 17:56 | HPS.HSE ---
Family Physician
-
Family Physician: Waleska Garcia
Chief Complaint
-
Productive cough, right hand swelling
History of Present Illness
This is a 83-year-old male patient with PMH of atrial fibrillation on Eliquis, ESRD on HD, severe PAD with s/p bilateral toe amputations and recent C. difficile infection over a month ago who presented to the ER with concerns of productive coughing
and right hand swelling. Patient currently stays at [facility]. He says that he has been experiencing a cough along with the wheeze for the past 1 week and was started on Levaquin at [facility] but this did not provide him any benefit.
He denies any fever, vomiting or nausea. He also states that he has been experiencing right hand swelling and redness for the past 6 weeks. He follows with vascular Dr. Pascual for his severe PAD and was scheduled for a CTA of the right upper
extremity today due to this hand swelling concern. He was recently admitted for a toe amputation on his right foot.
He states that he receives his hemodialysis on Thursday and Thursday.
Denies any lightheadedness, chest pain, palpitations or dizziness.
As patient was not improving with his symptoms of cough and wheeze, had brought patient to the ER.
Medical History
Past Medical History
Past Medical History: Reports Other (hypertension atrial fibrillation ESRD with peritoneal dialysis PAD Hypothyroidism)
Past Surgical History: Reports Other (intravascular lithotripsy and balloon angioplasty to the left anterior and posterior tibial arteries secondary to critical limb ischemia on 03/25/2024 Transcatheter arterialization of deep veins of left lower
extremity (limflow) LLE- 04/18/25 right lower extremity ivranlmep22/20/24 cholecystectomy b)
Social History
Tobacco: Former Smoker (Quit over 50 years ago. Used to smoke 10 years, half pack per day)
Alcohol: Occasional
Drug: None
Personal:
Living: [facility]
Family History
Family History: Not pertinent
Allergies / Home Medications
Allergies reflects when Allergies were last updated in [facility].
Home Medications with original date entered in [facility]
Allergy/Medication List:
Allergies
Allergy/AdvReac Type Severity Reaction Status Date / Time
No Known Allergies Allergy Unverified 09/02/24 13:59
Home Medications
atorvastatin 20 mg tablet 20 mg PO HS High Cholesterol 03/23/24
cholecalciferol (vitamin D3) 25 mcg (1,000 unit) tablet (Vitamin D3) 25 mcg PO QPM Supplement 03/23/24
coQ10 (ubiquinol) 100 mg capsule 100 mg PO DAILY Supplement 03/23/24
dipyridamole 50 mg tablet 50 mg PO BID Blood Clot Prevention/Tx 03/23/24
metoprolol succinate 25 mg tablet,extended release 24 hr 12.5 mg PO BID Blood Pressure 03/23/24
omeprazole 20 mg tablet,delayed release 20 mg PO DAILY Gastrointestinal Issue 03/23/24
sevelamer carbonate 800 mg tablet (Renvela) 800 mg PO AC Kidney Disease 03/23/24
B-complex with vitamin C 1 tab PO QPM Supplement 04/18/24
docusate sodium 50 mg capsule 100 mg PO BIDPRN PRN constipation 04/18/24
acetaminophen 500 mg tablet (Tylenol Extra Strength) 1,000 mg PO Q6HPRN PRN MILD pain 05/26/24
apixaban 2.5 mg tablet (Eliquis) 2.5 mg PO BID Blood Clot Prevention/Tx 07/08/24
amiodarone 200 mg tablet 200 mg PO BID Arrhythmia 08/24/24
digoxin 125 mcg (0.125 mg) tablet 125 mcg PO MOWEFR Heart Failure 08/24/24
levothyroxine 25 mcg tablet 25 mcg PO DAILY Thyroid 08/24/24
midodrine 5 mg tablet 5 mg PO MOWEFR Blood Pressure 08/24/24
vancomycin 125 mg capsule 125 mg PO Q48H Infection 08/24/24
acetaminophen 325 mg tablet (Tylenol) 650 mg PO Q6HPRN PRN MILD PAIN 09/15/24
bisacodyl 10 mg rectal suppository (Dulcolax (bisacodyl)) 10 mg ID DAILYPRN PRN IF NO BM AFTR MOM 09/15/24
guaifenesin 600 mg tablet, extended release 12 hr (Mucinex) 600 mg PO BID 09/15/24
levofloxacin 500 mg tablet 500 mg PO DAILY 09/15/24
oxycodone 5 mg tablet 5 mg PO Q6HPRN PRN SEVERE Pain 09/15/24
Review of Systems
-
A 12 point ROS was completed and negative except as noted: Yes
Physical Exam
Vital Signs
Vital Signs
Temp Pulse Resp BP Pulse Ox
97.5 F 53 23 132/48 98
09/15/24 11:40 09/15/24 16:45 09/15/24 16:45 09/15/24 16:00 09/15/24 16:30
Physical Exam
General: No Apparent Distress and Conversant
HEENT: NormoCephalic and Anicteric
Respiratory: Wheezes and Rhonchi
Cardiac: S1/S2 and Regular Rhythm; No Murmur
GI: Soft, Non Tender and Non Distended
Musculoskeletal: Other (S/p bilateral toe amputations. Sutures are intact. Right upper extremity: Erythematous, tender)
Skin: Warm and Dry
Neuro: Awake, Alert and Oriented
Psych: Calm
Laboratory Results
-
09/15/24 11:56
09/15/24 11:56
Laboratory Results
Total Bilirubin 0.8 mg/dl (0.2-1.3) 09/15/24 11:56
AST 18 U/L (17-59) 09/15/24 11:56
ALT < 10 U/L (0-50) 09/15/24 11:56
Alkaline Phosphatase 60 U/L (38-126) 09/15/24 11:56
Impression/Plan
-
IMPRESSION:This is a 83-year-old male patient with PMH of atrial fibrillation on Eliquis, ESRD on HD, severe PAD with s/p bilateral toe amputations and recent C. difficile infection over a month ago who presented to the ER with concerns of
productive coughing and right hand swelling.
PLAN:
#CAP
� CXR today showed mild to moderate CHF, possible superimposed pneumonia
� Discontinued Levaquin which was started at [facility]
�Start Unasyn 3 GM Q24, dose to be given after HD on hemodialysis days
� Initiate 3% nebulizer therapy, flutter valve
�Start prednisone 40 Mg daily for wheeze
�Send for sputum culture
#Severe PAD
#S/p bilateral toe amputation
� CTA right upper extremity:
� Right hand swelling/pain present with small wounds on fingertips
� Consulted vascular surgery
� Follow-up with Dr. Pascual outpatient
- Continue diet tramadol
#Permanent A-fib
#Sinus bradycardia
� Continue current home meds digoxin/metoprolol/amiodarone
� Will admit patient to telemetry
�Continue Eliquis
#ESRD on hemodialysis
�Continue sevelamer
� Nephro consult
�Patient received his HD on MWF
#Recent C. difficile infection 1 month ago
� Recently finished vancomycin taper at [facility]
� Will start vancomycin 125 once daily prophylactically
� Probiotic ordered
#Hypothyroidism
� Continue levothyroxine
#Hyperlipidemia
� Continue statin
DVT PPx: Eliquis
DNR
[2024-09-15] MEDS: SODIUM CHLORIDE 3% FOR INHALATION 1 VIAL INH (22:35)
[2024-09-15] MEDS: PERSANTINE 50 MG PO (23:02)
[2024-09-15] MEDS: UNASYN IV (23:02)
[2024-09-15] MEDS: MUCINEX 600 MG PO (23:03)
[2024-09-15] MEDS: B COMPLEX w/VITAMIN C 1 CAPLET PO (23:03)
[2024-09-15] MEDS: DELTASONE 40 MG PO (23:03)
[2024-09-15] MEDS: VISBIOME 1 CAP PO (23:03)
[2024-09-15] MEDS: LIPITOR 20 MG PO (23:04)
[2024-09-15] MEDS: VITAMIN D3 (cholecalciferol) 25 MCG PO (23:04)
[2024-09-15] MEDS: ELIQUIS 2.5 MG PO (23:04)
[2024-09-15] MEDS: FIRVANQ 125 MG PO (23:08)
[2024-09-15] MEDS: PACERONE PO (23:09)
[2024-09-15] MEDS: TOPROL XL PO (23:12)
[2024-09-16] VITALS (7 sets, daily range): BP systolic 118–145; BP diastolic 51–65; PULSE 56; BMI 27.7
[2024-09-16 00:41] LABS: Hematocrit 26.6 % (39.0-52.0); Hemoglobin 8.5 g/dL (13.0-18.0)
--- NOTE | 2024-09-16 01:21 | W.PN.UPDATE ---
Update Note
Progress Note Update
RN reported patient had small amount of rectal bleeding with out BM. Stated patient was coughing ad passing gas, no external hemorrhoids, but patient admits to hx hemorrhoid bleeding. asymptomatic, stable VS, H&H 8.5/26.6. Patient is on Eliquis. no
other discomfort. May consider GI consult in future.
--- NOTE | 2024-09-16 05:32 | PTCARENOTE ---
Patient new admit from ER, offering no discomfort or pain, he was noted to have suzanne red blood on pad underneath him no BM but he stated is passing gas, [employer] notifed repeat H&H drawn, which was 8.5 no drop in hgb. he did have a BM which this nurse
did a Heme test on and was positive, he has no external hemorrhoids or irritations for the blood. updated [employer] no further orders given at this time.
[2024-09-16] MEDS: SYNTHROID 25 MCG PO (05:38)
[2024-09-16 07:06] LABS: % Basophils 0.1 % (0-2); % Eosinophils 0.1 % (0-6); % Immature Granulocytes 0.6 % (0-0.5); % Lymphocytes 5.2 % (20.5-51.1); % Monocytes 0.7 % (1.7-9.3); % Neutrophils 93.3 % (42.2-75.2); Absolute Immature Granulocytes 0.1 10^3/uL (0-0.05); Absolute Lymphocytes 0.8 10^3/uL (1.2-3.4); Absolute Monocytes 0.1 10^3/uL (0.1-0.6); Absolute Neutrophils 14.8 10^3/uL (1.4-6.5); Hematocrit 28.8 % (39.0-52.0); Mean Corp Hgb Conc. 31.3 g/dL (33.0-37.0); Mean Platelet Volume 9.1 fL (7.4-10.4); Nucleated Red Blood Cells % 0 % (-); Platelet Count 294 10^3/uL (130-400); Red Cell Dist. Width 15.6 % (11.5-14.5); White Blood Cell Count 15.8 10^3/uL (4.8-10.8)
[2024-09-16 07:46] LABS: Blood Urea Nitrogen 35 mg/dl (9-20); Calcium 8.7 mg/dl (8.4-10.2); Carbon Dioxide 23 mmol/L (22-30); Chloride 99 mmol/L (98-107); Estimated Creatinine Clearance 13 ml/min; Glucose 97 mg/dl (70-99); Potassium 4.7 mmol/L (3.5-5.1); Sodium 132 mmol/L (135-145); eGFR 10.96
--- NOTE | 2024-09-16 07:48 | W.PN.HOSP.TC ---
Today's Communication/Plan
-
US of RUE pending
Continue unasyn
Assessment / Plan
Assessment / Plan
IMPRESSION:This is a 83-year-old male patient with PMH of atrial fibrillation on Eliquis, ESRD on HD, severe PAD with s/p bilateral toe amputations and recent C. difficile infection over a month ago who presented to the ER with concerns of
productive coughing and right hand swelling.
PLAN:
#CAP
� CXR 09/15 showed mild to moderate CHF, possible superimposed pneumonia
� Discontinued Levaquin which was started at assisted
� Start Unasyn 3 GM Q24, dose to be given after HD on hemodialysis days
� Continue 3% nebulizer therapy, flutter valve
� Continue prednisone 40 Mg daily for wheeze
� Sputum culture pending
#Severe PAD
#S/p bilateral toe amputation
� CTA right upper extremity:
� Right hand swelling/pain present with small wounds on fingertips
� Consulted vascular surgery, appreciated
- US of RUE pendin
#Permanent A-fib
#Sinus bradycardia
� Continue current home meds digoxin/metoprolol/amiodarone
� Will admit patient to telemetry
�Continue Eliquis
#ESRD on hemodialysis
�Continue sevelamer
� Nephro consult, appreciated
�Patient received his HD on MWF
- MELVIN started as per nephro
#Recent C. difficile infection 1 month ago
� Recently finished vancomycin taper at [facility]
� Will start vancomycin 125 once daily prophylactically
� Probiotic ordered
#Hypothyroidism
� Continue levothyroxine
#Hyperlipidemia
� Continue statin
DVT PPx: Eliquis
DNR
Anticipated Discharge: 24 - 48 hours
Subjective/Interval History
-
Date of Service: September 16, 2024
Patient was receiving HD at the time of my exam and continued to have cough. Denies any fever/vomiting or abdominal pain. Admits to continued right hand pain.
Objective Data
-
Labs:
Laboratory Results
09/16/24 09/16/24
00:30 06:54
WBC 15.8 H
Hgb 8.5 L 9.0 L
Hct 26.6 L 28.8 L
Plt Count 294
Sodium 132 L
Potassium 4.7
Chloride 99
Carbon Dioxide 23
BUN 35 H
Creatinine 5.0 H*
Glucose 97
Calcium 8.7
Vital Signs:
Vital Signs
Temp Pulse Resp BP Pulse Ox
97.5 F 59 16 145/65 95
09/16/24 03:29 09/16/24 03:29 09/16/24 03:29 09/16/24 03:29 09/16/24 03:29
Review of Systems
-
All other systems: Reviewed and negative
Physical Exam
-
General: Comfortable
HEENT: Normocephalic and Atraumatic
Respiratory: Wheezes and Rhonchi
Cardiac: Regular Rhythm and S1/S2
GI: Soft, Nontender and Nondistended
Musculoskeletal: Other (S/p bilateral toe amputations. Sutures are intact. Right upper extremity: Erythematous, tender)
Skin: Warm and Dry
Neuro: Awake, Alert and Oriented
Psych: Calm
--- NOTE | 2024-09-16 08:06 | CON.VAS ---
Addendum entered and electronically signed by Isak Craft MD 09/16/24 09:27:
Seen and examined with SHARON Figueroa. Agree with findings as noted below. Known to vascular service status post bilateral lower extremity extensive revascularizations. Now with complaints of right hand numbness/discoloration at the fingertips.
Chronic wounds. When I talk to the patient he notes that he has had chronic wounds in his left side fingertips as well. The right side is been more painful recently. He notes that since his fistula had been placed prior, he has had some
discomfort but it is worsened recently. His exam demonstrates a patent right upper arm AV fistula. He has nonpalpable radial pulse on the right side. I difficulty actually palpating radial pulse on the left side as well. Some elevation pallor in
the right hand. Distal digits with right side index finger slight small nailbed lesion. Dry. Left side he has 2 fingers with lesions such as this.
Plan/my concern is he has bilateral upper extremity small vessel disease that is resulting in bilateral chronic wounds. While steal syndrome may be playing a role in worsening of right side, and nonhealing, I suspect his small vessel
disease/forearm vessel disease is likely playing a larger role. I am not sure that there is going to be any optimal revascularization strategy. Would obtain ultrasound steal studies. If significant steal is noted, while procedures like a DRIL
procedure or banding may be considered, with small vessel disease, ligation of the access may be the best bet. He may benefit from arteriogram to clarify all that. I think he is high risk for any procedure at this point especially given his other
medical complaints. He appeared somewhat dyspneic even when examining him today. I think he needs medical optimization as well. His systemic conditioning may be playing into his wounds as well.
Original Note:
Consultation
Consultation Request
Date/Time Consultation Performed: 09/16/24 8am
Performing Provider: Venancio
Reason for Consultation: RUE swelling/pain
Medical History
-
Chief Complaint: RUE swelling
History of Present Illness:
83-year-old male with significant past medical history of hypertension, renal failure, atrial fibrillation, chronic bilateral lower extremity feet wounds, and peripheral arterial disease who presents from [facility] to [facility] last
evening with productive cough and right hand swelling. Had outpatient CTA of right upper extremity for right hand redness, pain, and chronic wounds to the fingertips. Patient treated with Levaquin outpatient with no improvement. Patient
well-known to the vascular service last seen by us 09/06/2024 on his day of discharge from the hospital. On 09/05/2024 patient had balloon angioplasty of venous outflow stenosis in the left foot by Dr. Pascual.
Vascular consult for right upper extremity swelling and chronic wounds to hand. Patient seen at bedside today with Dr. Craft. +2 edema to the right upper extremity. Nonpalpable radial pulse. Bilateral hands with chronic dry scabbing to the
fingertips. Palpable thrill to right upper extremity fistula.
Vascular and Podiatric procedural history:
04/18/24: Transcatheter arterialization of the deep veins, Left lower extremity (LimFlow)
04/22/24: Antegrade femoral access, diagnostic arteriogram, balloon angioplasty and intravascular lithotripsy (javelin) and intravascular lithotripsy
05/30/24: RLE LimFlow
07/08/24: Left lower extremity angiogram, balloon angioplasty and stenting of venous outflow stenosis of limflow, left foot first and second digit amputation, left foot third digit debridement
08/29/24: Right foot transmetatarsal amputation, left 3rd toe amputation, and delayed primary closure left 3rd toe with excisional debridement.
09/05/24: Balloon angioplasty of venous outflow stenosis in the left foot (4 mm; 5 mm angioplasty balloons)
Past Medical History
Past Medical History: Other (Arrhythmias (Atrial fibrillation), HTN, Renal Failure (End-stage renal disease on peritoneal dialysis) and Other (Peripheral arterial disease, hyperparathyroidism))
Past Surgical History: Other (Most recent vascular and podiatric procedural history noted above, right upper extremity AV fistula)
Social History
Tobacco: Former Smoker
Personal:
Living: With Family
Family History
Family History: Reviewed & Not Pertinent
Allergies / Home Medications
Allergy/AdvReac Type Severity Reaction Status Date / Time
No Known Allergies Allergy Unverified 09/02/24 13:59
�Medication �Instructions �Recorded �Confirmed �Type
atorvastatin 20 mg tablet 20 mg PO HS High Cholesterol 03/23/24 09/15/24 History
cholecalciferol (vitamin D3) 25 25 mcg PO QPM Supplement 03/23/24 09/15/24 History
mcg (1,000 unit) tablet (Vitamin
D3)
coQ10 (ubiquinol) 100 mg capsule 100 mg PO DAILY Supplement 03/23/24 09/15/24 History
dipyridamole 50 mg tablet 50 mg PO BID Blood Clot 03/23/24 09/15/24 History
Prevention/Tx
metoprolol succinate 25 mg 12.5 mg PO BID Blood Pressure 03/23/24 09/15/24 History
tablet,extended release 24 hr
omeprazole 20 mg tablet,delayed 20 mg PO DAILY Gastrointestinal 03/23/24 09/15/24 History
release Issue
sevelamer carbonate 800 mg tablet 800 mg PO AC Kidney Disease 03/23/24 09/15/24 History
(Renvela)
B-complex with vitamin C 1 tab PO QPM Supplement 04/18/24 09/15/24 History
docusate sodium 50 mg capsule 100 mg PO BIDPRN PRN constipation 04/18/24 09/15/24 History
acetaminophen 500 mg tablet 1,000 mg PO Q6HPRN PRN MILD pain 05/26/24 09/15/24 History
(Tylenol Extra Strength)
apixaban 2.5 mg tablet (Eliquis) 2.5 mg PO BID Blood Clot 07/08/24 09/15/24 History
Prevention/Tx
amiodarone 200 mg tablet 200 mg PO BID Arrhythmia 08/24/24 09/15/24 History
digoxin 125 mcg (0.125 mg) tablet 125 mcg PO MOWEFR Heart Failure 08/24/24 09/15/24 History
levothyroxine 25 mcg tablet 25 mcg PO DAILY Thyroid 08/24/24 09/15/24 History
midodrine 5 mg tablet 5 mg PO MOWEFR Blood Pressure 08/24/24 09/15/24 History
vancomycin 125 mg capsule 125 mg PO Q48H Infection 08/24/24 09/15/24 History
acetaminophen 325 mg tablet 650 mg PO Q6HPRN PRN MILD PAIN 09/15/24 09/15/24 History
(Tylenol)
bisacodyl 10 mg rectal suppository 10 mg NC DAILYPRN PRN IF NO BM 09/15/24 09/15/24 History
(Dulcolax (bisacodyl)) AFTR MOM
guaifenesin 600 mg tablet, 600 mg PO BID 09/15/24 09/15/24 History
extended release 12 hr (Mucinex)
levofloxacin 500 mg tablet 500 mg PO DAILY 09/15/24 09/15/24 History
oxycodone 5 mg tablet 5 mg PO Q6HPRN PRN SEVERE Pain 09/15/24 09/15/24 History
Review of Systems
-
History Source: Patient
All other systems: Negative unless noted
Constitutional: Reports Fatigue
EENT: Reports No Symptoms
Respiratory: Reports Trouble Breathing
Cardiac: Reports No Symptoms
Abdomen/GI: Reports Bloody Stools
: Reports No Symptoms
Musculoskeletal: Reports Edema (Right upper extremity)
Skin: Reports Other (Dry chronic wounds to bilateral hands)
Neurological: Reports No Symptoms
Physical Exam
Vital Signs
Temp Pulse Resp BP Pulse Ox
97.5 F 59 16 145/65 95
09/16/24 03:29 09/16/24 03:29 09/16/24 03:29 09/16/24 03:29 09/16/24 03:29
Lab Results
09/16/24 06:54
09/16/24 06:54
Hgp-D-Jnbfrrepkzq Pept > 61189 pg/ml 09/15/24 14:04
Physical Exam
General: No Apparent Distress
HEENT: Normocephalic and Atraumatic
Respiratory: Other (ROSADO)
Cardiac: Negative JVD
GI: Soft and Non Tender
Musculoskeletal: No Clubbing and Edema (+2 right upper extremity)
Skin: Other (Scattered dry scabbing to bilateral hands/fingers)
Neuro: Awake, Alert and Oriented
Psych: Calm
Assessment / Plan
-
83-year-old male well-known to us here for pneumonia and right upper extremity swelling
Plan:
- Right upper extremity ultrasound steal study
Data Reviewed
-
Labs: Labs Reviewed by me
[2024-09-16] MEDS: PROTONIX 40 MG PO (09:00)
[2024-09-16] MEDS: ELIQUIS 2.5 MG PO ×2 (09:00→19:58)
[2024-09-16] MEDS: PERSANTINE 50 MG PO ×2 (09:00→19:58)
[2024-09-16] MEDS: VISBIOME 1 CAP PO (09:00)
[2024-09-16] MEDS: RENVELA 800 MG PO ×3 (09:00→17:01)
[2024-09-16] MEDS: MUCINEX 600 MG PO ×2 (09:01→19:58)
[2024-09-16] MEDS: DELTASONE 40 MG PO (09:01)
[2024-09-16] MEDS: FIRVANQ 125 MG PO (09:01)
[2024-09-16] MEDS: ProAmatine 5 MG PO (09:06)
[2024-09-16] MEDS: TOPROL XL PO ×2 (09:07→20:04)
[2024-09-16] MEDS: PACERONE 200 MG PO ×2 (09:07→20:01)
[2024-09-16] MEDS: LANOXIN 125 MCG PO (09:08)
--- NOTE | 2024-09-16 09:31 | W.CON.NEPH ---
Consultation
-
Date/Time Consultation Requested: 09/16/2024 7:00 AM
Date/Time Consultation Performed: 09/16/2024 915 AM
Requesting Provider: Dr. Garcia
Performing Provider: Dr. Roth
Reason for Consultation: End-stage renal disease
Medical History
-
Chief Complaint: ESRD
History of Present Illness:
Patient is a 83-year-old male with end-stage renal disease previously on peritoneal dialysis for 3-4 years time. He had recently switched to in center hemodialysis via an AV fistula in his right arm. His insole rasper is Dr Joel. He has
hypertension on a very minimal regimen low dose of BB, atrial fibrillation on amiodarone and Eliquis therapy, hyperphosphatemia on velphoro. He has a history of significant vascular disease with bilateral lower extremity revascularization
procedures. He was recently admitted after multi toe amputation of bilateral feet. He has noted what appeared to be ischemic finger ulcerations on his right and left hand as well. He presented to the emergency room last evening with complaints
of increasing right hand numbness and discoloration of the fingertips which is his dialysis access extremity. The patient also has been having increased symptoms of productive cough over the past week and was started on Levaquin at his skilled
nursing facility . We were consulted for end-stage renal disease management.
Past Medical History
hypertension
atrial fibrillation
ESRD, previously on peritoneal dialysis
Right upper extremity AV fistula
Toe amputations
PAD
hyperparathyroidism
Past Surgical History: Other (intravascular lithotripsy and balloon angioplasty to the left anterior and posterior tibial arteries secondary to critical limb ischemia on 03/25/2024 Transcatheter arterialization of deep veins of left lower extremity
(limflow) LLE- 04/18/25 right lower extremity [id number]/20/24 cholecystectomy b)
Social History
Tobacco: Former Smoker
Alcohol: None
Living: With Family
Family History
No renal disease
Family History: Not Pertinent
Allergies / Home Medications
Allergy/AdvReac Type Severity Reaction Status Date / Time
No Known Allergies Allergy Unverified 09/02/24 13:59
�Medication �Instructions �Recorded �Confirmed �Type
atorvastatin 20 mg tablet 20 mg PO HS High Cholesterol 03/23/24 09/15/24 History
cholecalciferol (vitamin D3) 25 25 mcg PO QPM Supplement 03/23/24 09/15/24 History
mcg (1,000 unit) tablet (Vitamin
D3)
coQ10 (ubiquinol) 100 mg capsule 100 mg PO DAILY Supplement 03/23/24 09/15/24 History
dipyridamole 50 mg tablet 50 mg PO BID Blood Clot 03/23/24 09/15/24 History
Prevention/Tx
metoprolol succinate 25 mg 12.5 mg PO BID Blood Pressure 03/23/24 09/15/24 History
tablet,extended release 24 hr
omeprazole 20 mg tablet,delayed 20 mg PO DAILY Gastrointestinal 03/23/24 09/15/24 History
release Issue
sevelamer carbonate 800 mg tablet 800 mg PO AC Kidney Disease 03/23/24 09/15/24 History
(Renvela)
B-complex with vitamin C 1 tab PO QPM Supplement 04/18/24 09/15/24 History
docusate sodium 50 mg capsule 100 mg PO BIDPRN PRN constipation 04/18/24 09/15/24 History
acetaminophen 500 mg tablet 1,000 mg PO Q6HPRN PRN MILD pain 05/26/24 09/15/24 History
(Tylenol Extra Strength)
apixaban 2.5 mg tablet (Eliquis) 2.5 mg PO BID Blood Clot 07/08/24 09/15/24 History
Prevention/Tx
amiodarone 200 mg tablet 200 mg PO BID Arrhythmia 08/24/24 09/15/24 History
digoxin 125 mcg (0.125 mg) tablet 125 mcg PO MOWEFR Heart Failure 08/24/24 09/15/24 History
levothyroxine 25 mcg tablet 25 mcg PO DAILY Thyroid 08/24/24 09/15/24 History
midodrine 5 mg tablet 5 mg PO MOWEFR Blood Pressure 08/24/24 09/15/24 History
vancomycin 125 mg capsule 125 mg PO Q48H Infection 08/24/24 09/15/24 History
acetaminophen 325 mg tablet 650 mg PO Q6HPRN PRN MILD PAIN 09/15/24 09/15/24 History
(Tylenol)
bisacodyl 10 mg rectal suppository 10 mg [place] DAILYPRN PRN IF NO BM 09/15/24 09/15/24 History
(Dulcolax (bisacodyl)) AFTR MOM
guaifenesin 600 mg tablet, 600 mg PO BID Congestion 09/15/24 09/15/24 History
extended release 12 hr (Mucinex)
levofloxacin 500 mg tablet 500 mg PO DAILY Infection 09/15/24 09/15/24 History
oxycodone 5 mg tablet 5 mg PO Q6HPRN PRN SEVERE Pain 09/15/24 09/15/24 History
Review of Systems
-
History Source: Patient
All other systems: Negative unless noted
Respiratory: Cough
Musculoskeletal: Other (Right access hand pain)
Skin: Other (Ischemic digit lesions on hands bilaterally)
Physical Exam
Vital Signs
Vital Signs
Temp Pulse Resp BP Pulse Ox
97.8 F 66 18 137/60 94
09/16/24 08:00 09/16/24 09:08 09/16/24 08:00 09/16/24 09:07 09/16/24 08:00
Lab Results
09/16/24 06:54
09/16/24 06:54
WBC 15.8 10^3/uL (4.8-10.8) H 09/16/24 06:54
RBC 3.00 10^6/uL (4.70-6.10) L 09/16/24 06:54
Hgb 9.0 g/dL (13.0-18.0) L 09/16/24 06:54
Hct 28.8 % (39.0-52.0) L 09/16/24 06:54
Plt Count 294 10^3/uL (130-400) 09/16/24 06:54
Sodium 132 mmol/L (135-145) L 09/16/24 06:54
Potassium 4.7 mmol/L (3.5-5.1) 09/16/24 06:54
Chloride 99 mmol/L (98-107) 09/16/24 06:54
Carbon Dioxide 23 mmol/L (22-30) 09/16/24 06:54
BUN 35 mg/dl (9-20) H 09/16/24 06:54
Creatinine 5.0 mg/dL (0.7-1.3) H* 09/16/24 06:54
eGFR 10.96 09/16/24 06:54
Glucose 97 mg/dl (70-99) 09/16/24 06:54
Calcium 8.7 mg/dl (8.4-10.2) 09/16/24 06:54
Yrt-L-Befnaaiqnqj Pept > 56686 pg/ml 09/15/24 14:04
Albumin 2.6 g/dl (3.5-5.0) L 09/15/24 11:56
Physical Exam
Patient is awake alert oriented and in no distress. Mood and affect were pleasant, insight and judgment were good. Pupils are equal round and reactive to light, extraocular movements are intact, sclera were anicteric. Hearing was normal, ears and
nose are intact. Oropharynx was clear. Neck was supple with trachea midline and no thyromegaly. Heart was regular rate and rhythm without rubs. Lower extremities without edema. Lungs were coarse to auscultation with ronchi bilaterally and with
normal excursion. Abdomen was soft, nontender, with normal active bowel sounds, and no hepatosplenomegaly. Skin was without rash and with normal turgor. Notable ischemic ulcerations on hands bilateral right upper extremity AV fistula with good
thrill and bruit
Vascular Access: AVF (right upper extremity : with good thrill and bruit)
Data Reviewed
-
Radiology: Image Personally Visualized and interpreted (Chest x-ray personally reviewed notable for bilateral lower lobe opacities right greater than left)
Labs: Labs Reviewed by me (BMP CBC)
Old Records: Reviewed (Reviewed previous nephrology consult from September 2024 in electronic medical record : re ESRD )
Assessment/Plan
-
Assessment:
Bilateral toe amputations
Right upper extremity access hand pain (likely due to vascular steal)
ESRD (MWF)
Hypertension
Peripheral arterial disease-multiple interventions in the past
hyperphosphatemia
Afib
Anemia
Plan:
Dialysis today, orders written
MELVIN will be provided for anemia of chronic kidney disease
Fluid restriction placed for hyponatremia
Hemodynamically stable on current metoprolol ministration
Will provide midodrine on dialysis to support blood pressure for ultrafiltration
Vascular to evaluate right access hand for possible steal phenomena
Vancomycin and Zosyn to be appropriately dosed for ESRD and pneumonia
--- NOTE | 2024-09-16 10:09 | CM ---
Addendum entered by Akiko Hernandez 09/16/24 16:02:
tt from [facility] patient inpatient status
Original Note:
Patient seen at bedside.
ESCOBEDO form explained & signed. In chart
IA Completed
PMH: ESRD HD now (prior was doing HD)
Patient came from [facility] where he was there for Skilled rehab & HD - Referral entered in [facility]
Spoke with [facility] liaison
PLOF: states has not been able to walk since amputation of toes
DME: [facility]
States had [facility] in past, came from [facility]
PCP: Kimberly Garcia
Pharmacy: [facility]
PLAN: [facility]
Report: [phone]

[facility]
[2024-09-16] MEDS: ROXICODONE 5 MG PO (12:02)
--- NOTE | 2024-09-16 12:06 | HOSPNOTE ---
Addendum entered by Carolina David RN 09/18/24 12:13:
Spouse returned call. She states that she is interested in learning more about palliative care vs hospice. She will meet with Brianna tomorrow to discuss and learn about hospice vs palliative. More information to follow.
Original Note:
Last evening the ER reached out to me to have a discussion with spouse about gathering information about hospice services. I left a message for spouse to call me. More information to follow.
--- NOTE | 2024-09-16 12:12 | W.PN.NEPH.HD ---
Assessment
-
Patient seen on dialysis
Systolic blood pressure stable with current UF
HD via right upper extremity AV fistula
Progress Note - Hemodialysis
-
Date of Service: September 16, 2024
Duration: 30 minutes and 3 hours
Potassium Bath: 2
Calcium Bath: 2.5
Opti-Dialyzer: 160
Ultrafiltration: Other (2kg)
Blood Flow: 400
Dialysate Flow: 600
Heparin: none
EPO: none
[2024-09-16] MEDS: RETACRIT 6000 UNITS IV (14:41)
[2024-09-16] MEDS: VITAMIN D3 (cholecalciferol) 25 MCG PO (17:01)
[2024-09-16] MEDS: B COMPLEX w/VITAMIN C 1 CAPLET PO (17:01)
[2024-09-16] MEDS: ROXICODONE 10 MG PO (17:08)
--- NOTE | 2024-09-16 18:33 | PTCARENOTE ---
Patient with moderate soft maroon colored/blood tinged BM on bedpan this AM, heme test positive, pic sent to MD and resident via TT; patient states no complaints but hx hemorrhoids, no new orders per MD, patient for f/u labs in AM. B/L feet with
multiple toe amputations, incision sites with sutures with small amount of serosanguineous drainage, wound care provided to B/L feet with adaptic, 4x4, Kerlix wrap. +Doppler pulses. B/L hands cool, cyanotic nail beds, nonpalpable radial pulses;
patient states chronic decreased sensation to hands and scabbed areas/wounds to fingers with R hand discomfort that he takes PRN oxycodone for; MD made aware, PRN oxycodone ordered per MD and administered by this RN - see JUL. Vascular following
patient and aware of B/L hands per note. Patient on HD through R arm fistula this shift, placed on air overlay, sacrum and heel foams intact.
[2024-09-16] MEDS: UNASYN IV (21:51)
[2024-09-16] MEDS: LIPITOR 20 MG PO (21:51)
[2024-09-17] VITALS (9 sets, daily range): BP systolic 115–150; BP diastolic 44–61; PULSE 54–56
[2024-09-17] MEDS: SYNTHROID 25 MCG PO (06:26)
[2024-09-17 07:10] LABS: % Basophils 0.1 % (0-2); % Monocytes 4.9 % (1.7-9.3); Absolute Immature Granulocytes 0.1 10^3/uL (0-0.05); Absolute Lymphocytes 1.2 10^3/uL (1.2-3.4); Absolute Monocytes 0.6 10^3/uL (0.1-0.6); Absolute Neutrophils 9.4 10^3/uL (1.4-6.5); Hematocrit 24.9 % (39.0-52.0); Hemoglobin 7.8 g/dL (13.0-18.0); Mean Corp Hgb Conc. 31.3 g/dL (33.0-37.0); Mean Corpuscular Hgb 29.5 pg (27.0-31.0); Mean Corpuscular Volume 94.3 fL (80.0-94.0); Mean Platelet Volume 9.6 fL (7.4-10.4); Nucleated Red Blood Cells % 0 % (-); Platelet Count 280 10^3/uL (130-400); Red Blood Cell Count 2.64 10^6/uL (4.70-6.10); Red Cell Dist. Width 15.8 % (11.5-14.5); White Blood Cell Count 11.3 10^3/uL (4.8-10.8)
[2024-09-17 07:34] LABS: Blood Urea Nitrogen 29 mg/dl (9-20); Calcium 8.7 mg/dl (8.4-10.2); Carbon Dioxide 27 mmol/L (22-30); Chloride 98 mmol/L (98-107); Estimated Creatinine Clearance 16 ml/min; Glucose 105 mg/dl (70-99); Potassium 4.3 mmol/L (3.5-5.1); Sodium 133 mmol/L (135-145); eGFR 14.77
[2024-09-17] MEDS: MUCINEX 600 MG PO ×2 (08:18→19:58)
[2024-09-17] MEDS: PACERONE 200 MG PO ×2 (08:18→19:57)
[2024-09-17] MEDS: TOPROL XL 12.5 MG PO ×2 (08:19→19:58)
[2024-09-17] MEDS: VISBIOME 1 CAP PO (08:19)
[2024-09-17] MEDS: DELTASONE 40 MG PO (08:19)
[2024-09-17] MEDS: ELIQUIS 2.5 MG PO ×2 (08:19→19:58)
[2024-09-17] MEDS: PROTONIX 40 MG PO (08:19)
[2024-09-17] MEDS: PERSANTINE 50 MG PO ×2 (08:20→19:57)
[2024-09-17] MEDS: FIRVANQ 125 MG PO (08:20)
[2024-09-17] MEDS: RENVELA 800 MG PO ×3 (08:22→17:36)
[2024-09-17] MEDS: ROXICODONE 10 MG PO ×3 (08:35→20:44)
--- NOTE | 2024-09-17 11:21 | W.PN.NEPH.PH ---
Today's Communication / Plan
-
Next dialysis will be on Thursday with AV fistula
Assessment/Plan
-
Assessment:
Bilateral toe amputations
Right upper extremity access hand pain (likely due to vascular steal)
ESRD (MWF)
Hypertension
Peripheral arterial disease-multiple interventions in the past
hyperphosphatemia
Afib
Anemia
Plan:
Dialysis forMonday
MELVIN will be provided for anemia of chronic kidney disease
Fluid restriction placed for hyponatremia
Hemodynamically stable on current metoprolol ministration
Will provide midodrine on dialysis to support blood pressure for ultrafiltration
Vascular to evaluate right access hand for possible steal phenomena: discussed with vascular surgery
Vancomycin and Unasyn to be appropriately dosed for ESRD and pneumonia
-
-
Date of Service: September 17, 2024
CC / HPI / ROS
-
Chief Complaint:
ESRD
History of Present Illness:
ESRD MWF
Remains on Unasyn for pneumonia
Hemodynamically stable at dry weight and metoprolol
Review of Systems:
No current chest pain or shortness of breath
No fevers
Continues to have bilateral ischemic hand pain
Right upper extremity AV fistula with good thrill and bruit
Labs
-
Labs:
WBC 11.3 10^3/uL (4.8-10.8) H 09/17/24 06:33
RBC 2.64 10^6/uL (4.70-6.10) L 09/17/24 06:33
Hgb 7.8 g/dL (13.0-18.0) L 09/17/24 06:33
Hct 24.9 % (39.0-52.0) L 09/17/24 06:33
Plt Count 280 10^3/uL (130-400) 09/17/24 06:33
Sodium 133 mmol/L (135-145) L 09/17/24 06:33
Potassium 4.3 mmol/L (3.5-5.1) 09/17/24 06:33
Chloride 98 mmol/L (98-107) 09/17/24 06:33
Carbon Dioxide 27 mmol/L (22-30) 09/17/24 06:33
BUN 29 mg/dl (9-20) H 09/17/24 06:33
Creatinine 3.9 mg/dL (0.7-1.3) H 09/17/24 06:33
eGFR 14.77 09/17/24 06:33
Glucose 105 mg/dl (70-99) H 09/17/24 06:33
Calcium 8.7 mg/dl (8.4-10.2) 09/17/24 06:33
Zer-B-Qedmdcdvbwg Pept > 08851 pg/ml 09/15/24 14:04
Albumin 2.6 g/dl (3.5-5.0) L 09/15/24 11:56
Physical Exam
-
Vital Signs:
Vital Signs
Temp Pulse Resp BP Pulse Ox
98.1 F 66 18 138/53 97
09/17/24 08:00 09/17/24 08:19 09/17/24 08:00 09/17/24 08:19 09/17/24 10:09
Cardiovascular:: Regular rate and rhythm
Respiratory:: Bilateral: Coarse
Lung Excursion:: Normal
Abdomen:: Nontender and Soft
Bowel Sounds:: Normal
Extremity Edema:: +1: Bilateral:
Other Findings::
RUE avf
Ischemic lesions on fingertips bilaterally
--- NOTE | 2024-09-17 11:37 | W.PN.HOSP.TC ---
Today's Communication/Plan
-
Will discontinue further antibiotics 24 hours
Continue hemodialysis
Monitor hemoglobin and blood transfusion if less than 7 early if required as preop need
Await further recommendation from vascular surgery
Assessment / Plan
Assessment / Plan
HD access duplex
Aneurysmal dilation of the outflow vein. Reversed flow brachial artery peripheral to the anastomosis. Diffuse abnormal dampening of distal waveforms at baseline, with improvement of the first digit waveform with compression of the fistula. These
findings are supportive of a diagnosis of steal syndrome.
-CTA RUE
1. Patent right upper extremity brachiocephalic fistula without flow-limiting stenosis. 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
2. Advanced atherosclerotic changes of the radial and ulnar arteries with significant narrowing of both vessels as above.
3. Anasarca. Diffuse edematous changes of the mid to distal right arm and forearm as above. 2.9 cm in diameter fluid collection posterior to the elbow, no rim enhancement to suggest abscess formation.
4. Small right pleural effusion. Right lower lobe and right middle lobe bronchiolitis, infectious bronchiolitis is a consideration.
5. Fluid collection which is likely within the left inguinal canal, incompletely imaged.
Presumed community-acquired pneumonia
Possible COPD flare up
-Patient have some cough with phlegm production
-Getting empiric Levaquin therapy in [facility]
-Chest x-ray relatively clear, minimally elevated leukocytes at 12k, patient is afebrile
-Maintain patient on empiric IV Unasyn for now
-Adding oral prednisone 40 mg daily empirically for possible undiagnosed COPD as patient wheezing on exam in ER.
-Patient with poor cough reflex,flutter valve. OOB in chair if possible.
Peripheral artery disease
Right upper extremity skin changes
- Patient have some small area of discoloration on right hand skin ulceration
- Right upper extremity fistula duplex/Doppler study showing possible confirmation of steal phenomenon
- Vascular may consider DRIL procedure to improve distal RUE flow
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
-Right foot minimal wound dehiscence
-Vascular surgery to evaluate
ESRD on hemo-dialysis
Hyponatremia
-Nephro to consult for dialysis
-Maintain on home dose of sevelamer/Velphoro
Permanent A-fib
Sinus bradycardia
-Patient on combination medication of digoxin/amiodarone at home
-Previous admission vitals reviewed and patient heart rate was in the 70-80 range, will hold metoprolol for now
-Patient is asymptomatic, continue monitoring on telemetry
-Continue home dose of Eliquis
Hemorrhoidal bleed
Multifactorial anemia of blood loss and ESRD related
- Hemoglobin 7.8 today, down from 8.5
- Will transfuse 1 unit PRBC with hemodialysis to avoid volume overload unless required early due to low count versus vascular need preop
DVT PPx: Eliquis
DNR
Anticipated Discharge: 24 - 48 hours
Subjective/Interval History
-
Date of Service: September 17, 2024
Resting comfortably in bed
Continues to have cough with thick phlegm production
Afebrile overnight
Objective Data
-
Labs:
Laboratory Results
09/17/24
06:33
WBC 11.3 H
Hgb 7.8 L
Hct 24.9 L
Plt Count 280
Sodium 133 L
Potassium 4.3
Chloride 98
Carbon Dioxide 27
BUN 29 H
Creatinine 3.9 H
Glucose 105 H
Calcium 8.7
Vital Signs:
Vital Signs
Temp Pulse Resp BP Pulse Ox
98.2 F 64 18 150/61 95
09/17/24 11:30 09/17/24 11:30 09/17/24 11:30 09/17/24 11:30 09/17/24 11:30
I&O
09/16/24 09/17/24 09/18/24
06:59 06:59 06:59
Intake Total 1160 / 1160
Balance 1160 / 1160
Review of Systems
-
Respiratory: Reports Cough and Trouble Breathing
Cardiac: Reports No Symptoms
Abdomen/GI: Reports No Symptoms
Physical Exam
-
General: Comfortable
Respiratory: Wheezes and Rhonchi
Cardiac: Regular Rhythm and S1/S2
GI: Soft, Nontender and Nondistended
Musculoskeletal: Other (S/p bilateral toe amputations. Sutures are intact. Right upper extremity: Erythematous, tender)
Neuro: Awake, Alert and Oriented
Psych: Calm
[2024-09-17] MEDS: VITAMIN D3 (cholecalciferol) 25 MCG PO (17:36)
[2024-09-17] MEDS: B COMPLEX w/VITAMIN C 1 CAPLET PO (17:36)
[2024-09-17] MEDS: UNASYN IV (21:52)
[2024-09-17] MEDS: LIPITOR 20 MG PO (21:52)
[2024-09-17] MEDS: ROBITUSSIN 200 MG PO (23:08)
[2024-09-17] MEDS: DILAUDID 0.25 MG IV (23:08)
[2024-09-18] VITALS (9 sets, daily range): BP systolic 111–134; BP diastolic 41–56; PULSE 52–61; BMI 29.0
[2024-09-18] MEDS: SYNTHROID 25 MCG PO (05:25)
[2024-09-18 08:07] LABS: % Immature Granulocytes 1.1 % (0-0.5); % Lymphocytes 10.5 % (20.5-51.1); % Monocytes 5.4 % (1.7-9.3); Absolute Immature Granulocytes 0.1 10^3/uL (0-0.05); Absolute Lymphocytes 1.1 10^3/uL (1.2-3.4); Absolute Monocytes 0.6 10^3/uL (0.1-0.6); Absolute Neutrophils 8.7 10^3/uL (1.4-6.5); Hematocrit 24.1 % (39.0-52.0); Hemoglobin 7.6 g/dL (13.0-18.0); Mean Corp Hgb Conc. 31.5 g/dL (33.0-37.0); Mean Corpuscular Hgb 29.7 pg (27.0-31.0); Mean Corpuscular Volume 94.1 fL (80.0-94.0); Mean Platelet Volume 9.6 fL (7.4-10.4); Nucleated Red Blood Cells % 0 % (-); Platelet Count 272 10^3/uL (130-400); Red Blood Cell Count 2.56 10^6/uL (4.70-6.10); Red Cell Dist. Width 15.9 % (11.5-14.5); White Blood Cell Count 10.5 10^3/uL (4.8-10.8)
[2024-09-18 09:07] LABS: Blood Urea Nitrogen 42 mg/dl (9-20); Calcium 8.8 mg/dl (8.4-10.2); Carbon Dioxide 27 mmol/L (22-30); Chloride 96 mmol/L (98-107); Estimated Creatinine Clearance 13 ml/min; Glucose 113 mg/dl (70-99); Potassium 4.3 mmol/L (3.5-5.1); Sodium 131 mmol/L (135-145); eGFR 11.23
[2024-09-18] MEDS: RENVELA 800 MG PO ×2 (09:16→17:22)
[2024-09-18] MEDS: FIRVANQ 125 MG PO (09:16)
[2024-09-18] MEDS: TOPROL XL 12.5 MG PO (09:17)
[2024-09-18] MEDS: VISBIOME 1 CAP PO (09:17)
[2024-09-18] MEDS: MUCINEX 600 MG PO ×2 (09:17→20:45)
[2024-09-18] MEDS: PERSANTINE 50 MG PO ×2 (09:17→20:44)
[2024-09-18] MEDS: ELIQUIS 2.5 MG PO ×2 (09:18→20:46)
[2024-09-18] MEDS: PROTONIX 40 MG PO (09:18)
[2024-09-18] MEDS: DELTASONE 40 MG PO (09:18)
[2024-09-18] MEDS: PACERONE 200 MG PO (09:18)
[2024-09-18] MEDS: ROBITUSSIN 200 MG PO (09:23)
--- NOTE | 2024-09-18 10:46 | W.PN.NEPH.PH ---
Today's Communication / Plan
-
Dialysis tomorrow
Assessment/Plan
-
Assessment:
Bilateral toe amputations
Right upper extremity access hand pain (likely due to vascular steal)
ESRD (MWF)
Hypertension
Peripheral arterial disease-multiple interventions in the past
hyperphosphatemia
Afib
Anemia
Plan:
Dialysis for Thursday
MELVIN will be provided for anemia of chronic kidney disease
Fluid restriction placed for hyponatremia
Hemodynamically stable on current metoprolol ministration
Will provide midodrine on dialysis to support blood pressure for ultrafiltration
Vascular to evaluate right access hand for possible steal phenomena: discussed with vascular surgery
-
-
Date of Service: September 18, 2024
CC / HPI / ROS
-
Chief Complaint:
ESRD
History of Present Illness:
ESRD MWF
Remains on Unasyn for pneumonia
Hemodynamically stable at dry weight and metoprolol
Review of Systems:
No current chest pain or shortness of breath
Noted cough
No fevers
Continues to have bilateral ischemic hand pain
Right upper extremity AV fistula with good thrill and bruit
Labs
-
Labs:
WBC 10.5 10^3/uL (4.8-10.8) 09/18/24 05:43
RBC 2.56 10^6/uL (4.70-6.10) L 09/18/24 05:43
Hgb 7.6 g/dL (13.0-18.0) L 09/18/24 05:43
Hct 24.1 % (39.0-52.0) L 09/18/24 05:43
Plt Count 272 10^3/uL (130-400) 09/18/24 05:43
Sodium 131 mmol/L (135-145) L 09/18/24 05:43
Potassium 4.3 mmol/L (3.5-5.1) 09/18/24 05:43
Chloride 96 mmol/L (98-107) L 09/18/24 05:43
Carbon Dioxide 27 mmol/L (22-30) 09/18/24 05:43
BUN 42 mg/dl (9-20) H 09/18/24 05:43
Creatinine 4.9 mg/dL (0.7-1.3) H* 09/18/24 05:43
eGFR 11.23 09/18/24 05:43
Glucose 113 mg/dl (70-99) H 09/18/24 05:43
Calcium 8.8 mg/dl (8.4-10.2) 09/18/24 05:43
Tcm-X-Hmfmcoxjaky Pept > 99857 pg/ml 09/15/24 14:04
Albumin 2.6 g/dl (3.5-5.0) L 09/15/24 11:56
Physical Exam
-
Vital Signs:
Vital Signs
Temp Pulse Resp BP Pulse Ox
97.8 F 49 16 116/41 100
09/18/24 07:25 09/18/24 09:17 09/18/24 07:25 09/18/24 09:17 09/18/24 07:25
Cardiovascular:: Regular rate and rhythm
Respiratory:: Bilateral: Coarse
Lung Excursion:: Normal
Abdomen:: Nontender and Soft
Bowel Sounds:: Normal
Extremity Edema:: +1: Bilateral:
Other Findings::
RUE avf
Ischemic lesions on fingertips bilaterally
--- NOTE | 2024-09-18 11:44 | W.PN.HOSP.TC ---
Today's Communication/Plan
-
Await vascular input
Chest x-ray 2 views ordered
Discontinue IV antibiotic
Decrease prednisone to 30 mg daily
Increase pulmonary toileting effort
Assessment / Plan
Assessment / Plan
HD access duplex
Aneurysmal dilation of the outflow vein. Reversed flow brachial artery peripheral to the anastomosis. Diffuse abnormal dampening of distal waveforms at baseline, with improvement of the first digit waveform with compression of the fistula. These
findings are supportive of a diagnosis of steal syndrome.
CTA RUE
1. Patent right upper extremity brachiocephalic fistula without flow-limiting stenosis. 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
2. Advanced atherosclerotic changes of the radial and ulnar arteries with significant narrowing of both vessels as above.
3. Anasarca. Diffuse edematous changes of the mid to distal right arm and forearm as above. 2.9 cm in diameter fluid collection posterior to the elbow, no rim enhancement to suggest abscess formation.
4. Small right pleural effusion. Right lower lobe and right middle lobe bronchiolitis, infectious bronchiolitis is a consideration.
5. Fluid collection which is likely within the left inguinal canal, incompletely imaged.

Presumed community-acquired pneumonia
Possible COPD flare up
-all symptoms primarily driven by poor pulmonary toileting at this stage i feel.
-Getting empiric Levaquin therapy in [facility]
-Chest x-ray relatively clear, minimally elevated leukocytes at 12k, patient is afebrile
-Patient finished more than 7 days of total of antibiotic at this stage, discontinue further IV Unasyn
-Patient had no formal diagnosis of COPD although was wheezing on exam in ER. Was providing oral prednisone, tapering 30 mg daily
-Patient with poor cough reflex,flutter valve. OOB in chair if possible.
-Repeat chest x-ray ordered
Peripheral artery disease
Right upper extremity skin changes
- Patient have some small area of discoloration on right hand skin ulceration
- Right upper extremity fistula duplex/Doppler study showing possible confirmation of steal phenomenon
- Vascular may consider DRIL procedure to improve distal RUE flow
- Discussed with vascular surgeon today according to on-call surgeon Dr. Pascual is possibly considering fistulogram next week
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
-Right foot minimal wound dehiscence
-Vascular surgery to evaluate
Recent C. difficile colitis
- Maintained on empiric vancomycin 125 mg daily while on antibiotic
ESRD on hemo-dialysis
Hyponatremia
-Nephro to consult for dialysis
-Maintain on home dose of sevelamer/Velphoro
Permanent A-fib
Sinus bradycardia
-Patient on combination medication of digoxin/amiodarone at home
-Previous admission vitals reviewed and patient heart rate was in the 70-80 range, will hold metoprolol for now
-Patient is asymptomatic, continue monitoring on telemetry
-Continue home dose of Eliquis
Hemorrhoidal bleed
Multifactorial anemia of blood loss and ESRD related
- Hemoglobin 7.8 today, down from 8.5
- Will transfuse 1 unit PRBC with hemodialysis to avoid volume overload unless required early due to low count versus vascular need preop
DVT PPx: Eliquis
DNR
Anticipated Discharge: > 48 hours
Subjective/Interval History
-
Date of Service: September 18, 2024
Continues to feel having significant cough and phlegm production
Remains afebrile overnight
Continues to have some right upper extremity swelling/discomfort
Objective Data
-
Labs:
Laboratory Results
09/18/24
05:43
WBC 10.5
Hgb 7.6 L
Hct 24.1 L
Plt Count 272
Sodium 131 L
Potassium 4.3
Chloride 96 L
Carbon Dioxide 27
BUN 42 H
Creatinine 4.9 H*
Glucose 113 H
Calcium 8.8
Vital Signs:
Vital Signs
Temp Pulse Resp BP Pulse Ox
97.8 F 51 16 121/48 93
09/18/24 11:15 09/18/24 11:15 09/18/24 11:15 09/18/24 11:15 09/18/24 11:15
I&O
09/17/24 09/18/24 09/19/24
06:59 06:59 06:59
Intake Total 1160 / 1160 840 / 840
Balance 1160 / 1160 840 / 840
Review of Systems
-
Respiratory: Reports Cough; Denies Wheezing
Cardiac: Reports No Symptoms
Abdomen/GI: Reports No Symptoms
Physical Exam
-
General: Comfortable
HEENT: Negative Oxygen
Respiratory: Wheezes and Rhonchi
Cardiac: Regular Rhythm and S1/S2
GI: Soft, Nontender and Nondistended
Musculoskeletal: Other (S/p bilateral toe amputations. Sutures are intact. Right upper extremity: Erythematous, tender)
Neuro: Awake, Alert and Oriented
Psych: Calm
[2024-09-18] MEDS: RENVELA PO (13:17)
--- NOTE | 2024-09-18 14:30 | PTCARENOTE ---
Patient's HR dipped down into 30s; patient has been having frequent pauses; Bp stable; asymptomatic; Dr. Garcia notified; no new orders at this time; will continue to monitor.
[2024-09-18] MEDS: B COMPLEX w/VITAMIN C 1 CAPLET PO (17:22)
[2024-09-18] MEDS: VITAMIN D3 (cholecalciferol) 25 MCG PO (17:22)
[2024-09-18] MEDS: PACERONE PO (21:03)
--- NOTE | 2024-09-18 21:51 | W.PN.UPDATE ---
Update Note
Progress Note Update
2144 Notified by nurse that Pt is having more episodes of bradycardia with pauses to 4 sec (asymptomatic). Metoprolol placed on hold by attending earlier today. Did receive metoprolol and amio dose in the am. Parameters added to amio.
Consult placed to Cardiology: Dr Alvarado. Case reviewed with her via TT. Recommends to hold Digoxin for now as well. 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
BMP and mag checked- all within normal values
[2024-09-18 22:21] LABS: Blood Urea Nitrogen 49 mg/dl (9-20); Calcium 8.9 mg/dl (8.4-10.2); Carbon Dioxide 29 mmol/L (22-30); Chloride 93 mmol/L (98-107); Estimated Creatinine Clearance 11 ml/min; Glucose 137 mg/dl (70-99); Magnesium 2.4 mg/dl (1.6-2.3); Potassium 4.5 mmol/L (3.5-5.1); Sodium 128 mmol/L (135-145); eGFR 9.57
[2024-09-18] MEDS: LIPITOR 20 MG PO (22:40)
[2024-09-18] MEDS: ROXICODONE 10 MG PO (22:46)
[2024-09-19] MEDS: SYNTHROID 25 MCG PO (05:36)
[2024-09-19 05:51] VITALS: BMI 29.5
--- NOTE | 2024-09-19 07:33 | CON.CAR ---
Addendum entered and electronically signed by Tejas Mcgowan MD 09/19/24 10:54:
I saw and examined the patient.
The SOAKER HELPER or PA's note was reviewed and I agree with the note.
Comment: General: Well developed, well nourished in NAD.
Neck: Supple, no JVD, HJR, carotids +2 B/L, no bruits bilaterally.
Heart: Non displaced PMI, RRR, no murmurs, No S3, S4, no rubs.
Lungs: Scattered rhonchi
Extremities: No clubbing, cyanosis or edema bilaterally.
Neuro: Grossly nonfocal, awake, alert and oriented x3.
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
2022. He presented with cough. He is found to have pneumonia. Cardiology is consulted for bradycardia with 4.3-second pause. Digoxin and Toprol have been held. Will decrease amiodarone to 200 mg daily. May need to consider discontinuing
amiodarone if pauses persist but no need for intervention/pacer at this point
Original Note:
Consultation
Consultation Request
Date/Time Consultation Requested: 09/18/24 at 2149
Date/Time Consultation Performed: 09/19/24 at 0804
Requesting Provider: Dr. Romano
Performing Provider: Dr. Mcgowan
Reason for Consultation: Bradycardia, slow Afib
Medical History
-
History of Present Illness:
Patient came to the ER 09/15/24 with cough and was admitted with PNA and cardiology is now consulted for slow Afib and pauses. Patient was living at home until earlier this month when he was admitted with PAD and was sent to rehab where he has HD 3x
a week. Patient lives in [place] and follows with Dr. Garcia for cardiology. Patient has known permanent Afib and was chronically on amiodarone 100 mg daily as of discharge from [facility] on 08/04/24, but when he was readmitted 08/29/24 he was on
amiodarone 200 mg BID plus digoxin 125 mcg MWF and patient is not sure when these changes happened. Patient worse a monitor for Dr. Garcia 2 years ago and he was in SR and had an average HR of 47 at that time. Patient now in permanent Afib and
pauses of to 4.3 seconds. Denies feeling lightheaded or dizzy.
PMH:
Bradycardia
Permanent Afib with slow VR
Chronic amiodarone and digoxin therapy
Chronic Eliquis OAC
PNA
PAD
ESRD on HD
previously managed on PD, but transitioned to HD in the last year
RUE AVF possible steal phenomenon
PAD s/p right TMA and left 1-3 toe amputations
Anemia
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
Past Medical History
Past Medical History: Other (in HPI)
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
Social History
Tobacco: Former Smoker
Alcohol: None
Drug: None
Personal:
Living: [facility] (currently in rehab, but was living at home with his until 08/2024)
Family History
Family History: Cancer and Other (CHF)
Allergies / Home Medications
Allergy/AdvReac Type Severity Reaction Status Date / Time
No Known Allergies Allergy Unverified 09/02/24 13:59
�Medication �Instructions �Recorded �Confirmed �Type
atorvastatin 20 mg tablet 20 mg PO HS High Cholesterol 03/23/24 09/15/24 History
cholecalciferol (vitamin D3) 25 25 mcg PO QPM Supplement 03/23/24 09/15/24 History
mcg (1,000 unit) tablet (Vitamin
D3)
coQ10 (ubiquinol) 100 mg capsule 100 mg PO DAILY Supplement 03/23/24 09/15/24 History
dipyridamole 50 mg tablet 50 mg PO BID Blood Clot 03/23/24 09/15/24 History
Prevention/Tx
metoprolol succinate 25 mg 12.5 mg PO BID Blood Pressure 03/23/24 09/15/24 History
tablet,extended release 24 hr
omeprazole 20 mg tablet,delayed 20 mg PO DAILY Gastrointestinal 03/23/24 09/15/24 History
release Issue
sevelamer carbonate 800 mg tablet 800 mg PO AC Kidney Disease 03/23/24 09/15/24 History
(Renvela)
B-complex with vitamin C 1 tab PO QPM Supplement 04/18/24 09/15/24 History
docusate sodium 50 mg capsule 100 mg PO BIDPRN PRN constipation 04/18/24 09/15/24 History
acetaminophen 500 mg tablet 1,000 mg PO Q6HPRN PRN MILD pain 05/26/24 09/15/24 History
(Tylenol Extra Strength)
apixaban 2.5 mg tablet (Eliquis) 2.5 mg PO BID Blood Clot 07/08/24 09/15/24 History
Prevention/Tx
amiodarone 200 mg tablet 200 mg PO BID Arrhythmia 08/24/24 09/15/24 History
digoxin 125 mcg (0.125 mg) tablet 125 mcg PO MOWEFR Heart Failure 08/24/24 09/15/24 History
levothyroxine 25 mcg tablet 25 mcg PO DAILY Thyroid 08/24/24 09/15/24 History
midodrine 5 mg tablet 5 mg PO MOWEFR Blood Pressure 08/24/24 09/15/24 History
vancomycin 125 mg capsule 125 mg PO Q48H Infection 08/24/24 09/15/24 History
acetaminophen 325 mg tablet 650 mg PO Q6HPRN PRN MILD PAIN 09/15/24 09/15/24 History
(Tylenol)
bisacodyl 10 mg rectal suppository 10 mg AK DAILYPRN PRN IF NO BM 09/15/24 09/15/24 History
(Dulcolax (bisacodyl)) AFTR MOM
guaifenesin 600 mg tablet, 600 mg PO BID Congestion 09/15/24 09/15/24 History
extended release 12 hr (Mucinex)
levofloxacin 500 mg tablet 500 mg PO DAILY Infection 09/15/24 09/15/24 History
oxycodone 5 mg tablet 5 mg PO Q6HPRN PRN SEVERE Pain 09/15/24 09/15/24 History
Review of Systems
-
History Source: Patient
All other systems: Negative unless noted
Physical Exam
Vital Signs
Temp Pulse Resp BP Pulse Ox
98.3 F 56 20 134/54 96
09/18/24 23:40 09/18/24 23:40 09/18/24 23:40 09/18/24 23:40 09/19/24 05:03
GEN: NAD. AAO to person, place and situation
HEENT: EOMI, MMM
LUNGS: RA. CTA B/L, no wheeze
CV: Afib on tele. Irreg irreg, S1/S2, 2/6 systolic murmur
ABD: soft, BS+, NT, ND
EXT: B/L feet dressed in clean gauze, right greater than left UE edema, B/L LE edema
NEURO: Gross non-focal
SKIN: No rash
Lab Results
Uhc-Q-Xphjgbcftgy Pept > 76532 pg/ml 09/15/24 14:04
Hgb 7.7
Impression / Plan
-
PCP: Dr. Waleska Garcia
Card: Dr. Garcia
Impression:
Admitted with PNA 09/15/24
Bradycardia
Permanent Afib with slow VR
Pause, 4.3 seconds 09/18/24
Chronic amiodarone and digoxin therapy
Chronic Eliquis OAC
PNA
PAD
ESRD on HD
previously managed on PD, but transitioned to HD in the last year
RUE AVF possible steal phenomenon
PAD s/p right TMA and left 1-3 toe amputations
Anemia
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
Hyponatremia
Zio monitor 04/09/23: [facility] study, sinus bradycardia, average HR 47 bpm
Echo 03/17/23: [facility] study, normal LVEF, mild to mod LVH, normal RV size and function, mild MR, mild TR with mild PHTN
Plan:
-Patient came to the ER 09/15/24 with cough and was admitted with PNA and cardiology is now consulted for slow Afib and pauses. Patient was living at home until earlier this month when he was admitted with PAD and was sent to rehab where he has HD 3x
a week. Patient lives in [place] and follows with Dr. Garcia for cardiology. Patient has known permanent Afib and was chronically on amiodarone 100 mg daily as of discharge from [facility] on 08/04/24, but when he was readmitted 08/29/24 he was on
amiodarone 200 mg BID plus digoxin 125 mcg MWF and patient is not sure when these changes happened. Patient worse a monitor for Dr. Garcia 2 years ago and he was in [place] and had an average HR of 47 at that time. Patient now in permanent Afib and
pauses of to 4.3 seconds. Denies feeling lightheaded or dizzy.
-ECG reviewed by me is Afib with HR 67 and QTc 412 ms. Tele reviewed by me in detail today and there was at most a 4.3 second pause yesterday that occurred while patient was awake and no reported symptoms.
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 When patient was d/c'd to home on 08/04/24 he was taking amiodarone 100 mg daily. Patient readmitted 08/29/24 and was taking amiodarone 200 mg BID plus digoxin 125 mcg
MWF. Patient is unsure when these changes happened, but they were as an outpatient as far as I can tell.
-Patient has been taking amiodarone 200 mg BID since at least 08/29/24, agree with holding amiodarone and would resume at 100 mg daily if needed pending HR response.
-Check digoxin level, ordered by me. Digoxin is on hold.
-Outpatient dose of Toprol XL 12.5 mg BID is also on hold.
-Outpatient dose of Eliquis 2.5 mg BID (age 83, wt 98.52 kg) has been continued.
[2024-09-19 07:45] LABS: % Basophils 0.1 % (0-2); % Lymphocytes 10.1 % (20.5-51.1); % Monocytes 4.1 % (1.7-9.3); % Neutrophils 84.7 % (42.2-75.2); Absolute Immature Granulocytes 0.1 10^3/uL (0-0.05); Absolute Lymphocytes 1.2 10^3/uL (1.2-3.4); Absolute Monocytes 0.5 10^3/uL (0.1-0.6); Absolute Neutrophils 9.7 10^3/uL (1.4-6.5); Hematocrit 24.3 % (39.0-52.0); Hemoglobin 7.7 g/dL (13.0-18.0); Mean Corp Hgb Conc. 31.7 g/dL (33.0-37.0); Mean Corpuscular Hgb 29.7 pg (27.0-31.0); Mean Corpuscular Volume 93.8 fL (80.0-94.0); Mean Platelet Volume 9.6 fL (7.4-10.4); Nucleated Red Blood Cells % 0 % (-); Platelet Count 275 10^3/uL (130-400); Red Blood Cell Count 2.59 10^6/uL (4.70-6.10); Red Cell Dist. Width 15.9 % (11.5-14.5); White Blood Cell Count 11.4 10^3/uL (4.8-10.8)
[2024-09-19 07:47] LABS: Blood Urea Nitrogen 53 mg/dl (9-20); Carbon Dioxide 27 mmol/L (22-30); Chloride 94 mmol/L (98-107); Estimated Creatinine Clearance 10 ml/min; Glucose 117 mg/dl (70-99); Potassium 4.5 mmol/L (3.5-5.1); Sodium 128 mmol/L (135-145); eGFR 8.63
[2024-09-19 08:10] VITALS: BP 129/52
[2024-09-19] MEDS: RETACRIT 10000 UNITS IV (08:46)
[2024-09-19] MEDS: MANNITOL 25% 12.5 GRAMS IV ×2 (08:46→10:25)
[2024-09-19] MEDS: PROTONIX 40 MG PO (09:05)
[2024-09-19] MEDS: DELTASONE 30 MG PO (09:06)
[2024-09-19] MEDS: MUCINEX 600 MG PO ×2 (09:06→21:27)
[2024-09-19] MEDS: FIRVANQ 125 MG PO (09:07)
[2024-09-19] MEDS: VISBIOME 1 CAP PO (09:07)
[2024-09-19] MEDS: ProAmatine 5 MG PO (09:09)
[2024-09-19] MEDS: ROXICODONE 5 MG PO (09:10)
--- NOTE | 2024-09-19 09:10 | HOSPNOTE ---
Spoke to spouse at length about hospice and the philosophy. The spouse will be in to discuss hospice with patient and will call me tomorrow 09/20. Will continue to follow.
[2024-09-19] MEDS: RENVELA 800 MG PO ×3 (09:18→17:24)
--- NOTE | 2024-09-19 09:58 | W.PN.NEPH.HD ---
Assessment
-
pt seen during HD
vitals stable
AVF functions well
bilat hand pain and numbness with digital wound felt to be from small vessel disease-vasc follows
september plan DRIL
mariusz and pauses- BB held, cards follows
Progress Note - Hemodialysis
-
Date of Service: September 19, 2024
Duration: 30 minutes and 3 hours
Potassium Bath: 2
Calcium Bath: 2.5
Opti-Dialyzer: 160
Ultrafiltration: Other (2kg)
Blood Flow: 400
Dialysate Flow: 600
Heparin: no
EPO: [id number]
[2024-09-19 11:13] VITALS: BP 119/53
[2024-09-19] MEDS: PERSANTINE 50 MG PO ×2 (11:43→21:26)
[2024-09-19] MEDS: ELIQUIS 2.5 MG PO ×2 (11:44→21:27)
[2024-09-19] MEDS: PACERONE PO (11:54)
--- NOTE | 2024-09-19 14:05 | CM ---
Patient seen at bedside with physicians. 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 Patient was at SNF; [facility] and patient family now assessing options. CM will continue to follow for discharge planning needs.
Plan; SNF vs hospice
--- NOTE | 2024-09-19 15:05 | W.PN.HOSP.TC ---
Addendum entered and electronically signed by Olivia Romano MD 09/19/24 18:15:
I saw and evaluated the patient independently. I reviewed the resident�s note and agree with findings and plan as documented by Dr. Mcgovern.
GENERAL: well developed, chronically ill appearing male in no apparent distress
HEENT: NC/AT
HEART: regular rate and rhythm, +S1, +S2
LUNGS : clear to auscultation bilaterally
ABDOM: soft, nontender, nondistended, + bowel sounds
EXT: no cyanosis, clubbing, or edema--bilateral toe amputations, dressed Right upper extremity: Erythematous, tender--arterial lesions on fingertips
Presumed community-acquired pneumonia with Possible COPD flare up--Getting empiric Levaquin therapy in [facility]---Patient finished more than 7 days of total of antibiotic at this stage, discontinue further IV Unasyn--Patient had no
formal diagnosis of COPD although was wheezing on exam in ER. Was providing oral prednisone, tapering 30 mg daily-Patient with poor cough reflex,flutter valve. OOB in chair if possible.-Repeat chest x-ray ordered
Peripheral artery disease--Right upper extremity skin changes- Patient have some small area of discoloration on right hand skin ulceration- Right upper extremity fistula duplex/Doppler study showing possible confirmation of steal phenomenon-
Vascular may consider DRIL procedure to improve distal RUE flow-- Dr. Pascual is possibly considering fistulogram this week
Status post right TMA and left 1st/2nd/3rd toe amputation-Right foot minimal wound dehiscence-Vascular surgery to evaluate
Recent C. difficile colitis- Maintained on empiric vancomycin 125 mg daily while on antibiotic
ESRD on hemodialysis/Hyponatremia--apprec renal-Maintain on home dose of sevelamer/Velphoro
Permanent A-fib/Sinus bradycardia-Patient on combination medication of digoxin/amiodarone at home--Previous admission vitals reviewed and patient heart rate was in the 70-80 range--apprec cards--dig/toprol both on hold--may need to stop amio
too--cont Eliquis
Hemorrhoidal bleed--Multifactorial anemia of blood loss and ESRD related- Hemoglobin 7.7 --s/p 1 unit PRBC with hemodialysis to avoid volume overload unless required early due to low count versus vascular need preop
DVT Proph- Eliquis
code status--DNR--family meeting with tomorrow
Original Note:
Today's Communication/Plan
-
taper prednisone
discontinue vancomycin
family discussion tomorrow for goals of care
Assessment / Plan
Assessment / Plan
IMPRESSION:This is a 83-year-old male patient with PMH of atrial fibrillation on Eliquis, ESRD on HD, severe PAD with s/p bilateral toe amputations and recent C. difficile infection over a month ago who presented to the ER with concerns of
productive coughing and right hand swelling.
PLAN:
#CAP
� CXR 09/15 showed mild to moderate CHF, possible superimposed pneumonia
� [facility]
� Continue 3% nebulizer therapy, flutter valve
� Decreased dose of prednisone to 30 Mg daily for wheeze, continue for now. will taper every 2 days 10mg
� Sputum culture negative
- Unasyn course finished with last dose on 09/17
-CXR 09/19: Small bilateral pleural effusions with adjacent atelectasis and/or mild pneumonia
#Severe PAD
#S/p bilateral toe amputation
� CTA right upper extremity findings as below
� Right hand swelling/pain present with small wounds on fingertips
� Consulted vascular surgery, appreciated
- US of RUE report findings: Distal right cephalic vein, distal right basilic vein, and distal left basilic vein is not well seen. Otherwise patent upper and lower extremity veins
- Will discuss with family () regarding goals of care due to patient's multiple chronic comorbidities tomorrow
#Permanent A-fib
#Sinus bradycardia
� Continue current home med amiodarone
�Continue Eliquis
-Metoprolol and Digoxin held due to bradycardia with 4.3 second pauses
-cardiology consulted, appreciated
-Amiodarone dose decreased as per cardio
#ESRD on hemodialysis
�Continue sevelamer
� Nephro consult, appreciated
�Patient receives his HD on MWF
#Recent C. difficile infection 1 month ago
� Recently finished vancomycin taper at [facility]
�Discontinue vanco as PNA abx course has finished
� continue Probiotic
#Hypothyroidism
� Continue levothyroxine
#Hyperlipidemia
� Continue statin
CT Upper Ext Angio on 09/19:
1. Patent right upper extremity brachiocephalic fistula without flow-limiting stenosis. 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
2. Advanced atherosclerotic changes of the radial and ulnar arteries with significant narrowing of both vessels as above.
3. Anasarca. Diffuse edematous changes of the mid to distal right arm and forearm as above. 2.9 cm in diameter fluid collection posterior to the elbow, no rim enhancement to suggest abscess formation.
4. Small right pleural effusion. Right lower lobe and right middle lobe bronchiolitis, infectious bronchiolitis is a consideration.
5. Fluid collection which is likely within the left inguinal canal, incompletely imaged.
DVT PPx: Eliquis
DNR
Anticipated Discharge: 24 - 48 hours
Subjective/Interval History
-
Date of Service: September 19, 2024
Patient states that he continues to have a dry cough.
Objective Data
-
Labs:
Laboratory Results
09/19/24
06:46
WBC 11.4 H
Hgb 7.7 L
Hct 24.3 L
Plt Count 275
Sodium 128 L
Potassium 4.5
Chloride 94 L
Carbon Dioxide 27
BUN 53 H
Creatinine 6.1 H*
Glucose 117 H
Calcium 9.0
Vital Signs:
Vital Signs
Temp Pulse Resp BP Pulse Ox
97.6 F 51 16 119/53 92
09/19/24 11:13 09/19/24 11:13 09/19/24 11:13 09/19/24 11:13 09/19/24 11:13
I&O
09/18/24 09/19/24 09/20/24
06:59 06:59 06:59
Intake Total 840 / 840 1390 / 1390
Output Total 0 / 0
Balance 840 / 840 1390 / 1390
Review of Systems
-
All other systems: Reviewed and negative
Physical Exam
-
General: Comfortable
HEENT: Negative Oxygen
Respiratory: Wheezes and Rhonchi
Cardiac: Regular Rhythm and S1/S2
GI: Soft, Nontender and Nondistended
Musculoskeletal: Other (S/p bilateral toe amputations, dressed Right upper extremity: Erythematous, tender)
Neuro: Awake, Alert and Oriented
Psych: Calm
[2024-09-19 15:17] VITALS: BP 134/50
[2024-09-19] MEDS: B COMPLEX w/VITAMIN C 1 CAPLET PO (17:24)
[2024-09-19] MEDS: VITAMIN D3 (cholecalciferol) 25 MCG PO (17:24)
[2024-09-19 20:13] VITALS: BP 114/42
[2024-09-19] MEDS: LIPITOR 20 MG PO (21:27)
[2024-09-19 23:32] VITALS: BP 126/49
[2024-09-19 23:34] VITALS: PULSE 58
[2024-09-20 03:18] VITALS: BP 151/56
[2024-09-20 06:00] VITALS: BMI 28.7
[2024-09-20] MEDS: SYNTHROID 25 MCG PO (06:30)
[2024-09-20 06:53] LABS: % Immature Granulocytes 1.1 % (0-0.5); % Monocytes 7.3 % (1.7-9.3); % Neutrophils 79.6 % (42.2-75.2); Absolute Immature Granulocytes 0.1 10^3/uL (0-0.05); Absolute Lymphocytes 1.2 10^3/uL (1.2-3.4); Absolute Monocytes 0.8 10^3/uL (0.1-0.6); Absolute Neutrophils 8.1 10^3/uL (1.4-6.5); Hemoglobin 7.5 g/dL (13.0-18.0); Mean Corp Hgb Conc. 31.3 g/dL (33.0-37.0); Mean Corpuscular Hgb 29.4 pg (27.0-31.0); Mean Corpuscular Volume 94.1 fL (80.0-94.0); Mean Platelet Volume 9.8 fL (7.4-10.4); Nucleated Red Blood Cells % 0 % (-); Platelet Count 238 10^3/uL (130-400); Red Blood Cell Count 2.55 10^6/uL (4.70-6.10); Red Cell Dist. Width 15.8 % (11.5-14.5); White Blood Cell Count 10.2 10^3/uL (4.8-10.8)
--- NOTE | 2024-09-20 07:18 | W.PN.HOSP.TC ---
Addendum entered and electronically signed by Olivia Romano MD 09/20/24 16:54:
I saw and evaluated the patient independently. I reviewed the resident�s note and agree with findings and plan as documented by Dr. Mcgovern.
GENERAL: well developed, chronically ill appearing male in no apparent distress
Rest of physical exam deferred since we were discussing hospice
Peripheral artery disease/ESRD on hemodialysis/Hyponatremia--apprec renal/vascular--had long conversation with , patient, case management, hospice nurse, second-year resident regarding: Goals of care and hospice discussion--patient clearly
states that he wants hospice, he wants to go home on hospice, he wants to stop dialysis and does not want dialysis tomorrow and does not want any further lab testing or procedures--based on this conversation, he was made comfort measures until
location at discharge is determined.
Presumed community-acquired pneumonia with Possible COPD flare up--stopping all treatments, ABX
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
Recent C. difficile colitis- stopping empiric vancomycin
Permanent A-fib/Sinus bradycardia--stopping all meds
Hemorrhoidal bleed--Multifactorial anemia of blood loss and ESRD related--did not receive pRBC transfusion and will not order any
stage 1 sacral pressure injury, stage 1 right heel pressure injury, unstageable right 2nd finger pressure injury---all POA
DVT Proph- Eliquis
code status--DNR
Original Note:
Today's Communication/Plan
-
Initiated comfort care medications, no further hemodialysis as per patient
Family discussion regarding hospice placement
Assessment / Plan
Assessment / Plan
IMPRESSION:This is a 83-year-old male patient with PMH of atrial fibrillation on Eliquis, ESRD on HD, severe PAD with s/p bilateral toe amputations and recent C. difficile infection over a month ago who presented to the ER with concerns of
productive coughing and right hand swelling.
PLAN:
#CAP
� CXR 09/15 showed mild to moderate CHF, possible superimposed pneumonia
� Discontinued Levaquin which was started at [facility]
� Continue 3% nebulizer therapy, flutter valve
� Sputum culture negative
- Unasyn course finished with last dose on 09/17
-CXR 09/19: Small bilateral pleural effusions with adjacent atelectasis and/or mild pneumonia
#Severe PAD
#S/p bilateral toe amputation
� CTA right upper extremity findings as below
� Right hand swelling/pain present with small wounds on fingertips
� Consulted vascular surgery, appreciated
- US of RUE report findings: Distal right cephalic vein, distal right basilic vein, and distal left basilic vein is not well seen. Otherwise patent upper and lower extremity veins
- After extensive discussion with patient and , patient wishes to stop further treatment for PAD along with hemodialysis. Patient will speak with and other family members before deciding at home hospice vs SNF hospice. For now, patient
agreeable to transition to comfort care medications.
#Permanent A-fib
#Sinus bradycardia
� Continue current home med amiodarone
�Continue Eliquis
- Metoprolol and Digoxin held due to bradycardia with 4.3 second pauses
- cardiology consulted, appreciated
- Amiodarone dose decreased as per cardio
#ESRD on hemodialysis
�Continue sevelamer
� Nephro consult, appreciated
� Patient receives his HD on MWF
- Patient will be stopping hemodialysis as comfort care medications initiated
#Recent C. difficile infection 1 month ago
� Recently finished vancomycin taper at [facility]
� Discontinue vanco as PNA abx course has finished
� continue Probiotic
#Hypothyroidism
� Continue levothyroxine
#Hyperlipidemia
� Continue statin
#Stage 1 sacral pressure injury, POA
#Stage 1 right heel pressure injury, POA
#Unstageable right second finger, left second finger, right fourth finger pressure injury, POA
- wound following
CT Upper Ext Angio on 09/19:
1. Patent right upper extremity brachiocephalic fistula without flow-limiting stenosis. 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
2. Advanced atherosclerotic changes of the radial and ulnar arteries with significant narrowing of both vessels as above.
3. Anasarca. Diffuse edematous changes of the mid to distal right arm and forearm as above. 2.9 cm in diameter fluid collection posterior to the elbow, no rim enhancement to suggest abscess formation.
4. Small right pleural effusion. Right lower lobe and right middle lobe bronchiolitis, infectious bronchiolitis is a consideration.
5. Fluid collection which is likely within the left inguinal canal, incompletely imaged.
DVT PPx: Eliquis
DNR
Anticipated Discharge: 24 - 48 hours
Subjective/Interval History
-
Date of Service: September 20, 2024
Patient was resting in bed. No new overnight symptoms
Objective Data
-
Labs:
Laboratory Results
09/20/24 09/20/24
05:49 05:50
WBC 10.2
Hgb 7.5 L
Hct 24.0 L
Plt Count 238
Sodium Pending
Potassium Pending
Chloride Pending
Carbon Dioxide Pending
BUN Pending
Creatinine Pending
Glucose Pending
Calcium Pending
Vital Signs:
Vital Signs
Temp Pulse Resp BP Pulse Ox
97.4 F 64 19 151/56 94
09/20/24 03:18 09/20/24 03:18 09/20/24 03:18 09/20/24 03:18 09/20/24 03:18
I&O
09/19/24 09/20/24 09/21/24
06:59 06:59 06:59
Intake Total 1390 / 1390 420 / 420
Output Total 0 / 0
Balance 1390 / 1390 420 / 420
Review of Systems
-
All other systems: Reviewed and negative
Physical Exam
-
General: Comfortable
HEENT: Negative Oxygen
Respiratory: Wheezes (very mild right wheeze)
Cardiac: Regular Rhythm and S1/S2
GI: Soft, Nontender and Nondistended
Musculoskeletal: Other (S/p bilateral toe amputations, dressed Right upper extremity: Erythematous, tender, arterial lesions on fingertips)
Neuro: Awake, Alert and Oriented
Psych: Calm
[2024-09-20 07:33] LABS: Blood Urea Nitrogen 37 mg/dl (9-20); Calcium 8.4 mg/dl (8.4-10.2); Carbon Dioxide 28 mmol/L (22-30); Chloride 95 mmol/L (98-107); Estimated Creatinine Clearance 15 ml/min; Glucose 106 mg/dl (70-99); Potassium 3.9 mmol/L (3.5-5.1); Sodium 129 mmol/L (135-145); eGFR 13.51
[2024-09-20 07:55] VITALS: BP 146/54
[2024-09-20] MEDS: MUCINEX 600 MG PO (08:43)
[2024-09-20] MEDS: RENVELA 800 MG PO (08:43)
[2024-09-20] MEDS: PROTONIX 40 MG PO (08:43)
[2024-09-20] MEDS: VISBIOME 1 CAP PO (08:43)
[2024-09-20] MEDS: PERSANTINE 50 MG PO (08:43)
[2024-09-20] MEDS: PACERONE 200 MG PO (08:43)
[2024-09-20] MEDS: DELTASONE 30 MG PO (08:44)
[2024-09-20] MEDS: ROXICODONE 5 MG PO (08:48)
--- NOTE | 2024-09-20 10:04 | PN.CDI ---
CDI
- -
CDI:
Physician Documentation Request
Admit Date: 09/16/24 13:23
Dear Doctor Rachel Mcgovern,
Patient admitted with pneumonia.
09/16 Nursing skin assessment, 'Stage 1 sacral pressure injury, POA.....Stage 1 right heel pressure injury, POA.....Unstageable right second finger pressure injury, POA.'
Physician documentation of the type and location of wounds is required for compliant documentation. Based on the above clinical findings and your assessment, please provide the following in your progress note:
Type (etiology) of ulcer/wound:
- Pressure (decubitus) ulcer
- Other
- Unable to determine
For a pressure ulcer, please also include the stage* of the ulcer:
- Stage 1 - Skin intact, non-blanchable redness
- Stage 2 - Partial thickness loss of dermis, includes intact or open blister
- Stage 3 - Full thickness tissue not including bone, tendon or muscle
- Stage 4 - Full thickness tissue loss, including exposed bone, tendon or muscle
- Unstageable - Full thickness loss in which the base of the ulcer is covered by slough (yellow, kumar, taylor, green or brown) and/or eschar (kumar, brown or black) in the wound bed.
- Unable to determine
Use of terms such as suspected, likely, concern for, or probable (associated with a specific diagnosis that is being evaluated, monitored, or treated as if it exists) are acceptable and can be coded in the inpatient setting, when documented at the
time of discharge.
Thank you,
Mary LENTZ,RN,CCDS
CDI Specialist
Available via tiger text
Please use your independent medical judgment in providing your response.
*Source: National Pressure Ulcer Advisory Panel (NPUAP)
--- NOTE | 2024-09-20 11:24 | W.PN.CARDCBS ---
Today's Communication / Plan
-
Heart rate stable on amiodarone 200 mg daily
Continue to hold Toprol and dig
Stable cardiology status for fistulogram
Family meeting to discuss possible hospice later today
Impression / Plan
-
PCP: Dr. Waleska Garcia
Card: Dr. Garcia
Impression:
Admitted with PNA 09/15/24
Bradycardia
Permanent Afib with slow VR
Pause, 4.3 seconds 09/18/24
Chronic amiodarone and digoxin therapy
Chronic Eliquis OAC
PNA
PAD
ESRD on HD
previously managed on PD, but transitioned to HD in the last year
RUE AVF possible steal phenomenon
PAD s/p right TMA and left 1-3 toe amputations
Anemia
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
Hyponatremia
Zio monitor 04/09/23: [facility] study, sinus bradycardia, average HR 47 bpm
Echo 03/17/23: [facility] study, normal LVEF, mild to mod LVH, normal RV size and function, mild MR, mild TR with mild PHTN
Plan:
Stable from cardiovascular standpoint for fistulogram
Continues with bradycardia but is stable
We will continue to hold Toprol and digoxin and observe on lower dose of amiodarone 200 mg daily
If further pauses may consider stopping amiodarone.
Outpatient dose of Eliquis 2.5 mg BID based on age and renal insufficiency
Discussed with family practice residency and family meeting is being scheduled later today to discuss hospice
Discussed with vascular surgery
PREADMIT DATA
-Patient came to the ER 09/15/24 with cough and was admitted with PNA and cardiology is now consulted for slow Afib and pauses. Patient was living at home until earlier this month when he was admitted with PAD and was sent to rehab where he has HD 3x
a week. Patient lives in [place] and follows with Dr. Garcia for cardiology. Patient has known permanent Afib and was chronically on amiodarone 100 mg daily as of discharge from [facility] on 08/04/24, but when he was readmitted 08/29/24 he was on
amiodarone 200 mg BID plus digoxin 125 mcg MWF and patient is not sure when these changes happened. Patient worse a monitor for Dr. Garcia 2 years ago and he was in SR and had an average HR of 47 at that time. Patient now in permanent Afib and
pauses of to 4.3 seconds. Denies feeling lightheaded or dizzy.
Progress Note - Chief Writer
Subjective
Date of Service: September 20, 2024
No chest pain or shortness of breath
Objective
Labs:
09/20/24 05:49
09/20/24 05:50
Labs
Hgb 7.5 g/dL (13.0-18.0) L 09/20/24 05:49
Hct 24.0 % (39.0-52.0) L 09/20/24 05:49
Plt Count 238 10^3/uL (130-400) 09/20/24 05:49
Sodium 129 mmol/L (135-145) L 09/20/24 05:50
Potassium 3.9 mmol/L (3.5-5.1) 09/20/24 05:50
BUN 37 mg/dl (9-20) H 09/20/24 05:50
Creatinine 4.2 mg/dL (0.7-1.3) H* 09/20/24 05:50
Glucose 106 mg/dl (70-99) H 09/20/24 05:50
Digoxin 2.0 ng/ml (0.8-2.0) 09/19/24 06:46
Vital Signs and I&O:
Vital Signs
Temp Pulse Resp BP Pulse Ox
98.3 F 67 18 146/54 93
09/20/24 07:55 09/20/24 08:43 09/20/24 07:55 09/20/24 08:43 09/20/24 07:55
Vital Signs
Temp Pulse Resp BP Pulse Ox
98.3 F 67 18 146/54 93
09/20/24 07:55 09/20/24 08:43 09/20/24 07:55 09/20/24 08:43 09/20/24 07:55
Intake & Output
09/18/24 09/19/24 09/20/24 09/21/24
06:59 06:59 06:59 06:59
Intake Total 840 / 840 1390 / 1390 420 / 420
Output Total 0 / 0
Balance 840 / 840 1390 / 1390 420 / 420
Physical Exam
Physical Exam
General: Well developed, well nourished in NAD.
Neck: Supple, no JVD, HJR, carotids +2 B/L, no bruits bilaterally.
Heart: Non displaced PMI, irregular, no murmurs, No S3, S4, no rubs.
Lungs: Scattered rhonchi
Extremities: No clubbing, cyanosis or edema bilaterally.
Neuro: Grossly nonfocal, awake, alert and oriented x3.
[2024-09-20 11:40] VITALS: BP 149/58
[2024-09-20] MEDS: RENVELA PO (11:49)
[2024-09-20] MEDS: ROXICODONE 10 MG PO ×3 (12:32→21:42)
--- NOTE | 2024-09-20 14:40 | HOSPNOTE ---
Discussed hospice and the philosophy and the patient is in agreement with hospice and wanted to go home with hospice however the spouse would like to seek placement in a SNF with hospice. Referrals will be sent and for now patient will be on
comfort. We will continue to follow.
--- NOTE | 2024-09-20 15:17 | CM ---
Addendum entered by Radha Owens 09/20/24 15:33:
referrals sent awaiting response
Original Note:
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 Patient wants home hospice, uncertain if she can handle and requested referrals to SNF options [facility]. CM will send
referrals patient for transition to comfort care as he stated he did not want HD at this time. Patient to discuss with daughter concerns and options of home hospice. CM will Continue to follow for discharge planning needs.
Plan; home hospice with [facility] vs SNF with Hospice
[2024-09-20 15:20] VITALS: BP 134/51
--- NOTE | 2024-09-20 15:29 | W.PN.NEPH.PH ---
Today's Communication / Plan
-
hospice
Assessment/Plan
-
Assessment:
Bilateral toe amputations
Right upper extremity access hand pain (likely due to vascular steal)
ESRD (MWF)
Hypertension
Peripheral arterial disease-multiple interventions in the past
hyperphosphatemia
Afib
Anemia
Plan:
Pt decided go with comfort care and no dialysis
Hemodynamically stable on current metoprolol
no further interventions
will s/o
-
-
Date of Service: September 20, 2024
CC / HPI / ROS
-
Chief Complaint:
ESRD
History of Present Illness:
ESRD MWF
Remains on Unasyn for pneumonia
Hemodynamically stable on metoprolol
Review of Systems:
No current chest pain or shortness of breath
No fevers
Continues to have bilateral ischemic hand pain
Right upper extremity AV fistula
Labs
-
Labs:
WBC 10.2 10^3/uL (4.8-10.8) 09/20/24 05:49
RBC 2.55 10^6/uL (4.70-6.10) L 09/20/24 05:49
Hgb 7.5 g/dL (13.0-18.0) L 09/20/24 05:49
Hct 24.0 % (39.0-52.0) L 09/20/24 05:49
Plt Count 238 10^3/uL (130-400) 09/20/24 05:49
Sodium 129 mmol/L (135-145) L 09/20/24 05:50
Potassium 3.9 mmol/L (3.5-5.1) 09/20/24 05:50
Chloride 95 mmol/L (98-107) L 09/20/24 05:50
Carbon Dioxide 28 mmol/L (22-30) 09/20/24 05:50
BUN 37 mg/dl (9-20) H 09/20/24 05:50
Creatinine 4.2 mg/dL (0.7-1.3) H* 09/20/24 05:50
eGFR 13.51 09/20/24 05:50
Glucose 106 mg/dl (70-99) H 09/20/24 05:50
Calcium 8.4 mg/dl (8.4-10.2) 09/20/24 05:50
Aeb-L-Nwjjvxfpxti Pept > 92370 pg/ml 09/15/24 14:04
Albumin 2.6 g/dl (3.5-5.0) L 09/15/24 11:56
Physical Exam
-
Vital Signs:
Vital Signs
Temp Pulse Resp BP Pulse Ox
98.5 F 66 18 149/58 99
09/20/24 11:40 09/20/24 11:40 09/20/24 11:40 09/20/24 11:40 09/20/24 11:40
Lung Excursion:: Normal
Extremity Edema:: +1: Bilateral:
Pascual Catheter: No
Other Findings::
RUE avf
Ischemic lesions on fingertips bilaterally
alert and oriented, clear speech
no rash
[2024-09-20 23:44] VITALS: BP 136/57
--- NOTE | 2024-09-21 07:22 | W.PN.HOSP.TC ---
Addendum entered and electronically signed by Olivia Romano MD 09/21/24 15:14:
I saw and evaluated the patient independently. I reviewed the resident�s note and agree with findings and plan as documented by Dr. Mcgovern.
GENERAL: well developed, chronically ill appearing male in no apparent distress
HEENT: NC/AT
HEART: irreg irreg
LUNGS : clear to auscultation bilaterally
ABDOM: soft, nontender, nondistended, + bowel sounds
EXT: no cyanosis, clubbing--right arm with edema--fingers on both hands with ulcers
NEUROLOGIC: grossly intact
Peripheral artery disease/ESRD on hemodialysis/Hyponatremia--apprec renal/vascular--had long conversation with , patient, case management, hospice nurse, second-year resident 09/21/24 regarding: Goals of care and hospice discussion--patient
clearly states that he wants hospice, he wants to go home on hospice, he wants to stop dialysis and does not want any further lab testing or procedures--based on this conversation, he was made comfort measures until location at discharge is
determined--appears that patient will NOT be going home but rather to a SNF--await acceptance
Presumed community-acquired pneumonia with Possible COPD flare up--stopping all treatments, ABX
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
Recent C. difficile colitis- stopping empiric vancomycin
Permanent A-fib/Sinus bradycardia--stopping all meds
Hemorrhoidal bleed--Multifactorial anemia of blood loss and ESRD related--did not receive pRBC transfusion and will not order any
stage 1 sacral pressure injury, stage 1 right heel pressure injury, unstageable right 2nd finger pressure injury---all POA
DVT Proph- Eliquis
code status--DNR
Original Note:
Today's Communication/Plan
-
referrals sent for SNF hospice
Assessment / Plan
Assessment / Plan
IMPRESSION:This is a 83-year-old male patient with PMH of atrial fibrillation on Eliquis, ESRD on HD, severe PAD with s/p bilateral toe amputations and recent C. difficile infection over a month ago who presented to the ER with concerns of
productive coughing and right hand swelling.
PLAN:
#CAP
� CXR 09/15 showed mild to moderate CHF, possible superimposed pneumonia
� Discontinued Lev[facility]
� Continue 3% nebulizer therapy, flutter valve
� Sputum culture negative
- Unasyn course finished with last dose on 09/17
-CXR 09/19: Small bilateral pleural effusions with adjacent atelectasis and/or mild pneumonia
#Severe PAD
#S/p bilateral toe amputation
� CTA right upper extremity findings as below
� Right hand swelling/pain present with small wounds on fingertips
� Consulted vascular surgery, appreciated
- US of RUE report findings: Distal right cephalic vein, distal right basilic vein, and distal left basilic vein is not well seen. Otherwise patent upper and lower extremity veins
- 09/20: After extensive discussion with patient and , patient wishes to stop further treatment for PAD along with hemodialysis. Patient will speak with and other family members before deciding at home hospice vs SNF hospice. For now,
patient agreeable to transition to comfort care medications
-Continue comfort care measures.
- Patient and family after discussion have decided on SNF hopsice; referrals sent
#Permanent A-fib
#Sinus bradycardia
� Continue current home med amiodarone
- cardiology consulted, appreciated
- Meds discontinued as comfort care
#ESRD on hemodialysis
�Continue sevelamer
� Nephro consult, appreciated
� Patient receives his HD on MWF
- No hemodialysis as patient is comfort care
#Recent C. difficile infection 1 month ago
� Recently finished vancomycin taper at SNF
� Discontinue vanco as PNA abx course has finished
#Hypothyroidism
#Hyperlipidemia
- Meds discontinued as comfort care
#Stage 1 sacral pressure injury, POA
#Stage 1 right heel pressure injury, POA
#Unstageable right second finger, left second finger, right fourth finger pressure injury, POA
- wound following
CT Upper Ext Angio on 09/19:
1. Patent right upper extremity brachiocephalic fistula without flow-limiting stenosis. 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
2. Advanced atherosclerotic changes of the radial and ulnar arteries with significant narrowing of both vessels as above.
3. Anasarca. Diffuse edematous changes of the mid to distal right arm and forearm as above. 2.9 cm in diameter fluid collection posterior to the elbow, no rim enhancement to suggest abscess formation.
4. Small right pleural effusion. Right lower lobe and right middle lobe bronchiolitis, infectious bronchiolitis is a consideration.
5. Fluid collection which is likely within the left inguinal canal, incompletely imaged.
DVT PPx: Eliquis
DNR
Anticipated Discharge: 24 - 48 hours
Subjective/Interval History
-
Date of Service: September 21, 2024
Patient was resting comfortably in bed, had no acute concerns
Objective Data
-
Vital Signs:
Vital Signs
Temp Pulse Resp BP Pulse Ox
98.1 F 60 19 136/57 95
09/20/24 23:44 09/20/24 23:44 09/20/24 23:44 09/20/24 23:44 09/20/24 23:44
I&O
09/20/24 09/21/24 09/22/24
06:59 06:59 06:59
Intake Total 420 / 420 1100 / 1100
Output Total 0 / 0
Balance 420 / 420 1100 / 1100
Review of Systems
-
All other systems: Reviewed and negative
Physical Exam
-
General: Comfortable
HEENT: Negative Oxygen
Respiratory: Clear to Auscultation
Cardiac: Regular Rhythm and S1/S2
GI: Soft, Nontender and Nondistended
Musculoskeletal: Other (S/p bilateral toe amputations, dressed Right upper extremity: Erythematous, tender, arterial lesions on fingertips)
Neuro: Awake, Alert and Oriented
Psych: Calm
[2024-09-21 07:40] VITALS: BP 150/58
--- NOTE | 2024-09-21 15:35 | CM ---
Addendum entered by Radha Owens 09/21/24 16:05:
[facility] called and requested referral, faxed clinical information and will send hospice consult documentation.
Original Note:
Patient and seen at bedside on [address]. Patient updated regarding referrals and VM's left at SNF options patient requested. had sent referrals yesterday. CM received call from [facility]. CM sent clinicals via fax
[phone] and called Marleny at [phone].
[2024-09-21 15:40] VITALS: BP 122/57
[2024-09-21] MEDS: ROXICODONE 10 MG PO ×2 (16:02→20:27)
[2024-09-21] MEDS: ATIVAN 0.5 MG PO (16:02)
[2024-09-21 19:11] VITALS: BP 116/50
[2024-09-22] MEDS: ROXICODONE 10 MG PO ×3 (05:02→17:49)
[2024-09-22 07:45] VITALS: BP 150/50
--- NOTE | 2024-09-22 08:02 | W.PN.HOSP.TC ---
Addendum entered and electronically signed by Olivia Romano MD 09/22/24 12:47:
I saw and evaluated the patient independently. I reviewed the resident�s note and agree with findings and plan as documented by Dr. Mcgovern.
GENERAL: well developed, chronically ill appearing male in no apparent distress
HEENT: NC/AT
HEART: irreg irreg
LUNGS : clear to auscultation bilaterally
ABDOM: soft, nontender, nondistended, + bowel sounds
EXT: no cyanosis, clubbing--right arm with edema--fingers on both hands with ulcers
NEUROLOGIC: grossly intact
Peripheral artery disease/ESRD on hemodialysis/Hyponatremia--apprec renal/vascular--had long conversation with , patient, case management, hospice nurse, second-year resident 09/21/24 regarding: Goals of care and hospice discussion--patient
clearly states that he wants hospice, he wants to go home on hospice, he wants to stop dialysis and does not want any further lab testing or procedures--based on this conversation, he was made comfort measures until location at discharge is
determined--appears that patient will NOT be going home but rather to a SNF on hospice with [facility]--await acceptance
Presumed community-acquired pneumonia with Possible COPD flare up--stopping all treatments, ABX
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
Recent C. difficile colitis- stopping empiric vancomycin
Permanent A-fib/Sinus bradycardia--stopping all meds
Hemorrhoidal bleed--Multifactorial anemia of blood loss and ESRD related--did not receive pRBC transfusion and will not order any
stage 1 sacral pressure injury, stage 1 right heel pressure injury, unstageable right 2nd finger pressure injury---all POA
DVT Proph- Eliquis
code status--DNR
Original Note:
Today's Communication/Plan
-
referrals pending for hospice at SNF
Assessment / Plan
Assessment / Plan
IMPRESSION:This is a 83-year-old male patient with PMH of atrial fibrillation on Eliquis, ESRD on HD, severe PAD with s/p bilateral toe amputations and recent C. difficile infection over a month ago who presented to the ER with concerns of
productive coughing and right hand swelling.
PLAN:
#CAP
� CXR 09/15 showed mild to moderate CHF, possible superimposed pneumonia
� Discontinued Levaquin which was started at [facility]
� Continue 3% nebulizer therapy, flutter valve
� Sputum culture negative
- Unasyn course finished with last dose on 09/17
-CXR 09/19: Small bilateral pleural effusions with adjacent atelectasis and/or mild pneumonia
#Severe PAD
#S/p bilateral toe amputation
� CTA right upper extremity findings as below
� Right hand swelling/pain present with small wounds on fingertips
� Consulted vascular surgery, appreciated
- US of RUE report findings: Distal right cephalic vein, distal right basilic vein, and distal left basilic vein is not well seen. Otherwise patent upper and lower extremity veins
- 09/20: After extensive discussion with patient and , patient wishes to stop further treatment for PAD along with hemodialysis. Patient will speak with and other family members before deciding at home hospice vs SNF hospice. For now,
patient agreeable to transition to comfort care medications
-Continue comfort care measures.
- Patient and family after discussion have decided on hospice at a facility; referrals sent and pending
#Permanent A-fib
#Sinus bradycardia
� Continue current home med amiodarone
- cardiology consulted, appreciated
- Meds discontinued as comfort care
#ESRD on hemodialysis
�Continue sevelamer
� Nephro consult, appreciated
� Patient receives his HD on MWF
- No hemodialysis as patient is comfort care
#Recent C. difficile infection 1 month ago
� Recently finished vancomycin taper at SNF
� Discontinue vanco as PNA abx course has finished
#Hypothyroidism
#Hyperlipidemia
- Meds discontinued as comfort care
#Stage 1 sacral pressure injury, POA
#Stage 1 right heel pressure injury, POA
#Unstageable right second finger, left second finger, right fourth finger pressure injury, POA
- wound following
CT Upper Ext Angio on 09/19:
1. Patent right upper extremity brachiocephalic fistula without flow-limiting stenosis. 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
2. Advanced atherosclerotic changes of the radial and ulnar arteries with significant narrowing of both vessels as above.
3. Anasarca. Diffuse edematous changes of the mid to distal right arm and forearm as above. 2.9 cm in diameter fluid collection posterior to the elbow, no rim enhancement to suggest abscess formation.
4. Small right pleural effusion. Right lower lobe and right middle lobe bronchiolitis, infectious bronchiolitis is a consideration.
5. Fluid collection which is likely within the left inguinal canal, incompletely imaged.
DVT PPx: Eliquis
DNR
Anticipated Discharge: 24 - 48 hours
Subjective/Interval History
-
Date of Service: September 22, 2024
Patient is resting comfortably in bed.
Objective Data
-
Vital Signs:
Vital Signs
Temp Pulse Resp BP Pulse Ox
98.1 F 61 16 150/50 98
09/22/24 07:45 09/22/24 07:45 09/22/24 07:45 09/22/24 07:45 09/22/24 07:45
I&O
09/21/24 09/22/24 09/23/24
06:59 06:59 06:59
Intake Total 1100 / 1100 1170 / 1170
Output Total 0 / 0
Balance 1100 / 1100 1170 / 1170
Review of Systems
-
All other systems: Reviewed and negative
Physical Exam
-
General: Comfortable
HEENT: Negative Oxygen
Cardiac: Regular Rhythm and S1/S2
Musculoskeletal: Other (S/p bilateral toe amputations, dressed Right upper extremity: Erythematous, tender, arterial lesions on fingertips)
Neuro: Awake, Alert and Oriented
Psych: Calm
[2024-09-22] MEDS: ATIVAN 0.5 MG PO (11:02)
--- NOTE | 2024-09-22 14:30 | CM ---
Addendum entered by Radha Owens 09/22/24 16:21:
[facility] accepted patient and family calling to Liaison to review cost/payment. [facility] unable to accept until thursday and CM reviewed with patient family. they would like [facility] if facility will do one time contract. Awaiting confirmation of
plan from [facility]. Patient IMM completed and signed form on chart. Out of hospital DNR, ambulance forms on chart. CM will continue to follow for discharge planning needs.
Plan; [facility] with hospice, [facility] vs [facility].
Addendum entered by Radha Owens 09/22/24 14:45:
CM spoke with [facility] customer service representative teller and they have beds; CM awaiting facility review of options. Patient made available and they would like [facility] referral if accepted. CM will continue to follow for discharge planning needs.
Plan;SNF pending acceptance.
Original Note:
Patient, and daughter seen at bedside with [facility] customer service representative teller. Per M[place]ny at [facility] they are not able to accept. Daughter and were not yet aware and CM requested they call [facility] to review. Patient daughter and agreed to allow CM
to make referrals to [facility] and [facility]. CM sent referrals and left VM for all patients. CM will continue to follow for discharge planning needs.
Plan; SNF for Hospice
[2024-09-22] MEDS: MORPHINE SULFATE 1 MG IV (16:37)
[2024-09-22 19:59] VITALS: BP 149/54
[2024-09-23] MEDS: ROXICODONE 10 MG PO ×3 (01:24→15:54)
[2024-09-23 07:00] VITALS: BP 135/51
--- NOTE | 2024-09-23 07:22 | W.PN.HOSP.TC ---
Addendum entered and electronically signed by Olivia Romano MD 09/23/24 11:52:
I saw and evaluated the patient independently. I reviewed the resident�s note and agree with findings and plan as documented by Dr. Mcgovern.
GENERAL: well developed, chronically ill appearing male in no apparent distress
HEENT: NC/AT
HEART: irreg irreg
LUNGS : clear to auscultation bilaterally
ABDOM: soft, nontender, nondistended, + bowel sounds
EXT: no cyanosis, clubbing--right arm with edema--fingers on both hands with ulcers
NEUROLOGIC: grossly intact
Peripheral artery disease/ESRD on hemodialysis/Hyponatremia--apprec renal/vascular--had long conversation with , patient, case management, hospice nurse, second-year resident 09/21/24 regarding: Goals of care and hospice discussion--patient
clearly states that he wants hospice, he wants to go home on hospice, he wants to stop dialysis and does not want any further lab testing or procedures--based on this conversation, he was made comfort measures until location at discharge is
determined--appears that patient will NOT be going home but rather to a SNF on hospice
Presumed community-acquired pneumonia with Possible COPD flare up--stopping all treatments, ABX
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
Recent C. difficile colitis- stopping empiric vancomycin
Permanent A-fib/Sinus bradycardia--stopping all meds
Hemorrhoidal bleed--Multifactorial anemia of blood loss and ESRD related--did not receive pRBC transfusion and will not order any
stage 1 sacral pressure injury, stage 1 right heel pressure injury, unstageable right 2nd finger pressure injury---all POA
DVT Proph- Eliquis
code status--DNR
Original Note:
Today's Communication/Plan
-
SNF hospice placement today
Assessment / Plan
Assessment / Plan
IMPRESSION:This is a 83-year-old male patient with PMH of atrial fibrillation on Eliquis, ESRD on HD, severe PAD with s/p bilateral toe amputations and recent C. difficile infection over a month ago who presented to the ER with concerns of
productive coughing and right hand swelling.
PLAN:
#CAP
� CXR 09/15 showed mild to moderate CHF, possible superimposed pneumonia
� Discontinued Levaquin which was started at [facility]
� Continue 3% nebulizer therapy, flutter valve
� Sputum culture negative
- Unasyn course finished with last dose on 09/17
-CXR 09/19: Small bilateral pleural effusions with adjacent atelectasis and/or mild pneumonia
#Severe PAD
#S/p bilateral toe amputation
� CTA right upper extremity findings as below
� Right hand swelling/pain present with small wounds on fingertips
� Consulted vascular surgery, appreciated
- US of RUE report findings: Distal right cephalic vein, distal right basilic vein, and distal left basilic vein is not well seen. Otherwise patent upper and lower extremity veins
- 09/20: After extensive discussion with patient and , patient wishes to stop further treatment for PAD along with hemodialysis. Patient will speak with and other family members before deciding at home hospice vs SNF hospice. For now,
patient agreeable to transition to comfort care medications
-Continue comfort care measures.
- Patient and family after discussion have decided on hospice at a facility; referrals sent
- Dispo to SNF hospice for today
#Permanent A-fib
#Sinus bradycardia
� Continue current home med amiodarone
- cardiology consulted, appreciated
- Meds discontinued as comfort care
#ESRD on hemodialysis
�Continue sevelamer
� Nephro consult, appreciated
� Patient receives his HD on MWF
- No hemodialysis as patient is comfort care
#Recent C. difficile infection 1 month ago
� Recently finished vancomycin taper at SNF
� Discontinue vanco as PNA abx course has finished
#Hypothyroidism
#Hyperlipidemia
- Meds discontinued as comfort care
#Stage 1 sacral pressure injury, POA
#Stage 1 right heel pressure injury, POA
#Unstageable right second finger, left second finger, right fourth finger pressure injury, POA
- wound following
CT Upper Ext Angio on 09/19:
1. Patent right upper extremity brachiocephalic fistula without flow-limiting stenosis. 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
2. Advanced atherosclerotic changes of the radial and ulnar arteries with significant narrowing of both vessels as above.
3. Anasarca. Diffuse edematous changes of the mid to distal right arm and forearm as above. 2.9 cm in diameter fluid collection posterior to the elbow, no rim enhancement to suggest abscess formation.
4. Small right pleural effusion. Right lower lobe and right middle lobe bronchiolitis, infectious bronchiolitis is a consideration.
5. Fluid collection which is likely within the left inguinal canal, incompletely imaged.
DVT PPx: Eliquis
DNR
Anticipated Discharge: Within 24 hours
Subjective/Interval History
-
Date of Service: September 23, 2024
Patient was resting comfortably in bed.
Objective Data
-
Vital Signs:
Vital Signs
Temp Pulse Resp BP Pulse Ox
97.4 F 57 18 149/54 99
09/22/24 19:59 09/22/24 19:59 09/22/24 19:59 09/22/24 19:59 09/22/24 19:59
I&O
09/22/24 09/23/24 09/24/24
06:59 06:59 06:59
Intake Total 1170 / 1170 780 / 780
Output Total 0 / 0
Balance 1170 / 1170 780 / 780
Review of Systems
-
All other systems: Reviewed and negative
Physical Exam
-
General: Comfortable
HEENT: Negative Oxygen
Cardiac: Regular Rhythm and S1/S2
Musculoskeletal: Other (S/p bilateral toe amputations, dressed Right upper extremity: Erythematous, tender, arterial lesions on fingertips)
Neuro: Awake, Alert and Oriented
Psych: Calm
[2024-09-23] MEDS: MORPHINE SULFATE 1 MG IV ×2 (11:01→14:18)
[2024-09-23] MEDS: ATIVAN 0.5 MG PO (11:01)
--- NOTE | 2024-09-23 11:37 | W.DCSUMMARY ---
Addendum entered and electronically signed by Olivia Romano MD 09/23/24 11:54:
Read, reviewed, and agree. See same day progress note for additional details. Time spent coordinating care, DC planning, review of DC plan of care with resident, transition of care, review of records in EMR, med rec, consults, notes, d/w
consultants, nursing, family, and CM = 32 minutes
Original Note:
Discharge Summary
Discharge Data
Date of Admission: 09/16/24
Date of Discharge: 09/23/24
-
Pending Results: No
Hospital Course
Discharging Physician : Dr. Romano, Dr. Mcgovern
Disposition : SNF Hospice
Primary care physician : Dr. Waleska Garcia
Principal Discharge diagnosis : Severe PAD, ESRD, CAP
Chronic Discharge diagnosis : Permanent A-fib, hypothyroidism, HLD,
Hospital Course : This is a 83-year-old male patient with PMH of atrial fibrillation on Eliquis, ESRD on HD, severe PAD with s/p bilateral toe amputations and recent C. difficile infection over a month ago who presented to the ER with concerns of
productive coughing and right hand swelling.
Problem #1 PNA: Upon arrival to the ED, CXR was done which showed possible superimposed pneumonia and patient had mild wheezing on physical exam. He was started on IV antibiotics along with nebulizer therapy and steroids. As patient was already on
antibiotics [facility] [employer] and SNF, he he was discontinued on Unasyn after finishing a course of 7 days total of antibiotics.
Problem #2 Severe PAD: Vascular surgery was consulted for right hand swelling and pain with arterial ulcers on fingertips. Based on imaging and physical exam, right hand symptoms were likely due to steal syndrome as patient is on hemodialysis.
Plan was initially to do fistulogram and possible future procedures but patient wished to transfer to hospice care after family discussions and further evaluation was not appropriate.
Problem #3 Permanent A-fib/sinus bradycardia: Patient's home medication regimen is metoprolol, digoxin and amiodarone. Due to sinus bradycardia cardiology was consulted and metoprolol and digoxin were held. Digoxin dose was also lowered as per
cardiology. Patient then wished to transfer to hospice care after family discussions and further evaluation was not appropriate.
Problem #4 ESRD on hemodialysis: Nephrology was consulted and patient had received hemodialysis on his usual schedule of Thursday, Thursday and Fridays. Patient then wished to transfer to hospice care after family discussions and further evaluation
was not appropriate.
Patient was appropriately discharged to SNF hospice.
Important imaging findings :
CTA upper extremity 09/15:1. Patent right upper extremity brachiocephalic fistula without flow-limiting stenosis. 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
2. Advanced atherosclerotic changes of the radial and ulnar arteries with significant narrowing of both vessels as above.
3. Anasarca. Diffuse edematous changes of the mid to distal right arm and forearm as above. 2.9 cm in diameter fluid collection posterior to the elbow, no rim enhancement to suggest abscess formation.
4. Small right pleural effusion. Right lower lobe and right middle lobe bronchiolitis, infectious bronchiolitis is a consideration.
5. Fluid collection which is likely within the left inguinal canal, incompletely imaged.
CXR 09/15:
Mild to moderate CHF. Cannot rule out superimposed bibasilar pneumonia.
Discharge Plan
-
Patient Disposition: [facility]/SNF
Discharge Diagnosis/Procedures: Hospice-[facility] facility
Peripheral artery disease/ESRD on hemodialysis/Hyponatremia
Permanent A-fib/Sinus bradycardia
Condition: Fair
Diet: As tolerated
Activity: As tolerated
Other Services: Hospice
Referrals:
Waleska Garcia MD [Family Provider] -
Prescriptions:
Discontinued
atorvastatin 20 mg Tablet
20 mg PO HS
dipyridamole 50 mg Tablet
50 mg PO BID
metoprolol succinate 25 mg Tablet Extended Release 24 Hr
12.5 mg PO BID
cholecalciferol (vitamin D3) [Vitamin D3] 25 mcg (1,000 unit) Tablet
25 mcg PO QPM
sevelamer carbonate [Renvela] 800 mg Tablet
800 mg PO AC
omeprazole 20 mg Tablet,Delayed Release (Dr/Ec)
20 mg PO DAILY
coQ10 (ubiquinol) 100 mg Capsule
100 mg PO DAILY
docusate sodium 50 mg Capsule
100 mg PO BIDPRN PRN (Reason: constipation)
B-complex with vitamin C Tablet
1 tab PO QPM
acetaminophen [Tylenol Extra Strength] 500 mg Tablet
1,000 mg PO Q6HPRN PRN (Reason: MILD pain)
Eliquis 2.5 mg Tablet
2.5 mg PO BID
amiodarone 200 mg Tablet
200 mg PO BID
midodrine 5 mg Tablet
5 mg PO MOWEFR
levothyroxine 25 mcg Tablet
25 mcg PO DAILY
digoxin 125 mcg (0.125 mg) Tablet
125 mcg PO MOWEFR
vancomycin 125 mg capsule
125 mg PO Q48H
acetaminophen [Tylenol] 325 mg Tablet
650 mg PO Q6HPRN PRN (Reason: MILD PAIN)
bisacodyl [Dulcolax (bisacodyl)] 10 mg Suppository
10 mg IA DAILYPRN PRN (Reason: IF NO BM AFTR MOM)
levofloxacin 500 mg Tablet
500 mg PO DAILY
Rx Instructions:
FOR 7 DAYS STARTING 09/11/24
guaifenesin [Mucinex] 600 mg Tablet Extended Release 12hr
600 mg PO BID
oxycodone 5 mg tablet
5 mg PO Q6HPRN PRN (Reason: SEVERE Pain)
Discharge Orders:
Discharge Patient (As Directed); Ordered 09/23/24
Ordered By: Carmen Mcgovern
Discharge Date and Time
Print Language: [place]
--- NOTE | 2024-09-23 11:47 | CM ---
Per chart, plan is for patient to admit to [facility] and sign onto hospice. [facility] unable to sign on until Thursday.
Spoke w/ Jen[facility] admissions, confirmed patient can admit today. Per Lizette, daughter did not have a preference and gave blessing for them to locate a provider who can sign on immediately. [facility] is able to sign on today at 3
pm, requesting transport time between 1-2 pm.
Updated physician resident
Ambulance transport, forms on chart for [facility] to arrange
[facility]

[facility]
Report: [phone]

Plan: D/c to [facility] today. [facility] will sign on at 3 pm
[2024-09-23 14:26] VITALS: BP 122/64
== END 2024-09-23 16:20 | DRG 193 ==
LOC: 2 NORTH 13:23
PROVIDERS: Internal Medicine; Nurse Practitioner Family; Nurse Practitioner Gerontology; Physician Assistant; Student in an Organized Health Care Education/Training Program; ADMITTING PHYSICIAN Hospitalist; ATTENDING PHYSICIAN Internal Medicine; EMERGENCY PHYSICIAN Emergency Medicine; FAMILY PHYSICIAN Family Medicine; OTHER PHYSICIAN Internal Medicine Cardiovascular Disease; OTHER PHYSICIAN Specialist; OTHER PHYSICIAN Surgery Vascular Surgery
PROC: 5A09357 Assistance with Respiratory Ventilation, Less than 24 Consecutive Hours, Continuous Positive Airway Pressure (ICD-10-PCS; 2024-09-16)
PROC: 5A1D70Z Performance of Urinary Filtration, Intermittent, Less than 6 Hours Per Day (ICD-10-PCS; 2024-09-16)
DX: J18.9 Pneumonia, unspecified organism (principal); N18.6 End stage renal disease; I13.2 Hypertensive heart and chronic kidney disease with heart failure and with stage 5 chronic kidney disease, or end stage renal disease; I48.21 Permanent atrial fibrillation; E87.1 Hypo-osmolality and hyponatremia; J44.1 Chronic obstructive pulmonary disease with (acute) exacerbation; J44.0 Chronic obstructive pulmonary disease with (acute) lower respiratory infection; I73.9 Peripheral vascular disease, unspecified; I50.9 Heart failure, unspecified; Z99.2 Dependence on renal dialysis; E03.9 Hypothyroidism, unspecified; E78.00 Pure hypercholesterolemia, unspecified; Z11.52 Encounter for screening for COVID-19; Z79.01 Long term (current) use of anticoagulants; Z87.891 Personal history of nicotine dependence; Z79.890 Hormone replacement therapy; Z66 Do not resuscitate; D63.1 Anemia in chronic kidney disease; E21.3 Hyperparathyroidism, unspecified; I25.10 Atherosclerotic heart disease of native coronary artery without angina pectoris; Z79.899 Other long term (current) drug therapy; Z98.62 Peripheral vascular angioplasty status; L89.151 Pressure ulcer of sacral region, stage 1; L89.611 Pressure ulcer of right heel, stage 1; L89.896 Pressure-induced deep tissue damage of other site
CPT/HCPCS: 71046; 73206; 80048; 80053; 80162; 83735; 83880; 85014; 85018; 85025; 87070; 87205; 87502; 87811; 93005; 93922; 93926; 93970; 93971; 93990; 94640; 94660; 97110; 97162; 97167; 97530; 99285; G0257; P9047; Q5106; Q9967